=== PATIENT | male | born 1975 | race Caucasian/White ===

== ENCOUNTER 2022-08-26 09:00 | Outpatient (CLI) | payer OTHER, SELFPAY ==
--- OUTSIDE RECORDS SUMMARY | 2022-08-26 18:27 | XMS_ITS | Continuity of Care Document ---
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 Please contact the source practice for further details. Medications Medication Instructions Dosage Effective Dates (start - stop) Status Comments Cimzia 400 mg/2 mL (200 mg/mL x 2) subcutaneous syringe kit inject 1 pen (200mg/mL) by Subcutaneous route every 2 weeks - Active 1 kit = 2 pens K50.80 atorvastatin 20 mg tablet take 1 tablet by oral route every day 20 MG - Active methotrexate sodium 2.5 mg tablet take 8 Tablet by ORAL route every week 20 MG - Active Needs labs and office visit for further refills folic acid 1 mg tablet take 1 tablet by ORAL route every day 1 MG - Active Ozempic 0.25 mg or 0.5 mg (2 mg/1.5 mL) subcutaneous pen injector inject (0.5MG) by subcutaneous route every week - Active metformin 500 mg tablet take 4 tablet by oral route every day 2000 MG - Active lisinopril 5 mg tablet take 1 tablet by oral route every day 5 MG - Active metoprolol tartrate 50 mg tablet take 1 by Oral route 2 times every day 1 - Active Tylenol 325 mg tablet take 2 tablets (650MG) by ORAL route every as needed 650 MG - Active Keflex 750 mg capsule take 1 capsule by oral route 4 times every day 750 MG - Active Cimzia 400 mg/2 mL (200 mg/mL x 2) subcutaneous syringe kit inject 1 pen (200mg/mL) by Subcutaneous route every 2 weeks - No Longer Active 1 kit = 2 pens K50.80 Procedures Procedure Date Routine Serum Collection Routine Serum Collection Routine Serum Collection Routine Serum Collection Routine Serum Collection Colonoscopy Flex; W/bx 1/mx Level Iv-surg Path Gross/micro 22 Established Level 3 Routine Serum Collection Routine Serum Collection Routine Serum Collection Routine Serum Collection Colonoscopy Flex; Dx (sep Pro) Routine Serum Collection Urea Nitro; Phill Creatinine; Bld Hepatic Function Panel Bld Ct; Hg/pltlt Ct Auto/compl 21 Established Level 3 Routine Serum Collection Bld Ct; Hg/pltlt Ct Auto/compl Urea Nitro; Phill Creatinine; Bld Hepatic Function Panel Routine Serum Collection Urea Nitro; Phill Creatinine; Bld Hepatic Function Panel Bld Ct; Hg/pltlt Ct Auto/compl Routine Serum Collection Bld Ct; Hg/pltlt Ct Auto/compl 20 Urea Nitro; Phill Creatinine; Bld Hepatic Function Panel Routine Serum Collection Bld Ct; Hg/pltlt Ct Auto/compl 20 Urea Nitro; Phill Creatinine; Bld Hepatic Function Panel Virtual Visit E&m Estab Low-mod Mi n cancelled appt Virtual Visit E&m Estab Low-mod Mi n Dilat Esoph-sound/bougie-1/mx 0 Ugi Endo; W/bx 1/mx Level Iv-surg Path Gross/micro 20 Offic/outpt E&m Estab Mod-hi 2 20 Routine Serum Collection Urea Nitro; Phill Creatinine; Bld Hepatic Function Panel Bld Ct; Hg/pltlt Ct Auto/compl 20 Routine Serum Collection Urea Nitro; Phill Creatinine; Bld Hepatic Function Panel Bld Ct; Hg/pltlt Ct Auto/compl 19 Routine Serum Collection Urea Nitro; Phill Creatinine; Bld Hepatic Function Panel Bld Ct; Hg/pltlt Ct Auto/compl 19 Offic/outpt E&m Estab Low-mod 9 Routine Serum Collection Urea Nitro; Phill Creatinine; Bld Hepatic Function Panel Bld Ct; Hg & Platelet Ct Autom Routine Serum Collection Bld Ct; Hg/pltlt Ct Auto/compl Urea Nitro; Phill Creatinine; Bld Hepatic Function Panel Routine Serum Collection Urea Nitro; Phill Creatinine; Bld Hepatic Function Panel Bld Ct; Hg/pltlt Ct Auto/compl 19 Routine Serum Collection Urea Nitro; Phill Creatinine; Bld Hepatic Function Panel Bld Ct; Hg/pltlt Ct Auto/compl 18 Offic/outpt E&m Estab Low-mod 8 Routine Serum Collection Cyanocobalamin Hepatic Function Panel Bld Ct; Hg/pltlt Ct Auto/compl 18 Colonoscopy Flex; Dx (sep Pro) 17 Offic/outpt E&m Estab Low-mod 7 Routine Serum Collection Cyanocobalamin Hepatic Function Panel Bld Ct; Hg/pltlt Ct Auto/compl 17 Routine Serum Collection Urea Nitro; Phill Creatinine; Bld Hepatic Function Panel Bld Ct; Hg/pltlt Ct Auto/compl 17 Routine Serum Collection Urea Nitro; Phill Creatinine; Bld Hepatic Function Panel Bld Ct; Hg/pltlt Ct Auto/compl 17 Routine Serum Collection Urea Nitro; Phill Creatinine; Bld Hepatic Function Panel Bld Ct; Hg/pltlt Ct Auto/compl 17 Routine Serum Collection Urea Nitro; Phill Creatinine; Bld Hepatic Function Panel Bld Ct; Hg/pltlt Ct Auto/compl 16 Routine Serum Collection Urea Nitro; Phill Creatinine; Bld Hepatic Function Panel Bld Ct; Hg/pltlt Ct Auto/compl 16 Routine Serum Collection Offic/outpt E&m Estab Low-mod [address] Hg/pltlt Ct Auto/compl 16 Hepatic Function Panel Routine Serum Collection Bld Ct; Hg/pltlt Ct Auto/compl 16 Hepatic Function Panel Creatinine; Bld Urea Nitro; Phill Routine Serum Collection Bld Ct; Hg/pltlt Ct Auto/compl 16 Hepatic Function Panel Creatinine; Bld Urea Nitro; Phill Routine Serum Collection Bld Ct; Hg/pltlt Ct Auto/compl 16 Hepatic Function Panel Creatinine; Bld Urea Nitro; Phill Routine Serum Collection Bld Ct; Hg/pltlt Ct Auto/compl 15 Hepatic Function Panel Creatinine; Bld Urea Nitro; Phill Offic/outpt E&m Estab Low-mod Routine Serum Collection Bld Ct; Hg/pltlt Ct Auto/compl 15 Hepatic Function Panel Creatinine; Bld Urea Nitro; Phill Routine Serum Collection Bld Ct; Hg/pltlt Ct Auto/compl 15 Hepatic Function Panel Creatinine; Bld Urea Nitro; Phill Routine Serum Collection Bld Ct; Hg/pltlt Ct Auto/compl 15 Hepatic Function Panel Creatinine; Bld Urea Nitro; Phill Offic/outpt E&m Estab Mod-hi 2 15 Routine Serum Collection Bld Ct; Hg/pltlt Ct Auto/compl 15 Hepatic Function Panel Creatinine; Bld Urea Nitro; Phill Routine Serum Collection Bld Ct; Hg/pltlt Ct Auto/compl 14 Hepatic Function Panel Creatinine; Bld Urea Nitro; Phill Routine Serum Collection Bld Ct; Hg/pltlt Ct Auto/compl 14 Hepatic Function Panel Creatinine; Bld Urea Nitro; Phill Routine Serum Collection Bld Ct; Hg/pltlt Ct Auto/compl 14 Hepatic Function Panel Creatinine; Bld Urea Nitro; Phill Offic/outpt E&m Estab Mod-hi 2 14 Routine Serum Collection Bld Ct; Hg/pltlt Ct Auto/compl 14 Hepatic Function Panel Creatinine; Bld Urea Nitro; Phill Routine Serum Collection Bld Ct; Hg/pltlt Ct Auto/compl 14 Hepatic Function Panel Creatinine; Bld Urea Nitro; Phill Colonoscopy Flex; Dx (sep Pro) 13 Routine Serum Collection Bld Ct; Hg/pltlt Ct Auto/compl 13 Hepatic Function Panel Creatinine; Bld Urea Nitro; Phill Routine Serum Collection Bld Ct; Hg/pltlt Ct Auto/compl 13 Hepatic Function Panel Creatinine; Bld Urea Nitro; Phill Offic/outpt E&m Estab Mod-hi 2 13 Routine Serum Collection Bld Ct; Hg/pltlt Ct Auto/compl 13 Hepatic Function Panel Creatinine; Bld Urea Nitro; Phill Routine Serum Collection Bld Ct; Hg/pltlt Ct Auto/compl 13 Hepatic Function Panel Creatinine; Bld Urea Nitro; Phill Offic/outpt E&m Estab Low-mod 3 Routine Serum Collection Bld Ct; Hg/pltlt Ct Auto/compl 13 Hepatic Function Panel Creatinine; Bld Urea Nitro; Phill Bld Ct; Hg/pltlt Ct Auto/compl 13 Hepatic Function Panel Creatinine; Bld Urea Nitro; Phill Routine Serum Collection Routine Serum Collection Bld Ct; Hg/pltlt Ct Auto/compl 13 Offic/outpt E&m Estab Low-mod 3 Routine Serum Collection Bld Ct; Hg/pltlt Ct Auto/compl 13 Routine Serum Collection Bld Ct; Hg & Platelet Ct Autom 13 Hepatic Function Panel Offic/outpt E&m Estab Mod-hi 4 13 Colonoscopy Flex; Dx (sep Pro) 13 Routine Serum Collection Bld Ct; Hg/pltlt Ct Auto/compl 13 Hepatic Function Panel Hep A-hep B Vaccine Adult Dose 13 Immuniz Admin; 1/combo Vacc/to 13 Offic/outpt E&m Estab Mod-hi 4 12 Routine Serum Collection G8447 Hep A-hep B Vaccine Adult Dose 12 Immuniz Admin; 1/combo Vacc/to 12 Iron Iron Binding Capacity Ferritin Offic/outpt E&m Estab Mod-hi 2 12 Routine Serum Collection G8447 Immuniz Admin; 1/combo Vacc/to 12 Pneumococcal Polysacch Vac-liat 12 Hepatitis C Antibody; Hepatitis A Antibody; Igg & Ig 12 Ag-immunoassay; Hep B Surface 2 Hepatitis B Surface Antibody C-reactive Prot Transferase; Alanine Amino Bld Ct; Hg/pltlt Ct Auto/compl 12 Hepatic Function Panel Routine Serum Collection Bld Ct; Hg/pltlt Ct Auto/compl 12 Sed Rate, Erythrocyte; Auto Cyanocobalamin Hepatic Function Panel Creatinine; Bld Ferritin Offic/outpt E&m New Mod-hi Routine Serum Collection G8447 Advance Directives Directive Yes / No Effective Date File Name No Information Encounters Encounter Description Practice Location Reason(s) For Visit Diagnoses Date Provider Providers Copied on Encounter [facility], [address] [address], [place], [address], [place] tel:[phone] [facility] No Information 3 Marine Harley. [address] [facility], [address], [id number], [place]. tel:[phone] [facility], [address] [address], [place], [address], [place] tel:[phone] [facility] Crohn's disease of large intestine without complications 3 Damion Montano. [address] [facility], [address], [id number], [place]. tel:[phone] Referring Provider: Referral Self. [facility], [address] [address], [place], [address], [place] tel:[phone] [facility] Crohn's disease of large intestine without complications 3 Damion Montano. [address] [facility], [facility] [address], [place], [address], [place]. tel:[phone] Referring Provider: Referral Self. [facility], [address] [address], [place], [address], [place] tel:[phone] [facility] Crohn's disease of small intestine without complications 2 Damion Montano. [address] [facility], [address], [id number], [place]. tel:[phone] Referring Provider: Referral Self. [facility], [address] [address], [place], [address], [place] tel:[phone] [facility] Crohn's disease of large intestine without complications 2 Damion SUERO Michael. [address] [facility], [facility] [address], [place], [place], [address], [place]. tel:[phone] Referring Provider: Referral Self. [facility], [address] [address], [place], [address], [place] tel:[phone] [facility] Crohn's disease of large intestine without complication 2 Damion SUERO Michael. [address] [facility], [facility] [address], [place], [address], [place]. tel:[phone] [facility], [address] [address], [place], [address], [place] tel:[phone] [facility] Crohn's disease of large intestine without complication 2 Damion SUERO Michael. [address] [facility], [facility] [address], [place], [address], [place]. tel:[phone] Referring Provider: Referral Self. [facility], [address] [address], [place], [address], [place] tel:[phone] [facility] GI Symptoms or Concerns (chief complaint) Crohn's disease of both small and large intestine without complicationC rohn's disease of both small and lg int w/o complications Crohn's disease of both small and lg int w/o complications 2 Shane Espino. [address] [facility], [facility] [address], [place], [address], [place]. tel:[phone] Referring Provider: Referral Self. [facility], [address] [address], [place], [place], [address], [place] tel:[phone] [facility] No Information 2 Marine Harley. [address] [facility], [facility] [address], [place], [address], [place]. [phone] Established Level 3 [facility], [address] [address], [place], [address], [place] tel:[phone] [facility] GI Symptoms or Concerns (chief complaint) Crohn's disease of both small and lg int w/o complications 2 Marine Harley. [address] [facility], [address], [id number], [place]. tel:[phone] Referring Provider: Referral Self. [facility], [address] [address], [place], [address], [place] tel:[phone] [facility] No Information 2 Rich Jenkins. [address] [facility], [address], [id number], [place]. tel:[phone] [facility], [address] [address], [place], [address], [place] tel:[phone] [facility] Crohn's disease of small intestine without complications 2 Lela Bansal. [address] [facility], [address], [id number], [place]. tel:[phone] Referring Provider: Moni Noland MD, [address], [place], [address]. tel:[phone] [facility], [address] [address], [place], [place], [address], [place] tel:[phone] [facility] No Information 2 Lela Bansal. [address] [facility], [facility] [address], [place], [address], [place]. tel:[phone] [facility], [address] [address], [place], [address], [place] tel:[phone] [facility] No Information 2 Lela Bansal. [address] [facility], [address], [id number], [place]. tel:[phone] [facility], [address] [address], [place], [place], [address], [place] tel:[phone] [facility] Crohn's disease of small intestine without complications 2 Damion Whitek. [address] [facility], [facility] [address], [place], [address], [place]. tel:[phone] Referring Provider: Referral Self. [facility], [address] [address], [place], [address], [place] tel:[phone] [facility] Crohn's disease of both small and lg int w/o complications 2 Damion SUERO Michael. [address] [facility], [facility] [address], [place], [address], [place]. tel:[phone] Referring Provider: Referral Self. [facility], [address] [address], [place], [address], [place] tel:[phone] [facility] No Information 2 Karla Nelson. [address] [facility], [facility] [address], [place], [address], [place]. tel:[phone] [facility], [address] [address], [place], [address], [place] tel:[phone] [facility] Crohn's disease of both small and lg int w/o complications 1 Damion Montano. [address] [facility], [facility] [address], [place], [address], [place]. tel:[phone] Referring Provider: Referral Self. [facility], [address] [address], [place], [address], [place] tel:[phone] [facility] No Information 1 Karla Nelson. [address] [facility], [facility] [address], [place], [address], [place]. tel:[phone] [facility], [address] [address], [place], [address], [place] tel:[phone] [facility] Crohn's disease of both small and lg int w/o complications Crohn's disease of both small and lg int w/o complications 1 Deirdre Ibanez. [address] [facility], [facility] [address], [place], [address], [place]. [phone] Referring Provider: Referral Self. [facility], [address] [address], [place], [address], [place] tel:[phone] [facility] Crohn's disease of both small and lg int w/o complications 1 Deirdre Ibanez. [address] [facility], [facility] [address], [place], [address], [place]. tel:[phone] Referring Provider: Referral Self. Established Level 3 [facility], [address] [address], [place], [address], [place] tel:[phone] [facility] GI Symptoms or Concerns (chief complaint) Crohn's disease of both small and large intestine without complication 1 Lela Bansal. [address] [facility], [facility] [address], [place], [address], [place]. tel:[phone] Referring Provider: Referral Self. [facility], [address] [address], [place], [address], [place] tel:[phone] [facility] No Information 1 Damion Montano. [address] [facility], [facility] [address], [place], [address], [place]. tel:[phone] [facility], [address] [address], [place], [address], [place] tel:[phone] [facility] Crohn's disease of large intestine without complication 1 Damion Montano. [address] [facility], [facility] [address], [place], [address], [place]. tel:[phone] Referring Provider: Referral Self. [facility], [address] [address], [place], [address], [place] tel:[phone] [facility] No Information 1 Karla Nelson. [address] [facility], [facility] [address], [place], [address], [place]. tel:[phone] [facility], [address] [address], [place], [place], [address], [place] tel:[phone] [facility] Crohn's disease of large intestine without complication 1 Damion Montano. [address], [id number], [place]. [phone] Referring Provider: Referral Self. [facility] Zenaida ABDALLA, [address] [address], [facility], [address], [place] tel:[phone] [facility] Crohn's disease of both small and large intestine without complication 0 Damion Villfaana [address], [id number], [place]. tel:[phone] Referring Provider: Michael [place] DO, [address] [facility] [address], [facility] [place], [address] . tel:[phone] [facility] Zenaida ABDALLA, [address] [address], [facility] [place], [address], [place] tel:[phone] [facility] Crohn's disease of both small and large intestine without complication 0 Damion Villafana [address], [address], [place]. tel:[phone] Referring Provider: Referral Self. Virtual Visit E&m Estab Low-mod 15-24 Min [facility], [address] [address], [place], [place], [address], [place] tel:[phone] [facility] Additional Narrative (chief complaint)C omment (chief complaint) Crohn's disease of both small and large intestine without complication 0 Damion Villafana [address], [id number], [place]. tel:[phone] Referring Provider: Referral Self. [facility] Dig[facility]ive [facility], [address] [address], [place], [address], [place] tel:[phone] [facility] GI Symptoms or Concerns (chief complaint) No Information Aug-3 0 Damion Montano. [address] [facility], [facility] [address], [place], [place], [address], [place]. tel:[phone] Referring Provider: Referral Self. Virtual Visit E&m Estab Low-mod 15-25 Min [facility], [address] [address], [place], [address], [place] tel:[phone] [facility] GI Symptoms or Concerns (chief complaint) Gastro-esopha geal reflux disease with esophagitisAb normal findings on dx imaging of oth body structures 0 Rylan Arias. [address] [facility], [address], [id number], [place]. tel:[phone] Referring Provider: Referral Self. [facility], [address] [address], [place], [address], [place] tel:[phone] [facility] Lower esophageal ring (Schatzki)HH (hiatus hernia)Gastro esophageal reflux disease with esophagitisCr ohn's disease of large intestine without complicationA bnormal CT of the chestAbnormal findings on dx imaging of ot body structuresDuo denitis without bleedingAbnor mal findings on dx imaging of ot body structuresGas tro-esophagea l reflux disease with esophagitisEs ophageal obstruction Jul-2 0 Rylan Arias. [address] [facility], [facility] [address], [place], [address], [place]. tel:[phone] Referring Provider: Referral Self. Offic/outpt E&m Estab Mod-hi 2 [facility], [address] [address], [place], [address], [place] tel:[phone] [facility] GI Symptoms or Concerns (chief complaint) Gastroesophag eal reflux disease, esophagitis presence not specifiedEsop hageal dysphagiaAbno rmal CT of the chest 0 Rylan Arias. [address] [facility], [facility] [address], [place], [place], [address], [place]. tel:[phone] Referring Provider: Referral Self. [facility], [address] [address], [place], [address], [place] tel:[phone] [facility] Crohn's disease of large intestine without complication 0 Damion Michael. [address] [facility], [facility] [address], [place], [address], [place]. tel:[phone] Referring Provider: Referral Self. CAR[facility] ABDALLA, [address] [address], [place], [address], [place] tel:[phone] [facility] No Information 9 Damion SUERO Michael. [address] [facility], [facility] [address], [place], [address], [place]. tel:[phone] [facility] A[facility]ALLA, [address] [address], [place], [address], [place] tel:[phone] [facility] Crohn's disease of both small and large intestine without complication 9 Damion SUERO Michael. [address] [facility], [facility] [address], [place], [address], [place]. tel:[phone] Referring Provider: Referral Self. CAR[facility] ABDALLA, [address] [address], [place], [place], [address], [place] tel:[phone] [facility] Crohn's disease of large intestine without complication 9 Damion DO Michael. [address] [facility], [facility] [address], [place], [address], [place]. tel:[phone] Referring Provider: Referral Self. CAREN ABDALLA, [address] [address], [place], [place], [address], [place] tel:[phone] [facility] Crohn's disease of both small and large intestine without complication 9 Damion SUERO Michael. [address] [facility], [facility] [address], [place], [address], [place]. tel:[phone] Offic/outpt E&m Estab Low-mod [facility], [address] [address], [place], [address], [place] tel:[phone] [facility] GI Symptoms or Concerns (chief complaint) Crohn's disease of large intestine without complicationD ietary counseling and surveillanceE levated blood-pressur e reading, w/o diagnosis of htn 9 Damion Montano. [address] [facility], [address], [id number], [place]. tel:[phone] Referring Provider: Referral Self. [facility], [address] [address], [place], [address], [place] tel:[phone] [facility] Elevated LFTs 9 Damion Montano. [address] [facility], [address], [address], [place]. tel:[phone] [facility] ABDALLA, [address] [address], [place], [address], [place] tel:[phone] [id number] [facility] Crohn's disease of large intestine without complication 9 Damion Montano. 3001 [facility], [address], [id number], [place]. tel:[phone] Referring Provider: Referral Self. CAREN ABDALLA, [address] [address], [place], [id number], [place] tel:[phone] [facility] Crohn's disease of large intestine without complication 9 Damion Montano. 3001 [facility], [facility] [address], [place], [address], [place]. tel:[phone] Referring Provider: Referral Self. CAREN ABDALLA, [address] [address], [place], [address], [place] tel:[phone] [facility] Crohn's disease of large intestine without complication 8 Damion SUERO Michael. 3001 [facility], [address], [id number], [place]. tel:[phone] Referring Provider: Referral Self. Offic/outpt E&m Estab Low-mod [facility], [address] [address], [place], [place], [address], [place] tel:[phone] [facility] GI Symptoms or Concerns (chief complaint)A dditional Narrative (chief complaint) Crohn's disease of large intestine without complicationD ietary counseling and surveillance 8 Damion Michael. 3001 [facility], [facility] [address], [place], [address], [place]. tel:[phone] Referring Provider: Referral Self. [facility], [address] [address], [place], [address], [place] tel:[phone] [facility] Crohn's disease of both small and lg int w/o complications 8 Damion Montano. [address] [place] [address], [address], [id number], [place]. tel:[phone] [facility], [address] [address], [place], [address], [place] tel:[phone] [facility] Crohn's disease of both small and lg int w/o complications Crohn's disease of both small and lg int w/o complications 0 7 Damion Montano. [address]001 [facility], [address], [id number], [place]. tel:[phone] Referring Provider: Referral Self. Offic/outpt E&m Estab Low-mod [facility], [address] [address], [place], [address], [place] tel:[phone] [facility] GI Symptoms or Concerns (chief complaint)A dditional Narrative (chief complaint) Crohn's disease of both small and large intestine without complication Jan- 7 Damion SUERO Michael. [address]001 [facility], [facility] [address], [place], [id number], [place]. tel:[phone] Referring Provider: Referral Self. [facility], [address] [address], [place], [address], [place] tel:[phone] [facility] Crohn's disease of large intestine without complications 3 7 Damion DO Michael. [address]001 [facility], [address], [id number], [place]. tel:[phone] Referring Provider: Referral Self. CAREN ABDALLA, [address] [address], [place], [address], [place] tel:[phone] [facility] Crohn's disease of large intestine without complication 7 Damion DO Michael. [address]001 [facility], [facility] [address], [place], [address], [place]. tel:[phone] CAREN ABDALLA, [address] [address], [place], [address], [place] tel:[phone] [facility] Crohn's disease of both small and lg int w/o complications 7 Damion SUERO Michael. [address] [facility], [facility] [address], [place], [address], [place]. tel:[phone] Referring Provider: Referral Self. CAREN ABDALLA, [address] [address], [place], [address], [place] tel:[phone] [facility] Crohn's disease of both small and lg int w/o complications 7 Damion SUERO Michael. [address]001 [facility], [address], [id number], [place]. tel:[phone] Referring Provider: Referral Self. CAREN ABDALLA, [address] [address], [place], [address], [place] tel:[phone] [facility] Crohn's disease of both small and large intestine without complication 0 6 Damion DO Michael. [address]001 [facility], [facility] [address], [place], [address], [place]. tel:[phone] CAREN ABDALLA, [address] [address], [place], [address], [place] tel:[phone] [facility] Crohn's disease of both small and large intestine without complication 6 Damion Montano. [address] [facility], [facility] [address], [place], [address], [place]. tel:[phone] Referring Provider: Referral Self. CAREN ABDALLA, [address] [address], [place], [id number], [place] tel:[phone] [facility] Crohn's disease of both small and large intestine without complication 6 Damion Montano. [address] [facility], [facility] [address], [place], [address], [place]. tel:[phone] Referring Provider: Referral Self. Offic/outpt E&m Estab Low-mod CAREN ABDALLA, [address] [address], [place], [address], [place] tel:[phone] [facility] GI Symptoms or Concerns (chief complaint)A dditional Narrative (chief complaint) Crohn's disease of both small and large intestine without complication 6 Damion Montano. 3001 [facility], [address], [id number], [place]. tel:[phone] Referring Provider: Referral Self. CAREN ABDALLA, [address] [address], [place], [address], [place] tel:[phone] [facility] Crohn's disease of both small and lg int w/o complications 6 Damion Montano. [address] [facility], [facility] [address], [place], [address], [place]. tel:[phone] Referring Provider: Referral Self. CAREN ABDALLA, [address] [address], [place], [address], [place] tel:[phone] [facility] Crohn's disease of both small and lg int w/o complications 6 Damion Montano. [address] [facility], [facility] [address], [place], [address], [place]. tel:[phone] CAREN ABDALLA, [address] [address], [place], [address], [place] tel:[phone] [facility] Crohn's disease of both small and lg int w/o complications 6 Damion Montano. 3001 [facility], [address], [id number], [place]. tel:[phone] Referring Provider: Referral Self. [facility], [address] [address], [place], [address], [place] tel:[phone] [facility] Crohn's disease of both small and large intestine without complications 6 Damion Montano. [address]001 [facility], [address], [id number], [place]. tel:[phone] [facility], [address] [address], [place], [address], [place] tel:[phone] [facility] Crohn's disease of both small and large intestine without complications 6 Damion Montano. [address]001 [facility], [address], [id number], [place]. tel:[phone] Referring Provider: Referral Self. [facility] [employer] [facility], [address] [address], [place], [place], [address], [place] tel:[phone] [facility] Crohn's disease of both small and large intestine without complications 5 Damion Montano. [address] [place] [address], [address], [id number], [place]. tel:[phone] Referring Provider: Referral Self. Offic/outpt E&m Estab Low-mod [facility], [address] [address], [place], [place], [address], [place] tel:[phone] [facility] GI Symptoms or Concerns (chief complaint)A dditional Narrative (chief complaint) Crohn's Small/large IntestineDiet clara Surveil/couns elHypertensio n, UnspecifiedCr ohn's disease of both small and large intestine without complications Dietary counseling and surveillanceE ssential (primary) hypertension 5 Damion Montano. [address] [place] [address], [id number], [place]. tel:[phone] Referring Provider: Referral Self. [facility], [address] [address], [place], [id number], [place] tel:[phone] [facility] Crohn's Ileitis 5 Damion Montano. [address], [id number], [place]. tel:[phone] Referring Provider: Anne Marie Barry, [address] [place] [address], [address]. tel:[phone] [facility], [address] [address], [place], [id number], [place] tel:[phone] [facility] No Information 5 Damion Montano. [address] [place] [address], [id number], [place]. tel:[phone] Referring Provider: Referral Self. [facility], [address] [address], [place], [id number], [place] tel:[phone] [facility] Crohn's Small/large Intestine 5 Valeriano Baxter. [address] [place] [address], [id number], [place]. tel:[phone] Offic/outpt E&m Estab Mod-hi 2 [facility], [address] [address], [place], [id number], [place] tel:[phone] [facility] GI Symptoms or Concerns (chief complaint)A dditional Narrative (chief complaint) Crohn's IleitisArthro pathyCrohn's disease of small intestine without complications 5 Damion Montano. [address] [place] [address], [id number], [place]. tel:[phone] Referring Provider: Referral Self. [facility], [address] [address], [place], [address], [place] tel:[phone] [facility] Crohn's Small/large Intestine Oct-0 7 4 Damion Whitek. 3001 [facility], [address], [address], [place]. tel:[phone] Referring Provider: Referral Self. [facility] Zenaida ABDALLA, [address] [address], [place], [id number], [place] tel:[phone] [facility] Crohn's Small/large Intestine Dec-0 4 Damion Montano. [address] [place] [address], [id number], [place]. tel:[phone] Referring Provider: Referral Self. [facility] Zenaida ABDALLA, [address] [address], [place], [id number], [place] tel:[phone] [facility] Crohn's Small/large Intestine Oct-0 4 Damion Montano. [address] [place] [address], [id number], [place]. tel:[phone] Referring Provider: Referral Self. Offic/outpt E&m Estab Mod-hi 2 [facility] Zenaida ABDALLA, [address] [address], [place], [address], [place] tel:[phone] [facility] GI Symptoms or Concerns (chief complaint)A dditional Narrative (chief complaint) Dietary Surveil/couns elHypertensio n, UnspecifiedCr ohn's Ileitis Oct-0 2-201 4 Damion DO Rodriguez. [address] [place] [address], [id number], [place]. tel:[phone] Referring Provider: Referral Self. [facility] Zenaida ABDALLA, [address] [address], [place], [id number], [place] tel:[phone] [facility] Crohn's Small/large Intestine Aug- 4 Damion Whitek. [address] [place] [address], [id number], [place]. tel:[phone] Referring Provider: Referral Self. [facility] Zenaida ABDALLA, [address] [address], [place], [id number], [place] tel:[phone] [facility] Crohn's Small/large Intestine Jun-0 4 Damion Michael. 3001 [facility], [facility] [address], [address], [place]. tel:[phone] Referring Provider: Referral Self. [facility] Zenaida ABDALLA, [address] [address], [place], [id number], [place] tel:[phone] [facility] Regional Enteritis NosRegional Enteritis Nos Apr- 0 3 Damion SUERO Michael. 3001 [facility], [facility] [address], [place], [address], [place]. tel:[phone] Referring Provider: Referral Self. [facility] Zenaida ABDALLA, [address] [address], [place], [id number], [place] tel:[phone] [facility] Crohn's Small/large Intestine Apr- 0 3 Damion SUERO Michael. [address] [place] [address], [id number], [place]. tel:[phone] Referring Provider: Referral Self. [facility], [address] [address], [place], [id number], [place] tel:[phone] [facility] Crohn's Small/large Intestine Feb-3 3 Damion Whitek. 3001 [facility], [address], [id number], [place]. tel:[phone] Referring Provider: Referral Self. Offic/outpt E&m Estab Mod-hi 2 [facility], [address] [address], [place], [id number], [place] tel:[phone] [facility] Crohns (chief complaint) Crohn's Small/large IntestineCroh n's Small/large Intestine Feb-2 3 3 Damion Michael. 3001 [facility] [address], [place], [id number], [place]. tel:[phone] Referring Provider: Referral Self. [facility], [address] [address], [place], [id number], [place] tel:[phone] [facility] Crohn's Small/large Intestine 3 Damion SUERO Michael. 3001 [facility], [facility] [address], [place], [address], [place]. tel:[phone] Referring Provider: Referral Self. [facility], [address] [address], [place], [id number], [place] tel:[phone] [facility] Crohn's Small/large Intestine 3 Damion SUERO Michael. 3001 [facility], [facility] [address], [place], [address], [place]. tel:[phone] Referring Provider: Referral Self. Offic/outpt E&m Estab Low-mod [facility], [address] [address], [place], [id number], [place] tel:[phone] [facility] Crohns (chief complaint) Crohn's Small/large Intestine 3 Damion SUERO Michael. 3001 [facility], [address], [id number], [place]. tel:[phone] Referring Provider: Referral Self. [facility], [address] [address], [place], [id number], [place] tel:[phone] [facility] Crohn's Small/large Intestine 3 Damion SUERO Michael. 3001 [facility], [facility] [address], [place], [address], [place]. tel:[phone] Referring Provider: Referral Self. [facility], [address] [address], [place], [id number], [place] tel:[phone] [facility] Crohn's Small/large Intestine 3 Damion SUERO Michael. 3001 [facility], [facility] [address], [place], [address], [place]. tel:[phone] Referring Provider: Referral Self. Offic/outpt E&m Estab Low-mod [facility], [address] [address], [place], [id number], [place] tel:[phone] [facility] Cimzia injection teaching (chief complaint) Crohn's Small/large Intestine 3 No Information Referring Provider: Referral Self. [facility]ive [facility] RM, [address] [address], [place], [id number], [place] tel:[phone] [facility] Crohn's Small/large Intestine 3 No Information Referring Provider: Michael Bruno DO, [address] [facility] [address], [place], [address] . tel:[phone] Offic/outpt E&m Estab Mod-hi 4 [facility], [address] [address], [place], [id number], [place] tel:[phone] [facility] Crohns (chief complaint) Crohn's Small/large IntestineCroh n's Small/large Intestine 3 Damion Montano. 3001 [facility], [facility] [address], [place], [place], [address], [place]. tel:[phone] Referring Provider: Referral Self. [facility] RM, [address] [address], [place], [id number], [place] tel:[phone] [facility] Crohns (chief complaint) Crohn's Small/large IntestineCroh n's Small/large Intestine 3 Damion Montano. 3001 [facility], [facility] [address], [place], [place], [address], [place]. tel:[phone] Referring Provider: Referral Self. [facility] RM, [address] [address], [place], [id number], [place] tel:[phone] [facility] Crohn's Small/large Intestine 3 Damion Montano. [address] [facility], [address], [place], [place], [address], [place]. tel:[phone] Referring Provider: Referral Self. [facility] RM, [address] [address], [place], [id number], [place] tel:[phone] [facility] Crohn's Small/large Intestine 3 Damion Montano. [address] [place] [address], [place], [place], [id number], [place]. tel:[phone] Referring Provider: Last Novak, [address] [facility], [place], [address]. tel:[phone] Offic/outpt E&m [facility] Mod-hi 4 [facility], [address] [address], [facility] [facility], [id number], [place] tel:[phone] [facility] Crohns (chief complaint) Crohn's Small/large IntestineCroh n's Small/large IntestineAbn Blood Chemistry NecVacc For Viral Hepatitis 2 [facility]. [address] [place] [address], [id number], [place]. tel:[phone] Referring Provider: Last Novak, [address] [facility], [place], [address]. tel:[phone] Offic/outpt E&m [facility] Mod-hi 2 [facility], [address] [address], [facility] [place], [address], [place] tel:[phone] [facility] Crohn's f/u (chief complaint) Crohn's IleitisCrohn' s Small/large IntestineVacc in Strep Pneumoniae 2 [facility]. [address] [place] [address], [place], [place], [address], [place]. tel:[phone] Referring Provider: Last Novak, [address] [facility], [place], [address]. tel:[phone] [facility], [address] [address], [facility] [facility], [id number], [place] tel:[phone] [facility] Crohn's Ileitis Feb-0 2 No Information Referring Provider: Referral Self. [facility], [address] [address], [place], [place], [address], [place] tel:[phone] [facility] Crohn's Ileitis Jan- 2 No Information Referring Provider: Referral Self. Offic/outpt E&m [facility], [address] [address], [place], [place], [address], tel:[phone] [facility] Crohns (chief complaint) Crohn's Ileitis No Information Referring Provider: Last Novak, [address], [place], [address]. tel:[phone] Family History Family Member Type Diagnosis Age At Onset Mother Problem (finding) Alive and well Son Problem (finding) Alive and well First degree family history Problem (finding) malignant neoplasm of uterus First degree family history Problem (finding) Colon Polyps Brother Problem (finding) Alive and well Mother Problem (finding) Cancer, ovarian Mother Problem (finding) Colon polyps Father Problem (finding) diverticulitis of colon Father Problem (finding) Colon polyps Sister Problem (finding) Alive and well First degree family history Problem (finding) diverticulitis of colon Son Problem (finding) Colon polyps Daughter Problem (finding) Alive and well Immunizations Vaccine Date Status Comments tetanus toxoid, reduced diphtheria toxoid, and acellular pertussis vaccine, adsorbed administered Note: [facility] b i-directional interface ; Source: Other Registry SARS-COV-2 (COVID-19) vaccin e, mRNA, spike protein, LNP, preservative free, 100 mcg/0.5mL dose or 50 mcg/0.25mL dose administered Note: [facility] bi -directional interface ; Source: Other Registry SARS-COV-2 (COVID-19) vaccin e, mRNA, spike protein, LNP, preservative free, 100 mcg or 50 mcg dose administered Note: [facility] bi-direct ional interface ; Source: Other Registry SARS-COV-2 (COVID-19) vaccin e, mRNA, spike protein, LNP, preservative free, 100 mcg/0.5mL dose or 50 mcg/0.25mL dose administered Note: [facility] bi -directional interface ; Source: Other Registry SARS-COV-2 (COVID-19) vaccin e, mRNA, spike protein, LNP, preservative free, 100 mcg or 50 mcg dose administered Note: [facility] bi-direct ional interface ; Source: Other Registry SARS-COV-2 (COVID-19) vaccin e, mRNA, spike protein, LNP, preservative free, 100 mcg/0.5mL dose administered Note: [facility] bi-direct ional interface ; Source: Other Registry SARS-COV-2 (COVID-19) vaccin e, mRNA, spike protein, LNP, preservative free, 100 mcg/0.5mL dose or 50 mcg/0.25mL dose administered Note: [facility] bi -directional interface ; Source: Other Registry SARS-COV-2 (COVID-19) vaccin e, mRNA, spike protein, LNP, preservative free, 100 mcg or 50 mcg dose administered Note: [facility] bi-direct ional interface ; Source: Other Registry SARS-COV-2 (COVID-19) vaccin e, mRNA, spike protein, LNP, preservative free, 100 mcg/0.5mL dose administered Note: [facility] bi-direct ional interface ; Source: Other Registry tetanus toxoid, reduced diphtheria toxoid, and acellular pertussis vaccine, adsorbed administered Note: [employer] b i-directional interface ; Source: Other Registry tetanus toxoid, reduced diphtheria toxoid, and acellular pertussis vaccine, adsorbed administered Note: [employer] b i-directional interface ; Source: Other Registry tetanus and diphtheria toxoi ds, adsorbed, preservative free, for adult use (2 Lf of tetanus toxoid and 2 Lf of diphtheria toxoid) administered Note: [facility] bi-direct ional interface ; Source: Other Registry Payers Payer name Insurance type Covered constitution party ID Authoriza tion(s) [employer] CI [id number] Social History Type Description Quantity Date Captured Comments Alcohol Use Details Unknown Caffeine Use Details Unknown Tobacco Use Status No Information Smoking Status No Information Sex Male Chief Complaint And Reason For Visit No Information Reason For Referral Reason For Referral No Information Plan Of Treatment Date Type Action Status Goal Lifestyle education regardin g diet completed Goal Lifestyle education regardin g diet completed Goal Lifestyle education regardin g diet completed Goal Lifestyle education regardin g diet completed Referral Ordered: follow-up visit with Michael Bruno DO 1 Year Appointment date/timeframe: 1 Year ordered Referral Ordered: EUS Appointment date/timeframe: -today ordered Referral Ordered: EGD Appointment date/timeframe: 08/22/2019 ordered Referral Ordered: referred to Dermatology skin ca screen Appointment date/timeframe: 02/06/2019 ordered Referral Ordered: Ultrasound Abdomen Appointment date/timeframe: -today ordered Referral Ordered: QuantiFERON TB Gold (In Tube) Appointment date/timeframe: -today ordered Referral Ordered: Colonoscopy Appointment date/timeframe: 03/18/2017 ordered Referral Ordered: follow-up visit with Michael Bruno DO 9-12 months ordered History Of Present Illness Encounter Date Complaint History Of Prese nt Illness GI Symptoms or Concerns GI Symptoms or Concerns This pat yamile is a pleasant 46-year-old male who is evaluated today via virtual visit for routine follow-up of Crohn's disease.Patient was diagnosed with ileal Crohn's disease in 2001. He is currently treated with Cimzia every 2 weeks and methotrexate 20 mg PO every 1 week. Crohn's symptoms remain well controlled and patient reports no recent flares. He is having 2-3 formed BMs daily. He denies fever, nausea, vomiting, abdominal pain, diarrhea, rectal bleeding, or urgency. He typically gets skin checks once per year. Recent labs reviewed - stable. Last colonoscopy 12/2020 was limited due to poor prep. Aphthous ulcers were seen in the terminal ileum. No biopsies obtained. It was recommended he repeat colonoscopy in 1 year with double prep.Prior GI surgery: NonePrior medical treatment/complications: - Steroids - Asacol - Pentasa - Remicade 3109-4624: secondarily lost response - MTX PO briefly in 1499-1681 (?duration) - Humira: 40 mg Q2 weeks started in 2006, changed to Q10 days in 2011, lost response 09/2012Current treatment: - AZA for 1 week 2011: resulted in severe arthragias, fevers and abd pain - Cimzia Q2 weeks: started 10/2012 - MTX: 15mg PO weekly started 10/2012, increased to 20 mg PO weekly for joint pain 05/2014Health maintenance: - Smoking: Previous smoker, quit 15+ yrs ago - NSAIDs: None - Derm: Referred in 2012 - TPMT: 29.03 January 2012 - Quantiferon: Negative 05/2015 - Influenza: Contraindicated, due to egg allergy. - Pneumovax: Given 03/14/12 - Hepatitis A/B: Non-immune, TwinRx started 04/26/12 - MMR: Up to date, per patient - Varicella/Zoster: Chicken pox as a child - Tdap: Up to date, per patient - DEXA: N/A - COVID: Received initial 2 doses + 1 booster GI Symptoms or Concerns The bronson ent is a 44-year-old gentleman with a history of Crohn's disease, who presents today for a yearly followup. Today's visit was completed via televisit, patient was in a private location with no other persons, consent was obtained. Patient has been doing very well since his last visit. He remains on Cimzia every 2 weeks and PO methotrexate 20mg per week. He states his Crohn's symptoms have been well controlled with little to no breakthrough symptoms or flares. He has been working hard on diet/exercise for weightloss and management of diabetes which also seems to be helping with his Crohn's symptoms. Most days he has 1-2 formed/soft BM's. No fecal urgency or diarrhea. He denies fevers, chills, nausea, vomiting, constipation, bloody stools or melena. No skin lesions or changes in vision. His last skin check was ~1 year ago and was reportedly normal. He typically gets skin checks once per year. Last colonoscopy was in 2017 with mild disease in the terminal ileum. He typically has colonoscopies every 2-3 years, he is due to have a colonoscopy this year. Disease distribution: Ileal Crohn's, dx [address] Cruz ([facility]). Phenotype: Mucosal diseaseEIM: Recurrent nephrolithiasis. Diagnostics:--Colonoscopy 02/2017 - Mild erythema and 2-3 diminutive aphthae in the TI, normal colon. --Colonoscopy 05/08/13 - mild aphthous ileitis in the distal 3cm, more proximal to this was normal. --Colonoscopy 10/13/2012 - distal 10 cm of ileum with diffuse aphthous ulcerations. No histopathology was obtained.--MRE 02/2012 failed to demonstrate any active inflammatory changes in the bowel. Changes consistent with fatty liver were described.--CT abd ([facility]) 02/23/12 - No abnormality to the small bowel. Hepatomegaly and splenomegaly were noted, the spleen measuring 18 cm in greatest dimension. Nonobstructing bilateral nephrolithiasis without hydronephrosis.--Colonoscopy with Dr. Cruz at [facility] 2008, 2010. Both of these were normal exams including TI eval. Histopath from normal appearing colon was unremarkable. Prior GI surgery: NonePrior medical treatment/complications: --Steroids--Asacol--Remicade 7337-3078, secondarily lost response. --MTX po briefly in 3824-0576 (?duration)--AZA for 1 week January 2012 - resulted in severe arthragias, fevers and abd pain--Humira 40 mg qow, started in 2006, changed to q 10 days in February 2012 - Lost response 09/2012.Current treatment:--Pentasa (for management of diarrhea symptoms only)--Cimzia twice a month (started 10/2012)--po MTX 15mg weekly (started 10/2012) - Increased to 20mg/wk for joint pain 06/18/14Health maintenance:Smoking - Previous smoker, quite 15 yrs agoNSAIDs - NoneDerm eval - Referred in 2012. Defer follow up recommendations to Derm.TPMT - 29.6 December 2011Quantiferon - Negative 05/2015 Influenza - Contraindicated, due to egg allergy.Pneumovax - Given 03/14/12Hepatits A/B - Non-immune, TwinRx started 04/26/12MMR - Up to date, per patientVaricella/Zoster - Chicken pox as a childTdap - Up to date, per patientDEXA - N/A Comment The patient is a 43-year-old gentleman with a history of Crohn's disease, who presents today for a televisit. Consent was obtained prior to proceeding with the documented conversation below.Hubert has recently been seeing Dr. Kwadwo Fagan for issues with heartburn. With the measures recommended, he has been feeling significantly better. Today's discussion was to reevaluate his Crohn's disease, which has been a little bit more symptomatic recently. He states that over the last several months, he is having more symptoms especially in the 3 to 4 days leading up to an injection. He is currently taking methotrexate, I believe, 15 mg per week, which has been through Rheumatology and also has been taking Cimzia, which we have been prescribing for his Crohn's disease, 200 mg every 2 weeks. He seems to do well for several days after his injection, but in the 3 to 4 days leading to an injection and then maybe a day or two afterward he has increasing symptoms of abdominal pain and diarrh September--2019 Additional Narrative Disease dis tribution: Ileal Crohn's, dx [address] Cruz ([facility]). Phenotype: Mucosal diseaseEIM: Recurrent nephrolithiasis. Diagnostics:--Colonoscopy 02/2017 - Mild erythema and 2-3 diminutive aphthae in the TI, normal colon. --Colonoscopy 05/08/13 - mild aphthous ileitis in the distal 3cm, more proximal to this was normal. --Colonoscopy 10/13/2012 - distal 10 cm of ileum with diffuse aphthous ulcerations. No histopathology was obtained.--MRE 02/2012 failed to demonstrate any active inflammatory changes in the bowel. Changes consistent with fatty liver were described.--CT abd ([facility]) 02/23/12 - No abnormality to the small bowel. Hepatomegaly and splenomegaly were noted, the spleen measuring 18 cm in greatest dimension. Nonobstructing bilateral nephrolithiasis without hydronephrosis.--Colonoscopy with Dr. Cruz at [facility] 2008, 2010. Both of these were normal exams including TI eval. Histopath from normal appearing colon was unremarkable. Prior GI surgery: NonePrior medical treatment/complications: --Steroids--Asacol--Remicade 4027-4099, secondarily lost response. --MTX po briefly in 6787-4511 (?duration)--AZA for 1 week January 2012 - resulted in severe arthragias, fevers and abd pain--Humira 40 mg qow, started in 2006, changed to q 10 days in February 2012 - Lost response 09/2012.Current treatment:--Pentasa (for management of diarrhea symptoms only)--Cimzia twice a month (started 10/2012)--po MTX 15mg weekly (started 10/2012) - Increased to 20mg/wk for joint pain 06/18/14Health maintenance:Smoking - Previous smoker, quite 15 yrs agoNSAIDs - NoneDerm eval - Referred in 2012. Defer follow up recommendations to Derm.TPMT - 29.6 December 2011Quantiferon - Negative 05/2015 Influenza - Contraindicated, due to egg allergy.Pneumovax - Given 03/14/12Hepatits A/B - Non-immune, TwinRx started 04/26/12MMR - Up to date, per patientVaricella/Zoster - Chicken pox as a childTdap - Up to date, per patientDEXA - N/A GI Symptoms or Concerns GI Symptoms or Concerns Hubert rubio called today for telemedicine visit. He was the only one on the phone. I did discuss with him limitations of the visit, he understood. Informed consent was obtained in followup to gastroesophageal reflux disease.This patient is a 43-year-old male with history of Crohn's disease, on Cimzia and followed by Dr. Bruno from our office. We had the opportunity to see him because of persistent reflux.Upper endoscopy performed 08/21 showed evidence of a hiatal hernia and erosive esophagitis. At that time, the patient was placed on 40 mg of omeprazole.When called today, he is actually doing well. He is not having further symptoms of heartburn. There is no dyspepsia, no regurgitation, no difficulty with swallowing.I discussed the endoscopic findings with him in detail. We discussed keeping him on omeprazole 40 mg per day on a regular basis.These findings, however, did not completely explain the finding of lymphadenopathy around the bottom of the esophagus. GI Symptoms or Concerns Hubert is seen today in followup.This patient is a 43-year-old male with history of Crohn's. He has been followed by Dr. Bruno from our office and has been maintained on Cimzia. With this, he states that in general he is doing well. He may have slight increase in symptoms before he is due for his injection, but otherwise feels that it is helping fairly well.He is seen today however because of abnormal CT and esophageal symptoms. He describes substernal burning and regurgitation, typically it occurs after eating and associated with this he can have discomfort in the right flank area, some burning sensation, sometimes associated with regurgitation especially at night. With these symptoms, he had been taking Zantac. He felt that this had helped him fairly well. When this was pulled from the market, he began taking Prilosec and he does not think that this is helping him. Associated with all of these symptoms, he does have dysphagia. Typically, this occurs with bread or so GI Symptoms or Concerns The bronson olivera is a delightful 43-year-old gentleman who presents for followup appointment for history of Crohn's disease. Please see the templated note below regarding his rather complex history. I last saw the patient in the summer of 2017, at that time, he was feeling fairly well. There were no changes to his medication regimen of Cimzia and methotrexate at that time, though he was having occasional issues with joint pain. This is no longer an issue at this point, however, he has been having more problems with heartburn and reflux. This is especially bad at night and sometimes wakes him up at night. He said that it is occasionally been bad enough that at night he will have an episode of vomiting. We discussed that there are several possible contributing factors including the fact that he takes a large amount of Imodium for his diarrhea related to his inflammatory bowel disease. In the past, we have discussed that potentially this is related more to patulous ileocecal valve pe GI Symptoms or Concerns The bronson olivera is a 41-year-old gentleman who presents for a followup appointment for history of Crohn's disease. I last saw the patient in February 2017, at which time a followup colonoscopy was performed to reassess the activity of his disease as he had had an increase in symptoms around that time. There have been no changes to his chronic medication regimen including Cimzia and methotrexate. The methotrexate has been given to him under the care of Rheumatology for complications of joint pains. This has been helpful for these symptoms. The colonoscopy last year was reassuring in that there was no significant change from prior exams demonstrating only some mild disease in the terminal ileum, extending less than a few cm involving only 2 to 3 diminutive aphthous ulcers as described below. We again reviewed these findings and he agrees that his symptoms at the current time are well controlled. He is not interested in any changes to his medical therapy at this time since he has bee Additional Narrative Disease dis tribution: Ileal Crohn's, dx [address] Cruz ([facility]). Phenotype: Mucosal diseaseEIM: Recurrent nephrolithiasis. Diagnostics:--Colonoscopy 02/2017 - Mild erythema and 2-3 diminutive aphthae in the TI, normal colon. --Colonoscopy 05/08/13 - mild aphthous ileitis in the distal 3cm, more proximal to this was normal. --Colonoscopy 10/13/2012 - distal 10 cm of ileum with diffuse aphthous ulcerations. No histopathology was obtained.--MRE 02/2012 failed to demonstrate any active inflammatory changes in the bowel. Changes consistent with fatty liver were described.--CT abd ([facility]) 02/23/12 - No abnormality to the small bowel. Hepatomegaly and splenomegaly were noted, the spleen measuring 18 cm in greatest dimension. Nonobstructing bilateral nephrolithiasis without hydronephrosis.--Colonoscopy with Dr. Cruz at [facility] 2008, 2010. Both of these were normal exams including TI eval. Histopath from normal appearing colon was unremarkable. Prior GI surgery: NonePrior medical treatment/complications: --Steroids--Asacol--Remicade 4184-2178, secondarily lost response. --MTX po briefly in 7369-3753 (?duration)--AZA for 1 week January 2012 - resulted in severe arthragias, fevers and abd pain--Humira 40 mg qow, started in 2006, changed to q 10 days in February 2012 - Lost response 09/2012.Current treatment:--Pentasa (for management of diarrhea symptoms only)--Cimzia twice a month (started 10/2012)--po MTX 15mg weekly (started 10/2012) - Increased to 20mg/wk for joint pain 06/18/14Health maintenance:Smoking - Previous smoker, quite 15 yrs agoNSAIDs - NoneDerm eval - Referred in 2012. Defer follow up recommendations to Derm.TPMT - 29.6 December 2011Quantiferon - Negative 05/2015 Influenza - Contraindicated, due to egg allergy.Pneumovax - Given 03/14/12Hepatits A/B - Non-immune, TwinRx started 04/26/12MMR - Up to date, per patientVaricella/Zoster - Chicken pox as a childTdap - Up to date, per patientDEXA - N/A GI Symptoms or Concerns The bronson ent is a 41-year-old gentleman who I have followed for a number of years with a history of Crohn's disease, please see the detailed history below.He is currently feeling well with regards to abdominal discomfort; however, he was having more diarrhea over the last few months. He states that up to about two months ago, he was having formed normal stools as previously discussed at his last appointment in October 2015; however, gradually over this last several months he has developed worsening diarrhea. He is up to about four to six bowel movements per day and relatively rarely does he have any stool at night. He denies significant bleeding or significant abdominal pain. He has continued to try to lose weight. Due to his previous issues with BMI being elevated and concern for fatty liver disease.He denies any other systemic symptoms such as fevers or chills. He has no intolerance to oral intake, oral ulcers, joint pains, or skin changes.We discussed that it has b Additional Narrative Disease dis tribution: Ileal Crohn's, dx [address] Cruz ([facility]). Phenotype: Mucosal diseaseEIM: Recurrent nephrolithiasis. Diagnostics:--Colonoscopy 05/08/13 - mild aphthous ileitis in the distal 3cm, more proximal to this was normal. --Colonoscopy 10/13/2012 - distal 10 cm of ileum with diffuse aphthous ulcerations. No histopathology was obtained.--MRE 02/2012 failed to demonstrate any active inflammatory changes in the bowel. Changes consistent with fatty liver were described.--CT abd ([facility]) 02/23/12 - No abnormality to the small bowel. Hepatomegaly and splenomegaly were noted, the spleen measuring 18 cm in greatest dimension. Nonobstructing bilateral nephrolithiasis without hydronephrosis.--Colonoscopy with Dr. Cruz at [facility] 2008, 2010. Both of these were normal exams including TI eval. Histopath from normal appearing colon was unremarkable. Prior GI surgery: NonePrior medical treatment/complications: --Steroids--Asacol--Remicade 1220-6636, secondarily lost response. --MTX po briefly in 8956-8417 (?duration)--AZA for 1 week January 2012 - resulted in severe arthragias, fevers and abd pain--Humira 40 mg qow, started in 2006, changed to q 10 days in February 2012 - Lost response 09/2012.Current treatment:--Pentasa (for management of diarrhea symptoms only)--Cimzia twice a month (started 10/2012)--po MTX 15mg weekly (started 10/2012) - Increased to 20mg/wk for joint pain 06/18/14Health maintenance:Smoking - Previous smoker, quite 15 yrs agoNSAIDs - NoneDerm eval - Referred in 2012. Defer follow up recommendations to Derm.TPMT - 29.6 December 2011Quantiferon - Negative 05/2015 Influenza - Contraindicated, due to egg allergy.Pneumovax - Given 03/14/12Hepatits A/B - Non-immune, TwinRx started 04/26/12MMR - Up to date, per patientVaricella/Zoster - Chicken pox as a childTdap - Up to date, per patientDEXA - N/A Additional Narrative Disease dis tribution: Ileal Crohn's, dx [address] Cruz ([facility]). Phenotype: Mucosal diseaseEIM: Recurrent nephrolithiasis. Diagnostics:--Colonoscopy 05/08/13 - mild aphthous ileitis in the distal 3cm, more proximal to this was normal. --Colonoscopy 10/13/2012 - distal 10 cm of ileum with diffuse aphthous ulcerations. No histopathology was obtained.--MRE 02/2012 failed to demonstrate any active inflammatory changes in the bowel. Changes consistent with fatty liver were described.--CT abd ([facility]) 02/23/12 - No abnormality to the small bowel. Hepatomegaly and splenomegaly were noted, the spleen measuring 18 cm in greatest dimension. Nonobstructing bilateral nephrolithiasis without hydronephrosis.--Colonoscopy with Dr. Cruz at [facility] 2008, 2010. Both of these were normal exams including TI eval. Histopath from normal appearing colon was unremarkable. Prior GI surgery: NonePrior medical treatment/complications: --Steroids--Asacol--Remicade 3999-0355, secondarily lost response. --MTX po briefly in 4624-5726 (?duration)--AZA for 1 week January 2012 - resulted in severe arthragias, fevers and abd pain--Humira 40 mg qow, started in 2006, changed to q 10 days in February 2012 - Lost response 09/2012.Current treatment:--Pentasa (for management of diarrhea symptoms only)--Cimzia twice a month (started 10/2012)--po MTX 15mg weekly (started 10/2012) - Increased to 20mg/wk for joint pain 06/18/14Health maintenance:Smoking - Previous smoker, quite 15 yrs agoNSAIDs - NoneDerm eval - Referred in 2012. Defer follow up recommendations to Derm.TPMT - 29.6 December 2011Quantiferon - Negative 05/2015 Influenza - Contraindicated, due to egg allergy.Pneumovax - Given 03/14/12Hepatits A/B - Non-immune, TwinRx started 04/26/12MMR - Up to date, per patientVaricella/Zoster - Chicken pox as a childTdap - Up to date, per patientDEXA - N/A GI Symptoms or Concerns The bronson olivera is a 39-year-old gentleman with a history of Crohn's disease who presents for a followup appointment today. Please see his detailed history below. He is up to date with all of his health maintenance and is currently feeling well without complaints of abdominal pain or diarrhea. He takes Cimzia and methotrexate and is without any complications from these medicines. He has had transient mild hepatitis over the last several years related to fatty liver disease. He has been making efforts to lose weight and he tends to decrease his overall weight in the summertime and tends to gain weight during the winter.He is currently in between jobs, but still has insurance and is able to cover his medical expenses without issue. We have in the past had a discussion about adherence to medical regimens and he understands that this is important to his long-term prognosis. GI Symptoms or Concerns Hubert is a delightful 39-year-old gentleman who returns for followup appointment today for Crohn's disease. His disease is discussed below in detail. Over the last year or so, he has doing quite well, but has had elevated liver function tests likely reflective of fatty liver disease. Since I last saw him in May of 2014, he has lost about 22 pounds and over this time period, his liver chemistries have normalized. Additionally, his joint symptoms both in his lumbar spine and his hips have improved with his weight loss. Regarding his Crohn's symptoms, he continues to have gradual improvement in his symptoms with Cimzia and methotrexate. He has in the past been tolerant to thiopurines. We did increase his methotrexate back in May and I have recommended that we can decrease this dose today to avoid further complications such as worsening hepatitis; however, he was adamant to continue as he feels it has been helpful. He states that he is having about three to four bowel mov Additional Narrative Disease dis tribution: Ileal Crohn's, dx [address] Cruz ([facility]). Phenotype: Mucosal diseaseEIM: Recurrent nephrolithiasis. Diagnostics:--Colonoscopy 05/08/13 - mild aphthous ileitis in the distal 3cm, more proximal to this was normal. --Colonoscopy 10/13/2012 - distal 10 cm of ileum with diffuse aphthous ulcerations. No histopathology was obtained.--MRE 02/2012 failed to demonstrate any active inflammatory changes in the bowel. Changes consistent with fatty liver were described.--CT abd ([facility]) 02/23/12 - No abnormality to the small bowel. Hepatomegaly and splenomegaly were noted, the spleen measuring 18 cm in greatest dimension. Nonobstructing bilateral nephrolithiasis without hydronephrosis.--Colonoscopy with Dr. Cruz at [facility] 2008, 2010. Both of these were normal exams including TI eval. Histopath from normal appearing colon was unremarkable. Prior GI surgery: NonePrior medical treatment/complications: --Steroids--Asacol--Remicade 3055-0087, secondarily lost response. --MTX po briefly in 6508-8083 (?duration)--AZA for 1 week January 2012 - resulted in severe arthragias, fevers and abd pain--Humira 40 mg qow, started in 2006, changed to q 10 days in February 2012 - Lost response 09/2012.Current treatment:--Pentasa (for management of diarrhea symptoms only)--Cimzia twice a month (started 10/2012)--po MTX 15mg weekly (started 10/2012) - Increased to 20mg/wk for joint pain 06/18/14Health maintenance:Smoking - Previous smoker, quite 15 yrs agoNSAIDs - NoneDerm eval - Referred in 2012. Defer follow up recommendations to Derm.TPMT - 29.6 December 2011PPD - Quantiferon ordered 10/24/12 Influenza - Contraindicated, due to egg allergy.Pneumovax - Given 03/14/12Hepatits A/B - Non-immune, TwinRx started 04/26/12MMR - Up to date, per patientVaricella/Zoster - Chicken pox as a childTdap - Up to date, per patientDEXA - N/AVit D - Low December 2011, s/p high dose [id number] - Normal December 2011LFTs - Normal 11/2014- Additional Narrative Disease dis tribution: Ileal Crohn's, dx [address] Cruz ([facility]). Phenotype: Mucosal diseaseEIM:Recurrent nephrolithiasis. Diagnostics:--Colonoscopy 05/08/13 - mild aphthous ileitis in the distal 3cm, more proximal to this was normal. --Colonoscopy 10/13/2012 - distal 10 cm of ileum with diffuse aphthous ulcerations. No histopathology was obtained.--MRE 02/2012 failed to demonstrate any active inflammatory changes in the bowel. Changes consistent with fatty liver were described.--CT abd ([facility]) 02/23/12 - No abnormality to the small bowel. Hepatomegaly and splenomegaly were noted, the spleen measuring 18 cm in greatest dimension. Nonobstructing bilateral nephrolithiasis without hydronephrosis.--Colonoscopy with Dr. Cruz at [facility] 2008, 2010. Both of these were normal exams including TI eval. Histopath from normal appearing colon was unremarkable. Prior GI surgery: NonePrior medical treatment/complications: --Steroids--Asacol--Remicade 6569-0819, secondarily lost response. --MTX po briefly in 4418-5047 (?duration)--AZA for 1 week January 2012 - resulted in severe arthragias, fevers and abd pain--Humira 40 mg qow, started in 2006, changed to q 10 days in February 2012 - Lost response 09/2012.Current treatment:--Cimzia twice a month (started 10/2012)--po MTX 15mg weekly (started 10/2012) - Increasing to 20mg/wk for joint pain 06/18/14Health maintenance:Smoking - Previous smoker, quite 15 yrs agoNSAIDs - NoneDerm eval - Referral 03/21/13, unremarkable examTPMT - 29.6 December 2011PPD - Quantiferon ordered 10/24/12 Influenza - Contraindicated, due to egg allergy.Pneumovax - Given 03/14/12Hepatits A/B - Non-immune, TwinRix started 04/26/12MMR - Up to date, per patientVaricella/Zoster - Chicken pox as a childTdap - Up to date, per patientDEXA - N/AVit D - Low December 2011, s/p high dose [id number] - Normal December 2011LFTs - Minimally elevated ALT 02/2013 - thought related to SOTO GI Symptoms or Concerns The bronson olivera is a delightful 38-year-old gentleman who I follow for Crohn's disease, described below.I last saw the patient in October of 2013. At that time, he was having an increase in bowel frequency and though Pentasa has not been shown to be effective for ileal Crohn's disease, it has been shown to decrease the frequency of bowel movements and abdominal discomfort in patients with ileal Crohn's disease. Therefore, we did discuss a trial of this and he has responded quite nicely with his diarrheal symptoms decreasing by more than half. Currently, he is having about three to four stools per day, which are soft, but mostly formed. There is no blood in the stool, or any significant abdominal discomfort. His energy level and appetite are good.Unfortunately, he has developed some new symptoms of joint pains. This has been mostly in his right hip, and lumbar spine. This tends to increase after rest, and after about 40 minutes of activity his symptoms improve. We discussed t GI Symptoms or Concerns The bronson olivera is a delightful 37-year-old gentleman with the below-mentioned history of Crohn's disease. He returns today for a followup appointment. His last objective evaluation was his colonoscopy in April, a six-month followup to assess his response to Cimzia and methotrexate. This demonstrated only mild mucosal disease, and no changes were recommended at that time to his regimen. He was having about three to four stools per day and was feeling quite well, but over the last several months, he has developed increased bowel frequency about six to eight bowel movements per day which are loose, occasionally soft and formed. There is no blood in the stool, there is no weight loss, abdominal pain, or any other systemic manifestations of his disease such as skin changes or joint pain. We discussed that increasing his immunosuppression at this time may be somewhat premature as we may be able to symptomatically control his rather short, mild segment of Crohn's. We could use Penta Additional Narrative Disease dis tribution: Ileal Crohn's, dx [address] Cruz ([facility]). Phenotype: Mucosal diseaseEIM:Recurrent nephrolithiasis. Diagnostics:--Colonoscopy 05/08/13 - mild aphthous ileitis in the distal 3cm, more proximal to this was normal. --Colonoscopy 10/13/2012 - distal 10 cm of ileum with diffuse aphthous ulcerations. No histopathology was obtained.--MRE 02/2012 failed to demonstrate any active inflammatory changes in the bowel. Changes consistent with fatty liver were described.--CT abd ([facility]) 02/23/12 - No abnormality to the small bowel. Hepatomegaly and splenomegaly were noted, the spleen measuring 18 cm in greatest dimension. Nonobstructing bilateral nephrolithiasis without hydronephrosis.--Colonoscopy with Dr. Cruz at [facility] 2008, 2010. Both of these were normal exams including TI eval. Histopath from normal appearing colon was unremarkable. Prior GI surgery: NonePrior medical treatment/complications: --Steroids--Asacol--Remicade [id number], secondarily lost response. --MTX po briefly in [id number] (?duration)--AZA for 1 week January 2012 - resulted in severe arthragias, fevers and abd pain--Humira 40 mg qow, started in 2006, changed to q 10 days in February 2012 - Lost response 09/2012.Current treatment:--Cimzia twice a month (started 10/2012)--po MTX 15mg weekly (started 10/2012)Health maintenance:Smoking - Previous smoker, quite 15 yrs agoNSAIDs - NoneDerm eval - Referral 03/21/13, unremarkable examTPMT - 29.6 December 2011PPD - Quantiferon ordered 10/24/12 Influenza - Contraindicated, due to egg allergy.Pneumovax - Given 03/14/12Hepatits A/B - Non-immune, TwinRix started 04/26/12MMR - Up to date, per patientVaricella/Zoster - Chicken pox as a childTdap - Up to date, per patientDEXA - N/AVit D - Low December 2011, s/p high dose [id number] - Normal December 2011LFTs - Minimally elevated ALT 02/2013 - thought related to SOTO Functional Status Date Functional Assessmen t No Information Instructions Date Instruction Additional Infor shayla Colon Cancer Prevention Related to Crohn's disease of both small and lg int w/o complications 1. Cimzia trough lev el prior to his next injection.2. Therapeutic manipulation of dosing as appropriate.3. Follow up with Rheumatology to review methotrexate dosing as this may perhaps be appropriate to decrease.4. Follow up with Dermatology on an annual basis. Related to Crohn's disease of both small and large intestine without complication Gastroesophageal Reflux Disease Related to Gastroesophageal reflux disease with esophagitis Hiatal Hernia Related to Gastr oesophageal reflux disease with esophagitis Lifestyle education regarding di et Related to Dietary counseling and surveillance Lifestyle education regarding di et Related to Dietary counseling and surveillance As above. Related to Crohn 's disease of both small and large intestine without complication As described above. Related to Helen farah's Small/large Intestine Lifestyle education regarding di et Related to Dietary surveillance and counseling As described above. Related to Helen farah's Ileitis As described above, we will try to add in aminosalicylate with a knowledge that this will not likely induce mucosal healing, but may actually help his symptoms given the rather short, mild segmental inflammation in the distal TI. I look forward to hearing back from him within the next three to six weeks, and would be happy to send in a prescription as samples were given today. If his symptoms worsen or he fails to respond over the next three to six weeks, I would allow him to call to start budesonide or increase his Cimzia to 400 mg every two weeks. 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
== END 2022-08-26 09:01 | disposition home or self-care (01) ==
PROVIDERS: Visit Provider Emergency Medicine
DX: E11.9 Type 2 diabetes mellitus without complications (principal); I10 Essential (primary) hypertension; E78.5 Hyperlipidemia, unspecified; R74.8 Abnormal levels of other serum enzymes
CPT/HCPCS: 80053; 80061; 82043; 82570

== ENCOUNTER 2022-08-31 10:22 | Outpatient (CLI) | payer OTHER, SELFPAY ==
--- OUTSIDE RECORDS SUMMARY | 2022-09-01 01:07 | XMS_ITS | Continuity of Care Document ---
Author Name Unknown Organization [facility] Address [address] [address] [place] [address] Phone Care Team Providers Care Clinical Trial Assistant Name Role Phone Cherri Galvin Unavailable Unavailable Allergies, Adverse Reactions, Alerts [...] Diagnoses Date Provider Providers Copied on Encounter [facility], [address] [address], [place], [address], [place] tel:[phone] [facility] No Information 3 Marine Harley. [address] [facility], [address], [id number], [place]. tel:[phone] [facility], [address] [address], [place], [address], [place] tel:[phone] [facility] Crohn's disease of large intestine without complications 3 Damion Montano. [address] [facility], [address], [id number], [place]. tel:[phone] Referring Provider: Referral Self. [facility] RM, [address] [address], [place], [address], [place] tel:[phone] [facility] Crohn's disease of large intestine without complications 3 Damion Montano. [address] [facility], [facility] [address], [place], [address], [place]. tel:[phone] Referring Provider: Referral Self. [facility], [address] [address], [place], [place], [address], [place] tel:[phone] [facility] Crohn's disease of small intestine without complications 2 Damion Montano. [address] [facility], [address], [id number], [place]. tel:[phone] Referring Provider: Referral Self. [facility], [address] [address], [place], [address], [place] tel:[phone] [facility] Crohn's disease of large intestine without complications 2 Damion SUERO Michael. [address] [facility], [facility] [address], [place], [place], [address], [place]. tel:[phone] Referring Provider: Referral Self. [facility], [address] [address], [place], [address], [place] tel:[phone] [facility] Crohn's disease of large intestine without complication 2 Damion SUERO Michael. [address] [facility], [facility] [address], [place], [address], [place]. tel:[phone] [facility], [address] [address], [place], [address], [place] tel:[phone] [facility] Crohn's disease of large intestine without complication 2 Damion SUERO Michael. [address] [facility], [facility] [address], [place], [address], [place]. tel:[phone] Referring Provider: Referral Self. [facility], [address] [address], [place], [address], [place] tel:[phone] [facility] GI Symptoms or Concerns (chief complaint) Crohn's disease of both small and large intestine without complicationC rohn's disease of both small and lg int w/o complications Crohn's disease of both small and lg int w/o complications 2 Shane Espino. [address] [facility], [facility] [address], [place], [address], [place]. tel:[phone] Referring Provider: Referral Self. [facility], [address] [address], [place], [address], [place] tel:[phone] [facility] No Information 2 Marine Harley. [address] [facility], [facility] [address], [place], [address], [place]. [phone] Established Level 3 [facility], [address] [address], [place], [address], [place] tel:[phone] [facility] GI Symptoms or Concerns (chief complaint) Crohn's disease of both small and lg int w/o complications 2 Marine Harley. [address] [facility], [address], [id number], [place]. tel:[phone] Referring Provider: Referral Self. [facility], [address] [address], [place], [address], [place] tel:[phone] [facility] No Information 2 Rich Jenkins. [address] [facility], [address], [id number], [place]. tel:[phone] [facility], [address] [address], [place], [address], [place] tel:[phone] [facility] Crohn's disease of small intestine without complications 2 Lela Bansal. [address] [facility], [address], [id number], [place]. tel:[phone] Referring Provider: Moni Noland MD, [address], [place], [address]. tel:[phone] [facility], [address] [address], [place], [place], [address], [place] tel:[phone] [facility] No Information 2 Lela Bansal. [address] [facility], [facility] [address], [place], [address], [place]. tel:[phone] [facility], [address] [address], [place], [address], [place] tel:[phone] [facility] No Information 2 Lela Bansal. [address] [facility], [address], [id number], [place]. tel:[phone] [facility], [address] [address], [place], [address], [place] tel:[phone] [facility] Crohn's disease of small intestine without complications 2 Damion Whitek. [address] [facility], [facility] [address], [place], [address], [place]. tel:[phone] Referring Provider: Referral Self. [facility], [address] [address], [place], [address], [place] tel:[phone] [facility] Crohn's disease of both small and lg int w/o complications 2 Damion SUERO Michael. [address] [facility], [facility] [address], [place], [address], [place]. tel:[phone] Referring Provider: Referral Self. [facility], [address] [address], [place], [address], [place] tel:[phone] [facility] No Information 2 Karla Nelson. [address] [facility], [facility] [address], [place], [address], [place]. tel:[phone] [facility], [address] [address], [place], [address], [place] tel:[phone] [facility] Crohn's disease of both small and lg int w/o complications 1 Damion Montano. [address] [facility], [facility] [address], [place], [address], [place]. tel:[phone] Referring Provider: Referral Self. [facility], [address] [address], [place], [address], [place] tel:[phone] [facility] No Information 1 Karla Nelson. [address] [facility], [facility] [address], [place], [address], [place]. tel:[phone] [facility], [address] [address], [place], [address], [place] tel:[phone] [facility] Crohn's disease of both small and lg int w/o complications Crohn's disease of both small and lg int w/o complications 1 Deirdre Ibanez. [address] [facility], [facility] [address], [place], [address], [place]. [phone] Referring Provider: Referral Self. [facility], [address] [address], [place], [address], [place] tel:[phone] [facility] Crohn's disease of both small and lg int w/o complications 1 Deirdre Ibanez. [address] [facility], [facility] [address], [place], [address], [place]. tel:[phone] Referring Provider: Referral Self. Established Level 3 [facility], [address] [address], [place], [address], [place] tel:[phone] [facility] GI Symptoms or Concerns (chief complaint) Crohn's disease of both small and large intestine without complication 1 Lela Bansal. [address] [facility], [facility] [address], [place], [address], [place]. tel:[phone] Referring Provider: Referral Self. [facility], [address] [address], [place], [address], [place] tel:[phone] [facility] No Information 1 Damion Montano. [address] [facility], [facility] [address], [place], [address], [place]. tel:[phone] [facility], [address] [address], [place], [address], [place] tel:[phone] [facility] Crohn's disease of large intestine without complication 1 Damion Montano. [address] [facility], [facility] [address], [place], [address], [place]. tel:[phone] Referring Provider: Referral Self. [facility], [address] [address], [place], [address], [place] tel:[phone] [facility] No Information 1 Karla Nelson. [address] [facility], [facility] [address], [place], [address], [place]. tel:[phone] [facility], [address] [address], [place], [place], [address], [place] tel:[phone] [facility] Crohn's disease of large intestine without complication 1 Damion Montano. [address], [address], [place]. [phone] Referring Provider: Referral Self. [facility] Zenaida ABDALLA, [address] [address], [facility] [address], [place] tel:[phone] [facility] Crohn's disease of both small and large intestine without complication 0 Damion Villafana [address], [address], [place]. tel:[phone] Referring Provider: Michael [place] DO, [address] [facility] 500, [facility] [place], [address] . tel:[phone] [facility] Zenaida ABDALLA, [address] [address], [facility] [place], [address], [place] tel:[phone] [facility] Crohn's disease of both small and large intestine without complication 0 Damion Villafana [address], [address], [place]. tel:[phone] Referring Provider: Referral Self. Virtual Visit E&m Estab Low-mod 15-24 Min [facility], [address] [address], [place], [address], [place] tel:[phone] [facility] Additional Narrative (chief complaint)C omment (chief complaint) Crohn's disease of both small and large intestine without complication 0 Damion Villafana [address], [address], [place]. tel:[phone] Referring Provider: Referral Self. [facility], [address] [address], [place], [address], [place] tel:[phone] [facility] GI Symptoms or Concerns (chief complaint) No Information Aug-3 0 Damion Montano. [address] [facility], [facility] 500, [place], [place], [address], [place]. tel:[phone] Referring Provider: Referral Self. Virtual Visit E&m Estab Low-mod 15-25 Min [facility], [address] [address], [place], [address], [place] tel:[phone] [facility] GI Symptoms or Concerns (chief complaint) Gastro-esopha geal reflux disease with esophagitisAb normal findings on dx imaging of oth body structures 0 Rylan Arias. [address] [facility], [address], [id number], [place]. tel:[phone] Referring Provider: Referral Self. [facility], [address] [address], [place], [address], [place] tel:[phone] [facility] Lower esophageal ring (Schatzki)HH (hiatus hernia)Gastro esophageal reflux disease with esophagitisCr ohn's disease of large intestine without complicationA bnormal CT of the chestAbnormal findings on dx imaging of ot body structuresDuo denitis without bleedingAbnor mal findings on dx imaging of ot body structuresGas tro-esophagea l reflux disease with esophagitisEs ophageal obstruction Jul-2 0 Rylan Arias. [address] [facility], [facility] [address], [place], [address], [place]. tel:[phone] Referring Provider: Referral Self. Offic/outpt E&m Estab Mod-hi 2 [facility], [address] [address], [place], [address], [place] tel:[phone] [facility] GI Symptoms or Concerns (chief complaint) Gastroesophag eal reflux disease, esophagitis presence not specifiedEsop hageal dysphagiaAbno rmal CT of the chest 0 Rylan Arias. [address] [facility], [facility] [address], [place], [place], [address], [place]. tel:[phone] Referring Provider: Referral Self. [facility], [address] [address], [place], [address], [place] tel:[phone] [facility] Crohn's disease of large intestine without complication 0 Damion Michael. [address] [facility], [facility] [address], [place], [address], [place]. tel:[phone] Referring Provider: Referral Self. CAREN ABDALLA, [address] [address], [place], [address], [place] tel:[phone] [facility] No Information 9 Damion SUERO Michael. [address] [facility], [facility] [address], [place], [address], [place]. tel:[phone] CAR[facility] ABDALLA, [address] [address], [place], [address], [place] tel:[phone] [facility] Crohn's disease of both small and large intestine without complication 9 Damion SUERO Michael. [address] [facility], [facility] [address], [place], [address], [place]. tel:[phone] Referring Provider: Referral Self. CAR[facility] ABDALLA, [address] [address], [place], [address], [place] tel:[phone] [facility] Crohn's disease of large intestine without complication 9 Damion DO Michael. [address] [facility], [facility] [address], [place], [address], [place]. tel:[phone] Referring Provider: Referral Self. CAREN ABDALLA, [address] [address], [place], [address], [place] tel:[phone] [facility] Crohn's disease of both small and large intestine without complication 9 Damion SUERO Michael. [address] [facility], [facility] [address], [place], [address], [place]. tel:[phone] Offic/outpt E&m Estab Low-mod [facility], [address] [address], [place], [address], [place] tel:[phone] [facility] GI Symptoms or Concerns (chief complaint) Crohn's disease of large intestine without complicationD ietary counseling and surveillanceE levated blood-pressur e reading, w/o diagnosis of htn 9 Damion Montano. [address] [facility], [address], [address], [place]. tel:[phone] Referring Provider: Referral Self. [facility], [address] [address], [place], [address], [place] tel:[phone] [facility] Elevated LFTs 9 Damion Montano. [address] [facility], [address], [address], [place]. tel:[phone] CAR[facility] ABDALLA, [address] [address], [place], [address], [place] tel:[phone] [facility] Crohn's disease of large intestine without complication 9 Damion Montano. [address] [facility], [address], [id number], [place]. tel:[phone] Referring Provider: Referral Self. CAREN ABDALLA, [address] [address], [place], [address], [place] tel:[phone] [facility] Crohn's disease of large intestine without complication 9 Damion Montano. [address] [facility], [facility] [address], [place], [address], [place]. tel:[phone] Referring Provider: Referral Self. CAREN ABDALLA, [address] [address], [place], [address], [place] tel:[phone] [facility] Crohn's disease of large intestine without complication 8 Damion SUERO Michael. [address] [facility], [address], [address], [place]. tel:[phone] Referring Provider: Referral Self. Offic/outpt E&m Estab Low-mod [facility], [address] [address], [place], [address], [place] tel:[phone] [facility] GI Symptoms or Concerns (chief complaint)A dditional Narrative (chief complaint) Crohn's disease of large intestine without complicationD ietary counseling and surveillance 8 Damion Michael. [address] [facility], [facility] [address], [place], [address], [place]. tel:[phone] Referring Provider: Referral Self. [facility], [address] [address], [place], [address], [place] tel:[phone] [facility] Crohn's disease of both small and lg int w/o complications 8 Damion Montano. [address] [place] [address], [address], [id number], [place]. tel:[phone] [facility], [address] [address], [place], [address], [place] tel:[phone] [facility] Crohn's disease of both small and lg int w/o complications Crohn's disease of both small and lg int w/o complications 0 7 Damion Montano. [address] [facility], [address], [address], [place]. tel:[phone] Referring Provider: Referral Self. Offic/outpt E&m Estab Low-mod [facility], [address] [address], [place], [address], [place] tel:[phone] [facility] GI Symptoms or Concerns (chief complaint)A dditional Narrative (chief complaint) Crohn's disease of both small and large intestine without complication Jan- 7 Damion SUERO Michael. [address] [facility], [facility] [address], [place], [address], [place]. tel:[phone] Referring Provider: Referral Self. [facility], [address] [address], [place], [place], [address], [place] tel:[phone] [facility] Crohn's disease of large intestine without complications 3 7 Damion DO Michael. [address] [facility], [address], [address], [place]. tel:[phone] Referring Provider: Referral Self. CAREN ABDALLA, [address] [address], [place], [address], [place] tel:[phone] [facility] Crohn's disease of large intestine without complication 7 Damion DO Michael. [address] [facility], [facility] [address], [place], [address], [place]. tel:[phone] CAREN ABDALLA, [address] [address], [place], [address], [place] tel:[phone] [facility] Crohn's disease of both small and lg int w/o complications 7 Damion SUERO Michael. [address] [facility], [facility] [address], [place], [address], [place]. tel:[phone] Referring Provider: Referral Self. CAREN ABDALLA, [address] [address], [place], [address], [place] tel:[phone] [facility] Crohn's disease of both small and lg int w/o complications 7 Damion SUERO Michael. [address] [facility], [address], [address], [place]. tel:[phone] Referring Provider: Referral Self. CAREN ABDALLA, [address] [address], [place], [address], [place] tel:[phone] [facility] Crohn's disease of both small and large intestine without complication 0 6 Damion DO Michael. [address] [facility], [facility] [address], [place], [address], [place]. tel:[phone] CAREN ABDALLA, [address] [address], [place], [address], [place] tel:[phone] [facility] Crohn's disease of both small and large intestine without complication 6 Damion Montano. [address] [facility], [facility] [address], [place], [address], [place]. tel:[phone] Referring Provider: Referral Self. CAREN ABDALLA, [address] [address], [place], [address], [place] tel:[phone] [facility] Crohn's disease of both small and large intestine without complication 6 Damion Montano. [address] [facility], [facility] [address], [place], [address], [place]. tel:[phone] Referring Provider: Referral Self. Offic/outpt E&m Estab Low-mod CAREN ABDALLA, [address] [address], [place], [address], [place] tel:[phone] [facility] GI Symptoms or Concerns (chief complaint)A dditional Narrative (chief complaint) Crohn's disease of both small and large intestine without complication 6 Damion Montano. [address] [facility], [address], [address], [place]. tel:[phone] Referring Provider: Referral Self. CAREN ABDALLA, [address] [address], [place], [address], [place] tel:[phone] [facility] Crohn's disease of both small and lg int w/o complications 6 Damion Montano. [address] [facility], [facility] [address], [place], [address], [place]. tel:[phone] Referring Provider: Referral Self. CAREN ABDALLA, [address] [address], [place], [address], [place] tel:[phone] [facility] Crohn's disease of both small and lg int w/o complications 6 Damion Montano. [address] [facility], [facility] [address], [place], [address], [place]. tel:[phone] CAREN ABDALLA, [address] [address], [place], [address], [place] tel:[phone] [facility] Crohn's disease of both small and lg int w/o complications 6 Damion Montano. [address] [facility], [address], [address], [place]. tel:[phone] Referring Provider: Referral Self. [facility], [address] [address], [place], [address], [place] tel:[phone] [facility] Crohn's disease of both small and large intestine without complications 6 Damion Montano. [address] [facility], [address], [address], [place]. tel:[phone] [facility], [address] [address], [place], [address], [place] tel:[phone] [facility] Crohn's disease of both small and large intestine without complications 6 Damion Montano. [address] [facility], [address], [address], [place]. tel:[phone] Referring Provider: Referral Self. [facility], [address] [address], [place], [address], [place] tel:[phone] [facility] Crohn's disease of both small and large intestine without complications 5 Damion Montano. [address] [place] [address], [address], [address], [place]. tel:[phone] Referring Provider: Referral Self. Offic/outpt E&m Estab Low-mod [facility], [address] [address], [place], [address], [place] tel:[phone] [facility] GI Symptoms or Concerns (chief complaint)A dditional Narrative (chief complaint) Crohn's Small/large IntestineDiet clara Surveil/couns elHypertensio n, UnspecifiedCr ohn's disease of both small and large intestine without complications Dietary counseling and surveillanceE ssential (primary) hypertension 5 Damion Montano. [address] [place] [address], [id number], [place]. tel:[phone] Referring Provider: Referral Self. [facility], [address] [address], [place], [address], [place] tel:[phone] [facility] Crohn's Ileitis 5 Damion Montano. [address], [address], [place]. tel:[phone] Referring Provider: Anne Marie Barry, [address] [place] [address], [address]. tel:[phone] [facility], [address] [address], [place], [address], [place] tel:[phone] [facility] No Information 5 Damion Montano. [address] [place] [address], [id number], [place]. tel:[phone] Referring Provider: Referral Self. [facility], [address] [address], [place], [address], [place] tel:[phone] [facility] [facility] Crohn's Small/large Intestine 5 Valeriano Baxter. [address] [place] [address], [id number], [place]. tel:[phone] Offic/outpt E&m Estab Mod-hi 2 [facility], [address] [address], [place], [id number], [place] tel:[phone] [facility] GI Symptoms or Concerns (chief complaint)A dditional Narrative (chief complaint) Crohn's IleitisArthro pathyCrohn's disease of small intestine without complications 5 Damion Montano. [address] [place] [address], [id number], [place]. tel:[phone] Referring Provider: Referral Self. [facility], [address] [address], [place], [id number], [place] tel:[phone] [facility] Crohn's Small/large Intestine Oct-0 7 4 Damion Whitek. [address] [facility], [address], [id number], [place]. tel:[phone] Referring Provider: Referral Self. [facility], [address] [address], [place], [id number], [place] tel:[phone] [facility] Crohn's Small/large Intestine Dec-0 4 Damion Montano. [address] [place] [address], [id number], [place]. tel:[phone] Referring Provider: Referral Self. [facility], [address] [address], [place], [id number], [place] tel:[phone] [facility] Crohn's Small/large Intestine Oct-0 4 Damion Montano. [address] [place] [address], [id number], [place]. tel:[phone] Referring Provider: Referral Self. Offic/outpt E&m Estab Mod-hi 2 [facility], [address] [address], [place], [id number], [place] tel:[phone] [facility] GI Symptoms or Concerns (chief complaint)A dditional Narrative (chief complaint) Dietary Surveil/couns elHypertensio n, UnspecifiedCr ohn's Ileitis Oct-0 2-201 4 Damion DO Rodriguez. [address] [place] [address], [id number], [place]. tel:[phone] Referring Provider: Referral Self. [facility], [address] [address], [place], [id number], [place] tel:[phone] [facility] Crohn's Small/large Intestine Aug- 4 Damion Whitek. [address] [place] [address], [id number], [place]. tel:[phone] Referring Provider: Referral Self. [facility], [address] [address], [place], [id number], [place] tel:[phone] [facility] Crohn's Small/large Intestine Jun-0 4 Damion Michael. [address] [facility], [facility] [address], [place], [id number], [place]. tel:[phone] Referring Provider: Referral Self. [facility], [address] [address], [place], [id number], [place] tel:[phone] [facility] Regional Enteritis NosRegional Enteritis Nos Apr- 0 3 Damion SUERO Michael. [address] [facility], [facility] [address], [place], [id number], [place]. tel:[phone] Referring Provider: Referral Self. [facility], [address] [address], [place], [id number], [place] tel:[phone] [facility] Crohn's Small/large Intestine Apr- 0 3 Damion SUERO Michael. [address] [place] [address], [id number], [place]. tel:[phone] Referring Provider: Referral Self. [facility], [address] [address], [place], [id number], [place] tel:[phone] [facility] Crohn's Small/large Intestine Feb-3 3 Damion Whitek. [address] [facility], [address], [id number], [place]. tel:[phone] Referring Provider: Referral Self. Offic/outpt E&m Estab Mod-hi 2 [facility], [address] [address], [place], [id number], [place] tel:[phone] [facility] Crohns (chief complaint) Crohn's Small/large IntestineCroh n's Small/large Intestine Feb-2 3 3 Damion Michael. [address] [facility] [address], [place], [id number], [place]. tel:[phone] Referring Provider: Referral Self. [facility], [address] [address], [place], [id number], [place] tel:[phone] [facility] Crohn's Small/large Intestine 3 Damion SUERO Michael. [address] [facility], [facility] [address], [place], [id number], [place]. tel:[phone] Referring Provider: Referral Self. [facility], [address] [address], [place], [id number], [place] tel:[phone] [facility] Crohn's Small/large Intestine 3 Damion SUERO Michael. [address] [facility], [facility] [address], [place], [id number], [place]. tel:[phone] Referring Provider: Referral Self. Offic/outpt E&m Estab Low-mod [facility], [address] [address], [place], [id number], [place] tel:[phone] [facility] Crohns (chief complaint) Crohn's Small/large Intestine 3 Damion SUERO Michael. [address] [facility], [address], [id number], [place]. tel:[phone] Referring Provider: Referral Self. [facility], [address] [address], [place], [id number], [place] tel:[phone] [facility] Crohn's Small/large Intestine 3 Damion SUERO Michael. [address] [facility], [facility] [address], [place], [id number], [place]. tel:[phone] Referring Provider: Referral Self. [facility], [address] [address], [place], [id number], [place] tel:[phone] [facility] Crohn's Small/large Intestine 3 Damion SUERO Michael. [address] [facility], [facility] [address], [place], [id number], [place]. tel:[phone] Referring Provider: Referral Self. Offic/outpt E&m Estab Low-mod [facility], [address] [address], [place], [id number], [place] tel:[phone] [facility] Cimzia injection teaching (chief complaint) Crohn's Small/large Intestine 3 No Information Referring Provider: Referral Self. [facility], [address] [address], [place], [id number], [place] tel:[phone] [facility] Crohn's Small/large Intestine 3 No Information Referring Provider: Michael Bruno DO, [address] [facility] [address], [place], [id number] . tel:[phone] Offic/outpt E&m Estab Mod-hi 4 [facility], [address] [address], [place], [id number], [place] tel:[phone] [facility] Crohns (chief complaint) Crohn's Small/large IntestineCroh n's Small/large Intestine 3 Damion Montano. [address] [facility], [facility] [address], [place], [place], [id number], [place]. tel:[phone] Referring Provider: Referral Self. [facility], [address] [address], [place], [id number], [place] tel:[phone] [facility] Crohns (chief complaint) Crohn's Small/large IntestineCroh n's Small/large Intestine 3 Damion Montano. [address] [facility], [facility] [address], [place], [place], [id number], [place]. tel:[phone] Referring Provider: Referral Self. [facility], [address] [address], [place], [id number], [place] tel:[phone] [facility] Crohn's Small/large Intestine 3 Damion Montano. [address] [facility], [address], [place], [place], [id number], [place]. tel:[phone] Referring Provider: Referral Self. [facility], [address] [address], [place], [id number], [place] tel:[phone] [facility] Crohn's Small/large Intestine 3 Damion Montano. [address] [place] [address], [place], [place], [id number], [place]. tel:[phone] Referring Provider: Last Novak, [address] [facility], [place], [address]. tel:[phone] Offic/outpt E&m [facility] Mod-hi 4 [facility], [address] [address], [place], [id number], [place] tel:[phone] [facility] Crohns (chief complaint) Crohn's Small/large IntestineCroh n's Small/large IntestineAbn Blood Chemistry NecVacc For Viral Hepatitis 2 [facility]. [address] [place] [address], [id number], [place]. tel:[phone] Referring Provider: Last Novak, [address] [facility], [place], [address]. tel:[phone] Offic/outpt E&m [facility] Mod-hi 2 [facility], [address] [address], [facility] [place], [id number], [place] tel:[phone] [facility] Crohn's f/u (chief complaint) Crohn's IleitisCrohn' s Small/large IntestineVacc in Strep Pneumoniae 2 [facility]. [address] [place] [address], [place], [place], [id number], [place]. tel:[phone] Referring Provider: Last Novak, [address] [facility], [place], [address]. tel:[phone] [facility], [address] [address], [place] [facility] [facility], [id number], [place] tel:[phone] [facility] Crohn's Ileitis Feb-0 2 No Information Referring Provider: Referral Self. [facility], [address] [address], [place], [id number], [place] tel:[phone] [facility] Crohn's Ileitis Jan- 2 No Information Referring Provider: Referral Self. Offic/outpt E&m [facility], [address] [address], [place], [place], [id number], tel:[phone] [facility] Crohns (chief complaint) Crohn's Ileitis No Information Referring Provider: Last Novak, [address], [place], [address]. tel:[phone] Family History Family Member Type Diagnosis Age [...] and acellular pertussis vaccine, adsorbed administered Note: [facility] b i-directional interface ; Source: Other Registry tetanus toxoid, reduced diphtheria toxoid, and acellular pertussis vaccine, adsorbed administered Note: [facility] b i-directional interface ; Source: Other Registry tetanus and diphtheria toxoi ds, adsorbed, preservative free, for adult use (2 Lf of tetanus toxoid and 2 Lf of diphtheria toxoid) administered Note: [facility] bi-direct ional interface ; Source: Other Registry Payers Payer name Insurance type Covered democrat ID Authoriza tion(s) [employer] CI [id number] Social History Type Description Quantity Date Captured [...] Steroids - Asacol - Pentasa - Remicade 6536-5297: secondarily lost response - MTX PO briefly in 4743-6232 (?duration) - Humira: 40 mg Q2 weeks [...] Ileal Crohn's, dx [address] Cruz ([facility]). Phenotype: Mucosal diseaseEIM: Recurrent nephrolithiasis. Diagnostics:--Colonoscopy 02/2017 [...] consistent with fatty liver were described.--CT abd ([facility]) 02/23/12 - No abnormality to the small bowel. Hepatomegaly and splenomegaly were noted, the spleen measuring 18 cm in greatest dimension. Nonobstructing bilateral nephrolithiasis without hydronephrosis.--Colonoscopy with Dr. Cruz at [facility] 2008, 2010. Both of these were normal exams including TI eval. Histopath from normal appearing colon was unremarkable. Prior GI surgery: NonePrior medical treatment/complications: --Steroids--Asacol--Remicade 5898-4448, secondarily lost response. --MTX po briefly in 5671-1736 (?duration)--AZA for 1 week January 2012 - [...] Ileal Crohn's, dx [address] Cruz ([facility]). Phenotype: Mucosal diseaseEIM: Recurrent nephrolithiasis. Diagnostics:--Colonoscopy 02/2017 [...] consistent with fatty liver were described.--CT abd ([facility]) 02/23/12 - No abnormality to the small bowel. Hepatomegaly and splenomegaly were noted, the spleen measuring 18 cm in greatest dimension. Nonobstructing bilateral nephrolithiasis without hydronephrosis.--Colonoscopy with Dr. Cruz at [facility] 2008, 2010. Both of these were normal exams including TI eval. Histopath from normal appearing colon was unremarkable. Prior GI surgery: NonePrior medical treatment/complications: --Steroids--Asacol--Remicade 4260-9162, secondarily lost response. --MTX po briefly in 3023-8536 (?duration)--AZA for 1 week January 2012 - [...] Ileal Crohn's, dx [address] Cruz ([facility]). Phenotype: Mucosal diseaseEIM: Recurrent nephrolithiasis. Diagnostics:--Colonoscopy 02/2017 [...] consistent with fatty liver were described.--CT abd ([facility]) 02/23/12 - No abnormality to the small bowel. Hepatomegaly and splenomegaly were noted, the spleen measuring 18 cm in greatest dimension. Nonobstructing bilateral nephrolithiasis without hydronephrosis.--Colonoscopy with Dr. Cruz at [facility] 2008, 2010. Both of these were normal exams including TI eval. Histopath from normal appearing colon was unremarkable. Prior GI surgery: NonePrior medical treatment/complications: --Steroids--Asacol--Remicade 3306-5530, secondarily lost response. --MTX po briefly in 8183-0263 (?duration)--AZA for 1 week January 2012 - [...] Ileal Crohn's, dx [address] Cruz ([facility]). Phenotype: Mucosal diseaseEIM: Recurrent nephrolithiasis. Diagnostics:--Colonoscopy 05/08/13 - mild aphthous ileitis in the distal 3cm, more proximal to this was normal. --Colonoscopy 10/13/2012 - distal 10 cm of ileum with diffuse aphthous ulcerations. No histopathology was obtained.--MRE 02/2012 failed to demonstrate any active inflammatory changes in the bowel. Changes consistent with fatty liver were described.--CT abd ([facility]) 02/23/12 - No abnormality to the small bowel. Hepatomegaly and splenomegaly were noted, the spleen measuring 18 cm in greatest dimension. Nonobstructing bilateral nephrolithiasis without hydronephrosis.--Colonoscopy with Dr. Cruz at [facility] 2008, 2010. Both of these were normal exams including TI eval. Histopath from normal appearing colon was unremarkable. Prior GI surgery: NonePrior medical treatment/complications: --Steroids--Asacol--Remicade 9561-5068, secondarily lost response. --MTX po briefly in 8533-6917 (?duration)--AZA for 1 week January 2012 - [...] Ileal Crohn's, dx [address] Cruz ([facility]). Phenotype: Mucosal diseaseEIM: Recurrent nephrolithiasis. Diagnostics:--Colonoscopy 05/08/13 - mild aphthous ileitis in the distal 3cm, more proximal to this was normal. --Colonoscopy 10/13/2012 - distal 10 cm of ileum with diffuse aphthous ulcerations. No histopathology was obtained.--MRE 02/2012 failed to demonstrate any active inflammatory changes in the bowel. Changes consistent with fatty liver were described.--CT abd ([facility]) 02/23/12 - No abnormality to the small bowel. Hepatomegaly and splenomegaly were noted, the spleen measuring 18 cm in greatest dimension. Nonobstructing bilateral nephrolithiasis without hydronephrosis.--Colonoscopy with Dr. Cruz at [facility] 2008, 2010. Both of these were normal exams including TI eval. Histopath from normal appearing colon was unremarkable. Prior GI surgery: NonePrior medical treatment/complications: --Steroids--Asacol--Remicade 1592-8695, secondarily lost response. --MTX po briefly in 9840-9343 (?duration)--AZA for 1 week January 2012 - [...] Ileal Crohn's, dx [address] Cruz ([facility]). Phenotype: Mucosal diseaseEIM: Recurrent nephrolithiasis. Diagnostics:--Colonoscopy 05/08/13 - mild aphthous ileitis in the distal 3cm, more proximal to this was normal. --Colonoscopy 10/13/2012 - distal 10 cm of ileum with diffuse aphthous ulcerations. No histopathology was obtained.--MRE 02/2012 failed to demonstrate any active inflammatory changes in the bowel. Changes consistent with fatty liver were described.--CT abd ([facility]) 02/23/12 - No abnormality to the small bowel. Hepatomegaly and splenomegaly were noted, the spleen measuring 18 cm in greatest dimension. Nonobstructing bilateral nephrolithiasis without hydronephrosis.--Colonoscopy with Dr. Cruz at [facility] 2008, 2010. Both of these were normal exams including TI eval. Histopath from normal appearing colon was unremarkable. Prior GI surgery: NonePrior medical treatment/complications: --Steroids--Asacol--Remicade 4541-7346, secondarily lost response. --MTX po briefly in 8633-2609 (?duration)--AZA for 1 week January 2012 - [...] - Low December 2011, s/p high dose [id number] - Normal December 2011LFTs - Normal 11/2014- Additional Narrative Disease dis tribution: Ileal Crohn's, dx [address] Cruz ([facility]). Phenotype: Mucosal diseaseEIM:Recurrent nephrolithiasis. Diagnostics:--Colonoscopy 05/08/13 - mild aphthous ileitis in the distal 3cm, more proximal to this was normal. --Colonoscopy 10/13/2012 - distal 10 cm of ileum with diffuse aphthous ulcerations. No histopathology was obtained.--MRE 02/2012 failed to demonstrate any active inflammatory changes in the bowel. Changes consistent with fatty liver were described.--CT abd ([facility]) 02/23/12 - No abnormality to the small bowel. Hepatomegaly and splenomegaly were noted, the spleen measuring 18 cm in greatest dimension. Nonobstructing bilateral nephrolithiasis without hydronephrosis.--Colonoscopy with Dr. Curz at [facility] 2008, 2010. Both of these were normal exams including TI eval. Histopath from normal appearing colon was unremarkable. Prior GI surgery: NonePrior medical treatment/complications: --Steroids--Asacol--Remicade 1448-9654, secondarily lost response. --MTX po briefly in 1526-7359 (?duration)--AZA for 1 week January 2012 - [...] - Low December 2011, s/p high dose [id number] - Normal December 2011LFTs - Minimally elevated [...] Ileal Crohn's, dx [address] Cruz ([facility]). Phenotype: Mucosal diseaseEIM:Recurrent nephrolithiasis. Diagnostics:--Colonoscopy 05/08/13 - mild aphthous ileitis in the distal 3cm, more proximal to this was normal. --Colonoscopy 10/13/2012 - distal 10 cm of ileum with diffuse aphthous ulcerations. No histopathology was obtained.--MRE 02/2012 failed to demonstrate any active inflammatory changes in the bowel. Changes consistent with fatty liver were described.--CT abd ([facility]) 02/23/12 - No abnormality to the small bowel. Hepatomegaly and splenomegaly were noted, the spleen measuring 18 cm in greatest dimension. Nonobstructing bilateral nephrolithiasis without hydronephrosis.--Colonoscopy with Dr. Cruz at [facility] 2008, 2010. Both of these were normal exams including TI eval. Histopath from normal appearing colon was unremarkable. Prior GI surgery: NonePrior medical treatment/complications: --Steroids--Asacol--Remicade 3027-9954, secondarily lost response. --MTX po briefly in 3769-2814 (?duration)--AZA for 1 week January 2012 - [...] - Low December 2011, s/p high dose [id number] - Normal December 2011LFTs - Minimally elevated [...] mg every two weeks. Related to Dietary Surveil/awake overnight counselor Lifestyle education regarding di et Related to Dietary surveillance and counseling Assessments Type Assessment Date No Information Patient Care Teams Name Effective Dates (start - stop) Status Members No Information
== END 2022-08-31 10:23 | disposition home or self-care (01) ==
LOC: NFLDREF 09-01 01:04
PROVIDERS: Visit Provider Emergency Medicine
DX: E87.5 Hyperkalemia (principal)
CPT/HCPCS: 84132

== ENCOUNTER 2023-01-19 08:55 | Outpatient (CLI) | payer OTHER, SELFPAY | END 2023-01-19 08:56 | disposition home or self-care (01) | LOC: NFLDREF 01-22 09:40 | PROVIDERS: Visit Provider Emergency Medicine | DX: E78.5 Hyperlipidemia, unspecified (principal) | CPT/HCPCS: 80061 ==

== ENCOUNTER 2023-05-27 10:43 | Outpatient (CLI) | payer OTHER, SELFPAY | END 2023-05-27 10:44 | disposition home or self-care (01) | LOC: NFLDREF 06-01 11:34 | DX: E78.5 Hyperlipidemia, unspecified (principal) | CPT/HCPCS: 80061 ==

== ENCOUNTER 2023-07-29 04:25 | Emergency (ER) | payer OTHER, SELFPAY ==
[2023-07-29] VITALS (8 sets, daily range): BP systolic 116–151; BP diastolic 73–88; PULSE 75–89; RESP 20; TEMP 36.7; O2SAT 91–99; BMI 34.2
--- NOTE | 2023-07-29 04:46 | CT_ITS ---
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 Site :?[id number] Study:?CT-Abdomen/Pelvis with 120cc isovue 370 contrast-07/29/2023 5:45:57 AM Ordering Physician:Mayra Final Report: Indication: Crohn`s disease, right-sided abdominal pain Technique: CT abdomen pelvis with IV contrast. Multiplanar reformats are included. Contrast: 120 mL Isovue [address] scans at this facility use dose modulation, iterative reconstruction, and/or weight-based dosing when appropriate to reduce radiation dose to as low as reasonably achievable. Comparison: 05/23/2019, 02/23/2012 Findings: Mildly distended gastric cardia with ingested material. Relatively collapsed gastric body without definite wall thickening or inflammation. There is fluid throughout the nondilated small bowel with scattered air-fluid levels. No small bowel wall hyperenhancement or wall thickening. Small amount of liquid stool with a few air-fluid levels. No colonic wall thickening or colonic wall hyperenhancement. The appendix is normal. No perforation or abscess. No findings of penetrating disease. The perianal soft tissues are normal. Lung bases are clear. Mild diffuse hepatic steatosis. Patent vasculature. No liver mass. The gallbladder and bile ducts are normal. The pancreas is normal. The spleen is normal. The adrenal glands are normal. There are several small renal cysts bilaterally. No urinary tract dilatation or urinary tract calculi. The urinary bladder is only barely filled at the time of this exam but appears normal. No pelvic cyst or mass. Normal caliber of the abdominal aorta and its major branches. Circumaortic left renal vein with otherwise normal IVC and tributaries. No adenopathy. No ascites. No abdominal wall hernia. No acute or healing fracture. No worrisome focal bone lesions. Impression: 1. Mild appearing diffuse colitis and enteritis without any findings specific to inflammatory bowel disease. No penetrating disease. 2. Presumed underdistention of the gastric body. No gastric inflammation seen. 3. Diffuse hepatic steatosis. Please note that all CT scans at this facility use dose modulation, iterative reconstruction, and/or weight-based dosing when appropriate to reduce radiation dose to as low as reasonably achievable. Dictated by Qian Alatorre MD @ 07/29/2023 5:54:59 AM Signed by:?Qian Alatorre MD @07/29/2023 5:54:59 AM (Electronic Signature)
[2023-07-29] MEDS: ONDANSETRON 2 MG/ML inj 4 MG IVP (04:50)
[2023-07-29] MEDS: 0.9 % SODIUM CHLORIDE 1000 ml 1,000 ML IV (04:50)
--- NOTE | 2023-07-29 04:53 | ED.GENADULT ---
HPI - General Adult General Chief complaint: Abdominal Pain Stated complaint: Abdominal Pain Time Seen by Provider: 07/29/23 04:31 Source: patient Mode of arrival: ambulatory Limitations: no limitations History of Present Illness HPI narrative: Patient presents to the ED with a 6 hour history of abdominal pain, right-sided. Originally started in the right mid/upper abdomen. Initially achy, gradual onset. Does not seem affected by movement, deep breath. Is accompanied by nausea. No vomiting. Patient has a history of Crohn's disease. His stools have been looser than usual for the past 4 days, and have been a little bloody which is not terribly atypical for him. has a history of kidney stones, does not feel similar to this. His pain has been radiating to his mid right back tonight, but has had some ongoing back pain for about 3 months which feels similar. He has had chills tonight but has not measured a fever. No dysuria. No trauma. His only prior abdominal surgery is an umbilical hernia repair 18 years ago, no other abdominal surgeries. Pain is more constant, not in crampy waves. Did not try taking any medication for this prior to coming to the ED. Past medical history most notable for the kidney stones, Crohn's disease. Also has [id number] type 2 diabetes, hypertension and hyperlipidemia. He is on immunosuppressants. Multiple allergies reviewed, does not drink alcohol. Nonsmoker. No pertinent travel. ROS notable for the abdominal symptoms and back pain as described above, otherwise denies times 12 systems. Related Data Home Medications Medication Instructions Recorded Confirmed semaglutide 1 mg/dose (4 mg/3 mL) 1 mg subcut QWEEK 08/07/22 07/29/23 subcutaneous pen injector (Ozempic) certolizumab pegol 400 mg/2 mL 41 mg subcut DIRECTED 09/08/22 07/29/23 (200 mg/mL x2) subcutaneous syringe kit methotrexate sodium 2.5 mg tablet 20 mg PO QWEEK 09/08/22 07/29/23 Previous Rx's Medication Instructions Recorded blood sugar diagnostic (Accu-Chek #100 ea 03/05/22 Guide test strips) lancets (Accu-Chek Fastclix Lancet #200 ea 03/05/22 Drum) epinephrine 0.3 mg/0.3 mL 0.3 mg (0.3 mL) IM ONCE #2 ea 09/08/22 injection, auto-injector (EpiPen) lisinopril 5 mg tablet 5 mg PO QDAY #90 tabs 09/08/22 metoprolol tartrate 50 mg tablet 50 mg PO BID #180 ea 03/25/23 rosuvastatin 40 mg tablet 40 mg PO QDAY #90 tabs 05/26/23 Allergies Allergy/AdvReac Type Severity Reaction Status Date / Time bee venom protein (honey bee) Allergy Severe Anaphylaxis Verified 07/29/23 04:38 Cephalosporins Allergy Severe Verified 07/29/23 04:38 cyclosporine Allergy Severe Anaphylaxis Verified 07/29/23 04:38 Egg Derived Allergy Severe Verified 07/29/23 04:38 shellfish derived Allergy Mild Anaphylaxis Verified 07/29/23 04:38 chicken derived Allergy Unknown Verified 07/29/23 04:38 iodine Allergy Unknown Anaphylaxis Verified 07/29/23 04:38 pear Allergy Unknown Verified 07/29/23 04:38 pineapple Allergy Unknown Verified 07/29/23 04:38 turkey Allergy Unknown Verified 07/29/23 04:38 Nut tree Allergy Severe Anaphylaxis Uncoded 09/08/22 15:46 Mushroom Extract Complex Allergy Unknown Uncoded 09/08/22 15:46 Ralls Flavor Allergy Unknown Uncoded 09/08/22 15:46 PFSH PFSH Medical History Hypertension ?I10 - Essential (primary) hypertension (ICD-10) Type 2 diabetes mellitus ?E11.9 - Type 2 diabetes mellitus without complications (ICD-10) History of cellulitis ?Z87.2 - Personal history of diseases of the skin and subcutaneous tissue (ICD-10) Cervical myofascial strain ?S16.1XXA - Strain of muscle, fascia and tendon at neck level, initial encounter (ICD-10) Elevated LFTs ?R79.89 - Other specified abnormal findings of blood chemistry (ICD-10) Fracture of multiple ribs ?S22.49XA - Multiple fractures of ribs, unspecified side, initial encounter for closed fracture (ICD-10) Hyperlipidemia ?E78.5 - Hyperlipidemia, unspecified (ICD-10) 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 - Immunodeficiency due to drugs (ICD-10) ?Z79.899 - Other jail (current) drug therapy (ICD-10) Lung nodule ?R91.1 - Solitary pulmonary nodule (ICD-10) Peripheral vertigo ?H81.399 - Other peripheral vertigo, unspecified ear (ICD-10) Tinnitus, unspecified ear ?H93.19 - Tinnitus, unspecified ear (ICD-10) History of colonic polyps ?Z86.010 - Personal history of colonic polyps (ICD-10) Sinusitis ?J32.9 - Chronic sinusitis, unspecified (ICD-10) Food allergy ?Z91.018 - Allergy to other foods (ICD-10) Bee sting allergy ?Z91.030 - Bee allergy status (ICD-10) MRSA (methicillin resistant staph aureus) culture positive ?Z22.322 - Carrier or suspected carrier of Methicillin resistant Staphylococcus aureus (ICD-10) Crohn's disease ?K50.90 - Crohn's disease, unspecified, without complications (ICD-10) Calcium oxalate stones ?N20.0 - Calculus of kidney (ICD-10) Surgical History History of tonsillectomy (08/27/08) ?Z90.89 - Acquired absence of other organs (ICD-10) Family History Mother Diabetes Father High blood pressure Hyperlipidemia Myocardial infarction Paternal Grandfather Myocardial infarction Social History Smoking Status: Never smoker Do you use any of these nicotine containing products: None How often do you have a drink containing alcohol: never AUDIT-C Alcohol total score: 0 Non-prescribed substance use: denies use Exam Const: Vital Signs, click to edit/add: Vital Signs - 24 hr 07/29/23 04:31 07/29/23 04:50 07/29/23 05:42 Temperature 98.0 F Pulse Rate 84 Pulse Rate [Right Pulse Oximeter] 78 Respiratory Rate 20 20 Blood Pressure 129/77 Blood Pressure [Ri ght Upper Arm] 151/88 H Pulse Oximetry 99 99 94 Oxygen Delivery Me thod Room Air Documenting provider has reviewed patient's vital signs: yes Common normals: no apparent distress Other: Friendly and cooperative, nontoxic appearing. Good historian. HENMT: Common normals: normocephalic Head and scalp: normocephalic Face and sinus: normal facial exam Mouth: oral and palatal mucosa normal Throat: posterior oropharynx normal Eye: Common normals: EOMs intact bilaterally and conjunctivae normal General eye: normal appearance of both eyes Conjunctiva: conjunctiva(e) normal Neck & C-Spine: Common normals: no lymphadenopathy General: normal visual inspection Resp: Common normals: normal respiratory effort, no use of accessory muscles and clear to auscultation bilaterally Effort & inspection: able to speak in complete sentences Auscultation: clear to auscultation bilaterally Cardio: Common normals: regular rate, regular rhythm, S1 normal heart sound, S2 normal heart sound and no murmurs Rate: regular rate Rhythm: regular rhythm Heart sounds: S1 normal and S2 normal GI: Common normals: Normal to inspection, nondistended, normoactive bowel sounds present Other: Obese but soft. Tender to palpation of the right mid and right upper quadrant. No rebound tenderness or guarding. No mass. Liver and spleen do not seem enlarged but difficult to palpate edges due to obesity. : Common normals: no CVA tenderness Bladder/kidney exam: no CVA tenderness Back & Pelvis: Common normals: no CVA tenderness Extremity: Common normals: normal to inspection and normal capillary refill Neuro: Speech: speech normal Motor exam: no tremor noted and no movement abnormalities noted Psych: Common normals: speech normal Attitude: engaged Activity/motor behavior: appropriate eye contact Speech: normal speech Mood and affect: euthymic mood Insight: insight good Judgement: judgment good Skin: Common normals: no rashes or lesions noted General skin exam: no rashes or lesions noted Course Course ED Course: Right-sided abdominal pain. Differential diagnosis including gallbladder disease, kidney stone, colitis, Crohn's flare, atypical presentation of pancreatitis, bowel obstruction, among others. Exam was most suspicious for gallbladder disease but with his history of 4 days of worsening bloody diarrhea, radiating to the back, I have concerns for complications from his Crohn's disease or colitis. I do think that he needs a CT scan. This may not be the best way to diagnose gallbladder disease but will help investigate potentially more urgent findings. Basic labs, CT. Pain control with Dilaudid and nausea control with Zofran. 1 L of normal saline while we await findings. As an aside, we did discuss the reported iodine allergy in his chart. Patient states that he has received IV contrast multiple times without difficulty at numerous different hospitals. It is not unusual for our computer system to overlap shellfish and iodine allergies. They are certainly not mutually exclusive. He does seem extremely reliable that he has had IV contrast by his description several times in the past with no difficulty. I do not recommend premedication with steroids because of this. The steroids are going to increase his blood sugar and may have potential complications with underlying acute pathology today. Reevaluation(s) Time of Reevaluation #1: 06:07 Reevaluation #1: Update: Reviewed CT findings and labs with patient and spouse. Thankfully, these are pretty reassuring. Enteritis noted on CT, otherwise fairly benign. This certainly could explain his symptoms. But is tenderness did look L lies in the right upper quadrant more them I am comfortable with. There were no obvious signs of cholecystitis on CT or labs but unfortunately, this would not be a very sensitive way to look at this area. I have recommended ultrasound. I let him know there would be a little bit of weight for the study as the tech is not yet in for the morning but will be soon. They were agreeable to waiting and understood my rationale. Pain is down to about a 6/10 he reports. Nausea is improving, no vomiting has been noted. He has not passed any stools here. Tolerated the fluids well. Will remain NPO for study. Time of Reevaluation #2: 07:12 Reevaluation #2: Inform patient of normal ultrasound results. Feeling better after Toradol. Suspect to viral gastroenteritis, no signs of elevated inflammatory markers, leukocytosis, biliary obstruction, pancreatitis or other abnormality. Recommended symptomatic control with Tylenol, ibuprofen and Zofran. [place] dosing in the setting of his methotrexate use reviewed. Alarm symptoms reviewed as well. Patient will be discharged home with prescription for Zofran. Vital Signs Vital signs: Initial Vital Signs Temperature 98.0 F 07/29/23 04:31 Temperature Source Temporal Artery Scan 07/29/23 04:31 Pulse Rate 78 07/29/23 04:31 Respiratory Rate 20 07/29/23 04:31 Blood Pressure 151/88 H 07/29/23 04:31 Blood Pressure Mean 109 H 07/29/23 04:31 Blood Pressure Position Sitting 07/29/23 04:31 Pulse Oximetry 99 03/01/24 04:31 Oxygen Delivery Method Room Air 07/29/23 04:31 Vital Signs Temperature 98.0 F 07/29/23 04:31 Pulse Rate 78 07/29/23 04:31 Respiratory Rate 20 07/29/23 04:31 Blood Pressure 151/88 H 07/29/23 04:31 Pulse Oximetry 99 07/29/23 04:31 Oxygen Delivery Method Room Air 07/29/23 04:31 Temperature 98.0 F 07/29/23 04:31 Pulse Rate 84 07/29/23 05:42 Respiratory Rate 20 07/29/23 05:42 Blood Pressure 129/77 07/29/23 05:42 Pulse Oximetry 94 07/29/23 05:42 Oxygen Delivery Method Room Air 07/29/23 04:31 Medications Administered Medications: Discontinued Medications Generic Name Dose Route Start Last Admin Trade Name Freq PRN Reason Stop Dose Admin Hydromorphone HCl 0.5 mg 07/29/23 04:46 07/29/23 04:54 Hydromorphone 0.5 Mg/0.5 Ml Inj IVP 07/29/23 04:47 0.5 mg ONCE ONE Administration Sodium Chloride 1,000 mls @ 1,000 mls/hr 07/29/23 04:47 07/29/23 05:46 0.9 % Sodium Chloride 1000 Ml IV 07/29/23 05:46 Infused .Q1H CHAI Infusion Ketorolac Tromethamine 15 mg 07/29/23 06:43 07/29/23 06:46 Ketorolac 15 Mg/Ml Inj IVP 07/29/23 06:44 15 mg ONCE ONE Administration Ondansetron HCl 4 mg 07/29/23 04:46 07/29/23 04:50 Ondansetron 2 Mg/Ml Inj IVP 07/29/23 04:47 4 mg ONCE ONE Administration Medical Decision Making Lab Data Lab results reviewed: Yes I reviewed the patient's lab results Lab results narrative: Very reassuring. Labs: Lab Results 07/29/23 Range/Units 04:46 WBC 10.01 (4.50-11.00) K/uL RBC 5.23 (4.30-5.90) m/uL Hgb 16.5 (13.5-17.5) gm/dL Hct 48.6 (37.0-53.0) % MCV 93 (80-100) fL MCH 32 (26-34) pg MCHC 34 (32-36) gm/dL RDW Coeff of Timothy 12.4 (11.5-15.5) % Plt Count 127 L (140-440) K/uL Neut % (Auto) 78.8 H (42.0-72.0) % Lymph % (Auto) 7.2 L (20-44) % Dickenson % (Auto) 9.0 (0.0-11.0) % Eos % (Auto) 4.7 (0.0-7.0) % Baso % (Auto) 0.1 (0.0-3.0) % Neut # (Auto) 7.90 H (1.7-7.0) K/uL Lymph # (Auto) 0.70 L (0.90-2.90) K/uL Dickenson # (Auto) 0.90 (0.00-0.90) K/UL Eos # (Auto) 0.47 (0.00-0.50) K/uL Baso # (Auto) 0.01 (0.00-0.30) K/uL Abs Immat Gran (auto) 0.02 (0.00-0.30) K/uL Imm/Tot Granulo (auto) 0.2 % Sodium 138 (135-149) mmol/L Potassium 4.3 (3.6-5.1) mmol/L Chloride 104 (96-114) mmol/L Carbon Dioxide 20 (20-32) mmol/L Anion Gap 14 (7-15) mEq/L BUN 23 (5-24) mg/dL Creatinine 0.9 (0.5-1.5) mg/dL Estimated Creat Clear 109.23 Estimated GFR 107 ml/min Glucose 158 H (60-115) mg/dL Lactate 2.0 H (0.5-1.9) mmol/L Calcium 9.4 (8.4-10.6) mg/dL Total Bilirubin 1.2 (0.1-1.5) mg/dL AST 83 H (12-35) U/L ALT 104 H (4-50) U/L Alkaline Phosphatase 68 (40-150) U/L C-Reactive Protein < 0.5 L (0.5-1.0) mg/dL Total Protein 8.5 H (6.0-8.3) g/dL Albumin 4.9 (3.3-5.0) g/dL Lipase 143 (23-300) U/L Urine Color Yellow (Yellow) Urine Appearance Clear (Clear) Urine pH 5.5 (5.0-8.5) Ur Specific [place] >= 1.030 (1.000-1.030) Urine Protein Negative (Negative) Urine Glucose (UA) Negative (Negative) Urine Ketones Negative (Negative) Urine Blood Negative (Negative) Urine Nitrite Negative (Negative) Urine Bilirubin Negative (Negative) Urine Urobilinogen 0.2 (0.2-1.0) Ur Leukocyte Esterase Negative (Negative) Imaging Data CT scan - abdomen: Attestation: I have reviewed the pertinent imaging results. My impression: Fatty liver and nonspecific enteritis appearance. No obstruction, no free air, no significant gallbladder wall thickening on CT, may not be sufficient for evaluation. US - abdomen: Attestation: I have reviewed the pertinent imaging results. My impression: Normal gallbladder ultrasound Radiologist's impression: Impression: Unremarkable right upper quadrant ultrasound. Discharge Plan Discharge Clinical Impression: Enteritis Patient Disposition: Home, Self-Care Condition: Improved Instructions: Enteritis (ED) Additional Instructions: Your pain is most likely caused from a viral enteritis, also known as the stomach flu. This tends to last 3-5 days with the current circulating strains. I recommend [id number] Tylenol 1000 mg a max of twice daily because of her methotrexate use. You may also use ibuprofen 600 mg every 6 hours, your next dose of this is eligible at 1:00 p.m.. I have given you Zofran, and anti nausea medicine that should help as well. You may use this up to 4 times daily. Your next eligible dose would be 10:00 a.m.. High fevers and debilitating pain would not be expected. If these evolve, please return to the emergency department. You may continue the remainder of your medications as prescribed. Activity Level: Activity as Tolerated Discharge Diet: Diabetic Prescriptions: No Action methotrexate sodium 2.5 mg tablet 20 mg PO QWEEK certolizumab pegol 400 mg/2 mL (200 mg/mL x 2) syringe kit 41 mg subcut DIRECTED Rx Instructions: every 2 weeks epinephrine [EpiPen] 0.3 mg/0.3 mL auto-injector 0.3 mg IM ONCE Qty: 2 0RF Rx Instructions: as a single dose; may repeat once lisinopril 5 mg tablet 5 mg PO QDAY Qty: 90 3RF Ozempic 1 mg/dose (4 mg/3 mL) pen injector 1 mg subcut QWEEK (DME) lancets [Accu-Chek Fastclix Lancet Drum] Misc See Rx Instructions .ROUTE .COMPLEX Qty: 200 0RF Dose Instruction: USE TO TEST BLOOD SUGARS 4 TIMES DAILY Rx Instructions: USE TO TEST BLOOD SUGARS 4 TIMES DAILY (DME) Accu-Chek Guide test strips Strip See Rx Instructions .ROUTE .COMPLEX Qty: 100 1RF Dose Instruction: USE TO TEST BLOOD SUGARS 4 TIMES DAILY Rx Instructions: USE TO TEST BLOOD SUGARS 4 TIMES DAILY metoprolol tartrate 50 mg tablet 50 mg PO BID Qty: 180 1RF rosuvastatin 40 mg tablet 40 mg PO QDAY Qty: 90 2RF Follow Up/Referrals: Provider,Not a Local [Referring] - Stand Alone Forms: [employer]th Info Instructions
[2023-07-29] MEDS: HYDROmorphone 0.5 mg/0.5 ml inj IVP (04:54)
[2023-07-29 04:57] LABS: Basophils Absolute Auto 0.01 K/uL (0.00-0.30); Basophils Percent Auto 0.1 % (0.0-3.0); Eosinophils Absolute Auto 0.47 K/uL (0.00-0.50); Eosinophils Percent Auto 4.7 % (0.0-7.0); Hematocrit 48.6 % (37.0-53.0); Hemoglobin* 16.5 gm/dL (13.5-17.5); Immature Granulocytes Abs Auto 0.02 K/uL (0.00-0.30); Immature Granulocytes Pct Auto 0.2 %; Lymphocytes Percent Auto 7.2 % (20-44); Mean Corpuscular HGB Conc 34 gm/dL (32-36); Mean Corpuscular Hemoglobin 32 pg (26-34); Mean Corpuscular Volume 93 fL (80-100); Neutrophils Percent Auto 78.8 % (42.0-72.0); Platelet Count* 127 K/uL (140-440); RDW Coefficient of Variation % 12.4 % (11.5-15.5); Red Blood Count 5.23 m/uL (4.30-5.90); White Blood Count* 10.01 K/uL (4.50-11.00)
[2023-07-29 05:00] LABS: Slide Review Reflex No
[2023-07-29 05:12] LABS: Chloride* 104 mmol/L (96-114)
[2023-07-29 05:13] LABS: Albumin* 4.9 g/dL (3.3-5.0); Sodium* 138 mmol/L (135-149)
[2023-07-29 05:14] LABS: Potassium* 4.3 mmol/L (3.6-5.1)
[2023-07-29 05:15] LABS: Creatinine* 0.9 mg/dL (0.5-1.5); Est. Creatinine Clearance* 109.23; Estimated Glomerular Filt Rate 107 ml/min
[2023-07-29 05:16] LABS: Alanine Aminotransferase* 104 U/L (4-50); Alkaline Phosphatase* 68 U/L (40-150); Anion Gap 14 mEq/L (7-15); Aspartate Amino Transferase* 83 U/L (12-35); Bilirubin Total* 1.2 mg/dL (0.1-1.5); Blood Urea Nitrogen* 23 mg/dL (5-24); Carbon Dioxide* 20 mmol/L (20-32); Lipase* 143 U/L (23-300); Total Protein* 8.5 g/dL (6.0-8.3)
[2023-07-29 05:17] LABS: Calcium* 9.4 mg/dL (8.4-10.6); Glucose* 158 mg/dL (60-115)
[2023-07-29 05:21] LABS: C Reactive Protein* < 0.5 mg/dL (0.5-1.0)
[2023-07-29 05:47] LABS: Appearance Urine Clear (Clear); Bilirubin Urine Negative (Negative); Blood Urine Negative (Negative); Color Urine Yellow (Yellow); Glucose Urine Negative (Negative); Ketones Urine Negative (Negative); Leukocyte Esterase Urine Negative (Negative); Nitrite Urine Negative (Negative); Protein Urine Negative (Negative); Specific Gravity Urine >= 1.030 (1.000-1.030); Urobilinogen Urine 0.2 (0.2-1.0); pH Urine 5.5 (5.0-8.5)
--- NOTE | 2023-07-29 06:05 | US_ITS ---
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 Site :?[id number] Study:?US-Abdomen GB ONLY-07/29/2023 6:53:27 AM Ordering Physician:?LUCAS GODOY Final Report: Indication: Right upper quadrant abdomen pain TECHNIQUE: Ultrasound abdomen limited. Sonographic images of the right upper quadrant were obtained using kerr-scale and color Doppler images. Comparison: None FINDINGS: Gallbladder: No stones or sludge. Normal wall thickness. No pericholecystic fluid. Common bile duct: 4 mm. Impression: Unremarkable right upper quadrant ultrasound. Dictated by Nav Dutta MD @ 07/29/2023 6:59:57 AM Signed by:?Nav Dutta MD @07/29/2023 6:59:57 AM (Electronic Signature)
[2023-07-29] MEDS: KETOROLAC 15 MG/ML inj IVP (06:46)
== END 2023-07-29 07:30 | disposition home or self-care (01) ==
PROVIDERS: Emergency Provider Family Medicine; PCP Emergency Medicine
DX: K52.9 Noninfective gastroenteritis and colitis, unspecified (principal)
CPT/HCPCS: 36415; 74177; 76705; 80053; 81003; 83605; 83690; 85025; 86140; 94761; 96374; 96375; 99284; J1170; J1885; J2405; J7030; Q9967

== ENCOUNTER 2023-12-10 15:21 | Emergency (ER) | payer OTHER, SELFPAY ==
[2023-12-10] VITALS (20 sets, daily range): BP systolic 94–135; BP diastolic 61–87; PULSE 72–83; RESP 18–20; TEMP 36.4; O2SAT 91–97; BMI 35.0
--- NOTE | 2023-12-10 15:30 | ED_ITS ---
HPI - Allergic Reaction General Chief complaint: Allergic Reaction Stated complaint: stung on backside of right thigh Time Seen by Provider: 12/10/23 15:23 History of Present Illness HPI narrative: This 48-year-old male comes in because of a bee sting that occurred about 20 minutes prior to arrival. 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 He did feel some tightness in his breathing and felt a bit lightheaded so he administered his own epinephrine dose twice prior to arrival. He also took 2 tablets of Benadryl. He comes in here with normal vital signs and is feeling normal. He does not show any signs of angioedema. Related Data Home Medications ?Medication ?Instructions ?Recorded ?Confirmed semaglutide 1 mg/dose (4 mg/3 mL) 1 mg subcut QWEEK 08/07/22 07/29/23 subcutaneous pen injector (Ozempic) certolizumab pegol 400 mg/2 mL 41 mg subcut DIRECTED 09/08/22 07/29/23 (200 mg/mL x2) subcutaneous syringe kit methotrexate sodium 2.5 mg tablet 20 mg PO QWEEK 09/08/22 07/29/23 Previous Rx's ?Medication ?Instructions ?Recorded blood sugar diagnostic (Accu-Chek #100 ea 03/05/22 Guide test strips) lancets (Accu-Chek Fastclix Lancet #200 ea 03/05/22 Drum) epinephrine 0.3 mg/0.3 mL 0.3 mg (0.3 mL) IM ONCE #2 ea 09/08/22 injection, auto-injector (EpiPen) lisinopril 5 mg tablet 5 mg PO QDAY #90 tabs 09/08/22 metoprolol tartrate 50 mg tablet 50 mg PO BID #180 ea 03/25/23 rosuvastatin 40 mg tablet 40 mg PO QDAY #90 tabs 05/26/23 epinephrine 0.3 mg/0.3 mL 0.3 mg (0.3 mL) IM Q5-15M PRN #2 ea 12/10/23 injection, auto-injector (EpiPen 2-Jermaine) Allergies Allergy/AdvReac Type Severity Reaction Status Date / Time bee venom protein (honey bee) Allergy Severe Anaphylaxis Verified 07/29/23 04:38 Cephalosporins Allergy Severe Verified 07/29/23 04:38 cyclosporine Allergy Severe Anaphylaxis Verified 07/29/23 04:38 Egg Derived Allergy Severe Verified 07/29/23 04:38 shellfish derived Allergy Mild Anaphylaxis Verified 07/29/23 04:38 chicken derived Allergy Unknown Verified 07/29/23 04:38 iodine Allergy Unknown Anaphylaxis Verified 07/29/23 04:38 pear Allergy Unknown Verified 07/29/23 04:38 pineapple Allergy Unknown Verified 07/29/23 04:38 turkey Allergy Unknown Verified 07/29/23 04:38 Nut tree Allergy Severe Anaphylaxis Uncoded 09/08/22 15:46 Mushroom Extract Complex Allergy Unknown Uncoded 09/08/22 15:46 Erath Flavor Allergy Unknown Uncoded 09/08/22 15:46 Review of Systems Status of ROS Reports: 10 or more systems reviewed and unremarkable except as noted in History and below Narrative Constitutional: No fevers, no weight gain or loss. Eyes: No discharge. No vision changes. HENT: No congestion, no sore throat, no ear pain. Cardiovascular: No chest pain, no palpitations. Respiratory: No shortness of breath, no wheezes, no cough. Gastrointestinal: No abdominal pain, no vomiting, no diarrhea. Genitourinary: No dysuria, no hematuria. Musculoskeletal: Normal range of motion. Skin: No rashes, no pruritis. Neurological: No dizziness, weakness, sensory change, speech change. Endo/Heme/Allergies: No bruising or bleeding. No polydipsia. Pysch: no suicidality, no anxiety, no insomnia. All other systems reviewed and are negative. [facility] Medical History Hypertension ?I10 - Essential (primary) hypertension (ICD-10) Type 2 diabetes mellitus ?E11.9 - Type 2 diabetes mellitus without complications (ICD-10) History of cellulitis ?Z87.2 - Personal history of diseases of the skin and subcutaneous tissue (ICD-10) Cervical myofascial strain ?S16.1XXA - Strain of muscle, fascia and tendon at neck level, initial encounter (ICD-10) Elevated LFTs ?R79.89 - Other specified abnormal findings of blood chemistry (ICD-10) Fracture of multiple ribs ?S22.49XA - Multiple fractures of ribs, unspecified side, initial encounter for closed fracture (ICD-10) Hyperlipidemia ?E78.5 - Hyperlipidemia, unspecified (ICD-10) 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 - Immunodeficiency due to drugs (ICD-10) ?Z79.899 - Other halfway (current) drug therapy (ICD-10) Lung nodule ?R91.1 - Solitary pulmonary nodule (ICD-10) Peripheral vertigo ?H81.399 - Other peripheral vertigo, unspecified ear (ICD-10) Tinnitus, unspecified ear ?H93.19 - Tinnitus, unspecified ear (ICD-10) History of colonic polyps ?Z86.010 - Personal history of colonic polyps (ICD-10) Sinusitis ?J32.9 - Chronic sinusitis, unspecified (ICD-10) Food allergy ?Z91.018 - Allergy to other foods (ICD-10) Bee sting allergy ?Z91.030 - Bee allergy status (ICD-10) MRSA (methicillin resistant staph aureus) culture positive ?Z22.322 - Carrier or suspected carrier of Methicillin resistant Staphylococcus aureus (ICD-10) Crohn's disease ?K50.90 - Crohn's disease, unspecified, without complications (ICD-10) Calcium oxalate stones ?N20.0 - Calculus of kidney (ICD-10) Surgical History History of tonsillectomy (08/27/08) ?Z90.89 - Acquired absence of other organs (ICD-10) Family History Mother Diabetes Father High blood pressure Hyperlipidemia Myocardial infarction Paternal Grandfather Myocardial infarction Social History Smoking Status: Never smoker Do you use any of these nicotine containing products: None How often do you have a drink containing alcohol: never AUDIT-C Alcohol total score: 0 Non-prescribed substance use: denies use Exam Narrative: Exam Narrative: Constitutional: Well-developed, well-nourished, no acute distress. HEENT: Normocephalic, atraumatic. Neck: Normal range of motion. Nontender. Supple. Heart: Regular. No murmurs. Normal rate. Intact distal pulses. Lungs: Clear to auscultation. No chest discomfort. No wheezes, rhonchi, or rales. Abdomen: Normal bowel sounds. Nontender. No rebound tenderness. Genitalia: Deferred. Back: No midline tenderness. Normal range of motion. Extremities: Normal range of motion. No injury. Skin: Intact. No rash. Warm. No erythema or pallor. Neurologic: No altered sensation. No weakness. Alert and oriented. Psychiatric: No suicidality. No anxiety or depression. No insomnia. Nursing notes and vitals signs are reviewed. Const: Vital Signs, click to edit/add: Vital Signs - 24 hr 12/10/23 15:35 12/10/23 15:47 12/10/23 15:48 Temperature 97.6 F Pulse Rate 74 Pulse Rate [Pulse Oximeter] 81 Respiratory Rate 20 Blood Pressure 114/67 Blood Pressure [Ri ght Upper Arm] 135/87 Pulse Oximetry 95 93 [facility] 12/10/23 15:48 12/10/23 15:51 12/10/23 15:56 Temperature Pulse Rate 75 74 77 Pulse Rate [Pulse Oximeter] Respiratory Rate Blood Pressure 107/62 94/63 Blood Pressure [Ri ght Upper Arm] Pulse Oximetry 97 91 91 Oxygen Delivery Ar thod 12/10/23 16:00 12/10/23 16:02 12/10/23 16:06 Temperature Pulse Rate 73 72 76 Pulse Rate [Pulse Oximeter] Respiratory Rate Blood Pressure 116/66 108/63 Blood Pressure [Ri ght Upper Arm] Pulse Oximetry 96 93 92 Oxygen Delivery Ar thod 12/10/23 16:07 12/10/23 16:11 12/10/23 16:15 Temperature Pulse Rate 76 80 77 Pulse Rate [Pulse Oximeter] Respiratory Rate Blood Pressure 114/64 Blood Pressure [Ri ght Upper Arm] Pulse Oximetry 93 93 93 Oxygen Delivery Me thod 12/10/23 16:16 12/10/23 16:17 12/10/23 16:21 Temperature Pulse Rate 78 80 80 Pulse Rate [Pulse Oximeter] Respiratory Rate Blood Pressure 107/62 110/67 Blood Pressure [Ri ght Upper Arm] Pulse Oximetry 92 92 92 Oxygen Delivery Ar thod 12/10/23 16:30 12/10/23 16:31 12/10/23 16:41 Temperature Pulse Rate 83 82 Pulse Rate [Pulse Oximeter] Respiratory Rate 18 Blood Pressure 107/63 Blood Pressure [Ri ght Upper Arm] Pulse Oximetry 91 92 Oxygen Delivery Me thod Course Vital Signs Vital signs: Initial Vital Signs Temperature 97.6 F 12/10/23 15:35 Temperature Source Temporal Artery Scan 12/10/23 15:35 Pulse Rate 81 12/10/23 15:35 Pulse Rhythm Regular 12/10/23 15:35 Respiratory Rate 20 12/10/23 15:35 Blood Pressure 135/87 12/10/23 15:35 Blood Pressure Mean 103 12/10/23 15:35 Blood Pressure Position Sitting 12/10/23 15:35 Pulse Oximetry 95 12/10/23 15:35 Oxygen Delivery Method Room Air 12/10/23 15:35 Vital Signs Temperature 97.6 F 12/10/23 15:35 Pulse Rate 81 12/10/23 15:35 Respiratory Rate 20 12/10/23 15:35 Blood Pressure 135/87 12/10/23 15:35 Pulse Oximetry 95 12/10/23 15:35 Oxygen Delivery Method Room Air 12/10/23 15:35 Temperature 97.6 F 12/10/23 15:35 Pulse Rate 82 12/10/23 16:31 Respiratory Rate 18 12/10/23 16:41 Blood Pressure 107/63 12/10/23 16:31 Pulse Oximetry 92 12/10/23 16:31 Oxygen Delivery Method Room Air 12/10/23 15:35 Medications Administered Medications: Discontinued Medications Generic Name Dose Route Start Last Admin Trade Name Frantzq PRN Reason Stop Dose Admin Dexamethasone 10 mg 12/10/23 15:30 12/10/23 15:35 Dexamethasone 10 Mg/Ml Inj PO 12/10/23 15:31 10 mg ONCE ONE Administration MDM - Allergic Reaction MDM Narrative Medical decision making narrative: This patient arrives for observation after a bee sting that occurred about 20 minutes prior to arrival here. He did administer both epinephrine and Benadryl, 2 doses each, prior to arrival. He arrives here with normal vital signs and normal exam. He received an oral dose of dexamethasone 10 mg and was observed for recurring symptoms. After a couple hours he was having no further symptoms and maintains normal vital signs. He is okay to be discharged home and did receive a prescription for EpiPen. Discharge Plan Discharge Clinical Impression: Bee sting reaction Patient Disposition: Home, Self-Care Condition: Stable Additional Instructions: Continue current plans. Use EpiPen as needed and directed. Prescriptions: New epinephrine [EpiPen 2-Jermaine] 0.3 mg/0.3 mL auto-injector 0.3 mg IM Q5-15M PRNQty: 2 0RF Rx Instructions: do not exceed 3 doses per episode No Action methotrexate sodium 2.5 mg tablet 20 mg PO QWEEK certolizumab pegol 400 mg/2 mL (200 mg/mL x 2) syringe kit 41 mg subcut DIRECTED Rx Instructions: every 2 weeks epinephrine [EpiPen] 0.3 mg/0.3 mL auto-injector 0.3 mg IM ONCE Qty: 2 0RF Rx Instructions: as a single dose; may repeat once lisinopril 5 mg tablet 5 mg PO QDAY Qty: 90 3RF Ozempic 1 mg/dose (4 mg/3 mL) pen injector 1 mg subcut QWEEK (DME) lancets [Accu-Chek Fastclix Lancet Drum] Misc See Rx Instructions .ROUTE .COMPLEX Qty: 200 0RF Dose Instruction: USE TO TEST BLOOD SUGARS 4 TIMES DAILY Rx Instructions: USE TO TEST BLOOD SUGARS 4 TIMES DAILY (DME) Accu-Chek Guide test strips Strip See Rx Instructions .ROUTE .COMPLEX Qty: 100 1RF Dose Instruction: USE TO TEST BLOOD SUGARS 4 TIMES DAILY Rx Instructions: USE TO TEST BLOOD SUGARS 4 TIMES DAILY metoprolol tartrate 50 mg tablet 50 mg PO BID Qty: 180 1RF rosuvastatin 40 mg tablet 40 mg PO QDAY Qty: 90 2RF Follow Up/Referrals: Moni Noland MD [Primary Care Provider] - Stand Alone Forms: [employer] Info Instructions
[2023-12-10] MEDS: dexAMETHasone 10 MG/ML inj PO (15:35)
--- OUTSIDE RECORDS SUMMARY | 2023-12-10 15:45 | XMS_ITS | Clinical Summary ---
Author Organization [facility] Address [address] [place] [address]. [place] [address] Care Team Providers Care Drum Drier Name Role Phone Martina Oewn PA-C Primary Care Provider Queta Prater CNP Unavailable [phone] Song Leach MD Unavailable [phone] Allergies Active Allergy Reactions Criticality Noted Date Comments Chicken Allergy 04/10/2003 and turkey Cyclosporine 04/10/2003 anaphylactic Eggs 04/10/2003 anaphylactic Fish Allergy 04/10/2003 Nuts 04/10/2003 Linn 04/10/2003 Medications Medication Sig Dispensed Refills Start Date End Date Status CLARITIN-D 24 HOUR 10-240 MG OR TB24 1 tab po QD (Once per day) as needed for allergy symptoms 04/10/2003 Active MULTI-VITAMIN OR TABS 10/01/2003 Active certolizumab pegol (CIMZIA PREFILLED) 2 X 200 MG/ML KIT 2 syringes/kit Inject 400 mg Subcutaneous Active metoprolol tartrate (LOPRESSOR) 25 MG tablet Take 10 mg by mouth 2 times daily Active methotrexate 2.5 MG tablet Take 20 mg by mouth every 7 days Active cephALEXin (KEFLEX) 500 MG capsule Take 500 mg by mouth 2 times daily Active folic acid (FOLVITE) 1 MG tablet Take 1 mg by mouth daily Active cetirizine (ZYRTEC) 10 MG tablet Take 10 mg by mouth daily Active OZEMPIC, 0.25 OR 0.5 MG/DOSE, 2 MG/1.5ML SOPN pen INJECT 0.5MG INTO THE SKIN WEEKLY 01/28/2021 Active metFORMIN (GLUCOPHAGE-XR) 500 MG 24 hr tablet TAKE FOUR TABLETS BY MOUTH DAILY 12/30/2020 Active lisinopril (ZESTRIL) 5 MG tablet Take 5 mg by mouth Active acetaminophen (TYLENOL) 325 MG tablet Take 650 mg by mouth every 6 hours as needed for mild pain Active EPINEPHrine (ANY BX GENERIC EQUIV) 0.3 MG/0.3ML injection 2-pack Inject 0.3 mLs (0.3 mg) into the muscle once as needed for anaphylaxis May repeat one time in 5-15 minutes if response to initial dose is inadequate. 2 each 11/23/2022 Active dexamethasone (DECADRON) 2 MG tablet Take 5 tablets (10 mg) by mouth once for 1 dose 5 tablet 11/24/2022 Active Active Problems Problem Noted Date Diagnosed Date Calcium oxalate kidney stones 02/20/2021 Last Assessment & Plan: Patient has large volume lower pole right stone burden and two small left renal stones. Discussed options (ESWL, URS, PCNL and observation) and agreed on right PCNL and left URS. Risks discussed included bleeding, infection, injury to surrounding structures (liver, spleen, intestine, colon, lung), potential for residual fragments. Aware that he will need to spend one night in hospital and have 2 weeks of no heavy lifting. Plan: -preoperative urine culture -send litholink now -plan for 2.5 hr right PCNL and left URS (patient ok with [facility] or [facility]) Esophageal reflux 10/01/2003 Allergic rhinitis due to pollen 10/01/2003 Encounters Date Type Department Care Team Description 11/14/2023 2:00 PM CDT Virtual Visit [facility] [place] [address] [place] [address] [address] [place] [phone] Song Leach MD Right flank pain (Primary Dx); Nephrolithiasis 11/12/2023 11:20 AM CDT - 11/12/2023 11:59 PM CDT Hospital Encounter [facility] [address] [place] [address] [address] [place] [phone] Song Leach MD Right flank pain; Nephrolithiasis Discharge Disposition: Home or Self Care 11/12/2023 Travel 11/10/2023 Orders Only [facility] [place] [address] [facility] [address] [place] [address] Song Leach MD Right flank pain (Primary Dx); Nephrolithiasis from Last 3 Months Social History Tobacco Use Types Packs/Day Years Used Date Smoking Tobacco: Former Cigarettes Q uit: 04/13/1996 Smokeless Tobacco: Never Alcohol Use Standard Drinks/Week Comments Not Currently 0 (1 standard drink = 0.6 oz pur e alcohol) stopped 15yrs ago PHQ-2 Answer Date Recorded PHQ-2 Score 0 11/14/2023 Adolescent Education Answer Date Record ed Getting School Help Needed Not on file 03/13 Sex and Gender Information Value Date Recorded Sex Assigned at Male 12/01/2020 9:08 PM CDT Gender Identity Male 12/01/2020 9:08 PM CDT Sexual Orientation Straight 12/01/2020 9: 08 PM CDT Last Filed Vital Signs Vital Sign Reading Time Taken Comments Blood Pressure 138/88 11/23/2022 1:26 PM CDT Pulse 77 11/23/2022 1:26 PM CDT Temperature 36.7 ??C (98.1 ??F) 11/23/2022 12:16 PM C DT Respiratory Rate 16 11/23/2022 1:26 PM CDT Oxygen Saturation 95% 11/23/2022 1:26 PM CDT Inhaled Oxygen Concentration - - Weight 108.9 kg (240 lb) 11/23/2022 12:16 PM CDT Height 181 cm (5' 11.25) 04/09/2021 7:[address] LIGHT SERVICER SUPERVISOR Body Mass Index 33.24 04/09/2021 7:[address] LIGHT SERVICER SUPERVISOR Plan of Treatment Health Maintenance Due Date Last Done Comments ADVANCE CARE PLANNING 1975 ANNUAL REVIEW OF HM ORDERS [address] CT COLONOGRAPHY 1975 FIT 1975 FLEX SIG 1975 YEARLY PREVENTIVE VISIT 1975 sDNA (Cologuard) 1975 Pneumococcal Vaccine: Pediatrics (0 to 5 Years) and At-Risk Patients (6 to 64 Years) (1 of 2 - PCV) 1982 HIV SCREENING 12/09/1991 HEPATITIS C SCREENING 1994 HEPATITIS B IMMUNIZATION (1 of 3 - 19+ 3-dose series) 12/09/1995 LIPID 2016 COLONOSCOPY 02/23/2021 02/23/2011, 02/10/2009 COLORECTAL CANCER SCREENING 02/23/2021 COVID-19 Vaccine (4 - 2022- season) 2023 04/16/2021, 09/10/2020, 08/13/2020 INFLUENZA VACCINE (Season Ended) 2024 GLUCOSE 04/09/2024 04/09/2021, 03/01, 03/26/2021, Additional history exists DTAP/TDAP/TD IMMUNIZATION (4 - Td or Tdap) 05/28/2031 05/28/2021, 06/15/2014, 07/01/2010, Additional history exists PHQ-2 (once per calendar year) Completed 11/14/2023, 02/05/2021 HPV IMMUNIZATION Aged Out No longer e ligible based on patient's age to complete this topic IPV IMMUNIZATION Aged Out No longer e ligible based on patient's age to complete this topic MENINGITIS IMMUNIZATION Aged Out No l onger eligible based on patient's age to complete this topic RSV MONOCLONAL ANTIBODY Aged Out No l onger eligible based on patient's age to complete this topic Medical Devices Implanted Type Area Counseling Services Director Device Identifier Shelf Expiration Date Model / Serial / Lot Stent Ureteral Percuflex Plus [id number] - [id number] Implanted:Qty: 1 on 04/09/2021 by Song Leach MD at [facility] Stent Right: Ureter [employer] [id number] 09/02/2023 [id number] / [id number] Explanted Type Area Counseling Services Director Device Identifier Shelf Expiration Date Model / Serial / Lot Stent Ureteral Percuflex Plus [id number] - [id number] Implanted:Qty: 1 on 03/25/2021 by Song Leach MD at [facility] Explanted:Qty: 1 on 04/09/2021 by Song Leach MD at [facility] Stent Left: Ureter [employer] [id number] 12/19/2023 [id number] / / [id number] Stent Ureteral Percuflex Plus [id number] - [id number] Implanted:Qty: 1 on 03/25/2021 by Song Leach MD at [facility] Explanted:Qty: 1 on 04/09/2021 by Song Leach MD at [facility] Stent Right: Ureter [employer] [id number] 09/09/2023 [id number] 40 / / [id number] Procedures Procedure Name Priority Date/Time Associated Diagnosis Comments CT ABDOMEN PELVIS W/O CONTRAST STAT 11/12/2023 11:27 AM CDT Right flank pain Nephrolithiasis GLUCOSE BY METER Routine 04/09/2021 12:[address] LIGHT SERVICER SUPERVISOR COLONOSCOPY Routine 02/23/2011 9:54 AM CDT from Last 3 Months or Most Recently Relevant to Health Maintenance Results * CT Abdomen Pelvis w/o Contrast [[id number]] (11/12/2023 11:27 AM CDT) Anatomical Region Laterality Modality Abdomen/Pelvis, SUBRAD CT PATRICK DY, UMP CT ABDOMEN PELVIS, RAD CT Computed Tomography 11/12/2023 11:2 7 AM CDT Impressions 11/12/2023 11:57 AM CDT IMPRESSION: 1. ??Nonobstructing bilateral nephrolithiasis. Stone burden on the right is decreased from prior. 2. ??Hepatic steatosis. Narrative 11/12/2023 11:57 AM CDT EXAM: CT ABDOMEN PELVIS W/O CONTRAST LOCATION: [facility] DATE: 11/12/2023 INDICATION: ??Right flank pain, Nephrolithiasis COMPARISON: CT abdomen pelvis 03/29/2021. TECHNIQUE: CT scan of the abdomen and pelvis was performed without IV contrast. Multiplanar reformats were obtained. Dose reduction techniques were used. CONTRAST: None. FINDINGS: LOWER CHEST: Small hiatal hernia. HEPATOBILIARY: Hepatic steatosis. No radiopaque gallstones. No biliary ductal dilatation. PANCREAS: Normal. SPLEEN: Normal. ADRENAL GLANDS: Normal. KIDNEYS/BLADDER: No hydronephrosis. Nonobstructing 3 mm calculus of the right lower pole and 2 mm calculus of the left interpolar kidney. Stone burden on the right is decreased from prior. Fluid attenuating right renal cyst and additional too small to characterize hypoattenuating lesions bilaterally, not requiring specific follow- up. The urinary bladder is incompletely distended. BOWEL: No obstruction or inflammatory change. Normal caliber appendix. LYMPH NODES: Normal. VASCULATURE: No abdominal aortic aneurysm. PELVIC ORGANS: Normal. MUSCULOSKELETAL: Small fat-containing left inguinal hernia. Mild degenerative changes of the spine. Procedure Note Arsh Asher MD - 11/12/2023 EXAM: CT ABDOMEN PELVIS W/O CONTRAST LOCATION: [facility] DATE: 11/12/2023 INDICATION: Right flank pain, Nephrolithiasis COMPARISON: CT abdomen pelvis 03/29/2021. TECHNIQUE: CT scan of the abdomen and pelvis was performed without IVcontrast. Multiplanar reformats were obtained. Dose reduction techniqueswere used. CONTRAST: None. FINDINGS: LOWER CHEST: Small hiatal hernia. HEPATOBILIARY: Hepatic steatosis. No radiopaque gallstones. No biliaryductal dilatation. PANCREAS: Normal. SPLEEN: Normal. ADRENAL GLANDS: Normal. KIDNEYS/BLADDER: No hydronephrosis. Nonobstructing 3 mm calculus of theright lower pole and 2 mm calculus of the left interpolar kidney. Stoneburden on the right is decreased from prior. Fluid attenuating right renalcyst and additional too small to characterize hypoattenuating lesions bilaterally, not requiring specificfollow- up. The urinary bladder is incompletely distended. BOWEL: No obstruction or inflammatory change. Normal caliber appendix. LYMPH NODES: Normal. VASCULATURE: No abdominal aortic aneurysm. PELVIC ORGANS: Normal. MUSCULOSKELETAL: Small fat-containing left inguinal hernia. Milddegenerative changes of the spine. IMPRESSION: 1. Nonobstructing bilateral nephrolithiasis. Stone burden on the right isdecreased from prior. 2. Hepatic steatosis. Song Leach MD [facility] CT ORDERABLES * (ABNORMAL) Glucose by meter (04/09/2021 12:[address] LIGHT SERVICER SUPERVISOR) GLUCOSE BY METER POCT 130(H) 70 - 99 mg/dL 04/09/2021 1:[address] LIGHT SERVICER SUPERVISOR [facility] POC Blood BLOOD SPECIMEN / Unknown 04/09/2021 12:[address] LIGHT SERVICER SUPERVISOR 04/09/2021 1:[address] LIGHT SERVICER SUPERVISOR Song Leach MD LAB - AKER POCT [facility] POC [facility] - [address] [place] [address] * COLONOSCOPY (02/23/2011 9:54 AM CDT) [facility] COLONOSCOPY [facility] Patient Name: Hubert Odell ?Procedure Date: 02/23/2011 9:54:16 AM ? Date of : 1975 ?Admit Type: Outpatient ? Age: 35 ? Gender: Male ? Attending MD: Last Christina MD ? Procedure: ?Colonoscopy Indications: ?Established Crohn's disease of the small bowel and ?colon, Follow-up of Crohn's disease of the small ?bowel and colon Providers: ?Last Cruz MD Referring : ? Verena Reister Medicines: ?Fentanyl 100 micrograms IV, Midazolam 2 mg IV, ?Atropine 0.6 mg IV Complications: ?No immediate complications Procedure: ?Pre-Anesthesia Assessment: ?- Prior to the procedure, a History and Physical ?was performed, and patient medications and ?allergies were reviewed. The patient is competent. ?The risks and benefits of the procedure and the ?sedation options and risks were discussed with the ?patient. All questions were answered and informed ?consent was obtained. Patient identification and ?proposed procedure were verified by the physician ?in the procedure room. Mental Status Examination: ?alert and oriented. Airway Examination: normal ?oropharyngeal airway and neck mobility. Respiratory ?Examination: clear to auscultation. CV Examination: ?normal. ASA Grade Assessment: I - A normal, healthy ?patient. After reviewing the risks and benefits, ?the patient was deemed in satisfactory condition to ?undergo the procedure. The anesthesia plan was to ?use moderate sedation / analgesia (conscious ?sedation). Immediately prior to administration of ?medications, the patient was re-assessed for ?adequacy to receive sedatives. The heart rate, ?respiratory rate, oxygen saturations, blood ?pressure, adequacy of pulmonary ventilation, and ?response to care were monitored throughout the ?procedure. The physical status of the patient was ?re-assessed after the procedure. ?After obtaining informed consent, the colonoscope ?was passed under direct vision. Throughout the ?procedure, the patient's blood pressure, pulse, and ?oxygen saturations were monitored continuously. The ?Colonoscope was introduced through the anus and ?advanced to the terminal ileum. The colonoscopy was ?performed without difficulty. The patient tolerated ?the procedure well. The quality of the bowel ?preparation was excellent. ? Findings: ? The digital rectal exam was normal. The rectum, sigmoid colon, ? descending colon, splenic flexure, transverse colon, hepatic flexure, ? ascending colon, cecum, appendiceal orifice, ileocecal valve and ileum ? appeared normal. Biopsies were taken with a cold forceps for histology. ? The retroflexed view of the anal verge was normal and showed no anal or ? rectal abnormalities. The terminal ileum appeared normal. ? Impression: ? - The rectum, sigmoid colon, descending colon, ?splenic flexure, transverse colon, hepatic flexure, ?ascending colon, cecum, appendiceal orifice, ?ileocecal valve and terminal ileum are normal. This ?was biopsied. ?- The examined portion of the ileum was normal. Recommendation: ? - Discharge patient to home (ambulatory). ?- Continue present medications. ?- Telephone endoscopist for pathology results in 1 ?week. Assuming no dysplasia then recolonoscopy in 2 ?yrs. ?- Return to primary care physician PRN. ? Juanis Cruz M.D Last Cruz MD Signed Date: 02/23/2011 10:34:34 AM Number of Addenda: 0 I was physically present for the entire viewing portion of the exam. Note Initiated On: 02/23/2011 9:54:16 AM Scope Withdrawal Time: 0 hours 10 minutes 41 seconds Total Procedure Duration: 0 hours 14 minutes 48 seconds RADIOLOGY RESULTS 02/23/2011 9:54 AM CDT Verena Reister PROCEDURES RADIOLOGY RESULTS from Last 3 Months or Most Recently Relevant to Health Maintenance Additional Health Concerns Infection Onset Date Last Indicated MRSA Comment:Recurrent MRSA cellulitis per CareEverywhere 03/26/2021 1 Advance Directives For more information, please contact: [phone] * Full Code (Latest Code Status on File) Date Activated Date Inactivated Comments 03/25/2021 9:20 PM 03/26/2021 3:11 PM All basic and advanced life-sustaining interventions are performed as appropriate Question Answer Comments Code status determined by: Unable to dis cuss and no AD/POLST on file; continue PREVIOUSLY ORDERED code status Care Teams Drum Drier Relationship Specialty Start Date End Date Martina Owen PA-C PCP - General Physician [place] 02/11/19 Queta Prater CNP [address] [place] [address] Nurse Practitioner Urology 09/22/20 Song Leach MD [address] [place] [address] Assigned Surgical Provider 11/20/23
--- OUTSIDE RECORDS SUMMARY | 2023-12-10 15:45 | XMS_ITS | Clinical Summary ---
Author Organization [facility] Address [address] [place] [id number] Phone Care Team Providers Care Chin Strap Cutter Name Role Phone Unavailable Primary Care Provider Unavailabl e Medications Medication Sig Dispensed Refills Start Date End Date Status mesalamine (PENTASA) 500 MG CR capsule 4 tabs po twice daily 01/27/2015 Active certolizumab pegol (CIMZIA PREFILLED) 2 X 200 MG/ML kit inj 40mg twice monthly 01/27/2015 Active lisinopril (PRINIVIL,ZESTRIL) 10 MG tablet 1 po qday---dose unknown----- 01/27/2015 Active mupirocin (BACTROBAN) 2 % ointment APPLY TWO TIMES A DAY TO LESIONS 3 01/27/2015 Active folic acid (FOLVITE) 1 MG tablet 1 po qday 01/27/2015 Active loratadine-pseudoeph edrine (CLARITIN-D 12 HOUR) 5-120 MG per 12 hr tablet 1 tab twice monthly 01/27/2015 Active aspirin 81 MG tablet 1 tab qod 08/09/2013 Acti ve Multiple Vitamin (MULTIVITAMIN) capsule 1 tab po qd 08/09/2013 Active cephalexin (KEFLEX) 500 MG capsule TAKE 1 CAPSULE BY MOUTH TWICE DAILY 180 capsule 1 11/19/2021 Active Active Problems Problem Noted Date Diagnosed Date Crohn's disease without complication 08/09/2013 Other specified diseases of hair and hair follic les 08/09/2013 Overview (04/07/2019): Converted unresolved ICD9, potential mismatch. Social History Tobacco Use Types Packs/Day Years Used Date Smoking Tobacco: Never Assessed Sex and Gender Information Value Date Recorded Sex Assigned at Not on file Gender Identity Not on file Sexual Orientation Not on file Last Filed Vital Signs Vital Sign Reading Time Taken Comments Blood Pressure 154/106 01/27/2015 12:01 AM CDT Ri ght Pulse - - Temperature - - Respiratory Rate - - Oxygen Saturation - - Inhaled Oxygen Concentration - - Weight 112 kg (248 lb) 01/27/2015 12:01 AM CDT Height 182.9 cm (6') 01/27/2015 12:01 AM CDT Body Mass Index 33.63 01/27/2015 12:01 AM CDT Plan of Treatment Health Maintenance Due Date Last Done Comments Influenza Vaccine (#1) 2024 Insurance Payer Benefit Plan / Group Subscriber ID Effective Dates Phone Address Type PM INTERFACED INSURANCE PM INTERFACED INSURANCE - OPEN 2015-05/29 [address] [place] [address]
--- OUTSIDE RECORDS SUMMARY | 2023-12-10 15:45 | XMS_ITS | Clinical Summary ---
Author Organization [facility] Address [place], [place] [address] Care Team Providers Care Etl Developer Name Role Phone Trino Jimenez Of Primary Care Provider Un available Allergies Active Allergy Reactions Criticality Noted Date Comments Bee Venom Protein (Honey Bee) Anaphylaxis High 12/24/2019 Egg Derived Anaphylaxis 12/20/2011 Cyclosporine Anaphylaxis 09/27/2006 Cyclosporine Anaphylaxis High 12/24/2019 Egg Anaphylaxis 09/27/2006 Iodine Anaphylaxis High 12/24/2019 Mushroom *Unknown 12/24/2019 Tree Nut Anaphylaxis High 12/24/2019 [place] *Unknown 12/24/2019 Flavor Pear *Unknown 12/24/2019 flavor Shellfish Containing Products Anaphylaxis 09/27/2006 [place] *Unknown 12/24/2019 Unknown-Follow Up Needed (Include Details In Comments) 09/28/2006 martínez, cause respiratory distress ,,, peaches ,pears and pineapple cause itching in mouth, poultry causes anaphylaxis treenuts and peanuts cause anaphylaxis Medications Medication Sig Dispensed Refills Start Date End Date Status CEFADROXIL 500 MG CAP take 1 capsule by oral route once daily 0 Active FLONASE 50 MCG/ACTUATION NASAL SPRAY AEROSOL use twice daily 0 Active BENADRYL 25 MG CAP take 1 capsule (25mg) by oral route every 4 hours as needed 0 Active MULTIVITAMIN CAP take 1 tablet daily 0 Active EPINEPHrine (EPIPEN) 0.3 mg/0.3 mL injection Inject 0.3 mg intramuscular one time if needed for Allergic Reaction for 1 dose. 2 Each 0 12/20/2011 Active Certolizumab Pegol (CIMZIA) 400 mg/2 mL (200 mg/mL x 2) sykt injectionIndication s:Crohn's disease Inject 400 mg subcutaneous every 2 weeks. Indications: Crohn's disease Active omeprazole (PRILOSEC) 40 mg Delayed-Release capsule Take 40 mg by mouth once daily. Active metoprolol tartrate (LOPRESSOR) 50 mg tablet Take 50 mg by mouth 2 times daily. Active lisinopriL (PRINIVIL; ZESTRIL) 5 mg tablet Take 5 mg by mouth once daily. Active atorvastatin (LIPITOR) 20 mg tablet Take 20 mg by mouth once daily. Active ranitidine (ZANTAC) 150 mg capsule Take 150 mg by mouth 2 times daily. Active cetirizine HCl/pseudoephedrine (ZYRTEC-D ORAL) Take by mouth. Activ e METHOTREXATE SODIUM ORAL Take 2.5 mg by mouth once weekly. Take 8, 2.5mg tablets once a week Active folic acid 1 mg tablet Take 1 mg by mouth once daily. Active Active Problems No known active problems Family History Medical History Relation Name Comments Diabetes Father Hypertension Father Diabetes Mother Obesity Mother Congenital heart disease Paternal Grandfather Alzheimer's disease Paternal Grandmother Relation Name Status Comments Father Mother Paternal Grandfather Paternal Grandmother Social History Tobacco Use Types Packs/Day Years Used Date Smoking Tobacco: Never Smokeless Tobacco: Never Alcohol Use Standard Drinks/Week Comments Not Asked 0 (1 standard drink = 0.6 oz pur e alcohol) Sex and Gender Information Value Date Recorded Sex Assigned at Not on file Gender Identity Not on file Sexual Orientation Not on file Obstetrics History Last Filed Vital Signs Vital Sign Reading Time Taken Comments Blood Pressure 133/89 12/25/2019 9:30 AM CDT Pulse 64 12/25/2019 9:30 AM CDT Temperature 36.6 ??C (97.9 ??F) 12/25/2019 9:00 AM CD T Respiratory Rate 16 12/25/2019 9:30 AM CDT Oxygen Saturation 97% 12/25/2019 9:30 AM CDT Inhaled Oxygen Concentration - - Weight 117 kg (258 lb) 12/24/2019 2:08 PM CDT Height 182.9 cm (6') 12/24/2019 2:08 PM CDT Body Mass Index 34.99 12/24/2019 2:08 PM CDT Plan of Treatment Health Maintenance Due Date Last Done Comments Tdap 12/09/1987 Depression screening for age 12+ 1988 HIV for age 15-65 12/09/1991 Hepatitis C screening for ag e 18-79 1994 Tetanus booster 1996 BMI (ht and wt on same day) for age 18+ 07/18/2020 07/18/2019 Colonoscopy through age 75 2021 Lipids for age 45-75 2021 COVID-19 vaccine series (2022- season) 2023 Influenza for age 9-49 01/29/2024 Pneumococcal series for age 6-64 Aged Out No longer eligible based on patient's age to complete this topic Medical Devices Implanted Type Area Adjuster Electrical Contacts Device Identifier Shelf Expiration Date Model / Serial / Lot Plate Cerv Ant 25mm [employer] [id number] - [id number] Implanted:Qty: 1 on 09/28/2006 at [facility] Spine Implants Spine [employer] [id number]# / / Screw 4.0x14mm - [id number] Implanted:Qty: 4 on 09/28/2006 at [facility] Spine Implants Spine [employer] [id number]# / / [id number] [[id number]] Implanted:Qty: 1 on 09/28/2006 at [facility] Explanted:at [facility] (Quantity not on file) Spine [employer] 08/[id number] / [id number] / Advance Directives * Full Code (Latest Code Status on File) Date Activated Date Inactivated Comments 12/25/2019 7:10 AM 12/25/2019 11:45 AM * Full Code Date Activated Date Inactivated Comments 09/28/2006 2:42 PM 09/29/2006 9:12 PM * Full Code Date Activated Date Inactivated Comments 09/28/2006 8:05 AM 09/28/2006 2:42 PM Care Teams Etl Developer Relationship Specialty Start Date End Date Trino Jimenez Phys Of PCP - General 07/18/19
--- OUTSIDE RECORDS SUMMARY | 2023-12-10 15:46 | XMS_ITS | Encounter Summary ---
Author Organization [facility] Address [address] [place] [address]. [place] [address] Care Team Providers Care Afterschool Babysitter Name Role Phone Bryan Cardoza MD Primary Care Provider [phone] Martina Owen PA-C Primary Care Provider Queta Prater CNP Unavailable Yanelis Benavides Unavailable [phone] Song Leach MD Unavailable [phone] Song Leach MD Unavailable [phone] Encounter Details Date Type Department Care Team (Late st Contact Info) Description 10/16/[address] [address] Srinivas Salinas MD OPERATIVE REPORT (Primary Dx) Social History Tobacco Use Types Packs/Day Years Used Date Smoking Tobacco: Former Cigarettes Q uit: 04/13/1996 Smokeless Tobacco: Never Alcohol Use Standard Drinks/Week Comments Not Currently 0 (1 standard drink = 0.6 oz pur e alcohol) stopped 15yrs ago Sex and Gender Information Value Date Recorded Sex Assigned at Male 12/01/2020 9:08 PM CDT Gender Identity Male 12/01/2020 9:08 PM CDT Sexual Orientation Straight 12/01/2020 9: 08 PM CDT documented as of this encounter Progress Notes * 10/16/2003 11:59 PM [id number] 00:00 Operative Report-OMAR LÓPEZ) [Entered: 00:00 Tr anscription ([facility])] PREOPERATIVE DIAGNOSES: 1. Crohn disease. 2. Bilateral nephrolithiasis. POSTO PERATIVE DIAGNOSES: 1. Crohn disease. 2. Bilateral nephrolithiasis. NAME OF OPERATION: Cystoscopy , right ureteroscopy with stone basketing x 2, right ureteral stent placement, left ureteroscopy with holmium laser and stone extraction x 4, left ureteral stent placement. SURGEON: Sonal Perez MD RES IDENT SURGEON: Omar Ruiz MD ANESTHESIA: General endotracheal. ESTIMATED BLOOD LOSS: 10 c c. COMPLICATIONS: No complications. OPERATIVE INDICATIONS: Hubert Odell is a 27-year-old male with Crohn disease, who, approximately 2 weeks ago, underwent right distal ureteroscopy for an impacted UV J stone. At the end of the case, the stones were left in the kidney as the ureter itself appeared th in and quite shotty. We reviewed risks, benefits, and options with the patient. As he had had consi derable pain with this current stone, he wishes to be pain free and has chosen an endoscopic procedur e as his form of therapy. He understands the risks and benefits associated with this procedure and u nderstands there may be a need for further procedures in the future. OPERATIVE PROCEDURE: After obta ining informed consent, the patient was appropriately marked, identified, and brought to the operatin g room and placed in the supine position on the operating room table. After induction of IV antibiot ics and general endotracheal anesthesia, the patient's legs were adducted in the modified dorsal lith otomy position using stirrups. His penis, groin, and scrotum were then prepped and draped in the sta ndard surgical fashion. Using a 21- Egyptian rigid cystoscope with a 30-degree lens and bridge, the pe nile meatus was gently cannulated. The urethra was normal in caliber and appearance. The prostate w as 2 cm and benign and the bladder was superficially inspected and was free from stones. Extruding f rom the right ureteral orifice was a right ureteral stent. Using flexible rat tooth graspers, we gra sped the end of the stent and pulled it out with the cystoscope to the penile meatus. Through the st ent, we placed a [employer] guidewire with fluoroscopic guidance all the way up to the kidney. The sten t was then removed. Using the 7.5-Egyptian Ford semi-rigid ureteroscope, we performed rigid ureterosco py of the distal mid and proximal ureter. The distal ureter was quite well healed and there were no appreciable strictures or defects in this area and no further stones up the entire course of the uret er. At this point, through the rigid cystoscope, we placed a super stiff guidewire, removed the uret eroscope, and over the super stiff wire placed a Cook 12/14 ureteral access sheath. Once the sheath w as in a good position, under fluoro we removed both the wire and the working channel and then perform ed flexible ureteroscopy. We examined upper, middle, and lower pole calices of the kidney as well as the renal pelvis. There are 3 small stones in the calices, 2 in the lower pole and 1 in the mid elissa e. Each of these was grasped with a Nitinol NCircle tipless basket and extracted through the sheath. At the end of the case, the patient was stone free on the right side. We then withdrew the uretero scope and the sheath. At the end on the right side, we placed a right-sided double-J stent with a ni ce pigtail curl in the pelvis and in the bladder. This was verified fluoroscopically. At this point, we turned our attention to the left ureteral orifice. Using a 5-Egyptian open-ended catheter and a Be ntson guidewire, we guided the wire all the way up to the collecting system on the left side. We fir st attempted to pass a dual-lumen catheter; however, the left ureteral orifice was a little tight and we could not pass the dual-lumen, so we then passed the Cook 12/14 ureteral access sheath. This pas sed quite easily up into the proximal portion of the ureter. We then performed a flexible ureterosco py with the Olympus 7.5-Egyptian flexible ureteroscope. The ureteroscopy itself went fairly well; bazan nura, the ureteral orifice was fairly tight and on multiple occasions we had to use 2 hands to push th e ureteroscope into the collecting system as even with the access sheath in place his ureter was a li ttle narrow. There are 2 stones we could appreciate on ureteroscope; 1 in the lower pole, which we w ere able to basket with the 1.9-Egyptian tipless basket and pull out through the sheath. The other was approximately 6 mm located mid pole. This stone we initially basketed and pulled through the proxima l ureter, at which point the stone would not come any further without damage to the ureter. Then usin g the 200 micron holmium laser fiber at joules of 0.8 and 8, we performed holmium laser lithotripsy. The stone was fragmented into 4-5 smaller pieces. Two of these pieces were removed through the leos th. Three of these pieces were lost in the renal pelvis. We could see all 3 of these pieces surround ed by some small clots. As it was difficult maneuvering the ureteroscope here, as the pieces each lo oked 2 mm or less, we decided to leave these and leave a stent to allow their passage. We then remove d the ureteroscope and the sheath and over the existing guidewire we placed a 7-Egyptian, 28-cm double- J stent with a nice pigtail curl in the renal pelvis and in the bladder. On the right side, there wa s a 6-Egyptian, 28-cm double-J stent placed. At the end of the case, a Duncan catheter was placed to gr avity drainage. The patient was awakened from anesthesia, extubated, and transferred to the recovery room in stable condition. Dr. Sonal Perez was scrubbed and present throughout the entirety of the c ase with no appreciable complications. DISPOSITION: Successful clearing on the right side of all kid walter stones, a rather tight distal ureter on the left; however, we were able to basket and remove the majority of his stones. There were 2-3 small fragments that will probably be washed out with the cely nt in place. We plan to admit the patient overnight for pain control and have him return in 1-2 week s for stent removal. Due to the tightness of the left ureter, he should have an IVP study within 4-6 weeks after stent removal. SONAL PEREZ MD Dictated by: OMAR RUIZ MD 15 :14 MT: ge Document: [id number] CC: MD SONAL CARVALHO MD JEFFREY R MICHELL, MD LCN: [id number] DSC: 10/17/2003 Name: MR#: : Proce dure Date: HUBERT ODELL [id number] 1975 10/16/2003 OPERATIVE REPORT Page 3 of 3 Elect ronically filed by Bhavya Ruiz 10/24/2003 2:01 PM documented in this encounter Plan of Treatment Not on file documented as of this encounter Visit Diagnoses Diagnosis OPERATIVE REPORT- Primary documented in this encounter Additional Health Concerns Infection Onset Date Last Indicated Resolved Time MRSA-Contact Isolation 03/26 8:42 AM CDT MRSA Comment:Recurrent MRSA cellulitis per CareEverywhere 03/26/2021 03/26/2021 documented as of this encounter Care Teams Afterschool Babysitter Relationship Specialty [place] [address] [place] [address] PCP - General 04/10/03 02/10/19 Martina Owen PA-C [address] [place] [address] PCP - General Physician Web Administrator 02/11/19 Queta Prater CNP [address] [place] [address] [id number] Nurse Practitioner Urology 09/22/20 Yanelis Benavides PA [address] [place] [address] Urology [place], [place] 776[address] Assigned Surgical Provider 02/08/21 07/11/21 Song Leach MD [address] [place] [address] [id number] Assigned Surgical Provider 07/12/21 12/31/22 Song Leach MD [address] [place] [address] [id number] Assigned Surgical Provider 11/20/23 documented as of this encounter
--- OUTSIDE RECORDS SUMMARY | 2023-12-10 15:46 | XMS_ITS | Encounter Summary ---
Author Organization [facility] Address [address] [place] [address]. [place] [address] Care Team Providers Care Chute Loader Name Role Phone Martina Owen PA-C Primary Care Provider Queta Prater CNP Unavailable [phone] Yanelis Benavides Unavailable [phone] Song Leach MD Unavailable [phone] Song Leach MD Unavailable [phone] Encounter Details Date Type Department Care Team (Late st Contact Info) Description 02/26/2021 [facility] [address] [place] [address] Winnie Sánchez Social History Tobacco Use Types Packs/Day Years Used Date Smoking Tobacco: Former Cigarettes Q uit: 04/13/1996 Alcohol Use Standard Drinks/Week Comments Not Asked 0 (1 standard drink = 0.6 oz pur e alcohol) PHQ-2 Answer Date Recorded PHQ-2 Score 0 02/05/2021 Sex and Gender Information Value Date Recorded Sex Assigned at Male 12/01/2020 9:08 PM CDT Gender Identity Male 12/01/2020 9:08 PM CDT Sexual Orientation Straight 12/01/2020 9: 08 PM CDT COVID-19 Exposure Response Date Recorded In the last month, have you been in contact with someone who was confirmed or suspected to have Coronavirus / COVID-19? No / Unsure 02/12/2021 7:30 AM CDT documented as of this encounter Plan of Treatment Not on file documented as of this encounter Visit Diagnoses Not on filedocumented in this encounter Additional Health Concerns Infection Onset Date Last Indicated Resolved Time MRSA-Contact Isolation 03/26 8:42 AM CDT MRSA Comment:Recurrent MRSA cellulitis per CareEverywhere 03/26/2021 03/26/2021 documented as of this encounter Care Teams Chute Loader Relationship Specialty Start Date End Date Martina Owen PA-C PCP - General Physician Optimization Analyst 02/11/19 Queta Prater CNP [address] [place] [address] [id number] Nurse Practitioner Urology 09/22/20 Yanelis Benavides PA [address] [place] [address] Urology [place], [place] 478[address] Assigned Surgical Provider 02/08/21 07/11/21 Song Leach MD [address] [place] [address] [id number] Assigned Surgical Provider 07/12/21 12/31/22 Song Leach MD [address] [place] [address] [id number] Assigned Surgical Provider 11/20/23 documented as of this encounter
--- OUTSIDE RECORDS SUMMARY | 2023-12-10 15:46 | XMS_ITS | Referral Summary ---
Author Organization [facility] Address [address] [place] [address]. [place] [address] Care Team Providers Care Pluck Separator Name Role Phone Martina Owen PA-C Primary Care Provider Queta Prater CNP Unavailable [phone] Song Leach MD Unavailable [phone] Encounters Date Type Department Care Team Description 11/14/2023 2:00 PM CDT Virtual Visit [facility] [address] [place] [address] [address] [place] [phone] Song Leach MD Right flank pain (Primary Dx); Nephrolithiasis 11/12/2023 Travel 11/12/2023 11:20 AM CDT - 11/12/2023 11:59 PM CDT Hospital Encounter [facility] [address] [place] [address] [address] [place] [phone] Song Leach MD Right flank pain; Nephrolithiasis Discharge Disposition: Home or Self Care 11/10/[address] [facility] [address] [place] [address] [address] [place] [phone] Song Leach MD Right flank pain (Primary Dx); Nephrolithiasis from Last 3 Months Allergies Active Allergy Reactions Criticality Noted Date Comments Chicken Allergy 04/10/2003 and turkey Cyclosporine 04/10/2003 anaphylactic Eggs 04/10/2003 anaphylactic Fish Allergy 04/10/2003 Nuts 04/10/2003 [place] 04/10/2003 Medications Medication Sig Dispensed Refills Start [...] PCNL and left URS (patient ok with [facility]) Esophageal reflux 10/01/2003 Allergic rhinitis due to pollen 10/01/2003 Social History Tobacco Use Types Packs/Day Years [...] 181 cm (5' 11.25) 04/09/2021 7:43 AM DERMATOPATHOLOGIST Body Mass Index 33.24 04/09/2021 7:43 AM DERMATOPATHOLOGIST Plan of Treatment Not on file Medical Devices Implanted Type Area Dry Room Operator Device Identifier Shelf Expiration Date Model / Serial / Lot Stent Ureteral Percuflex Plus [id number] - [id number] Implanted:Qty: 1 on 04/09/2021 by Song Leach MD at [facility] Stent Right: Ureter [employer] [id number] 09/02/2023 [id number] Explanted Type Area Dry Room Operator Device Identifier Shelf Expiration Date Model / Serial / Lot Stent Ureteral Percuflex Plus [id number] - [id number] Implanted:Qty: 1 on 03/25/2021 by Song Leach MD at [facility] Explanted:Qty: 1 on 04/09/2021 by Song Leach MD at [facility] Stent Left: Ureter [employer] [id number] 12/19/2023 [id number] 30 / / [id number] Stent Ureteral Percuflex Plus [id number] - [id number] Implanted:Qty: 1 on 03/25/2021 by Song Leach MD at [facility] Explanted:Qty: 1 on 04/09/2021 by Song Leach MD at [facility] Stent Right: Ureter [employer] [id number] 09/09/2023 [id number] 40 / / [id number] Procedures Procedure Name Priority Date/Time Associated Diagnosis Comments CT ABDOMEN PELVIS W/O CONTRAST STAT 11/12/2023 11:27 AM CDT Right flank pain Nephrolithiasis GLUCOSE BY METER Routine 04/09/2021 12:5 7 PM DERMATOPATHOLOGIST COLONOSCOPY Routine 02/23/2011 9:54 AM CDT from Last 3 Months or Most Recently Relevant to Health Maintenance Results * CT Abdomen Pelvis w/o Contrast [[id number]] (11/12/2023 11:27 AM CDT) Anatomical Region Laterality Modality Abdomen/Pelvis, SUBRAD CT PATRICK DY, UMP CT ABDOMEN PELVIS, RAD CT Computed Tomography 11/12/2023 11:2 7 AM CDT Impressions 11/12/2023 11:57 AM CDT IMPRESSION: 1. ??Nonobstructing bilateral nephrolithiasis. Stone burden on the right is decreased from prior. 2. ??Hepatic steatosis. Narrative 11/12/2023 11:57 AM CDT EXAM: CT ABDOMEN PELVIS W/O CONTRAST LOCATION: [facility] DATE: 11/12/2023 INDICATION: ??Right flank pain, Nephrolithiasis [...] EXAM: CT ABDOMEN PELVIS W/O CONTRAST LOCATION: [facility] DATE: 11/12/2023 INDICATION: Right flank pain, Nephrolithiasis [...] prior. 2. Hepatic steatosis. Song Leach MD IMG CT ORDERABLES * (ABNORMAL) Glucose by meter (04/09/2021 12:57 PM DERMATOPATHOLOGIST) GLUCOSE BY METER POCT 130(H) 70 - 99 mg/dL 04/09/2021 1:06 PM DERMATOPATHOLOGIST [facility] Blood BLOOD SPECIMEN / Unknown 04/09/2021 12:57 PM DERMATOPATHOLOGIST 04/09/2021 1:06 PM DERMATOPATHOLOGIST Song Leach MD LAB - BEAKER POCT [facility] - [address] [place] [address] * COLONOSCOPY (02/23/2011 9:54 AM CDT) COLONOSCOPY [facility] Patient Name: Hubert Odell ?Procedure Date: 02/23/2011 9:54:16 AM ? Date of : 1975 ?Admit Type: Outpatient ? Age: 35 ? Gender: Male ? Attending MD: Last Christina MD ? Procedure: ?Colonoscopy Indications: ?Established Crohn's disease of the small bowel and ?colon, Follow-up of Crohn's disease of the small ?bowel and colon Providers: ?Last Cruz MD Referring MD: ? Verena Reister Medicines: ?Fentanyl 100 micrograms [...] Advance Directives For more information, please contact: [phone] * Full Code (Latest Code Status on File) Date Activated Date Inactivated Comments 03/25/2021 9:20 PM 03/26/2021 3:11 PM All basic and advanced life-sustaining interventions are performed as appropriate Question Answer Comments Code status determined by: Unable to dis cuss and no AD/POLST on file; continue PREVIOUSLY ORDERED code status Care Teams Pluck Separator Relationship Specialty Start Date End Date Martina Owen PA-C PCP - General Physician Watch Crystal Molder 02/11/19 Queta Prater CNP [address] [place] [address] Nurse Practitioner Urology 09/22/20 Song Leach MD [address] [place] [address] Assigned Surgical Provider 11/20/23
--- OUTSIDE RECORDS SUMMARY | 2023-12-10 15:46 | XMS_ITS | Encounter Summary ---
Author Organization [facility] Address [address] [place] [address]. [place] [address] Care Team Providers Care Petroleum Laboratory Technician Name Role Phone Martina Owen PA-C Primary Care Provider Queta Prater AT HOME INDEPENDENT CALL CENTER AGENT Unavailable [phone] Reason for Referral * Diagnostic Imaging CT Scan (Routine) - Closed Specialty Diagnoses / Procedures Referred By Lc vivas Referred To Contact Radiology. Diagnoses Right flank pain Nephrolithiasis Procedures CT Abdomen Pelvis w/o Contrast [[id number]] Song Leach MD [address] [place] [id number] Referral ID Status Reason Start Date Expiration Date Visits Re quested Visits Authorized [id number] Closed 11/10/2023 11/09/2024 1 1 Encounter Details Date Type Department Care Team (Late st Contact Info) Description 11/10/2023 Orders Only [facility] [address] [facility] [address] [place] [address] Song Leach MD [address] [place] [address] Right flank pain (Primary Dx); Nephrolithiasis Social History Tobacco Use Types Packs/Day Years Used Date Smoking Tobacco: Former Cigarettes Q uit: 04/13/1996 Smokeless Tobacco: Never Alcohol Use Standard Drinks/Week Comments Not Currently 0 (1 standard drink = 0.6 oz pur e alcohol) stopped 15yrs ago PHQ-2 Answer Date Recorded PHQ-2 Score 0 02/05/2021 Adolescent Education Answer Date Record ed Getting School Help Needed Not on file 03/13 Sex and Gender Information Value Date Recorded Sex Assigned at Male 12/01/2020 9:08 PM CDT Gender Identity Male 12/01/2020 9:08 PM CDT Sexual Orientation Straight 12/01/2020 9: 08 PM CDT documented as of this encounter Plan of Treatment Not on file documented as of this encounter Results * CT Abdomen Pelvis w/o Contrast [[id number]] (11/12/2023 11:27 AM CDT) Anatomical Region Laterality Modality Abdomen/Pelvis, SUBRAD CT PATRICK DY, UMP CT ABDOMEN PELVIS, RAD CT Computed Tomography 11/12/2023 11:2 7 AM CDT Impressions 11/12/2023 11:57 AM CDT IMPRESSION: 1. ??Nonobstructing bilateral nephrolithiasis. Stone burden on the right is decreased from prior. 2. ??Hepatic steatosis. Narrative 11/12/2023 11:57 AM CDT EXAM: CT ABDOMEN PELVIS W/O CONTRAST LOCATION: [facility] DATE: 11/12/2023 INDICATION: ??Right flank pain, Nephrolithiasis [...] EXAM: CT ABDOMEN PELVIS W/O CONTRAST LOCATION: [facility] DATE: 11/12/2023 INDICATION: Right flank pain, Nephrolithiasis [...] prior. 2. Hepatic steatosis. Song Leach MD [facility] CT ORDERABLES documented in this encounter Visit Diagnoses Diagnosis Right flank pain- Primary Abdominal pain, unspecified site Nephrolithiasis Calculus of kidney Right flank pain Abdominal pain, unspecified site Nephrolithiasis Calculus of kidney documented in this encounter Additional Health Concerns Infection Onset Date Last Indicated Resolved Time MRSA Comment:Recurrent MRSA cellulitis per CareEverywhere 03/26/2021 03/26/2021 documented as of this encounter Care Teams Petroleum Laboratory Technician Relationship Specialty Start Date End Date Martina Owen PA-C PCP - General Physician Rip Saw Operator 02/11/19 Queta Prater CNP [address] [place] [address] Nurse Practitioner Urology 09/22/20 documented as of this encounter
--- OUTSIDE RECORDS SUMMARY | 2023-12-10 15:46 | XMS_ITS | Encounter Summary ---
Author Organization [facility] Address [address] [place] [address]. [place] [address] Care Team Providers Care Butter Production Supervisor Name Role Phone Martina Owen PA-C Primary Care Provider Queta Prater CRUSHING MILL OPERATOR Unavailable [phone] Reason for Visit * Reason Comments RECHECK Encounter Details Date Type Department Care Team (Late st Contact Info) Description 11/14/2023 2:00 PM CDT Virtual Visit [facility] [address] [facility] [address] [place] [phone] Song Leach MD [address] [place] [id number] Right flank pain (Primary Dx); Nephrolithiasis Social [...] as of this encounter Progress Notes * Song Leach MD - 11/14/2023 2:00 PM CDT Virtual Visit Details Type of service: Video Visit Originating Location (pt. Location): Home Distant Location (provider location): On-site Platform used for Video Visit: Ryan Assessment & Plan ASSESSMENT and PLAN 47 year old male here for reevaluation of right flank pain in setting of non obstructing renal stone. 1. Severe right flank pain 2. Nonobstructing 3 mm lower pole renal stone 3. Nonobstructing 1 to 2 mm midpole left renal stone Discussed that with removal of the right stone there is a 50 to 70% chance of pain improvement in the current situation. He is familiar with ureteroscopy and what it entails. About a 50% chance of needing a ureteral stent placement after this. If proceed with the right side, could consider doing a left-sided ureteroscopy to remove the stone that is in the midpole. However, this would not be absolutely necessary given no pain on the side. Will have my nurse follow-up with patient in a month to see what he is thinking regarding continuedobservation for stone versus ureteroscopy. Time spent: 15 minutes spent on the date of the encounter doing chart review, history and exam, documentation and further activities as noted above. Song Leach MD Urology [facility] Physicians Subjective CHIEF COMPLAINT follow-up of flank pain. HPI Hubert Odell is a very pleasant 47 year old male who presents with a history of COM nephrolithiasis, most recently s/p right PCNL and left URS with bilateral secondary URS 03/25/2021 and 04/09/2021. Had medical risk factors of high urine sodium, hypercalciuria and hyperuricosuria. Last follow-up visit was 07/03/2021 and recommendations of MNT visit with follow-up 24 hr urine were recommended. Since last visit, things have been going overall ok. Over last 12 months has had right flank pain and has worsened over the last 6 months No hematuria, stone passage. Has been taking tylenol for the pain. Imaging: I personally reviewed CT abd/pel without contrast on 11/12/2023 which demonstrated very small left renal stone and 3 mm right renal stone. Objective PHYSICAL EXAM Patient is a 47 year old male Vitals: There were no vitals taken for this visit. There is no height or weight on file to calculate BMI. General: no acute distress documented in this encounter Nursing Notes * Zainab Young - 11/14/2023 2:00 PM CDT Is the patient currently in the state of [place]? YES Visit mode:VIDEO If the visit is dropped, the patient can be reconnected by: VIDEO VISIT: Text to cell phone: Telephone Information: Will anyone else be joining the visit? NO (If patient encounters technical issues they should call [phone] :[phone]) How would you like to obtain your AVS? MyChart Are changes needed to the allergy or medication list? No, Pt stated no changes to allergies, and Ptstated no med changes Are refills needed on medications prescribed by this physician? NO Reason for visit: RECHECK Zainab Patel VVF documented in this encounter Plan of Treatment Not on file documented as of this encounter Visit Diagnoses Diagnosis Right flank pain- Primary Abdominal pain, unspecified site Nephrolithiasis Calculus of kidney documented in this encounter Additional Health Concerns Infection Onset Date Last Indicated Resolved Time MRSA Comment:Recurrent MRSA cellulitis per CareEverywhere 03/26/2021 03/26/2021 documented as of this encounter Care Teams Butter Production Supervisor Relationship Specialty Start Date End Date Martina Owen PA-C PCP - General Physician Merchandise Collector 02/11/19 Queta Prater CNP [address] [place] [address] Nurse Practitioner Urology 09/22/20 documented as of this encounter
--- OUTSIDE RECORDS SUMMARY | 2023-12-10 15:46 | XMS_ITS | Encounter Summary ---
Author Organization [facility] Address [address] [place] [address]. [place] [address] Care Team Providers Care Business Analytics Specialist Name Role Phone Martina Owen PA-C Primary Care Provider Queta Prater CNP Unavailable [phone] Yanelis Benavides Unavailable [phone] Song Leach MD Unavailable [phone] Song Leach MD Unavailable [phone] Encounter Details Date Type Department Care Team (Late st Contact Info) Description 03/29/2021 Documentation Only INTERFACED REPORT Unknown, Provider Social History Tobacco Use Types Packs/Day Years [...] have Coronavirus / COVID-19? No / Unsure 03/29/2021 3:35 PM CDT documented as of this encounter Plan of Treatment Not on file documented as of this encounter Visit Diagnoses Not on filedocumented in this encounter Additional Health Concerns Infection Onset Date Last Indicated Resolved Time MRSA Comment:Recurrent MRSA cellulitis per CareEverywhere 03/26/2021 03/26/2021 documented as of this encounter Care Teams Business Analytics Specialist Relationship Specialty Start Date End Date Martina Owen PA-C PCP - General Physician Lay Out And Detail Drafter 02/11/19 Queta Prater CNP [address] [place] [address] Nurse Practitioner Urology 09/22/20 Yanelis Benavides PA [address] [place] [address] [place] [address] Assigned Surgical Provider 02/08/21 07/11/21 Song Leach MD [address] [place] [address] Assigned Surgical Provider 07/12/21 12/31/22 Song Leach MD [address] [place] [address] Assigned Surgical Provider 11/20/23 documented as of this encounter
--- OUTSIDE RECORDS SUMMARY | 2023-12-10 15:46 | XMS_ITS | Encounter Summary ---
Author Organization [facility] Address [address] [place] [address]. [place] [address] Care Team Providers Care Manager Implementation Name Role Phone Martina Owen PA-C Primary Care Provider Queta Prater CNP Unavailable [phone] Yanelis Benavides Unavailable [phone] Song Leach MD Unavailable [phone] Song Leach MD Unavailable [phone] Encounter Details Date Type Department Care Team (Late st Contact Info) Description 04/07/2021 MyC Medical Advice [address] [place] [address] Mabel Arthur, RN Social History Tobacco Use Types Packs/Day Years [...] or suspected to have Coronavirus / COVID-19? Unable to assess 04/10/2021 10:54 AM CS T documented as of this encounter Plan of Treatment Not on file documented as of this encounter Visit Diagnoses Not on filedocumented in this encounter Additional Health Concerns Infection Onset Date Last Indicated Resolved Time MRSA Comment:Recurrent MRSA cellulitis per CareEverywhere 03/26/2021 03/26/2021 documented as of this encounter Care Teams Manager Implementation Relationship Specialty Start Date End Date Martina Owen PA-C PCP - General Physician Product/Device Technologist 02/11/19 Queta Prater CNP [address] [place], [place] [id number] Nurse Practitioner Urology 09/22/20 Yanelis Benavides PA [address] [place] [address] Urology [place], [place] [id number] Assigned Surgical Provider 02/08/21 07/11/21 Song Leach MD [address] [place], [place] 844[address] Assigned Surgical Provider 07/12/21 12/31/22 Song Leach MD [address] [place], [place] 287875 Assigned Surgical Provider 11/20/23 documented as of this encounter
--- OUTSIDE RECORDS SUMMARY | 2023-12-10 15:46 | XMS_ITS | Encounter Summary ---
Author Organization [facility] Address [address] [place] [address]. [place] [address] Care Team Providers Care Lock And Dam Equipment Repairer Name Role Phone Martina Owen PA-C Primary Care Provider Queta Prater CNP Unavailable [phone] Yanelis Benavides Unavailable [phone] Song Leach MD Unavailable [phone] Song Leach MD Unavailable [phone] Reason for Visit * Reason Onset Date Comments Schedule Surgery 02/20/2021 surgery Schedule Surgery 02/20/2021 Kidney stone re moval Encounter Details Date Type Department Care Team (Late st Contact Info) Description 02/20/[address] [facility] [address] [address] Song Leach MD [address] [place] [address] Schedule Surgery (surgery ); Schedule Surgery (Kidney stone removal) Social History Tobacco Use Types Packs/Day Years [...] AM CDT documented as of this encounter Miscellaneous Notes * Telephone Encounter - Claudia Mansfield CNA - 02/24/2021 2:43 PM CDT [facility] Phone Message May a detailed message be left on voicemail: yes Reason for Call: Other: Hubert called in regards to his Kidney stone removal. He is having pain and still waiting to receive a date as to when the procedure will be. Please give him a call to discuss scheduling options. Thanks Action Taken: Message routed to: [facility] uro Travel Screening: Not Applicable * Telephone Encounter - Melissa Vargas - 02/20/2021 12:34 PM CDT [facility] Phone Message May a detailed message be left on voicemail: yes Reason for Call: Other: . please call tp to schedule his kidney stone removal surgery , thank you Action Taken: Message routed to: [facility]): uro Travel Screening: Not Applicable documented in this encounter Plan of Treatment Not on file documented as of this encounter Visit Diagnoses Not on filedocumented in this encounter Additional Health Concerns Infection Onset Date Last Indicated Resolved Time MRSA-Contact Isolation 03/26 8:42 AM CDT MRSA Comment:Recurrent MRSA cellulitis per CareEverywhere 03/26/2021 03/26/2021 documented as of this encounter Care Teams Lock And Dam Equipment Repairer Relationship Specialty Start Date End Date Martina Owen PA-C PCP - General Physician Hand Screen Printer 02/11/19 Queta Prater CNP [address] [place] [address] Nurse Practitioner Urology 09/22/20 Yanelis Benavides PA [address] [facility] Urology [place], [place] [id number] Assigned Surgical Provider 02/08/21 07/11/21 Song Leach MD [address] [place], [place] [address]115 Assigned Surgical Provider 07/12/21 12/31/22 Song Leach MD [address] [place], [place] [address] Assigned Surgical Provider 11/20/23 documented as of this encounter
--- OUTSIDE RECORDS SUMMARY | 2023-12-10 15:46 | XMS_ITS | Encounter Summary ---
Author Organization [facility] Address [address] [place] [address]. [place] [address] Care Team Providers Care Freelance Programmer/App Developer Name Role Phone Martina Owen PA-C Primary Care Provider Queta Prater CNP Unavailable [phone] Yanelis Benavides Unavailable [phone] Song Leach MD Unavailable [phone] Song Leach MD Unavailable [phone] Reason for Visit * Reason Onset Date Comments Patient Request 04/10/2021 Encounter Details Date Type Department Care Team (Late st Contact Info) Description 04/10/2021 Telephone [facility] [address] [address] Song Leach MD [address] [place] [address] Patient Request Social History Tobacco Use Types Packs/Day Years [...] CS T documented as of this encounter Miscellaneous Notes * Telephone Encounter - Deisi Alvarado - 04/10/2021 8:08 AM CST [facility] Call Center Phone Message May a detailed message be left on voicemail: yes Reason for Call: Patient had stent put in yesterday and was told he could remove the stent on Tuesday, 04/13 by grabbing the string. Patient states there is no string, how will he remove it? Please reach out to patient. Action Taken: Message routed to: [facility] ([facility] Urology Travel Screening: Not Applicable RVISOR BLAST FURNACE documented in this encounter Plan of Treatment Not on file documented as of this encounter Visit Diagnoses Not on filedocumented in this encounter Additional Health Concerns Infection Onset Date Last Indicated Resolved Time MRSA Comment:Recurrent MRSA cellulitis per CareEverywhere 03/26/2021 03/26/2021 documented as of this encounter Care Teams Freelance Programmer/App Developer Relationship Specialty Start Date End Date Martina Owen PA-C PCP - General Physician Etiquette Coach 02/11/19 Queta Prater CNP [address] [place] [address]70315 Nurse Practitioner Urology 09/22/20 Yanelis Benavides PA [address] [place] [address] Urology [place], [place] [id number] Assigned Surgical Provider 02/08/21 07/11/21 Song Leach MD [address] [place] [address] [id number] Assigned Surgical Provider 07/12/21 12/31/22 Song Leach MD [address] [place] [address] Assigned Surgical Provider 11/20/23 documented as of this encounter
--- OUTSIDE RECORDS SUMMARY | 2023-12-10 15:46 | XMS_ITS | Encounter Summary ---
Author Organization [facility] Address [address] [place] [address] Care Team Providers Care Systems Specialist Name Role Phone Martina Owen PA-C Primary Care Provider Queta Prater HISTORY TUTOR Unavailable [phone] Reason for Referral * Diagnostic Imaging CT Scan (Routine) - Closed Specialty Diagnoses / Procedures Referred By Lc vivas Referred To Contact Radiology. Diagnoses Right flank pain Nephrolithiasis Procedures CT Abdomen Pelvis w/o Contrast [[id number]] Song Leach MD [address] [place] [address] Referral ID Status Reason Start Date Expiration Date Visits Re quested Visits Authorized [id number] Closed 11/10/2023 11/09/2024 1 1 Reason for Visit * Diagnostic Imaging CT Scan (Routine) - Closed Specialty Diagnoses / Procedures Referred By Lc vivas Referred To Contact Radiology. Diagnoses Right flank pain Nephrolithiasis Procedures CT Abdomen Pelvis w/o Contrast [[id number]] Song Leach MD [address] [place] [address] Referral ID Status Reason Start Date Expiration Date Visits Re quested Visits Authorized [id number] Closed 11/10/2023 11/09/2024 1 1 Encounter Details Date Type Department Care Team (Latest Contact Info) Description 11/12/2023 11:20 AM CDT - 11/12/2023 11:59 PM CDT Hospital Encounter [facility] [address] [facility] [address] [place] [address] Song Leahc MD [address] [place] [address] Right flank pain; Nephrolithiasis Discharge Disposition: Home or Self Care Social History Tobacco Use Types Packs/Day Years [...] PM CDT documented as of this encounter Medications at Time of Discharge Medication Sig Dispensed Refills Start Date End Date acetaminophen (TYLENOL) 325 MG tablet Take 650 mg by mouth every 6 hours as needed for mild pain cephALEXin (KEFLEX) 500 MG capsule Take 500 mg by mouth 2 times daily certolizumab pegol (CIMZIA PREFILLED) 2 X 200 MG/ML KIT 2 syringes/kit Inject 400 mg Subcutaneous cetirizine (ZYRTEC) 10 MG tablet Take 10 mg by mouth daily CLARITIN-D 24 HOUR 10-240 MG OR TB24 1 tab po QD (Once per day) as needed for allergy symptoms 04/10/2003 EPINEPHrine (ANY BX GENERIC EQUIV) 0.3 MG/0.3ML injection 2-pack Inject 0.3 mLs (0.3 mg) into the muscle once as needed for anaphylaxis May repeat one time in 5-15 minutes if response to initial dose is inadequate. 2 each 11/23/2022 folic acid (FOLVITE) 1 MG tablet Take 1 mg by mouth daily lisinopril (ZESTRIL) 5 MG tablet Take 5 mg by mouth metFORMIN (GLUCOPHAGE-XR) 500 MG 24 hr tablet TAKE FOUR TABLETS BY MOUTH DAILY 12/30/2020 methotrexate 2.5 MG tablet Take 20 mg by mouth every 7 days metoprolol tartrate (LOPRESSOR) 25 MG tablet Take 10 mg by mouth 2 times daily MULTI-VITAMIN OR TABS 10/01/2003 OZEMPIC, 0.25 OR 0.5 MG/DOSE, 2 MG/1.5ML SOPN pen INJECT 0.5MG INTO THE SKIN WEEKLY 01/28/2021 documented as of this encounter Plan of Treatment Not on file documented as of this encounter Procedures Procedure Name Priority Date/Time Associated Diagnosis Comments CT ABDOMEN PELVIS W/O CONTRAST STAT 11/12/2023 11:27 AM CDT Right flank pain Nephrolithiasis documented in this encounter Results * CT Abdomen Pelvis w/o Contrast [[id number]] (11/12/2023 11:27 AM CDT) Anatomical Region Laterality Modality Abdomen/Pelvis, SUBRAD CT PATRICK DY, UMP CT ABDOMEN PELVIS, RAD CT Computed Tomography 11/12/2023 11:2 7 AM CDT Impressions 11/12/2023 11:57 AM CDT IMPRESSION: 1. ??Nonobstructing bilateral nephrolithiasis. Stone burden on the right is decreased from prior. 2. ??Hepatic steatosis. Narrative 11/12/2023 11:57 AM CDT EXAM: CT ABDOMEN PELVIS W/O CONTRAST LOCATION: [facility] DATE: 11/12/2023 INDICATION: ??Right flank pain, Nephrolithiasis [...] EXAM: CT ABDOMEN PELVIS W/O CONTRAST LOCATION: [facility] DATE: 11/12/2023 INDICATION: Right flank pain, Nephrolithiasis [...] steatosis. Song Leach MD IMG CT ORDERABLES documented in this encounter Visit Diagnoses Diagnosis Right flank pain Abdominal pain, unspecified site Nephrolithiasis Calculus of kidney documented in this encounter Additional Health Concerns Infection Onset Date Last Indicated Resolved Time MRSA Comment:Recurrent MRSA cellulitis per CareEverywhere 03/26/2021 03/26/2021 documented as of this encounter Care Teams Systems Specialist Relationship Specialty Start Date End Date Martina Owen PA-C PCP - General Physician Flask Carrier 02/11/19 Queta Prater CNP [address] [place] [address] Nurse Practitioner Urology 09/22/20 documented as of this encounter
--- OUTSIDE RECORDS SUMMARY | 2023-12-10 15:46 | XMS_ITS | Encounter Summary ---
Author Organization [place] Address [address] [place] [address]. [place] [address] Care Team Providers Care Apparel Designer Name Role Phone Bryan Cardoza MD Primary Care Provider [phone] Martina Owen PA-C Primary Care Provider Queta Prater CNP Unavailable [phone] Yanelis Benavides Unavailable [phone] Song Leach MD Unavailable [phone] Song Leach MD Unavailable [phone] Encounter Details Date Type Department Care Team (Late st Contact Info) Description 10/02/[address] [address] Srinivas Salinas MD OPERATIVE REPORT [...] as of this encounter Progress Notes * 10/02/2003 11:59 PM [id number] 00:00 Operative Report-OMAR LÓPEZ) [Entered: 00:00 Tr anscription ([facility])] PREOPERATIVE DIAGNOSIS: Bilateral nephrolithiasis. POSTOPERATIVE DIAGNOSIS: Bi lateral nephrolithiasis. NAME OF OPERATION: 1. Cystoscopy. 2. Right ureteroscopy with holmium laser fragmentation and stone basketing. 3. Right double-J stent placement. SURGEON: Sonal Perez MD RE SIDENT SURGEON: Omar Ruiz MD ANESTHESIA: General endotracheal anesthesia. ESTIMATED BLOOD LOSS: 3 mL. COMPLICATIONS: None. OPERATIVE INDICATIONS: Hubetr Odell is a 27-year-old male with a history of Crohn's disease who, approximately 7 weeks ago, began developing right-sided flank pain. On evaluation for this pain he was found to have bilateral nephrolithiasis and what appeared to be a 5- to 6- mm stone at the right UPJ. Over the last 7 weeks the stone has progressed and is now curre ntly lodged in the right distal ureter. As he is having significant pain associated with this stone, risks, benefits, and alternatives have been discussed with the patient and he has elected for ureter oscopy. We have discussed with the patient the possibility of also removing 2 stones in the lower po le of his right kidney at the same time that we are performing the distal UVJ stone removal, and he h as agreed to this. Also of note there is a 4- to 5-mm stone in the left lower pole. OPERATIVE PROCED URE: After obtaining informed consent, the patient was appropriately identified and brought to the o perating room, placed in supine position on the operating table. After induction of general endotrac heal anesthesia and IV antibiotics, the patient's legs were abducted in modified dorsal lithotomy pos ition using stirrups. His penis, groin, and scrotum were then prepped and draped in the standard lydia gical fashion. Using a 21-Maldivian cystoscope with 30 degree lens in bridge, the penile meatus was gen tly cannulated. The urethra was normal in caliber and appearance. The prostate was small and benign . The bladder was superficially inspected and was free of stones, foreign objects, or tumors. Attent ion was then turned to the right ureteral orifice. Using a 5-Maldivian open-ended catheter and a Bentso n guidewire, the right ureteral orifice was gently cannulated. It was quite easy to feel a stone at the distal UVJ. Using C-arm fluoroscopy the guidewire was taken all the way up to the right renal pel vis. At this point both the cystoscope and open-ended stent were removed, leaving the [employer] Holdings[employer] guidew shaw in place. Using the 7.5-Maldivian semi rigid ureteroscope, we then performed ureteroscopy. Approxim ately 1 cm into the right ureter, the stone was easily visible. The surrounding area of ureter was qu ite inflamed. At this point, using the 200 micron laser fiber at a rate of 0.8 and 8, we performed l aser fragmentation of the stone. The stone was fragmented into approximately 4 to 5 smaller pieces. These pieces were either washed out using irrigation or gently teased out using a 2.2 nitinol tiples s and douglas basket. Once all stone fragments were removed, we were able to transverse the ureter pr oximal to where the stone was. This looked nice and healthy with some hydronephrosis. Looking at th e area of the old stone bed, this area was quite ratty. There was a good deal of inflammatory change s. Due to the shyness of the distal ureter, at this point we decided to place a double-J stent. A 6 -Maldivian 28-cm contour stent was placed with a nice pigtail curl in the right renal pelvis as well as in the bladder under direct vision. The patient's bladder was them emptied. The scope was removed. Duncan catheter was placed to gravity. The patient was then awakened from anesthesia, extubated, anne sferred to the recovery room in stable condition without complications. Dr. Sonal Perez was present and scrubbed throughout the entire case. DISPOSITION: Successful right-sided ureteroscopy and remova l of a distal ureteral stone. Due to a shotty looking distal ureter, we did not perform ureteroscopy of the stones in the kidney. We will discuss with the patient whether he would like a repeat ureter oscopy with removal of stones in 2 weeks' time or just remove his stent. Depending on patient prefer ence will depend on his followup. SONAL PEREZ MD Dictated by: OMAR RUIZ MD D: 2003 12:53 [id number] MT: ge Document: [id number] CC: MD SONAL DORSEY MD JEFFREY R MICHELL, MD Document: [id number] CC: MD SONAL CARVALHO MD JEFFREY R MICHELL, MD MT: ?? LCN: [id number] DSC: 10/02/2003 Name: MR#: : Procedure Date: HUBERT ODELL -[id number] 10/02/2003 OPERATIVE REPORT Page 3 of 2 Electronically filed by Bhavya Ruiz 004 9:53 AM documented in this encounter Plan of Treatment Not on file documented as of this encounter Visit Diagnoses Diagnosis OPERATIVE REPORT- Primary documented in this encounter Additional Health Concerns Infection Onset Date Last Indicated Resolved Time MRSA-Contact Isolation 03/26 8:42 AM CDT MRSA Comment:Recurrent MRSA cellulitis per [facility]where 03/26/2021 03/26/2021 documented as of this encounter Care Teams Apparel Designer Relationship Specialty [place] [address] [place] [address] PCP - General 04/10/03 02/10/19 Martina Owen PA-C [address] [place] [address] PCP - General Physician Cash Applications Coordinator 02/11/19 Queta Prater CNP [address] [place] [address] [id number] Nurse Practitioner Urology 09/22/20 Yanelis Benavides PA [address] [place] [address] Urology [place], [place] [id number] Assigned Surgical Provider 02/08/21 07/11/21 Song Leach MD [address] [place] [address] [id number] Assigned Surgical Provider 07/12/21 12/31/22 Song Leach MD [address] [place] [address] Assigned Surgical Provider 11/20/23 documented as of this encounter
--- OUTSIDE RECORDS SUMMARY | 2023-12-10 15:46 | XMS_ITS | Encounter Summary ---
Author Organization [place] Address [address] [place] [address]. [place] [address] Care Team Providers Care Running Rigger Name Role Phone Martina Owen PA-C Primary Care Provider Queta Prater MIXING AND DISPENSING SUPERVISOR Unavailable [phone] Encounter Details Date Type Department Care Team (Latest Contact Info) Description 11/12/2023 Travel Social History Tobacco Use Types Packs/Day Years [...] documented as of this encounter Care Teams Running Rigger Relationship Specialty Start Date End Date Martina Owen PA-C PCP - General Physician Manager Workers Compensation 02/11/19 Queta Prater CNP [address] [place] [address] Nurse Practitioner Urology 09/22/20 documented as of this encounter
--- OUTSIDE RECORDS SUMMARY | 2023-12-10 15:46 | XMS_ITS | Encounter Summary ---
Author Organization [place] Address [address] [place] [address]. [place] [address] Care Team Providers Care Knife Changer Name Role Phone Martina Owen PA-C Primary Care Provider Queta Prater CNP Unavailable [phone] Yanelis Benavides Unavailable [phone] Song Leach MD Unavailable [phone] Song Leach MD Unavailable [phone] Encounter Details Date Type Department Care Team (Late st Contact Info) Description 04/03/2021 [facility] [address] [place] [address] Gerry [place] Social History Tobacco Use Types Packs/Day Years [...] documented as of this encounter Care Teams Knife Changer Relationship Specialty Start Date End Date Martina Owen PA-C PCP - General Physician Home Theater Installer 02/11/19 Queta Prater CNP [address] [place], [place] [address] Nurse Practitioner Urology 09/22/20 Yanelis Benavides PA [address] [place] [address] Urology [place], [place] [address] Assigned Surgical Provider 02/08/21 07/11/21 Song Leach MD [address] [place], [place] [address] Assigned Surgical Provider 07/12/21 12/31/22 Song Leach MD [address] [place] [address] Assigned Surgical Provider 11/20/23 documented as of this encounter
--- OUTSIDE RECORDS SUMMARY | 2023-12-10 15:46 | XMS_ITS | Encounter Summary ---
Author Organization [place] Address [address] [place] [address]. [place] [address] Care Team Providers Care Testing Tech Name Role Phone Martina Owen PA-C Primary Care Provider Queta Prater CNP Unavailable [phone] Yanelis Benavides Unavailable [phone] Song Leach MD Unavailable [phone] Song Leach MD Unavailable [phone] Reason for Visit * Reason Onset Date Comments Patient Request 03/30/2021 Call Back 03/31/2021 Schedule Surgery for more stones or stent removal Call Back 04/02/2021 Schedule surgery for more stones and stent removal Encounter Details Date Type Department Care Team ([facility] st Contact Info) Description 03/30/2021 Telephone [facility] [address] [address] Song Leach MD [address] [place] [address] Patient Request; Call Back (Schedule Surgery for more stones or stent removal); Call Back (Schedule surgery for more stones and stent removal) Social History Tobacco Use Types Packs/Day [...] PM CDT documented as of this encounter Miscellaneous Notes * Telephone Encounter - Chelsi Glass - 04/02/2021 10:12 AM CDT [facility] Phone Message May a detailed message be left on voicemail: yes Reason for Call: Other: Hubert would like a call back to know if this follow up procedure is going to be done anytime soon and if not if he should just stop his disability and go back to work as he said he has been waiting for some sort of call back. Please call Hubert to discuss. Action Taken: Message routed to: [facility] ([facility]): Uro Travel Screening: Not Applicable * Telephone Encounter - Deanne Odell - 03/31/2021 12:45 PM CDT [facility] Phone Message May a detailed message be left on voicemail: yes Reason for Call: Other: Hubert called in regarding an appointment or surgery scheduling. He stated he does have more kidney stones. He is questioning whether there will be more surgery or if/when the stents are to be removed. Please call him to discuss which he is supposed to be doing and schedulingfor that. Dr. Leach's senior portfolio analyst is out of the office, returning 04/02/21 (which the pt isaware of). Please call him to discuss which route he should be doing. Action Taken: Message routed to: [facility] ([facility]): uro Travel Screening: Not Applicable * Telephone Encounter - Deisi Alvarado - 03/30/2021 3:13 PM CDT [facility] Call Center Phone Message May a detailed message be left on voicemail: yes Reason for Call: patient had surgery on 03/25/21. Was told someone would call patient back to schedule a follow up surgery procedure as not all stones were taken out. Please reach out to patient. Action Taken: Message routed to: [facility] ([facility]): Urology Travel Screening: Not Applicable documented in this encounter Plan of Treatment Not on file documented as of this encounter Visit Diagnoses Not on filedocumented in this encounter Additional Health Concerns Infection Onset Date Last Indicated Resolved Time MRSA Comment:Recurrent MRSA cellulitis per [facility]where 03/26/2021 03/26/2021 documented as of this encounter Care Teams Testing Tech Relationship Specialty Start Date End Date Martina Owen PA-C PCP - General Physician Inspector General 02/11/19 Queta Prater CNP [address] [place] [address] Nurse Practitioner Urology 09/22/20 Yanelis Benavides PA [address] [place] [address] [place] [address] Assigned Surgical Provider 02/08/21 07/11/21 Song Leach MD [address] [place] [address] Assigned Surgical Provider 07/12/21 12/31/22 Song Leach MD [address] [place] [address] Assigned Surgical Provider 11/20/23 documented as of this encounter
--- OUTSIDE RECORDS SUMMARY | 2023-12-10 15:46 | XMS_ITS | Encounter Summary ---
Author Organization [place] Address [address] [place] [address]. [place] [address] Care Team Providers Care Landscape Architecture Teacher Name Role Phone Martina Owen PA-C Primary Care Provider Queta Prater CNP Unavailable [phone] Yanelis Benavides Unavailable [phone] Song Leach MD Unavailable [phone] Song Leach MD Unavailable [phone] Encounter Details Date Type Department Care Team (Late st Contact Info) Description 04/02/2021 [facility] [address] [address] Song Leach MD [address] [place] [address] Social History Tobacco Use Types Packs/Day Years [...] documented as of this encounter Care Teams Landscape Architecture Teacher Relationship Specialty Start Date End Date Martina Owen PA-C PCP - General Physician Linux Unix System Administrator 02/11/19 Queta Prater CNP [address] [place] [address] Nurse Practitioner Urology 09/22/20 Yanelis Benavides PA [address] [place] [address] [place], [place] [id number] Assigned Surgical Provider 02/08/21 07/11/21 Song Leach MD [address] [place] [address] Assigned Surgical Provider 07/12/21 12/31/22 Song Leach MD [address] [place] [address] Assigned Surgical Provider 11/20/23 documented as of this encounter
== END 2023-12-10 16:57 | disposition home or self-care (01) ==
PROVIDERS: Emergency Provider Emergency Medicine Emergency Medical Services; PCP Emergency Medicine
DX: T63.441A Toxic effect of venom of bees, accidental (unintentional), initial encounter (principal)
CPT/HCPCS: 94761; 99283; 99284; J1100

== ENCOUNTER 2024-03-19 16:28 | Emergency (ER) | payer OTHER, SELFPAY ==
[2024-03-19 16:35] VITALS: BP 125/82; PULSE 85; RESP 18; TEMP 36.6; O2SAT 94; BMI 35.1
--- NOTE | 2024-03-19 16:45 | ED_ITS ---
HPI - General Adult General Time Seen by Provider: 16:45 Date Seen: 03/19/24 Chief complaint: Lower Extremity Swelling Stated complaint: R leg pain, swelling Time Seen by Provider: 03/19/24 16:29 Source: patient and RN notes reviewed Mode of arrival: ambulatory Limitations: no limitations History of Present Illness HPI narrative: This 48 old male is ambulatory into the ED of his own accord had request of his urologic surgeon for concerns of right leg pain and swelling. Patient had surgery about 3 weeks ago to remove kidney stones. He stated the took a 3 mm out of his left kidney, did not remove any stones from his right kidney but reportedly had to do laser surgery as the drainage was completely swollen up, presuming they mean the ureter. He notes after the surgery the right-sided abdominal pain never went away. He has had no fevers or chills. He does have underlying Crohn's disease. About a week ago he started to notice calf pain, he notes it more along the front of the leg, does feel like it goes into the knee. It hurts to touch the front of the knee and along the outside right leg. He denies any shortness of breath, no chest pain. He has not felt lightheaded or dizzy. He tried some Tylenol this morning and did not help. He denies any history of blood clots before, is unaware of any family history of blood clots. Denies any trauma to this leg. He does not know if the swelling in his leg is better in the morning after it has been elevated at night, has not really paid attention to that. He does know that the knee itself does hurt when he fully extends or flexes completely in, things like doing stairs. Related Data Home Medications ?Medication ?Instructions ?Recorded ?Confirmed semaglutide 1 mg/dose (4 mg/3 mL) 1 mg subcut QWEEK 08/07/22 02/23/24 subcutaneous pen injector (Ozempic) certolizumab pegol 400 mg/2 mL 41 mg subcut DIRECTED 09/08/22 02/23/24 (200 mg/mL x2) subcutaneous syringe kit methotrexate sodium 2.5 mg tablet 20 mg PO QWEEK 09/08/22 02/23/24 Previous Rx's ?Medication ?Instructions ?Recorded blood sugar diagnostic (Accu-Chek #100 ea 03/05/22 Guide test strips) lancets (Accu-Chek Fastclix Lancet #200 ea 03/05/22 Drum) epinephrine 0.3 mg/0.3 mL 0.3 mg (0.3 mL) IM ONCE #2 ea 09/08/22 injection, auto-injector (EpiPen) metoprolol tartrate 50 mg tablet 50 mg PO BID #180 ea 03/25/23 epinephrine 0.3 mg/0.3 mL 0.3 mg (0.3 mL) IM Q5-15M PRN #2 ea 12/10/23 injection, auto-injector (EpiPen 2-Jermaine) lisinopril 5 mg tablet 5 mg PO QDAY #90 tabs 12/28/23 rosuvastatin 40 mg tablet 40 mg PO QDAY #90 tabs 03/13/24 Allergies Allergy/AdvReac Type Severity Reaction Status Date / Time bee venom protein (honey bee) Allergy Severe Anaphylaxis Verified 02/23/24 15:44 Cephalosporins Allergy Severe Verified 02/23/24 15:44 cyclosporine Allergy Severe Anaphylaxis Verified 02/23/24 15:44 Egg Derived Allergy Severe Verified 02/23/24 15:44 shellfish derived Allergy Mild Anaphylaxis Verified 02/23/24 15:44 chicken derived Allergy Unknown Verified 02/23/24 15:44 iodine Allergy Unknown Anaphylaxis Verified 02/23/24 15:44 pear Allergy Unknown Verified 02/23/24 15:44 pineapple Allergy Unknown Verified 02/23/24 15:44 turkey Allergy Unknown Verified 02/23/24 15:44 Nut tree Allergy Severe Anaphylaxis Uncoded 02/23/24 15:44 Mushroom Extract Complex Allergy Unknown Uncoded 02/23/24 15:44 Grimes Flavor Allergy Unknown Uncoded 02/23/24 15:44 Review of Systems Status of ROS: Reports: 6 or more systems reviewed and unremarkable except as noted in History and below [facility] Medical History Thrombocytopenia ?D69.6 - Thrombocytopenia, unspecified (ICD-10) MRSA (methicillin resistant Staphylococcus aureus) ?A49.02 - Methicillin resistant Staphylococcus aureus infection, unspecified site (ICD-10) Cervical vertebral fusion ?M43.22 - Fusion of spine, cervical region (ICD-10) Hypertension ?I10 - Essential (primary) hypertension (ICD-10) Type 2 diabetes mellitus ?E11.9 - Type 2 diabetes mellitus without complications (ICD-10) History of cellulitis ?Z87.2 - Personal history of diseases of the skin and subcutaneous tissue (ICD-10) Cervical myofascial strain ?S16.1XXA - Strain of muscle, fascia and tendon at neck level, initial encounter (ICD-10) Elevated LFTs ?R79.89 - Other specified abnormal findings of blood chemistry (ICD-10) Fracture of multiple ribs ?S22.49XA - Multiple fractures of ribs, unspecified side, initial encounter for closed fracture (ICD-10) Hyperlipidemia ?E78.5 - Hyperlipidemia, unspecified (ICD-10) 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 - Immunodeficiency due to drugs (ICD-10) ?Z79.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 (ICD-10) Lung nodule ?R91.1 - Solitary pulmonary nodule (ICD-10) Peripheral vertigo ?H81.399 - Other peripheral vertigo, unspecified ear (ICD-10) Tinnitus, unspecified ear ?H93.19 - Tinnitus, unspecified ear (ICD-10) History of colonic polyps ?Z86.010 - Personal history of colonic polyps (ICD-10) Sinusitis ?J32.9 - Chronic sinusitis, unspecified (ICD-10) Food allergy ?Z91.018 - Allergy to other foods (ICD-10) Bee sting allergy ?Z91.030 - Bee allergy status (ICD-10) MRSA (methicillin resistant staph aureus) culture positive ?Z22.322 - Carrier or suspected carrier of Methicillin resistant Staphylococcus aureus (ICD-10) Crohn's disease ?K50.90 - Crohn's disease, unspecified, without complications (ICD-10) Calcium oxalate stones ?N20.0 - Calculus of kidney (ICD-10) Surgical History H/O ureteroscopy ?Z98.890 - Other specified postprocedural states (ICD-10) History of removal of calculus of renal pelvis through percutaneous nephrostomy ?Z98.890 - Other specified postprocedural states (ICD-10) ?Z87.442 - Personal history of urinary calculi (ICD-10) H/O inguinal hernia repair ?Z98.890 - Other specified postprocedural states (ICD-10) ?Z87.19 - Personal history of other diseases of the digestive system (ICD-10) History of arthroscopic surgery of shoulder ?Z98.890 - Other specified postprocedural states (ICD-10) History of tonsillectomy (08/27/08) ?Z90.89 - Acquired absence of other organs (ICD-10) Family History Mother Diabetes Father High blood pressure Hyperlipidemia Myocardial infarction Paternal Grandfather Myocardial infarction Social History Narrative: no 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 Sclera clear, face atraumatic, able speak in complete sentences. Neck supple, no jugular venous distension. Lungs are clear, good air entry, no wheezing or crackles. CV regular rate and rhythm, no murmur, normal S1-S2, no S3-S4. He has definite noted swelling of his right lower extremity below the knee. There is no joint line effusion but he does complain of some medial joint line tenderness. He has about 2 to 3+ edema and a definite sock line on this right lower extremity. His left lower extremity has a sock line but he only has maybe about 1+ edema above the sock. He definitely has soft tissue swelling in this right lower extremity. He complains of some generalized pain when I palpate over the joint lines, no popliteal fossa masses or no popliteal fossa pain. His gastrocnemius really is not tender posteriorly but on the right anterolateral lower extremity, has tenderness in that generalized area. Do not appreciate any significant warmth, no visible erythema. Can fully flex and extend the knee. Documenting provider has reviewed patient's vital signs: yes Course Course ED Course: Will obtain baseline labs in this patient, given his recent surgery, asymmetric swelling, do feel that ruling out DVT of his right lower extremity is necessary. We did discuss other etiologies, it is possibly could have some arthritis and is getting some referred pain. At this time he is hemodynamically stable, afebrile, not hypoxic. We will look at his laboratory evaluation and obtain venous ultrasound. Reevaluation(s) Time of Reevaluation #1: 17:19 Reevaluation #1: Preliminary report from [employer] is that this leg is negative for DVT. Time of Reevaluation #2: 17:40 Reevaluation #2: Have reviewed with patient his ultrasound is negative for DVT based on [employer], still awaiting Radiology over-read but it is very unlikely that there is going to be any significant change. His labs are reassuring, white blood count normal, chemistries normal. Did review with patient that I do see swelling of both lower extremities but the right is certainly more prominent than the left, the right side is the side that is painful for him. Vital Signs Vital signs: Initial Vital Signs Temperature 97.9 F 03/19/24 16:35 Temperature Source Temporal Artery Scan 03/19/24 16:35 Pulse Rate 85 03/19/24 16:35 Respiratory Rate 18 03/19/24 16:35 Blood Pressure 125/82 03/19/24 16:35 Blood Pressure Mean 96 03/19/24 16:35 Blood Pressure Position Sitting 03/19/24 16:35 Pulse Oximetry 94 03/19/24 16:35 Oxygen Delivery Method Room Air 03/19/24 16:35 Vital Signs Temperature 97.9 F 03/19/24 16:35 Pulse Rate 85 03/19/24 16:35 Respiratory Rate 18 03/19/24 16:35 Blood Pressure 125/82 03/19/24 16:35 Pulse Oximetry 94 03/19/24 16:35 Oxygen Delivery Method Room Air 03/19/24 16:35 Temperature 97.9 F 03/19/24 16:35 Pulse Rate 85 03/19/24 16:35 Respiratory Rate 18 03/19/24 16:35 Blood Pressure 125/82 03/19/24 16:35 Pulse Oximetry 94 03/19/24 16:35 Oxygen Delivery Method Room Air 03/19/24 16:35 Medical Decision Making Lab Data Lab results reviewed: Yes I reviewed the patient's lab results Labs: Lab Results 03/19/24 Range/Units 17:04 WBC 8.04 (4.50-11.00) K/uL RBC 4.97 (4.30-5.90) m/uL Hgb 15.5 (13.5-17.5) gm/dL Hct 46.6 (37.0-53.0) % MCV 94 (80-100) fL MCH 31 (26-34) pg MCHC 33 (32-36) gm/dL RDW Coeff of Timothy 12.2 (11.5-15.5) % Plt Count 193 (140-440) K/uL Neut % (Auto) 37.2 L (42.0-72.0) % Lymph % (Auto) 42.9 (20-44) % [place] % (Auto) 15.2 H (0.0-11.0) % Eos % (Auto) 4.1 (0.0-7.0) % Baso % (Auto) 0.2 (0.0-3.0) % Neut # (Auto) 3.00 (1.7-7.0) K/uL Lymph # (Auto) 3.45 H (0.90-2.90) K/uL [place] # (Auto) 1.20 H (0.00-0.90) K/UL Eos # (Auto) 0.33 (0.00-0.50) K/uL Baso # (Auto) 0.02 (0.00-0.30) K/uL Abs Immat Gran (auto) 0.03 (0.00-0.30) K/uL Imm/Tot Granulo (auto) 0.4 % INR 0.92 (0.91-1.10) APTT 28 (23-33) Seconds D-Dimer Quant (PE/DVT) 0.51 H (0.00-0.50) ug/ml Sodium 139 (135-149) mmol/L Potassium 4.2 (3.6-5.1) mmol/L Chloride 101 (96-114) mmol/L Carbon Dioxide 26 (20-32) mmol/L Anion Gap 12 (7-15) mEq/L BUN 20 (5-24) mg/dL Creatinine 0.9 (0.5-1.5) mg/dL Estimated Creat Clear 108.07 Estimated GFR 106 ml/min Glucose 108 (60-115) mg/dL Calcium 9.9 (8.4-10.6) mg/dL Total Bilirubin 0.6 (0.1-1.5) mg/dL AST 25 (12-35) U/L ALT 37 (4-50) U/L Alkaline Phosphatase 63 (40-150) U/L C-Reactive Protein < 0.5 L (0.5-1.0) mg/dL Total Protein 8.5 H (6.0-8.3) g/dL Albumin 5.1 H (3.3-5.0) g/dL Imaging Data Venous US: Attestation: I have reviewed the pertinent imaging results. 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 Site :?[id number] Study:?US-Extremity Right LEV RT-03/19/2024 5:28:35 PM Ordering Physician:?Kartik Vigil Final Report: INDICATION: Right lower extremity swelling. TECHNIQUE: Right lower extremity Doppler venous ultrasound examination was performed. Grayscale and color Doppler images were obtained. COMPARISON: None. FINDINGS: RIGHT LOWER EXTREMITY: Common femoral vein: Fully compressible. No deep vein thrombus. Normal flow and response to augmentation on color Doppler imaging. Superficial femoral vein: Fully compressible. No deep vein thrombus. Normal flow on color Doppler imaging. Deep femoral vein: No deep vein thrombus Popliteal vein: Fully compressible. No deep vein thrombus. Normal flow on color Doppler imaging. Lower calf: The visualized posterior tibial and peroneal veins are fully compressible. No deep vein thrombus. Normal flow and response to augmentation on color Doppler imaging. Superficial veins: The superficial veins, including the greater saphenous vein, remain patent and are fully compressible. Soft tissues: No popliteal fossa fluid collection identified. LEFT LOWER EXTREMITY: Common femoral vein: Fully compressible. No deep vein thrombus. Normal flow and response to augmentation on color Doppler imaging. IMPRESSION: No deep vein thrombus within the right lower extremity. Dictated by Akhil Serrano MD @ 03/19/2024 6:13:47 PM (Electronic Signature) Discharge Plan Discharge Clinical Impression: Acute pain of right knee, Pain and swelling of right lower leg Patient Disposition: Home, Self-Care Condition: Stable Instructions: Knee Pain (ED) Additional Instructions: There is no evidence a blood clot in your leg at this time. Recommend follow up in clinic with your primary care provider within the next week. This certainly could be from the knee itself, such things as arthritis, underlying meniscal degenerative disease are possibilities. Follow up in clinic. Can try Tylenol 1000 mg scheduled 3 times a day for pain management. Try to elevate both lower extremities as much as you are able to when not active. You do have some swelling of both legs but the right certainly is more prominent than the left. Activity Level: Activity as Tolerated Prescriptions: No Action methotrexate sodium 2.5 mg tablet 20 mg PO QWEEK certolizumab pegol 400 mg/2 mL (200 mg/mL x 2) syringe kit 41 mg subcut DIRECTED Rx Instructions: every 2 weeks epinephrine [EpiPen] 0.3 mg/0.3 mL auto-injector 0.3 mg IM ONCE Qty: 2 0RF Rx Instructions: as a single dose; may repeat once Ozempic 1 mg/dose (4 mg/3 mL) pen injector 1 mg subcut QWEEK epinephrine [EpiPen 2-Jermaine] 0.3 mg/0.3 mL auto-injector 0.3 mg IM Q5-15M PRNQty: 2 0RF Rx Instructions: do not exceed 3 doses per episode (DME) lancets [Accu-Chek Fastclix Lancet Drum] Misc See Rx Instructions .ROUTE .COMPLEX Qty: 200 0RF Dose Instruction: USE TO TEST BLOOD SUGARS 4 TIMES DAILY Rx Instructions: USE TO TEST BLOOD SUGARS 4 TIMES DAILY (DME) Accu-Chek Guide test strips Strip See Rx Instructions .ROUTE .COMPLEX Qty: 100 1RF Dose Instruction: USE TO TEST BLOOD SUGARS 4 TIMES DAILY Rx Instructions: USE TO TEST BLOOD SUGARS 4 TIMES DAILY metoprolol tartrate 50 mg tablet 50 mg PO BID Qty: 180 1RF lisinopril 5 mg tablet 5 mg PO QDAY Qty: 90 0RF rosuvastatin 40 mg tablet 40 mg PO QDAY Qty: 90 0RF Follow Up/Referrals: Moni Noland MD [Primary Care Provider] - Stand Alone Forms: [employer] Info Instructions
--- NOTE | 2024-03-19 16:53 | CRLHL7_ITS ---
For Patients: As a result of the Century Cures Act, medical imaging exams and procedure reports are released immediately into your electronic medical record. You may view this report before your referring provider. If you have questions, please contact your health care provider. INDICATION: Right lower extremity swelling. TECHNIQUE: Right lower extremity Doppler venous ultrasound examination was performed. Grayscale and color Doppler images were obtained. COMPARISON: None. FINDINGS: RIGHT LOWER EXTREMITY: Common femoral vein: Fully compressible. No deep vein thrombus. Normal flow and response to augmentation on color Doppler imaging. Superficial femoral vein: Fully compressible. No deep vein thrombus. Normal flow on color Doppler imaging. Deep femoral vein: No deep vein thrombus Popliteal vein: Fully compressible. No deep vein thrombus. Normal flow on color Doppler imaging. Lower calf: The visualized posterior tibial and peroneal veins are fully compressible. No deep vein thrombus. Normal flow and response to augmentation on color Doppler imaging. Superficial veins: The superficial veins, including the greater saphenous vein, remain patent and are fully compressible. Soft tissues: No popliteal fossa fluid collection identified. LEFT LOWER EXTREMITY: Common femoral vein: Fully compressible. No deep vein thrombus. Normal flow and response to augmentation on color Doppler imaging. IMPRESSION: No deep vein thrombus within the right lower extremity. Dictated by Akhil Serrano MD @ 03/19/2024 6:13:47 PM (Electronically Signed)
--- OUTSIDE RECORDS SUMMARY | 2024-03-19 17:01 | XMS_ITS | Clinical Summary ---
Author Organization [facility] Address [address] [place] [id number] Phone Care Team Providers Care Supervisor Endless Track Vehicle Name Role Phone Unavailable Primary Care Provider [...] INTERFACED INSURANCE - OPEN 2015-05/29 [address] [place] [address]
--- OUTSIDE RECORDS SUMMARY | 2024-03-19 17:01 | XMS_ITS | Continuity of Care Document ---
Author Organization [facility] Address [address] [place] [address] Phone Care Team Providers Care Sign Installer Name Role Phone Eulalia Vang MD Unavailable Unavailable Medications Medication Instructions Dosage Effective Dates (start - stop) Status Comments Cimzia 400 mg/2 mL (200 mg/mL x 2) subcutaneous syringe kit inject 200 mg by Injection route every 2 weeks 200 mg - Active methotrexate sodium 2.5 mg tablet take 8 Tablet by Oral route every week 20 MG - Active folic acid 1 mg tablet take 1 tablet by oral route every day 1 MG - Active Pentasa 500 mg capsule,extended release take 4 capsule by oral route 2 times every day 2000 MG - Active Keflex 500 mg capsule take 2 capsule by oral route every day 1000 MG - Active Procedures Procedure Date Office/Outpatient Visit, New Routine Venipuncture Specimen Handling Rbc Sed Rate, Nonautomated CReactive Protein CCP Antibody Rheumatoid Factor, IGM Rheumatoid Factor, IGG, IGA Lyme Disease Antibody Advance Directives Directive Yes / No Effective Date File Name No Information Encounters Encounter Description Practice Location Reason(s) For Visit Diagnoses Date Provider Providers Copied on Encounter [facility], [address], [place], [address], [place] tel:[phone] [facility] , No Information Apr- 0-201 5 Taj Esteban. [facility] [address], [place], [address], [place]. tel:[phone] Office/Outpa tient Visit, New [facility], [address], [place], [address], [place] tel:[phone] [facility] , Joint Pain (chief complaint) Crohns diseasePain in joint involving multiple sitesLumbago 5 Taj Esteban. [facility] [address], [place], [address], [place]. tel:[phone] Consulting Provider: Michael Bruno, [facility] [address], [place], [place], [facility]. tel:[phone] ng Provider: Eulalia Hair, [facility] [address], [place], [place], [facility]. tel:[phone] [facility], [address], [place], [place], [facility], tel:[phone] [facility] , No Information Taj Esteban. [facility] [address], [place], [address], . tel:[phone] Family History Family Member Type Diagnosis Age At Onset Maternal aunt Problem (finding) Crohn's disease Father Problem (finding) neurological condition, unknown Payers Payer name Insurance type Covered libertarian ID Authoriza tion(s) [employer] [id number] Social History Type Description Quantity Date Captured Comments Alcohol Use Details Unknown Caffeine Use Details Unknown Tobacco Use Status No Information Smoking Status No Information Sex Male Chief Complaint And Reason For Visit No Information Reason For Referral Reason For Referral No Information History Of Present Illness Encounter Date Complaint History Of Prese nt Illness Joint Pain Functional Status Date Functional Assessmen t No Information Instructions Date Instruction Additional Infor mation No Information Assessments Type Assessment Date No Information Patient Care Teams Name Effective Dates (start - stop) Status Members No Information
--- OUTSIDE RECORDS SUMMARY | 2024-03-19 17:01 | XMS_ITS | Continuity of Care Document ---
Author Organization [facility] Address [address] [address] [place] [address] Phone Care Team Providers Care Siebel Developer Name Role Phone Michael Bruno DO Unavailable Unavailable Allergies, Adverse Reactions, Alerts Substance Reaction Status Criticality cyclosporine anaphylaxis Active No Information WARNIN allergy(ies) could not be collected because the type is not supported. Please contact the source practice for further details. Medications Medication Instructions Dosage Effective Dates (start - stop) Status Comments rosuvastatin 40 mg tablet take 1 tablet by oral route every day 40 MG - Active Cimzia 400 mg/2 mL (200 mg/mL x 2) subcutaneous syringe kit inject 1 pen (200mg/mL) by Subcutaneous route every 2 weeks - Active 1 kit = 2 pens K50.80. folic acid 1 mg tablet take 1 tablet by ORAL route every day 1 MG - Active methotrexate sodium 2.5 mg tablet take 8 Tablet by ORAL route every week 20 MG - Active Ozempic 0.25 mg or [...] every as needed 650 MG - Active Procedures Procedure Date Routine Serum Collection Colonoscopy Flex; W/bx 1/mx Level Iv-surg Path Gross/micro 24 Offic/outpt E&m Estab Mod-hi 2 24 Routine Serum Collection Routine Serum Collection Routine Serum Collection Offic/outpt E&m Estab Mod-hi 2 23 Routine Serum Collection Routine Serum Collection Routine [...] Function Panel Bld Ct; Hg/pltlt Ct Auto/compl Established Level 3 Routine Serum Collection Bld [...] Ct; Hg/pltlt Ct Auto/compl Routine Serum Collection Urea Nitro; Phill Creatinine; Bld Hepatic Function Panel Bld Ct; Hg/pltlt Ct Auto/compl 19 Routine Serum Collection Urea Nitro; Phill Creatinine; Bld Hepatic Function Panel Bld Ct; Hg/pltlt Ct Auto/compl 19 Offic/outpt E&m Estab Low-mod 9 Routine Serum Collection Urea Nitro; Phill Creatinine; Bld Hepatic Function Panel Bld Ct; Hg & Platelet Ct Autom 19 Routine Serum Collection Bld Ct; Hg/pltlt Ct [...] Diagnoses Date Provider Providers Copied on Encounter [facility], [address] [address], [place], [id number], [place] tel:[phone] [facility] No Information 4 Damion Montano. [address] [place] [address], [id number], [place]. tel:[phone] [facility], [address] [address], [facility] [facility] [place], [id number], [place] tel:[phone] [facility] Crohn's disease of large intestine without complications 4 Damion Montano. [address] [place] [address], [id number], [place]. tel:[phone] Referring Provider: Referral Self, USE FOR SELF REFERRALS. [facility] [address] [address], [place], [id number], [place] tel:[phone] [facility] GI Symptoms or Concerns (chief complaint) Crohn's disease of both small and lg int w/o complications Polyp of colonCrohn's disease of both small and lg int w/o complications 4 Rogelio Ramirez. [address] [place] [address], [id number], [place]. tel:[phone] Referring Provider: Referral Self, USE FOR SELF REFERRALS. Offic/outpt E&m Estab Mod-hi 2 [facility], [address] [address], [place], [id number], [place] tel:[phone] [facility] GI Symptoms or Concerns (chief complaint) Crohn's disease of both small and lg int w/o complications 4 Tamika Rodriguez. [address] [facility], [place], [place], [id number], [place]. tel:[phone] Referring Provider: Referral Self, USE FOR SELF REFERRALS. [facility], [address] [address], [place], [id number], [place] tel:[phone] [facility] No Information 4 Damion Montano. [address] [facility] [facility] [address], [place], [id number], [place]. tel:[phone] [facility], [address] [address], [place], [address], [place] tel:[phone] [facility] Crohn's disease of large intestine without complications 4 Damion Montano. [address] [facility], [place], [id number], [place]. tel:[phone] Referring Provider: Referral Self, USE FOR SELF REFERRALS. [facility], [address] [address], [place], [id number], [place] tel:[phone] [facility] Crohn's disease of large intestine without complication 4 Damion Montano. [address] [facility], [place], [address], [place]. tel:[phone] Referring Provider: Referral Self, USE FOR SELF REFERRALS. [facility], [address] [address], [place], [id number], [place] tel:[phone] [facility] No Information 4 Damion Montano. [address] [facility], [place], [id number], [place]. tel:[phone] [facility], [address] [address], [place], [id number], [place] tel:[phone] [facility] Crohn's disease of both small and lg int w/o complications 3 Damion DO Michael. [address], [id number], [place]. tel:[phone] Referring Provider: Referral Self, USE FOR SELF REFERRALS. [facility], [address] [address], [place], [id number], [place] tel:[phone] [facility] Crohn's disease of both small and lg int w/o complications 3 Damion DO Michael. [address], [id number], [place]. tel:[phone] [facility], [address] [address], [place], [id number], [place] tel:[phone] [facility] Crohn's disease of both small and lg int w/o complications 3 Damion Michael. [address], [id number], [place]. tel:[phone] Referring Provider: Referral Self, USE FOR SELF REFERRALS. [facility], [address] [address], [place], [id number], [place] tel:[phone] [facility] Crohn's disease of both small and lg int w/o complications 3 Marine Harley. [address], [id number], [place]. tel:[phone] [facility], [address] [address], [place], [id number], [place] tel:[phone] [facility] Thrombocytope kiara 3 Damion SUERO Michael. [address], [id number], [place]. tel:[phone] Offic/outpt E&m Estab Mod-hi 2 [facility], [address] [address], [place], [id number], [place] tel:[phone] [facility] GI Symptoms or Concerns (chief complaint) Crohn's disease of large intestine without complication 0 3 Damion Montano. [address] [facility], [facility] [address], [place], [place], [id number], [place]. tel:[phone] Referring Provider: Referral Self, USE FOR SELF REFERRALS. [facility], [address] [address], [place], [address], [place] tel:[phone] [facility] Crohn's disease of both small and lg int w/o complications 3 Damion Montano. [address] [facility], [facility] [address], [place], [place], [address], [place]. tel:[phone] Referring Provider: Michael Bruno DO, [address] [facility] [address], [place], [address] . tel:[phone] [facility], [address] [address], [place], [address], [place] tel:[phone] [facility] Crohn's disease of large intestine without complications 0 3 Damion Montano. [address] [facility], [facility] [address], [place], [place], [address], [place]. tel:[phone] Referring Provider: Referral Self, USE FOR SELF REFERRALS. [facility], [address] [address], [place], [address], [place] tel:[phone] [facility] Crohn's disease of large intestine without complications Fe0 - 3 Damion Montano. [address] [facility], [place], [place], [address], [place]. tel:[phone] Referring Provider: Referral Self, USE FOR SELF REFERRALS. [facility], [address] [address], [place], [id number], [place] tel:[phone] [facility] Crohn's disease of small intestine without complications 2 Damion Montano. [address] [facility], [facility] [address], [place], [place], [id number], [place]. tel:[phone] Referring Provider: Referral Self, USE FOR SELF REFERRALS. [facility], [address] [address], [place], [id number], [place] tel:[phone] [facility] Crohn's disease of large intestine without complications 2 Damion SUERO Michael. [address] [facility] [facility] [address], [place], [place], [id number], [place]. tel:[phone] Referring Provider: Referral Self, USE FOR SELF REFERRALS. [facility], [address] [address], [place], [id number], [place] tel:[phone] [facility] Crohn's disease of large intestine without complication 2 Damion SUERO Michael. [address] [facility] [facility] [address], [place], [id number], [place]. tel:[phone] [facility], [address] [address], [place], [id number], [place] tel:[phone] [facility] Crohn's disease of large intestine without complication 2 Damion SUERO Michael. [address] [facility] [facility] [address], [place], [address], [place]. tel:[phone] Referring Provider: Referral Self, USE FOR SELF REFERRALS. [facility], [address] [address], [place], [address], [place] tel:[phone] [facility] GI Symptoms or Concerns (chief complaint) Crohn's disease of both small and large intestine without complicationC rohn's disease of both small and lg int w/o complications Crohn's disease of both small and lg int w/o complications 2 Shane Espino. [address] [facility] [facility] [address], [place], [address], [place]. tel:[phone] Referring Provider: Referral Self, USE FOR SELF REFERRALS. Established Level 3 [facility], [address] [address], [place], [address], [place] tel:[phone] [facility] GI Symptoms or Concerns (chief complaint) Crohn's disease of both small and lg int w/o complications 2 Marine Harley. [address] [facility], [address], [id number], [place]. tel:[phone] Referring Provider: Referral Self, USE FOR SELF REFERRALS. [facility], [address] [address], [place], [address], [place] tel:[phone] [facility] No Information 2 Rich Jenkins. [address] [facility] [facility] [address], [place], [id number], [place]. tel:[phone] [facility], [address] [address], [place], [address], [place] tel:[phone] [facility] Crohn's disease of small intestine without complications 2 Lela Bansal. [address], [id number], [place]. tel:[phone] Referring Provider: Moni Noland MD, [address] [place] [address], [address]. tel:[phone] [facility], [address] [address], [place], [address], [place] tel:[phone] [facility] Crohn's disease of small intestine without complications 2 Damion Montano. [address], [id number], [place]. tel:[phone] Referring Provider: Referral Self, USE FOR SELF REFERRALS. [facility], [address] [address], [place], [address], [place] tel:[phone] [facility] Crohn's disease of both small and lg int w/o complications 2 Damion Montano. [address] [facility], [address], [id number], [place]. tel:[phone] Referring Provider: Referral Self, USE FOR SELF REFERRALS. [facility], [address] [address], [place], [address], [place] tel:[phone] [facility] No Information 2 Karla Nelson. [address] [facility] [facility] [address], [place], [address], [place]. tel:[phone] [facility], [address] [address], [place], [address], [place] tel:[phone] [facility] Crohn's disease of both small and lg int w/o complications 1 Damion Montano. [address] [facility] [facility] [address], [place], [address], [place]. [phone] Referring Provider: Referral Self, USE FOR SELF REFERRALS. [facility], [address] [address], [place], [address], [place] tel:[phone] [facility] No Information 1 Karla Nelson. [address] [facility] [facility] [address], [place], [id number], [place]. tel:[phone] [facility], [address] [address], [place], [address], [place] tel:[phone] [facility] Crohn's disease of both small and lg int w/o complications Crohn's disease of both small and lg int w/o complications 1 Deirdre Ibanez. [address], [id number], [place]. tel:[phone] Referring Provider: Referral Self, USE FOR SELF REFERRALS. [facility], [address] [address], [place], [address], [place] tel:[phone] [facility] Crohn's disease of both small and lg int w/o complications 1 Deirdre Ibanez. [address] [facility], [address], [id number], [place]. tel:[phone] Referring Provider: Referral Self, USE FOR SELF REFERRALS. Established Level 3 [facility], [address] [address], [place], [address], [place] tel:[phone] [facility] GI Symptoms or Concerns (chief complaint) Crohn's disease of both small and large intestine without complication 1 Vogel ASHLEY Ferrisew. [address] [facility], [facility] [address], [place], [place], [address], [place]. tel:[phone] Referring Provider: Referral Self, USE FOR SELF REFERRALS. [facility], [address] [address], [place], [place], [address], [place] tel:[phone] [facility] No Information 1 Damion oMntano. [address] [facility] [facility] [address], [place], [address], [place]. tel:[phone] [facility], [address] [address], [place], [address], [place] tel:[phone] [facility] Crohn's disease of large intestine without complication 1 Damion Montano. [address] [facility], [facility] [address], [place], [address], [place]. tel:[phone] Referring Provider: Referral Self, USE FOR SELF REFERRALS. [facility], [address] [address], [place], [address], [place] tel:[phone] [facility] No Information 1 Karla Nelson. [address] [facility] [facility] [address], [place], [address], [place]. tel:[phone] [facility], [address] [address], [place], [address], [place] tel:[phone] [facility] Crohn's disease of large intestine without complication 1 Damion Montano. [address] [facility] [facility] [address], [place], [address], [place]. tel:[phone] Referring Provider: Referral Self, USE FOR SELF REFERRALS. [facility], [address] [address], [place], [address], [place] tel:[phone] [facility] Crohn's disease of both small and large intestine without complication 0 Damion Montano. [address] [facility], [address], [id number], [place]. tel:[phone] Referring Provider: Michael [place] DO, [address] [facility] [address], [place], [address] . tel:[phone] [facility], [address] [address], [place], [address], [place] tel:[phone] [facility] Crohn's disease of both small and large intestine without complication 0 Damion Montano. [address] [facility], [address], [id number], [place]. tel:[phone] Referring Provider: Referral Self, USE FOR SELF REFERRALS. Virtual Visit E&m Estab Low-mod 15-24 Min [facility], [address] [address], [place], [id number], [place] tel:[phone] [facility] Additional Narrative (chief complaint)C omment (chief complaint) Crohn's disease of both small and large intestine without complication 0 Damion Montano. [address] [facility], [address], [id number], [place]. tel:[phone] Referring Provider: Referral Self, USE FOR SELF REFERRALS. [facility], [address] [address], [place], [id number], [place] tel:[phone] [facility] GI Symptoms or Concerns (chief complaint) No Information Aug-3 0- 0 Damion oMntano. [address] [facility], [address], [id number], [place]. tel:[phone] Referring Provider: Referral Self, USE FOR SELF REFERRALS. Virtual Visit E&m Estab Low-mod 15-25 Min [facility], [address] [address], [place], [address], [place] tel:[phone] [facility] GI Symptoms or Concerns (chief complaint) Gastro-esopha geal reflux disease with esophagitisAb normal findings on dx imaging of ot body structures Aug- 0-202 0 Rylan Arias. [address] [facility], [address], [id number], [place]. tel:[phone] Referring Provider: Referral Self, USE FOR SELF REFERRALS. [facility], [address] [address], [place], [address], [place] tel:[phone] [facility] Lower esophageal ring (Schatzki)HH (hiatus hernia)Gastro esophageal reflux disease with esophagitisCr ohn's disease of large intestine without complicationA bnormal CT of the chestAbnormal findings on dx imaging of ot body structuresDuo denitis without bleedingAbnor mal findings on dx imaging of ot body structuresGas tro-esophagea l reflux disease with esophagitisEs ophageal obstruction Jul- 0 Rylan Arias. [address] [facility], [address], [id number], [place]. tel:[phone] Referring Provider: Referral Self, USE FOR SELF REFERRALS. Offic/outpt E&m Estab Mod-hi 2 [facility], [address] [address], [place], [id number], [place] tel:[phone] [facility] GI Symptoms or Concerns (chief complaint) Gastroesophag eal reflux disease, esophagitis presence not specifiedEsop hageal dysphagiaAbno rmal CT of the chest Jul-0 0 Rylan Arias. [address] [facility], [address], [id number], [place]. tel:[phone] Referring Provider: Referral Self, USE FOR SELF REFERRALS. [facility] [address] [address], [place], [id number], [place] tel:[phone] [facility] Crohn's disease of large intestine without complication 0 Damion Montano. [address] [facility], [address], [id number], [place]. tel:[phone] Referring Provider: Referral Self, USE FOR SELF REFERRALS. [facility], [address] [address], [place], [id number], [place] tel:[phone] [facility] No Information 9 Damion Whitek. [address] [facility], [address], [id number], [place]. tel:[phone] [facility], [address] [address], [place], [address], [place] tel:[phone] [facility] Crohn's disease of both small and large intestine without complication 9 Damion Whitek. [address] [facility], [address], [id number], [place]. tel:[phone] Referring Provider: Referral Self, USE FOR SELF REFERRALS. [facility], [address] [address], [place], [id number], [place] tel:[phone] [facility] Crohn's disease of large intestine without complication 9 Damion Montano. [address] [facility], [address], [id number], [place]. tel:[phone] Referring Provider: Referral Self, USE FOR SELF REFERRALS. [facility], [address] [address], [place], [id number], [place] tel:[phone] [facility] Crohn's disease of both small and large intestine without complication 9 Damion Michael. [address] [facility], [address], [id number], [place]. tel:[phone] Offic/outpt E&m Estab Low-mod [facility], [address] [address], [place], [id number], [place] tel:[phone] [facility] GI Symptoms or Concerns (chief complaint) Crohn's disease of large intestine without complicationD ietary counseling and surveillanceE levated blood-pressur e reading, w/o diagnosis of htn 9 Damion Michael. [address] [place] [address], [address], [id number], [place]. tel:[phone] Referring Provider: Referral Self, USE FOR SELF REFERRALS. [facility], [address] [address], [place], [id number], [place] tel:[phone] [facility] Elevated LFTs 9 Damion SUERO Michael. [address] [facility], [address], [id number], [place]. tel:[phone] [facility], [address] [address], [place], [id number], [place] tel:[phone] [facility] Crohn's disease of large intestine without complication 9 Damion SUERO Michael. [address] [place] [address], [id number], [place]. tel:[phone] Referring Provider: Referral Self, USE FOR SELF REFERRALS. [facility], [address] [address], [place], [id number], [place] tel:[phone] [facility] Crohn's disease of large intestine without complication 9 Damion Whitek. [address], [id number], [place]. tel:[phone] Referring Provider: Referral Self, USE FOR SELF REFERRALS. [facility], [address] [address], [place], [id number], [place] tel:[phone] [facility] Crohn's disease of large intestine without complication 8 Damion Montano. [address] [facility], [address], [id number], [place]. tel:[phone] Referring Provider: Referral Self, USE FOR SELF REFERRALS. Offic/outpt E&m Estab Low-mod [facility], [address] [address], [place], [id number], [place] tel:[phone] [facility] GI Symptoms or Concerns (chief complaint)A dditional Narrative (chief complaint) Crohn's disease of large intestine without complicationD ietary counseling and surveillance 8 Damion Montano. [address] [facility] [address], [id number], [place]. tel:[phone] Referring Provider: Referral Self, USE FOR SELF REFERRALS. [facility], [address] [address], [place], [id number], [place] tel:[phone] [facility] Crohn's disease of both small and lg int w/o complications 2 8 Damion Montano. [address] [facility], [address], [id number], [place]. tel:[phone] [facility], [address] [address], [place], [id number], [place] tel:[phone] [facility] Crohn's disease of both small and lg int w/o complications Crohn's disease of both small and lg int w/o complications 0 7 Damion Montano. [address], [id number], [place]. tel:[phone] Referring Provider: Referral Self, USE FOR SELF REFERRALS. Offic/outpt E&m Estab Low-mod [facility], [address] [address], [place], [id number], [place] tel:[phone] [facility] GI Symptoms or Concerns (chief complaint)A dditional Narrative (chief complaint) Crohn's disease of both small and large intestine without complication 7 Damion Montano. [address], [id number], [place]. tel:[phone] Referring Provider: Referral Self, USE FOR SELF REFERRALS. [facility], [address] [address], [place], [id number], [place] tel:[phone] [facility] Crohn's disease of large intestine without complications 3 7 Damion Montano. [address] [facility], [address], [id number], [place]. tel:[phone] Referring Provider: Referral Self, USE FOR SELF REFERRALS. [facility], [address] [address], [place], [id number], [place] tel:[phone] [facility] Crohn's disease of large intestine without complication 0 7 Damion Whitek. [address] [facility], [facility] [address], [place], [id number], [place]. tel:[phone] [facility], [address] [address], [place], [id number], [place] tel:[phone] [facility] Crohn's disease of both small and lg int w/o complications 0 7 Damino SUERO Michael. [address] [facility], [address], [id number], [place]. tel:[phone] Referring Provider: Referral Self, USE FOR SELF REFERRALS. [facility], [address] [address], [place], [id number], [place] tel:[phone] [facility] Crohn's disease of both small and lg int w/o complications 7 Damion SUERO Michael. [address] [facility], [facility] [address], [place], [id number], [place]. tel:[phone] Referring Provider: Referral Self, USE FOR SELF REFERRALS. [facility], [address] [address], [place], [id number], [place] tel:[phone] [facility] Crohn's disease of both small and large intestine without complication 2 6 Damion Montano. [address] [facility], [address], [id number], [place]. tel:[phone] [facility], [address] [address], [place], [id number], [place] tel:[phone] [facility] Crohn's disease of both small and large intestine without complication 6 Damion SUERO Michael. [address] [facility], [address], [id number], [place]. tel:[phone] Referring Provider: Referral Self, USE FOR SELF REFERRALS. [facility], [address] [address], [place], [id number], [place] tel:[phone] [facility] Crohn's disease of both small and large intestine without complication 6 Damion Montano. [address], [id number], [place]. tel:[phone] Referring Provider: Referral Self, USE FOR SELF REFERRALS. Offic/outpt E&m Estab Low-mod [facility], [address] [address], [place], [id number], [place] tel:[phone] [facility] GI Symptoms or Concerns (chief complaint)A dditional Narrative (chief complaint) Crohn's disease of both small and large intestine without complication 6 Damion Montano. [address] [place] [address], [id number], [place]. tel:[phone] Referring Provider: Referral Self, USE FOR SELF REFERRALS. [facility], [address] [address], [place], [id number], [place] tel:[phone] [facility] Crohn's disease of both small and lg int w/o complications 6 Damion Montano. [address], [id number], [place]. tel:[phone] Referring Provider: Referral Self, USE FOR SELF REFERRALS. [facility], [address] [address], [place], [id number], [place] tel:[phone] [facility] Crohn's disease of both small and lg int w/o complications 6 Damion Montano. [address], [id number], [place]. tel:[phone] [facility], [address] [address], [place], [id number], [place] tel:[phone] [facility] Crohn's disease of both small and lg int w/o complications 6 Damion Montano. [address], [id number], [place]. tel:[phone] Referring Provider: Referral Self, USE FOR SELF REFERRALS. [facility], [address] [address], [place], [id number], [place] tel:[phone] [facility] Crohn's disease of both small and large intestine without complications 6 Damion Montano. [address] [facility], [address], [id number], [place]. tel:[phone] [facility], [address] [address], [place], [id number], [place] tel:[phone] [facility] Crohn's disease of both small and large intestine without complications 6 Damion Montano. [address] [place] [address], [id number], [place]. tel:[phone] Referring Provider: Referral Self, USE FOR SELF REFERRALS. [facility], [address] [address], [place], [id number], [place] tel:[phone] [facility] Crohn's disease of both small and large intestine without complications 5 Damion SUERO Michael. [address] [place] [address], [id number], [place]. [phone] Referring Provider: Referral Self, USE FOR SELF REFERRALS. Offic/outpt E&m Estab Low-mod [facility], [address] [address], [place], [id number], [place] tel:[phone] [facility] GI Symptoms or Concerns (chief complaint)A dditional Narrative (chief complaint) Crohn's Small/large IntestineDiet clara Surveil/couns elHypertensio n, UnspecifiedCr ohn's disease of both small and large intestine without complications Dietary counseling and surveillanceE ssential (primary) hypertension Jan-0 [address] [place] [address], [address], [id number], [place]. tel:[phone] Referring Provider: Referral Self, USE FOR SELF REFERRALS. [facility], [address] [address], [place], [id number], [place] tel:[phone] [facility] Crohn's Ileitis 0 5 Damion Michael. [address] [facility], [address], [id number], [place]. tel:[phone] Referring Provider: Anne Marie Barry, [address] [place], [address]. tel:[phone] [facility], [address] [address], [place], [id number], [place] tel:[phone] [facility] No Information 5 Damion Michael. [address] [place] [address], [id number], [place]. tel:[phone] Referring Provider: Referral Self, USE FOR SELF REFERRALS. [facility], [address] [address], [place], [id number], [place] tel:[phone] [facility] Crohn's Small/large Intestine 5 Valeriano Baxter. [address], [id number], [place]. tel:[phone] Offic/outpt E&m Estab Mod-hi 2 [facility], [address] [address], [place], [id number], [place] tel:[phone] [facility] GI Symptoms or Concerns (chief complaint)A dditional Narrative (chief complaint) Crohn's IleitisArthro pathyCrohn's disease of small intestine without complications 5 Damion Montano. [address], [id number], [place]. tel:[phone] Referring Provider: Referral Self, USE FOR SELF REFERRALS. [facility], [address] [address], [place], [id number], [place] tel:[phone] [facility] Crohn's Small/large Intestine Feb-0 4 Damion Montano. [address] [place] [address], [id number], [place]. tel:[phone] Referring Provider: Referral Self, USE FOR SELF REFERRALS. [facility], [address] [address], [place], [id number], [place] tel:[phone] [facility] Crohn's Small/large Intestine 0 4 [facility] Michael. [address] [place] [address], [id number], [place]. tel:[phone] Referring Provider: Referral Self, USE FOR SELF REFERRALS. [facility], [address] [address], [place], [id number], [place] tel:[phone] [facility] Crohn's Small/large Intestine 4 [place] DO Rodriguez. [address] [place] [address], [id number], [place]. tel:[phone] Referring Provider: Referral Self, USE FOR SELF REFERRALS. Offic/outpt E&m Estab Mod-hi 2 [facility], [address] [address], [place], [id number], [place] tel:[phone] [facility] GI Symptoms or Concerns (chief complaint)A dditional Narrative (chief complaint) Dietary Surveil/couns elHypertensio n, UnspecifiedCr ohn's Ileitis 4 [facility] Michael[address], [id number], [place]. tel:[phone] Referring Provider: Referral Self, USE FOR SELF REFERRALS. [facility], [address] [address], [place], [id number], [place] tel:[phone] [facility] Crohn's Small/large Intestine Aug- 4 [place] DO Rodriguez. [address] [place] [address], [id number], [place]. tel:[phone] Referring Provider: Referral Self, USE FOR SELF REFERRALS. [facility], [address] [address], [place], [id number], [place] tel:[phone] [facility] Crohn's Small/large Intestine Feb-0 4 Damion Whitek. [address] [facility], [facility], [place], [place], [id number], [place]. tel:[phone] Referring Provider: Referral Self, USE FOR SELF REFERRALS. [facility], [address] [address], [place], [id number], [place] tel:[phone] [facility] Regional Enteritis NosRegional Enteritis Nos Apr- 3 Damion SUERO Michael. [address] [facility], [facility] [address], [place], [id number], [place]. tel:[phone] Referring Provider: Referral Self, USE FOR SELF REFERRALS. [facility], [address] [address], [place], [id number], [place] tel:[phone] [facility] Crohn's Small/large Intestine Apr- 3 Damion Whitek. [address] [place] [address], [address], [id number], [place]. tel:[phone] Referring Provider: Referral Self, USE FOR SELF REFERRALS. [facility], [address] [address], [place], [id number], [place] tel:[phone] [facility] Crohn's Small/large Intestine Feb- 3 Damion Montano. [address] [facility], [facility] [address], [place], [id number], [place]. tel:[phone] Referring Provider: Referral Self, USE FOR SELF REFERRALS. Offic/outpt E&m Estab Mod-hi 2 [facility], [address] [address], [place], [id number], [place] tel:[phone] [facility] Crohns (chief complaint) Crohn's Small/large IntestineCroh n's Small/large Intestine Feb- 3 Damion SUERO Michael. [address] [facility], [facility] [address], [place], [id number], [place]. tel:[phone] Referring Provider: Referral Self, USE FOR SELF REFERRALS. [facility], [address] [address], [place], [id number], [place] tel:[phone] [facility] Crohn's Small/large Intestine 3 Damion SUERO Michael. [address] [facility], [address], [id number], [place]. tel:[phone] Referring Provider: Referral Self, USE FOR SELF REFERRALS. [facility], [address] [address], [place], [id number], [place] tel:[phone] [facility] Crohn's Small/large Intestine 3 Damion SUERO Michael. [address] [facility], [address], [id number], [place]. tel:[phone] Referring Provider: Referral Self, USE FOR SELF REFERRALS. Offic/outpt E&m Estab Low-mod [facility], [address] [address], [place], [id number], [place] tel:[phone] [facility] Crohns (chief complaint) Crohn's Small/large Intestine 3 Damion SUERO Michael. [address] [facility], [address], [id number], [place]. tel:[phone] Referring Provider: Referral Self, USE FOR SELF REFERRALS. [facility], [address] [address], [place], [id number], [place] tel:[phone] [facility] Crohn's Small/large Intestine 3 Damion SUERO Michael. [address] [facility], [address], [id number], [place]. tel:[phone] Referring Provider: Referral Self, USE FOR SELF REFERRALS. [facility], [address] [address], [place], [id number], [place] tel:[phone] [facility] Crohn's Small/large Intestine 3 Damion SUERO Michael. [address] [facility], [address], [id number], [place]. tel:[phone] Referring Provider: Referral Self, USE FOR SELF REFERRALS. Offic/outpt E&m Estab Low-mod [facility], [address] [address], [place], [id number], [place] tel:[phone] [facility] Cimzia injection teaching (chief complaint) Crohn's Small/large Intestine Oct- 3 No Information Referring Provider: Referral Self, USE FOR SELF REFERRALS. [facility], [address] [address], [place], [id number], [place] tel:[phone] [facility] Crohn's Small/large Intestine 3 No Information Referring Provider: Michael Bruno DO, [address] [facility] [address], [place], [address] . tel:[phone] Offic/outpt E&m Estab Mod-hi 4 [facility], [address] [address], [place], [id number], [place] tel:[phone] [facility] Crohns (chief complaint) Crohn's Small/large IntestineCroh n's Small/large Intestine 3 Damion Montano. [address] [facility], [place] [address], [place], [id number], [place]. tel:[phone] Referring Provider: Referral Self, USE FOR SELF REFERRALS. [facility], [address] [address], [place], [id number], [place] tel:[phone] [facility] Crohns (chief complaint) Crohn's Small/large IntestineCroh n's Small/large Intestine 3 Damion Montano. [address] [facility], [address], [place], [place], [id number], [place]. tel:[phone] Referring Provider: Referral Self, USE FOR SELF REFERRALS. [facility], [address] [address], [place], [id number], [place] tel:[phone] [facility] Crohn's Small/large Intestine 3 Damion Montano. [address] [facility], [address], [place], [place], [id number], [place]. tel:[phone] Referring Provider: Referral Self, USE FOR SELF REFERRALS. [facility], [address] [address], [place], [place], [id number], [place] tel:[phone] [facility] Crohn's Small/large Intestine 3 Damion Montano. [address] [facility], [facility], [place], [place], [id number], [place]. tel:[phone] Referring Provider: Last Novak, [address], [place], [address]. tel:[phone] Offic/outpt E&m Estab Mod-hi 4 [facility] RM, [address] [address], [place], [place], [id number], [place] tel:[phone] [facility] Crohns (chief complaint) Crohn's Small/large IntestineCroh n's Small/large IntestineAbn Blood Chemistry NecVacc For Viral Hepatitis 2 Damion Montano. [address] [facility], [facility] [address], [place], [place], [id number], [place]. tel:[phone] Referring Provider: Last Novak, [address], [place], [address]. tel:[phone] Offic/outpt E&m Estab Mod-hi 2 [facility] RM, [address] [address], [place], [place], [id number], [place] tel:[phone] [facility] Crohn's f/u (chief complaint) Crohn's IleitisCrohn' s Small/large IntestineVacc in Strep Pneumoniae 2 Damion Montano. [address] [facility], [facility] [address], [place], [place], [id number], [place]. tel:[phone] Referring Provider: Last Novak, [address], [place], [address]. tel:[phone] [facility] RM, [address] [address], [place], [place], [id number], [place] tel:[phone] [facility] Crohn's Ileitis 2 No Information Referring Provider: Referral Self, USE FOR SELF REFERRALS. [facility], [address] [address], [place], [id number], [place] tel:[phone] [facility] Crohn's Ileitis No Information Referring Provider: Referral Self, USE FOR SELF REFERRALS. Offic/outpt E&m New Mod-hi [facility], [address] [address], [place], [id number], [place] tel:[phone] [facility] Crohns (chief complaint) Crohn's Ileitis No Information Referring Provider: Last Novak, [place], [address]. tel:[phone] Family History Family Member Type Diagnosis Age At Onset Mother Problem (finding) Alive and well Son Problem (finding) Alive and well Son Problem (finding) Irritable bowel syndrom e First degree family history Problem (finding) malignant neoplasm of uterus First degree family history Problem (finding) Colon Polyps Brother Problem (finding) Alive and well Mother Problem (finding) Cancer, ovarian Mother Problem (finding) Colon polyps Father Problem (finding) diverticulitis of colon Father Problem (finding) GERD Father Problem (finding) Colon polyps Sister Problem (finding) Alive and well First degree family history Problem (finding) diverticulitis of colon Father Problem (finding) Irritable bowel syndrom e Son Problem (finding) Colon polyps Daughter Problem (finding) Alive and well Immunizations Vaccine Date Status Comments tetanus toxoid, reduced diphtheria toxoid, and acellular pertussis vaccine, adsorbed administered Note: [facility] bi-direct ional interface ; Source: Other Registry SARS-COV-2 (COVID-19) vaccin e, mRNA, spike protein, LNP, preservative free, 100 mcg/0.5mL dose or 50 mcg/0.25mL dose administered Note: [facility] bi-direct ional interface ; Source: Other Registry SARS-COV-2 (COVID-19) vaccin e, mRNA, spike protein, LNP, preservative free, 100 mcg or 50 mcg dose administered Note: [facility] bi-direct ional interface ; Source: Other Registry SARS-COV-2 (COVID-19) vaccin e, mRNA, spike protein, LNP, preservative free, 100 mcg/0.5mL dose or 50 mcg/0.25mL dose administered Note: [facility] bi-direct ional interface [...] or 50 mcg/0.25mL dose administered Note: [facility] bi-direct ional interface [...] acellular pertussis vaccine, adsorbed administered Note: [facility] bi-direct ional interface ; Source: Other Registry tetanus toxoid, reduced diphtheria toxoid, and acellular pertussis vaccine, adsorbed administered Note: [facility] bi-direct ional interface ; Source: Other Registry tetanus and diphtheria toxoids, adsorbed, preservative free, for adult use (2 Lf of tetanus toxoid and 2 Lf of diphtheria toxoid) administered Note: [facility] C bi- directional interface ; Source: Other Registry Hep A (adult) pending Source: New munization Record Hep B, recombinant, adjuvanted pending Source: New Immunization Record Pneumococcal conjugate PCV20 pending Source: New Immunization Record Payers Payer name Insurance type Covered libertarian ID Adalid mustafa(s) [facility] CI [id number] [facility] CI [id number] Social History Type Description Quantity Date Captured Comments Alcohol Use Details Unknown Caffeine Use Details Unknown Tobacco Use Status No Information Smoking Status No Information Sex Male Chief Complaint And Reason For Visit No Information Reason For Referral Reason For Referral No Information Plan Of Treatment Date Type Action Status Goal Vitamin D, 25-Hydroxy. Due o n due Goal Tdap. Due on due Goal Colonoscopy. Due on due Goal Dermatology - Skin Screening . Due on due Goal Smoking status. Due on due Goal DEXA Bone Density Study. Due on due Goal Smoking status. Due on due Goal Tdap. Due on due Goal Colonoscopy. Due on due Goal Dermatology - Skin Screening . Due on due Goal DEXA Bone Density Study. Due on due Goal Vitamin D, 25-Hydroxy. Due o n due Goal Smoking status. Due on due Goal Hep B Vaccine (2nd) due Goal Dermatology - Skin Screening . Due on due Goal DEXA Bone Density Study. Due on due Goal Vitamin D, 25-Hydroxy. Due o n due Goal Hep B Vaccine (1st) due Goal Tdap. Due on due Goal Lifestyle education regardin g diet completed Goal Lifestyle education regardin g diet completed Goal Lifestyle education regardin g diet completed Goal Lifestyle education regardin g diet completed Referral Ordered: MRI Enterography With Contrast Per Radiology Appointment date/timeframe: 01/06/2024 ordered Referral Ordered: referred to Hematology Appointment date/timeframe: 03/04/2023 ordered Referral Ordered: referred to Etienne Braxton MD Rheumatology ([facility]) Crohn's, hip pain vs bursitis ordered Referral Ordered: follow-up visit with Michael [...] with Michael Bruno DO 9-12 months ordered Unknown Immunization Hep A (adult) ordered Unknown Immunization Hep B, recombinant, adjuvant ed ordered Unknown Immunization Pneumococcal conjugate PCV20 ordered History Of Present Illness Encounter Date Complaint History Of Prese nt Illness GI Symptoms or Concerns GI Symptoms or Concerns Patient is a very pleasant 47-year-old gentleman who comes to [place] [facility] for a follow up visit for Crohn's disease Patient was diagnosed with Crohn's disease approximately 20 years ago and has been following up with Dr. Bruno for last 15 years or so. Patient was initially on infliximab then was switched to adalimumab however has been on certolizumab and methotrexate since 2012 and disease has been well controlled except for the last 2 months when he has started noticing that he would have 4-6 bowel movements per day and also has been having cramping with abdominal pain and diarrhea. Patient had his CBC and liver enzymes checked in September of 2023 which were unremarkable. There has been no change in his weight. He denies any NSAID use. He only uses acetaminophen. He denies any history of smoking. Health maintenance: Patient had an eye exam last week. He says it has been 2 years since his dermatology appointment. He does have ache GI Symptoms or Concerns Hubert is a delightful 47-year-old gentleman with a history of Crohn's disease who presents for a followup appointment. He was found to be in deep remission on his last colonoscopy performed in December 2021 with a normal colon and terminal ileum. This was on his current drug regimen of Cimzia and methotrexate started in 2012. Other pertinent objective data includes Cimzia trough level from 2019 at which time he was found to have minimally elevated anticertolizumab and Cimzia trough at 21 mcg/mL.We reviewed today that the patient is asymptomatic with regard to his bowel disease. He has normal formed stools, normal appetite and energy level. He has no urgency or diarrhea. There is no unintentional weight loss; however, he has had some significant improvement in his overall metabolic health since starting Ozempic. He has not noticed any nausea with this. He continues on folic acid along with his methotrexate.He has new symptoms of hip pain bilaterally. When he describes th GI Symptoms or Concerns GI Symptoms or Concerns This maggie ovalle is a pleasant 46-year-old male who is [...] Steroids - Asacol - Pentasa - Remicade [id number]: secondarily lost response - MTX PO briefly in 5584-5540 (?duration) - Humira: 40 mg Q2 weeks [...] Ileal Crohn's, dx [address] Cruz ([facility]). Phenotype: Mucosal diseaseEIM: Recurrent nephrolithiasis. Diagnostics:--Colonoscopy 02/2017 [...] consistent with fatty liver were described.--CT abd ([facility]) 02/23/12 - No abnormality to the small bowel. Hepatomegaly and splenomegaly were noted, the spleen measuring 18 cm in greatest dimension. Nonobstructing bilateral nephrolithiasis without hydronephrosis.--Colonoscopy with Dr. Cruz at [facility] 2008, 2010. Both of these were normal exams including TI eval. Histopath from normal appearing colon was unremarkable. Prior GI surgery: NonePrior medical treatment/complications: --Steroids--Asacol--Remicade [id number], secondarily lost response. --MTX po briefly in 2977-4914 (?duration)--AZA for 1 week January 2012 - [...] increasing symptoms of abdominal pain and diarrh Additional Narrative Disease dis tribution: Ileal Crohn's, dx [address] Cruz ([facility]). Phenotype: Mucosal diseaseEIM: Recurrent nephrolithiasis. Diagnostics:--Colonoscopy 02/2017 [...] consistent with fatty liver were described.--CT abd ([facility]) 02/23/12 - No abnormality to the small bowel. Hepatomegaly and splenomegaly were noted, the spleen measuring 18 cm in greatest dimension. Nonobstructing bilateral nephrolithiasis without hydronephrosis.--Colonoscopy with Dr. Cruz at [facility] 2008, 2010. Both of these were normal exams including TI eval. Histopath from normal appearing colon was unremarkable. Prior GI surgery: NonePrior medical treatment/complications: --Steroids--Asacol--Remicade 9190-6622, secondarily lost response. --MTX po briefly in 5830-7042 (?duration)--AZA for 1 week January 2012 - [...] Ileal Crohn's, dx [address] Cruz ([facility]). Phenotype: Mucosal diseaseEIM: Recurrent nephrolithiasis. Diagnostics:--Colonoscopy 02/2017 [...] consistent with fatty liver were described.--CT abd ([facility]) 02/23/12 - No abnormality to the small bowel. Hepatomegaly and splenomegaly were noted, the spleen measuring 18 cm in greatest dimension. Nonobstructing bilateral nephrolithiasis without hydronephrosis.--Colonoscopy with Dr. Cruz at [facility] 2008, 2010. Both of these were normal exams including TI eval. Histopath from normal appearing colon was unremarkable. Prior GI surgery: NonePrior medical treatment/complications: --Steroids--Asacol--Remicade 6618-1621, secondarily lost response. --MTX po briefly in 3765-2323 (?duration)--AZA for 1 week January 2012 - [...] Ileal Crohn's, dx [address] Cruz ([facility]). Phenotype: Mucosal diseaseEIM: Recurrent nephrolithiasis. Diagnostics:--Colonoscopy 05/08/13 - mild aphthous ileitis in the distal 3cm, more proximal to this was normal. --Colonoscopy 10/13/2012 - distal 10 cm of ileum with diffuse aphthous ulcerations. No histopathology was obtained.--MRE 02/2012 failed to demonstrate any active inflammatory changes in the bowel. Changes consistent with fatty liver were described.--CT abd ([facility]) 02/23/12 - No abnormality to the small bowel. Hepatomegaly and splenomegaly were noted, the spleen measuring 18 cm in greatest dimension. Nonobstructing bilateral nephrolithiasis without hydronephrosis.--Colonoscopy with Dr. Cruz at [facility] 20082010. Both of these were normal exams including TI eval. Histopath from normal appearing colon was unremarkable. Prior GI surgery: NonePrior medical treatment/complications: --Steroids--Asacol--Remicade 1954-5716, secondarily lost response. --MTX po briefly in 1494-9568 (?duration)--AZA for 1 week January 2012 - [...] Ileal Crohn's, dx [address] Cruz ([facility]). Phenotype: Mucosal diseaseEIM: Recurrent nephrolithiasis. Diagnostics:--Colonoscopy 05/08/13 - mild aphthous ileitis in the distal 3cm, more proximal to this was normal. --Colonoscopy 10/13/2012 - distal 10 cm of ileum with diffuse aphthous ulcerations. No histopathology was obtained.--MRE 02/2012 failed to demonstrate any active inflammatory changes in the bowel. Changes consistent with fatty liver were described.--CT abd ([facility]) 02/23/12 - No abnormality to the small bowel. Hepatomegaly and splenomegaly were noted, the spleen measuring 18 cm in greatest dimension. Nonobstructing bilateral nephrolithiasis without hydronephrosis.--Colonoscopy with Dr. Cruz at [facility] 2008, 2010. Both of these were normal exams including TI eval. Histopath from normal appearing colon was unremarkable. Prior GI surgery: NonePrior medical treatment/complications: --Steroids--Asacol--Remicade 4285-0060, secondarily lost response. --MTX po briefly in 0422-9595 (?duration)--AZA for 1 week January 2012 - [...] or Concerns The bronson ent is a 39-year-old gentleman with a history [...] Ileal Crohn's, dx [address] Cruz ([facility]). Phenotype: Mucosal diseaseEIM: Recurrent nephrolithiasis. Diagnostics:--Colonoscopy 05/08/13 - mild aphthous ileitis in the distal 3cm, more proximal to this was normal. --Colonoscopy 10/13/2012 - distal 10 cm of ileum with diffuse aphthous ulcerations. No histopathology was obtained.--MRE 02/2012 failed to demonstrate any active inflammatory changes in the bowel. Changes consistent with fatty liver were described.--CT abd ([facility]) 02/23/12 - No abnormality to the small bowel. Hepatomegaly and splenomegaly were noted, the spleen measuring 18 cm in greatest dimension. Nonobstructing bilateral nephrolithiasis without hydronephrosis.--Colonoscopy with Dr. Cruz at [facility] 2008, 2010. Both of these were normal exams including TI eval. Histopath from normal appearing colon was unremarkable. Prior GI surgery: NonePrior medical treatment/complications: --Steroids--Asacol--Remicade 8279-3844, secondarily lost response. --MTX po briefly in 6719-8144 (?duration)--AZA for 1 week January 2012 - [...] - Low December 2011, s/p high dose [id number] - Normal December 2011LFTs - Normal 11/2014- Additional Narrative Disease dis tribution: Ileal Crohn's, dx [address] Cruz ([facility]). Phenotype: Mucosal diseaseEIM:Recurrent nephrolithiasis. Diagnostics:--Colonoscopy 05/08/13 - mild aphthous ileitis in the distal 3cm, more proximal to this was normal. --Colonoscopy 10/13/2012 - distal 10 cm of ileum with diffuse aphthous ulcerations. No histopathology was obtained.--MRE 02/2012 failed to demonstrate any active inflammatory changes in the bowel. Changes consistent with fatty liver were described.--CT abd ([facility]) 02/23/12 - No abnormality to the small bowel. Hepatomegaly and splenomegaly were noted, the spleen measuring 18 cm in greatest dimension. Nonobstructing bilateral nephrolithiasis without hydronephrosis.--Colonoscopy with Dr. Cruz at [facility] 2008, 2010. Both of these were normal exams including TI eval. Histopath from normal appearing colon was unremarkable. Prior GI surgery: NonePrior medical treatment/complications: --Steroids--Asacol--Remicade 9095-9168, secondarily lost response. --MTX po briefly in 9258-1724 (?duration)--AZA for 1 week January 2012 - [...] - Low December 2011, s/p high dose [id number] - Normal December 2011LFTs - Minimally elevated [...] Ileal Crohn's, dx [address] Cruz ([facility]). Phenotype: Mucosal diseaseEIM:Recurrent nephrolithiasis. Diagnostics:--Colonoscopy 05/08/13 - mild aphthous ileitis in the distal 3cm, more proximal to this was normal. --Colonoscopy 10/13/2012 - distal 10 cm of ileum with diffuse aphthous ulcerations. No histopathology was obtained.--MRE 02/2012 failed to demonstrate any active inflammatory changes in the bowel. Changes consistent with fatty liver were described.--CT abd ([facility]) 02/23/12 - No abnormality to the small bowel. Hepatomegaly and splenomegaly were noted, the spleen measuring 18 cm in greatest dimension. Nonobstructing bilateral nephrolithiasis without hydronephrosis.--Colonoscopy with Dr. Cruz at [facility] 2008, 2010. Both of these were normal exams including TI eval. Histopath from normal appearing colon was unremarkable. Prior GI surgery: NonePrior medical treatment/complications: --Steroids--Asacol--Remicade 3715-3384, secondarily lost response. --MTX po briefly in 7199-4287 (?duration)--AZA for 1 week January 2012 - [...] - Low December 2011, s/p high dose [id number] - Normal December 2011LFTs - Minimally elevated ALT 02/2013 - thought related to SOTO Functional Status Date Functional Assessmen t No Information Instructions Date Instruction Additional Infor mation Colon Cancer Prevention Related to Crohn's disease of both small and lg int w/o complications Colon Polyps Related to Crohn 's disease of both small and lg int w/o complications 1. Crohn's disease i nvolving the small and large bowel with worsening diarrhea and abdominal cramping - I am going to order an MR enterography to assess for any intestinal inflammation. -I am going to order a colonoscopy for him to be done in 4 weeks. -avoid NSAIDs. Avoid smoking. - certolizumab pegol and methotrexate to continue. Recent lab work was unremarkable. - vaccines: We are going to vaccinate him against hepatitis a, hepatitis-B and pneumonia. -patient denies any anxiety or depression or PTSD associated with his Crohn's disease. 2. Hepatitis-C screening -hepatitis-C virus antibody was checked in the past and was found to be negative. Follow-up Patient will follow up with us in 6 months. Related to Crohn's disease of both small and lg int w/o complications Colon Cancer Prevention Related to Crohn's disease [...] mg every two weeks. Related to Dietary Surveil/counselor nurses' association Lifestyle education regarding di et Related to Dietary surveillance and counseling Assessments Type Assessment Date No Information Patient Care Teams Name Effective Dates (start - stop) Status Members No Information
--- OUTSIDE RECORDS SUMMARY | 2024-03-19 17:01 | XMS_ITS | Clinical Summary ---
Author Organization [facility] Address [place], [place] [address] Care Team Providers Care Mobile Web Application Developer Name Role Phone Trino Jimenez Of Primary Care Provider Un available Allergies Active Allergy Reactions Criticality Noted Date Comments Bee Venom Protein (Honey Bee) Anaphylaxis High 12/24/2019 Egg Derived Anaphylaxis 12/20/2011 Cyclosporine Anaphylaxis 09/27/2006 Cyclosporine Anaphylaxis High 12/24/2019 Egg Anaphylaxis 09/27/2006 Iodine Anaphylaxis High 12/24/2019 Mushroom *Unknown 12/24/2019 Tree Nut Anaphylaxis High 12/24/2019 [place] *Unknown 12/24/2019 Flavor Pear *Unknown 12/24/2019 flavor Shellfish Containing Products Anaphylaxis 09/27/2006 [place] *Unknown 12/24/2019 Unknown-Follow Up Needed (Include Details [...] for age 45-75 2021 COVID-19 vaccine series (2023- season) 2024 Influenza for age 9-49 01/29/2024 Pneumococcal series for age 6-64 Aged Out No longer eligible based on patient's age to complete this topic Medical Devices Implanted Type Area Waiter/Waitress Cabin Class Device Identifier Shelf Expiration Date Model / Serial / Lot Plate Cerv Ant 25mm [place] Vision 976-125 - [id number] Implanted:Qty: 1 on 09/28/2006 at [facility] Spine Implants Spine SOF[employer]OR DANEK 976-125# / / Screw 4.0x14mm - [id number] Implanted:Qty: 4 on 09/28/2006 at [facility] [employer] Implants Spine SOF[employer]OR [employer]ANEK 876-614# / / [id number] José Miguel [id number] [[id number]] Implanted:Qty: 1 on 09/28/2006 at [facility] Explanted:at [facility] (Quantity not on file) Spine [employer] 08/[id number]/[id number] / [id number] / Advance Directives * Full Code (Latest Code Status on File) Date Activated Date Inactivated Comments 12/25/2019 7:10 AM 12/25/2019 11:45 AM * Full Code Date Activated Date Inactivated Comments 09/28/2006 2:42 PM 09/29/2006 9:12 PM * Full Code Date Activated Date Inactivated Comments 09/28/2006 8:05 AM 09/28/2006 2:42 PM Care Teams Mobile Web Application Developer Relationship Specialty Start Date End Date Trino Jimenez Phys Of PCP - General 07/18/19
--- OUTSIDE RECORDS SUMMARY | 2024-03-19 17:02 | XMS_ITS | Encounter Summary ---
Author Organization [facility] Address [address] [place] [address]. [place] [address] Care Team Providers Care Power Technician Name Role Phone Martina Owen PA-C Primary Care Provider Queta Prater CNP Unavailable [phone] Song Leach MD Unavailable [phone] Encounter Details Date Type Department Care Team (Late st Contact Info) Description 03/18/2024 [facility] Medical Advice [facility] [place] [address] [place] [phone] Song Leach MD [address] [place], [place] [phone] Social History Tobacco Use Types Packs/Day Years Used Date Smoking Tobacco: Former Cigarettes Q uit: 04/13/1996 Smokeless Tobacco: Never Alcohol Use Standard Drinks/Week Comments Not Currently 0 (1 standard drink = 0.6 oz pur e alcohol) stopped 15yrs ago PHQ-2 Answer Date Recorded PHQ-2 Score 0 11/14/2023 Adolescent Education Answer Date Record ed Getting School Help Needed Not on file 03/13 Interpersonal Safety Answer Date Record ed Do you feel physically and e motionally safe where you currently live? Yes 02/23/2024 Within the past 12 months, h ave you been hit, slapped, kicked or otherwise physically hurt by someone? Not on file 2023 Within the past 12 months, h ave you been humiliated or emotionally abused in other ways by your partner or ex-partner? Not on file 02/23/2024 Sex and Gender Information Value Date Recorded Sex Assigned at Male 12/01/2020 9:08 PM CDT Gender Identity Male 12/01/2020 9:08 PM CDT Sexual Orientation Straight 12/01/2020 9: 08 PM CDT documented as of this encounter Plan of Treatment Upcoming Encounters Date Type Department Care Team (Late st Contact Info) Description 04/30/2024 4:20 PM PULP PILER Ancillary Procedure [address] [phone] Song Leach MD [address] [place], [place] [address] documented as of this encounter Visit Diagnoses Not on filedocumented in this encounter Additional Health Concerns Infection Onset Date Last Indicated Resolved Time MRSA Comment:Recurrent MRSA cellulitis per CareEverywhere 03/26/2021 03/26/2021 documented as of this encounter Care Teams Power Technician Relationship Specialty Start Date End Date Martina Owen PA-C PCP - General Physician Rivet Catcher 02/11/19 Queta Prater CNP [address] [place] [id number] Nurse Practitioner Urology 09/22/20 Song Leach MD [address] [place], [place] [address] Assigned Surgical Provider 11/20/23 documented as of this encounter
--- OUTSIDE RECORDS SUMMARY | 2024-03-19 17:02 | XMS_ITS | Encounter Summary ---
Author Organization [facility] Address [address] [place] [address]. [place] [address] Care Team Providers Care Auto Damage Insurance Appraiser Name Role Phone Martina Owen PA-C Primary Care Provider Queta Prater CNP Unavailable [phone] Song Leach MD Unavailable [phone] Reason for Visit * Reason Onset Date Comments Follow Up 02/13/2024 Urine culture Encounter Details Date Type Department Care Team (Late st Contact Info) Description 02/13/2024 Telephone [facility] [place] [address] [facility] [address] [place] [address] Dai Nichole, RN Follow Up (Urine culture) Social History Tobacco Use Types Packs/Day Years [...] encounter Miscellaneous Notes * Telephone Encounter - Dai Nichole RN - 02/13/2024 8:15 AM CDT Order for urine culture faxed to [facility] in [place] at [phone]. Patient to schedule preop today and will do culture. Dai Nichole RN documented in this encounter Plan of Treatment Upcoming Encounters Date Type Department Care Team (Late st Contact Info) Description 04/30/2024 4:20 PM PERSONALIZATION SPECIALIST Ancillary Procedure [address] [phone] Song Leach MD [address] [place] [phone] documented as of this encounter Visit Diagnoses Not on filedocumented in this encounter Additional Health Concerns Infection Onset Date Last Indicated Resolved Time MRSA Comment:Recurrent MRSA cellulitis per CareEverywhere 03/26/2021 03/26/2021 documented as of this encounter Care Teams Auto Damage Insurance Appraiser Relationship Specialty Start Date End Date Martina Owen PA-C PCP - General Physician Education Counselor 02/11/19 Queta Prater CNP [address] [place], [place] [address] Nurse Practitioner Urology 09/22/20 Song Leach MD [address] [place], [place] [address] Assigned Surgical Provider 11/20/23 documented as of this encounter
--- OUTSIDE RECORDS SUMMARY | 2024-03-19 17:02 | XMS_ITS | Encounter Summary ---
Author Organization [facility] Address [address] [place] [address]. [place] [address] Care Team Providers Care Repair Order Clerk Name Role Phone Martina Owen PA-C Primary Care Provider Queta Prater SENIOR MAINTENANCE MECHANIC Unavailable [phone] Song Leach MD Unavailable [phone] Encounter Details Date Type Department Care Team (Late st Contact Info) Description 02/28/2024 Orders Only [facility] [place] [address] [facility] [address] [place] [phone] Song Leach MD [address] [place], [place] [phone] Social History Tobacco Use Types Packs/Day Years [...] st Contact Info) Description 04/30/2024 4:20 PM FOREIGN AGENT Ancillary Procedure [address] [phone] Song Leach MD [address] [place], [place] [address] documented as of this encounter Visit Diagnoses Not on filedocumented in this encounter Additional Health Concerns Infection Onset Date Last Indicated Resolved Time MRSA Comment:Recurrent MRSA cellulitis per CareEverywhere 03/26/2021 03/26/2021 documented as of this encounter Care Teams Repair Order Clerk Relationship Specialty Start Date End Date Martina Owen PA-C PCP - General Physician Control Manager 02/11/19 Queta Prater CNP [address] [place], [place] [address] Nurse Practitioner Urology 09/22/20 Song Leach MD [address] [place], [place] [phone] Assigned Surgical Provider 11/20/23 documented as of this encounter
--- OUTSIDE RECORDS SUMMARY | 2024-03-19 17:02 | XMS_ITS | Encounter Summary ---
Author Organization [facility] Address [address] [place] [address]. [place] [address] Care Team Providers Care Community Service Manager Name Role Phone Martina Owen PA-C Primary Care Provider Queta Prater CNP Unavailable [phone] Song Leach MD Unavailable [phone] Encounter Details Date Type Department Care Team (Late st Contact Info) Description 02/10/2024 MyC Medical Advice [facility] [place] [address] [facility] [address] [place] [phone] Dai Nichole RN Social History Tobacco Use Types Packs/Day [...] st Contact Info) Description 04/30/2024 4:20 PM SPLITTER OPERATOR Ancillary Procedure [facility] [address] [place] [phone] Song Leach MD [address] [place] [id number] documented as of this encounter Visit Diagnoses Not on filedocumented in this encounter Additional Health Concerns Infection Onset Date Last Indicated Resolved Time MRSA Comment:Recurrent MRSA cellulitis per CareEverywhere 03/26/2021 03/26/2021 documented as of this encounter Care Teams Community Service Manager Relationship Specialty Start Date End Date Martina Owen PA-C PCP - General Physician Foreign Law Consultant 02/11/19 Queta Prater CNP [address] [place] [phone] Nurse Practitioner Urology 09/22/20 Song Leach MD [address] [place] [phone] Assigned Surgical Provider 11/20/23 documented as of this encounter
--- OUTSIDE RECORDS SUMMARY | 2024-03-19 17:02 | XMS_ITS | Encounter Summary ---
Author Organization [facility] Address [address] [place] [address]. [place] [address] Care Team Providers Care Physical Therapy Professor Name Role Phone Martina Owen PA-C Primary Care Provider Queta Prater CNP Unavailable [phone] Song Leach MD Unavailable [phone] Reason for Visit * Auth/Cert (Routine) Specialty Diagnoses / Procedures Referred By Lc vivas Referred To Contact Surgery Diagnoses Nephrolithiasis Nephrolithiasis [N20.0] Procedures WY CYSTO/URETERO W/LITHOTRIPSY &INDWELL STENT INSRT W[place] UROGRAPHY, RETROGRADE W/WO KUB Cystoscopy, Bilateral Ureteroscopy, Bilateral Retrograde Pyelogram, Bilateral Laser Lithotripsy, Right Possible Stent Placement Left Possible Stent Placement [facility] [address] [place] [phone] Referral ID Status Reason Start Date Expiration Date Visits Re quested Visits Authorized [id number] 1 1 Encounter Details Date Type Department Care Team (Late st Contact Info) Description 02/27/2024 7:45 AM CDT - 02/27/2024 9:00 AM CDT Surgery [facility] Surgery [address] [place] [phone] Song Leach MD [address] [place] [id number] Cystoscopy, Left Ureteroscopy with Stone Basket Extraction, Right Ureteroscopy with Laser Incision of Infundibulum, Bilateral Ureteral Stent PLacement Surgery Details Date/Time Status Location OR Service Patient Class Case Cl ass Case Type Trauma Case? 02/27/24 7:45 AM Posted [facility] OR [facility] Urology Outpatient Elective Panel 1 Procedure [facility] Anes Op Region Wound Class Comments Cystoscopy, Left Ureteroscopy with Stone Basket Extraction, Right Ureteroscopy with Laser Incision of Infundibulum, Bilateral Ureteral Stent PLacement Bilateral General Urethra II-Clean Contaminated Surgeon Surgeon Role Service Panel Song Leach MD Primary Urology 1 documented in this encounter Social History Tobacco Use Types Packs/Day Years Used Date Smoking Tobacco: Former Cigarettes Q uit: 04/13/1996 Smokeless Tobacco: Never Tobacco Cessation:Counseling Given: Not Answered Alcohol Use Standard Drinks/Week Comments Not Currently [...] PM CDT documented as of this encounter Last Filed Vital Signs Vital Sign Reading Time Taken Comments Blood Pressure 121/73 02/27/2024 6:59 AM CDT Pulse - - Temperature 36.1 ??C (96.9 ??F) 02/27/2024 6:59 AM CD T Respiratory Rate 16 02/27/2024 6:59 AM CDT Oxygen Saturation 94% 02/27/2024 6:59 AM CDT Inhaled Oxygen Concentration - - Weight 113.4 kg (250 lb) 02/23/2024 2:07 PM CDT Height 180.3 cm (5' 11) 02/23/2024 2:07 PM CDT Body Mass Index 34.87 02/23/2024 2:07 PM CDT documented in this encounter Discharge Instructions * Discharge Instructions* Song Leach MD - 02/27/2024 9:03 AM CDT If you have any questions or concerns regarding your procedure, please contact Dr. Leach, his office number is [phone]. You have received 975 mg of Acetaminophen (Tylenol) at 0700. Please do not take an additional dose of Tylenol until after 1pm. Do not exceed 4,000 mg of acetaminophen during a 24 hour period and keep in mind that acetaminophencan also be found in many peoq-her-ygpsomc cold medications as well as narcotics that may be given for pain. You received a medication called Toradol (a stronger IV ibuprofen) at 0900. Do NOT take any Ibuprofen / Advil / Aleve / Naproxen or products containing Ibuprofen until 3pm or later. [facility] Adult Discharge Orders & Instructions For 24 hours after surgery Get plenty of rest. A responsible adult must stay with you for at least 24 hours after you leave the hospital. Do not drive or use heavy equipment. If you have weakness or tingling, don't drive or use heavy equipment until this feeling goes away. Do not drink alcohol. Avoid strenuous or risky activities. Ask for help when climbing stairs. You may feel lightheaded. IF so, sit for a few minutes before standing. Have someone help you get up. If you have nausea (feel sick to your stomach): Drink only clear liquids such as apple juice, julita adalberto, broth or 7-Up. Rest may also help. Be sure to drink enough fluids. Move to a regular diet as you feel able. You may have a slight fever. Call the doctor if your fever is over 100??F (37.7??C) (taken under the tongue) or lasts longer than 24 hours. You may have a dry mouth, a sore throat, muscle aches or trouble sleeping. These should go away after 24 hours. Do not make important or legal decisions. Call your doctor for any of the followin. Signs of infection (fever, growing tenderness at the surgery site, a large amount of drainage orbleeding, severe pain, foul-smelling drainage, redness, swelling). 2. It has been over 8 to 10 hours since surgery and you are still not able to urinate (pass water). 3. Headache for over 24 hours. Post-Operative Symptom Control While you recover from your procedure, you can take steps to ease your recovery. Diet and Fluids: Eating your normal diet is fine. Drink a little more than normal but you don not have to flush your system. Activity: There are no activity restrictions after stone surgery. Some people find bending twisting movementscause discomfort or increased blood in urine. Activity may irritating but you will not hurt yourself. Medications: (That may be suggested or prescribed) Ibuprofen (Advil/Motrin)-Available over the counter. Take 2 (200mg) tablets at bedtime and every six hour for base pain management. Dramamine (brand name drowsy version)-Is available over the counter. Take 50 mg at bedtime and every 6 hours as needed. This medication can be helpful by: Decreasing nausea Decrease acute pain Decrease recurrence of pain for 24 hours *This medication my cause increased drowsiness, do not drive or operate machinery within 6 hours. Flomax (Tamsulosin)-After surgery Flomax has several potential benefits Decreased stent discomfort Increased likelihood passage of small stone fragments Take daily with food until your stent is removed *This may cause nasal congestion or light-headedness Detrol (Tolterodine)-After surgery Detrol may decrease stent irritation and pelvic pain Take as prescribed *This medication may cause dry mouth, constipation or blurry vision. Narcotics (oxycodone) Take as prescribed for severe pain Narcotics have significant side effects and only cover-up pain. They have no effect on cause of pain. Common side effects Confusion, disorientation and sedation-DO NOT DRIVE OR OPERATE MACHINERY WITH IN 24 HOURS OF TAKINGNARCOTICS Nausea-take Dramamine or Zofran to help control Constipation Sleep Disturbances Call the Clinic Immediately If You Have Any Of The Following Symptoms: Nausea/vomiting that is uncontrolled with medications You have a fever over 100.0 Chills Are not able to urinate for 8 hours Increasing back pain that is not relieved with pain medications Large amounts of blood in urine or large clots We can respond to your questions or concerns 24 hours a day at [phone]. For after hours phone calls please wait automation control technician to be connected with the care connection service for after hours care. Going Home With a Ureteral Stent What is it? A stent is a soft, plastic tube that helps urine (pee) drain into the bladder. During the surgery, it is placed in the ureter the tube that connects the kidney to the bladder. A thin curl at each endof the stent keeps one end in your kidney and the other in your bladder. The stent can not be seen from outside of the body. Why Do I Have It? Some sort of blockage is not letting pee drain into your bladder. This could be from a stone, certain surgeries or kidney infection. What Should I Expect? Stents often cause some discomfort. You may have: The need to pee suddenly Pain when you pee A dull backache, which may get worse when you pee Blood in your pee (color of fruit punch) and some clots, which may increase with physical activity. What Can I Do To Feel Better? Drink a little more fluids than usual. You can eat your normal diet. Enjoy a warm bath. Decrease your activity. Some people find bending or twisting movement cause discomfort or increasedblood in the urine. Even so, you will not harm yourself. Your stents can be removed on 03/01/2024 by pulling on the strings until you see both curls. If the stents are left in more than 3 months, it can lead to a need for procedure in order to remove it, permanent kidney damage or loss. Follow up: We will have you follow-up in clinic in 2 to 3 months after kidney renal ultrasound. Please complete your lab testing and 24 hr urine testing around the same time, at least 2 weeks prior to your follow up appointment. documented in this encounter Medications at Time of Discharge Medication Sig Dispensed Refills Start Date End Date acetaminophen (TYLENOL) 325 MG tablet Take 650 mg by mouth every 6 hours as needed for mild pain certolizumab pegol (CIMZIA PREFILLED) 2 X 200 [...] MG tablet Take 1 mg by mouth daily. lisinopril (ZESTRIL) 5 MG tablet Take 5 [...] INJECT 0.5MG INTO THE SKIN WEEKLY 01/28/2021 SENNA-docusate sodium (SENNA S) 8.6-50 MG tabletIndications:Nep hrolithiasis Take 1 tablet by mouth nightly as needed (constipation). 02/27/2024 tamsulosin (FLOMAX) 0.4 MG capsuleIndications:Ne phrolithiasis Take 1 capsule (0.4 mg) by mouth daily. 7 capsule 02/27/2024 tolterodine ER (DETROL LA) 2 MG 24 hr capsuleIndications:Ne phrolithiasis Take 1 capsule (2 mg) by mouth daily as needed (bladder spasms/urinary urgency). 7 capsule 02/27/2024 acetaminophen (TYLENOL) 500 MG tabletIndications:Nep hrolithiasis Take 1-2 tablets (500-1,000 mg) by mouth every 6 hours as needed for mild pain. 02/27/2024 03/05/2024 ibuprofen (ADVIL/MOTRIN) 200 MG tabletIndications:Nep hrolithiasis Take 2 tablets (400 mg) by mouth every 6 hours as needed for pain. 02/27/2024 03/05/2024 oxyCODONE (ROXICODONE) 5 MG tabletIndications:Nep hrolithiasis Take 1 tablet (5 mg) by mouth every 6 hours as needed for pain. 12 tablet 02/27/2024 03/01/2024 documented as of this encounter H&P Notes * Song Leach MD - 02/27/2024 8:10 AM CDT The History and Physical has been reviewed, the patient has been examined and no changes have occurred in the patient's condition since the H & P was completed. We discussed the benefits and risks of bilateral ureteroscopy, including but not limited to, bleeding, infection, need for stent/stent related symptoms, injury to ureter, need for second procedure ifunable to reach stone or residual fragments. Source Note - Jolie Provider - 02/27/2024 6:44 AM CDT documented in this encounter Miscellaneous Notes * Brief Op Note - Song Leach MD - 02/27/2024 9:08 AM CDT [facility] Brief Operative Note Pre-operative diagnosis: Nephrolithiasis [N20.0] Post-operative diagnosis Left renal stone, right lower midpole infundibular stenosis Procedure: Procedure(s): Cystoscopy, Left Ureteroscopy with Stone Basket Extraction, Right Ureteroscopy with Laser Incision of Infundibulum, Bilateral Ureteral Stent PLacement Surgeon: Song Leach MD Assistants(s): None Estimated blood loss: 2 ml Specimens: Left renal stone Findings: Lower pole left stone not visualized, presumed to be intraparenchymal 2 mm left midpole stone removed by basket extraction No right stones visualized in the collecting system Lower mid pole infundibulum with stenosis which was lasered open Bilateral Ron's plaques Bilateral 4.8 Portuguese by 26 cm ureteral stent placed on strings * Op Note - Song Leach MD - 02/27/2024 8:30 AM CDT OPERATIVE REPORT PREOPERATIVE DIAGNOSIS: Bilateral renal stones and flank pain POSTOPERATIVE DIAGNOSIS: Left renal stone, right lower mid pole infundibular stenosis PROCEDURES PERFORMED: Cystoscopy, Left Ureteroscopy with Stone Basket Extraction, Right Ureteroscopy with Laser Incision of Infundibulum, Bilateral Ureteral Stent Placement Interpretation of fluoroscopic images <60 min STAFF SURGEON: Song Leach MD FIREMAN(S): none ANESTHESIA: General ESTIMATED BLOOD LOSS: 2 ml COMPLICATIONS: None. SPECIMEN: Left renal stone for analysis SIGNIFICANT FINDINGS: Lower pole left stone not visualized, presumed to be intraparenchymal 2 mm left midpole stone removed by basket extraction No right stones visualized in the collecting system Lower mid pole infundibulum with stenosis which was lasered open Bilateral Ron's plaques Bilateral 4.8 Portuguese by 26 cm ureteral stent placed on strings BRIEF OPERATIVE INDICATIONS: Hubert Odell is a(n) 48 year old year old male who presented with bilateral flank pain. After a discussion of all risks, benefits, and alternatives, the patient electedto proceed with bilateral ureteroscopy. DESCRIPTION OF PROCEDURE: After informed consent was obtained, the patient was transported to the operating room & placed supine on the table. After adequate anesthesia was induced, the patient was placed in lithotomy and prepped and draped in the usual sterile fashion. A timeout was taken to confirm correct patient, procedure and laterality. Pre-operative IV antibiotics were administered. Cystoscopy: Rigid cystoscopy is performed. Anterior and posterior urethra are normal. Prostate is normal. Bladder is normal.. Ureteral Access: Bilateral Bentson wires were placed in each ureteral orifice without resistance tothe kidney. Retrograde Pyelography: On the left side, using a dual-lumen catheter retropyelogram was performed demonstrated no significant hydronephrosis or radiopaque stones. Flexible Ureteroscopy: I placed the ureteroscope alongside the wire up to the left kidney. There odin 2 mm stone in the midpole renal calyx urinary via basket extraction no other stones were visualized. Pullback ureteroscopy was unremarkable. A dual-lumen catheter was inserted over the right wire retrograde pyelogram was unremarkable. Flexible Ureteroscopy: On the right side the ureteroscope was inserted alongside the wire into the kidney. There are no visualized renal stones, however in the lower mid pole there is a indentation which appeared to be a stenosed infundibulum. I was able to puncture this with a wire however is unable to access the area with the ureteroscope. I then used a laser at settings of 1 J and 5 Hz in order to open up the infundibulum was able to get the ureteroscope and side and see if there are no stones visualized. Pullback ureteroscopy is unremarkable Ureteral Stent Insertion: Bilateral 4.8 Portuguese by 28 cm ureteral stones and placed on modified single string tethers. They were awakened from anesthesia and transferred to the PACU. POSTOP PLAN: Bilateral stent removal this week follow-up in 8 weeks with renal ultrasound and metabolic testing * Provider Notification - Fabiola Cho RN - 02/23/2024 3:27 PM CDTSummary: MRSA Documentation MRSA documented in chart- patient states that he had multiple incidents of blisters, skin breakdownthat caused him to be on antibiotics on a fdc basis. He has not had issues for 5 years and would like the MRSA status removed from his chart. documented in this encounter Plan of Treatment Upcoming Encounters Date Type Department Care Team (Late st Contact Info) Description 04/30/2024 4:20 PM [facility] Ancillary Procedure [address] [phone] Song Leach MD [address] [place] [id number] Scheduled Orders Name Type Priority Associated Diagnoses Orde r Schedule US Renal Complete Non-Vascular Imaging Routine Nephrolithiasis Expected: 04/28/2024 (Approximate), Expires: 02/26/2025 documented as of this encounter Procedures Procedure Name Priority Date/Time Associated Diagnosis Comments STONE ANALYSIS Routine 02/27/2024 8:57 AM CDT Nephrolithiasis CYSTOURETEROSCOPY, WITH RETROGRADE PYELOGRAM, HOLMIUM LASER LITHOTRIPSY OF URETERAL CALCULUS, AND STENT INSERTION 02/27/2024 8:14 AM CDT Nephrolithiasis GLUCOSE MONITOR NURSING POCT Routine 02/27/2024 7:20 AM CDT documented in this encounter Results * Stone analysis (02/27/2024 8:57 AM CDT) Stone Mass 3 mg 02/29/2024 9:50 PM CDT [facility] Calculi Description See Note 02/29/2024 9:50 PM CDT [facility] Comment: Specimen consists of one brown calculus. The total weight is 3 mg. Stone Composition See Note 9:50 PM CDT [facility] Comment: Calculi composed primarily of calcium oxalate monohydrate. INTERPRETIVE INFORMATION: Calculi (Stone) analysis Calculi are the products of physiological processes that yield crystalline compounds in a matrix of biological compounds and blood. ??Matrix components are not reported. ?? The clinically significant crystalline components identified in calculi specimens are reported. ??Gross description may not be consistent with composition determined by FTIR analysis. Performed By: [facility] [address] [place] [address] Build And Release Manager: Frankie Aldridge MD, PhD CLIA Number: [id number] Calculus/Stone LEFT KIDNEY STRUCTURE / Unknown Non-blood Collection / Unknown 02/27/2024 8:57 AM CDT 02/27/2024 2:18 PM CDT Song Leach MD LAB - BODY FLUIDS OR DERABLES [facility] [address] [place] [phone] [phone] * Glucose monitor nursing POCT (02/27/2024 7:20 AM CDT) Pathologist [facility] Glucose POCT 98 70 - 99 mg/dL Comment:[id number]. 09/08/24 Song Leach MD NURSING POCT INTERFA JOSELIN OR SENT TO LAB documented in this encounter Visit Diagnoses Diagnosis Nephrolithiasis- Primary Calculus of kidney Nephrolithiasis Calculus of kidney documented in this encounter Admitting Diagnoses Diagnosis Nephrolithiasis Calculus of kidney documented in this encounter Administered Medications Inactive Administered Medications - up to 3 most recent administrations Medication Order MAR Action Action Date Dose Rate Site acetaminophen (TYLENOL) tablet 975 mg 975 mg, Oral, ONCE, On Tue02/27/24 at 0700, For 1 dose, Maximum acetaminophen dose from all sources = 75 mg/kg/day not to exceed 4 grams/day., Pre-procedure $Given 02/27/2024 7:02 AM CDT 975 mg iohexol (OMNIPAQUE) injection PRN, Starting on Tue02/27/24 at 0835, Intra-procedure $Given 02/27/2024 8:35 AM CDT 8.5 mLs Operative Site/Surgical Site lactated ringers infusion at 100 mL/hr, Intravenous, CONTINUOUS, Pre-procedure, Starting on Tue02/27/24 at 0700, Until Tue02/28/24 at 0206 $New Bag 02/27/2024 7:16 AM CDT 100 mL/hr lidocaine (XYLOCAINE) 2 % external gel PRN, Starting on Tue02/27/24 at 0904, Intra-procedure $Given 02/27/2024 9:04 AM CDT 5 mLs Operative Site/Surgical Site sodium chloride 0.9% irrigation (bag) PRN, Starting on Tue02/27/24 at 0904, Intra-procedure $Given 02/27/2024 9:04 AM CDT 600 mLs documented in this encounter Additional Health Concerns Infection Onset Date Last Indicated Resolved Time MRSA Comment:Recurrent MRSA cellulitis per [facility] 03/26/2021 03/26/2021 documented as of this encounter Care Teams Physical Therapy Professor Relationship Specialty Start Date End Date Martina Owen PA-C PCP - General Physician Clinic Nurse 02/11/19 Queta Prater CNP [address] [place] [id number] Nurse Practitioner Urology 09/22/20 Song Leach MD [address] [place] [id number] Assigned Surgical Provider 11/20/23 documented as of this encounter
--- OUTSIDE RECORDS SUMMARY | 2024-03-19 17:02 | XMS_ITS | Referral Summary ---
Author Organization [facility] Address [address] [place] [id number] Care Team Providers Care Proposal Manager Name Role Phone Martina Owen PA-C Primary Care Provider Queta Prater CNP Unavailable [phone] Song Leach MD Unavailable [phone] Encounters Date Type Department Care Team Description 03/18/2024 MyC Medical Advice [facility] [place] [address] [place] [phone] Song Leach MD 02/28/2024 Orders Only [facility] [place] [address] [place] [phone] Song Leach MD 02/27/2024 7:45 AM CDT - 02/27/2024 9:00 AM CDT Surgery [facility] Surgery [address] [phone] Song Leach MD Cystoscopy, Left Ureteroscopy with Stone Basket Extraction, Right Ureteroscopy with Laser Incision of Infundibulum, Bilateral Ureteral Stent PLacement 02/27/2024 8:12 AM CDT Anesthesia Event [address] [phone] Freddy Aquino DO Lerdahl, David W, MD 02/27/2024 6:42 AM CDT - 02/27/2024 11:59 PM CDT Hospital Encounter [facility] [address] [facility] [address] [place] [address] Song Leach MD Nephrolithiasis Discharge Disposition: Home or Self Care 02/23/2024 Travel 02/13/2024 Telephone [facility] [place] [address] [place] [address] [address] [place] [address] Dai Nichole, RN Follow Up (Urine culture) 02/10/2024 MyC Medical Advice [facility] [place] [address] [place] [address] 200 [place] [address] Dai Nichole, AQUILES 02/10/2024 [facility] [place] [address] [place] [address] 200 [place] [address] Dai Nichole, RN Follow Up (Surgery review) 01/31/2024 MyC Medical Advice [facility] [place] [address] [place] [address] [address] [place] [address] Minal Boudreaux 01/31/2024 Telephone [facility] [place] [address] [place] [address] [address] [place] [address] Minal Boudreaux 01/31/2024 Telephone [facility] [place] [address] [place] [address] [address] [place] [address] Minal Boudreaux 01/27/2024 Telephone [facility] [place] [address] [place] [address] 200 [place] [address] Minal Boudreaux 01/27/2024 Telephone [facility] [place] [address] [place] [address] [address] [place] [address] Minal Boudreaux 01/26/2024 Telephone [facility] Services - Surgical Specialties Service Line [address] [place] [phone] Paras Gamez MD 01/20/2024 MyC Medical Advice [facility] [place] [address] [facility] [address] [place] [address] Song Leach MD 01/09/2024 MyC Medical Advice [facility] [place] [address] [facility] [address] [place] [address] Song Leach MD 01/06/2024 12:17 PM CDT - 01/06/2024 11:59 PM CDT Hospital Encounter [facility] [address] [facility] [address] [place] [phone] Michael Lundberg MD Crohn's disease of both small and large intestine without complication (H) Discharge Disposition: Home or Self Care 01/05/2024 Travel from Last 3 Months Allergies Active Allergy Reactions Criticality Noted Date Comments Chicken Allergy 04/10/2003 and turkey Cyclosporine 04/10/2003 anaphylactic Eggs 04/10/2003 anaphylactic Fish Allergy 04/10/2003 Nuts 04/10/2003 [place] 04/10/2003 Medications Medication Sig Dispensed Refills Start [...] mg by mouth every 7 days Active folic acid (FOLVITE) 1 MG tablet Take 1 mg by mouth daily. Active cetirizine (ZYRTEC) 10 MG tablet Take [...] dose is inadequate. 2 each 11/23/2022 Active tolterodine ER (DETROL LA) 2 MG 24 hr capsuleIndicatio ns:Nephrolithias is Take 1 capsule (2 mg) by mouth daily as needed (bladder spasms/urinary urgency). 7 capsule 02/27/2024 Active SENNA-docusate sodium (SENNA S) 8.6-50 MG tabletIndication s:Nephrolithiasi s Take 1 tablet by mouth nightly as needed (constipation). 02/27/2024 Active tamsulosin (FLOMAX) 0.4 MG capsuleIndicatio ns:Nephrolithias is Take 1 capsule (0.4 mg) by mouth daily. 7 capsule 02/27/2024 Active cephALEXin (KEFLEX) 500 MG capsule Take 500 mg by mouth 2 times daily 4 Discontinued (Med Rec(No AVS / No eCancel)) dexamethasone (DECADRON) 2 MG tablet Take 5 tablets (10 mg) by mouth once for 1 dose 5 tablet 11/24/2022 4 Discontinued (Stop at Discharge) acetaminophen (TYLENOL) 500 MG tabletIndication s:Nephrolithiasi s Take 1-2 tablets (500-1,000 mg) by mouth every 6 hours as needed for mild pain. 02/27/2024 4 ibuprofen (ADVIL/MOTRIN) 200 MG tabletIndication s:Nephrolithiasi s Take 2 tablets (400 mg) by mouth every 6 hours as needed for pain. 02/27/2024 4 oxyCODONE (ROXICODONE) 5 MG tabletIndication s:Nephrolithiasi s Take 1 tablet (5 mg) by mouth every 6 hours as needed for pain. 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 Last Assessment [...] PCNL and left URS (patient ok with [facility]) Esophageal reflux 10/01/2003 Allergic rhinitis due to [...] Sign Reading Time Taken Comments Blood Pressure 128/73 02/27/2024 10:00 AM CDT Pulse 79 02/27/2024 10:00 AM CDT Temperature 36.2 ??C (97.2 ??F) 02/27/2024 9:30 AM CD T Respiratory Rate 16 02/27/2024 10:00 AM CDT Oxygen Saturation 93% 02/27/2024 10:00 AM CDT Inhaled Oxygen Concentration - - Weight 113.4 kg (250 lb) 02/23/2024 2:07 PM CDT Height 180.3 cm (5' 11) 02/23/2024 2:07 PM CDT Body Mass Index 34.87 02/23/2024 2:07 PM CDT Plan of Treatment Upcoming Encounters Date Type Department Care Team (Late st Contact Info) Description 04/30/2024 4:20 PM CLINICAL NURSE SPECIALIST Ancillary Procedure [facility] [address] [place] [phone] Song Leach MD [address] [place], [place] [phone] Medical Devices Implanted Type Area Outside Sales Engineer Device Identifier Shelf Expiration Date Model / Serial / Lot Stent Ureteral Percuflex Plus [id number] - [id number] Implanted:Qty: 1 on 04/09/2021 by Song Leach MD at [facility] Stent Right: Ureter [employer] [id number] 09/02/2023 [id number] 30 / / [id number] Stent, Ureteral, 4.8fr X 26cm, Hydroplus Coating, Without Wire, Percuflex Plus - [id number] Implanted:Qty: 1 on 02/27/2024 by Song Leach MD at [facility] Stent Left: Urethra 06/10/2026 [id number] / / [id number] Stent, Ureteral, 4.8fr X 26cm, Hydroplus Coating, Without Wire, Percuflex Plus - [id number] Implanted:Qty: 1 on 02/27/2024 by Song Leach MD at [facility] Stent Right: Urethra [id number] / / [id number] Explanted Type Area Outside Sales Engineer Device Identifier Shelf Expiration Date Model / Serial / Lot Stent Ureteral Percuflex Plus [id number] - [id number] Implanted:Qty: 1 on 03/25/2021 by Song Leach MD at [facility] Explanted:Qty: 1 on 04/09/2021 by Song Leach MD at [facility] Stent Left: Ureter [employer] [id number] 12/19/2023 [id number] 30 / / [id number] Stent Ureteral Percuflex Plus [id number] - [id number] Implanted:Qty: 1 on 03/25/2021 by Song Leach MD at [facility] Explanted:Qty: 1 on 04/09/2021 by Song Leach MD at [facility] Stent Right: Ureter [employer] [id number] 09/09/2023 [id number] 40 / / [id number] Procedures Procedure Name Priority Date/Time Associated Diagnosis Comments STONE ANALYSIS Routine 02/27/2024 8:57 AM CDT Nephrolithiasis ANE AIRWAY SUPRAGLOTTIC PERFORMABLE Routine 02/27/2024 8:36 AM CDT CYSTOURETEROSCOPY, WITH RETROGRADE PYELOGRAM, HOLMIUM LASER LITHOTRIPSY OF URETERAL CALCULUS, AND STENT INSERTION 02/27/2024 8:14 AM CDT Nephrolithiasis GLUCOSE MONITOR NURSING POCT Routine 02/27/2024 7:20 AM CDT URINE CULTURE Routine 02/14/2024 4:41 PM CDT Nephrolithiasis MR ENTEROGRAPHY W/O AND W CONTRAST Routine 01/06/2024 2:14 PM CDT Crohn's disease of both small and large intestine without complication (H) GLUCOSE BY METER Routine 04/09/2021 12:5 7 PM CLINICAL NURSE SPECIALIST COLONOSCOPY Routine 02/23/2011 9:54 AM CDT from Last 3 Months or Most Recently Relevant to Health Maintenance Results * Stone analysis (02/27/2024 8:57 AM CDT) Stone Mass 3 mg 02/29/2024 9:50 PM CDT [facility] Calculi Description See Note 02/29/2024 9:50 PM CDT [facility] Comment: Specimen consists of one brown calculus. The total weight is 3 mg. Stone Composition See Note 9:50 PM CDT [facility] Comment: Calculi composed primarily of calcium [...] composition determined by FTIR analysis. Performed By: [facility] [address] [place] [address] Operations Support Analyst: Frankie Aldridge MD, PhD CLIA Number: [id number] Calculus/Stone LEFT KIDNEY STRUCTURE / Unknown Non-blood Collection / Unknown 02/27/2024 8:57 AM CDT 02/27/2024 2:18 PM CDT Song Leach MD LAB - BODY FLUIDS OR DERABLES [facility] [address] [place] [address], [facility] [phone] * ANE AIRWAY SUPRAGLOTTIC PERFORMABLE (02/27/2024 8:36 AM CDT) Narrative Esthela Gomez APRN SUPPLY CHAIN BUYER - 02/27/2024 8:36 AM CDT Esthela Gomez APRN CRNA ? 02/27/2024 ??8:37 AM Airway ? Patient location during procedure: OR Staff - ? SUPPLY CHAIN BUYER: Esthela Gomez APRN CRNA ? Performed By: SUPPLY CHAIN BUYER Consent for Airway ? Urgency: elective Indications and Patient Condition ? Indications for airway management: simran-procedural ? Mask difficulty assessment: 1 - vent by mask Final Airway Details ? Final airway type: supraglottic airway Supraglottic Airway Details ? Type: LMA ? Brand: Ambu AuraGain ? LMA size: 5 Post intubation assessment ? Placement verified by: capnometry, equal breath sounds and chest rise ? Number of attempts at approach: 1 ? Number of other approaches attempted: 0 ? Secured with: commercial tube romo ? Ease of procedure: easy ? Dentition: Intact and Unchanged Freddy Aquino DO [place] ANESTHESIA * Glucose monitor nursing POCT (02/27/2024 7:20 AM CDT) Glucose POCT 98 70 - 99 mg/dL Comment:[id number]. 09/08/24 Song Leach MD NURSING POCT INTERFA JOSELIN OR SENT TO LAB * Urine Culture Aerobic Bacterial [[id number]] (02/14/2024 4:41 PM CDT) Culture No Growth 02/15/2024 2:55 PM CDT [facility] Urine MID-STREAM URINE SPECIMEN / Unknown Non-blood Collection / Unknown 02/14/2024 4:41 PM CDT 02/14/2024 4:41 PM CDT Song Leach MD LAB - MICRO GENERAL ORDERABLES [facility] Inf. Diseases Diag. Lab [address] [facility], [address] [place] [phone] * MR Enterography wo and w Contrast (01/06/2024 2:14 PM CDT) Anatomical Region Laterality Modality Abdomen/Pelvis, SUBRAD MR BODY, UMP MR BODY, RAD MR Magnetic Resonance Impressions 01/06/2024 3:30 PM CDT IMPRESSION: No evidence for active inflammatory Crohn's disease. NELY DUMONT MD SYSTEM ID: ??[id number] Narrative 01/06/2024 3:30 PM CDT EXAMINATION: MR ENTEROGRAPHY W/O AND W CONTRAST, 01/06/2024 2:14 PM TECHNIQUE: ??Multiplanar, multisequence MRI imaging of the abdomen and pelvis was obtained using MR enterography protocol without and with intravenous gadolinium. Contrast dose: 11 mL Gadavist COMPARISON: 11/12/2023 HISTORY: Crohn's disease of both small and large intestine without complication (H) FINDINGS: Exam quality: Good distention Small bowel and colon: No small bowel wall thickening, edema, mural hyperenhancement, small bowel obstruction, strictures or fistula. No colonic wall thickening or surrounding inflammatory changes. Remainder of exam: Mild hepatic steatosis. The spleen, adrenal glands and pancreas are within normal limits. Normal gallbladder. Multiple cysts in the kidneys. No lymphadenopathy. Normal variant retroverted left renal vein. No ascites or fluid collections. Procedure Note Nely Dumont MD - 01/06/2024 EXAMINATION: MR ENTEROGRAPHY W/O AND W CONTRAST, 01/06/2024 2:14 PM TECHNIQUE: Multiplanar, multisequence MRI imaging of the abdomen and pelvis was obtained using MR enterography protocol without and with intravenous gadolinium. Contrast dose: 11 mL Gadavist COMPARISON: 11/12/2023 HISTORY: Crohn's disease of both small and large intestine without complication (H) FINDINGS: Exam quality: Good distention Small bowel and colon: No small bowel wall thickening, edema, mural hyperenhancement, small bowel obstruction, strictures or fistula. No colonic wall thickening or surrounding inflammatory changes. Remainder of exam: Mild hepatic steatosis. The spleen, adrenal glands and pancreas are within normal limits. Normal gallbladder. Multiple cysts in the kidneys. No lymphadenopathy. Normal variant retroverted left renal vein. No ascites or fluid collections. IMPRESSION: No evidence for active inflammatory Crohn's disease. NELY DUMONT MD SYSTEM ID: [id number] Michael Lundberg MD [facility] MRI ORDERABLES * (ABNORMAL) Glucose by meter (04/09/2021 12:57 PM CLINICAL NURSE SPECIALIST) GLUCOSE BY METER POCT 130(H) 70 - 99 mg/dL 04/09/2021 1:06 PM CLINICAL NURSE SPECIALIST [facility] POC Blood BLOOD SPECIMEN / Unknown 04/09/2021 12:57 PM CLINICAL NURSE SPECIALIST 04/09/2021 1:06 PM CLINICAL NURSE SPECIALIST Song Leach MD [facility] [address] [place] [address] 1st Floor Lab [place] [address] * COLONOSCOPY (02/23/2011 9:54 AM CDT) COLONOSCOPY [facility] Patient Name: Hubert Odell ?Procedure Date: 02/23/2011 [...] seconds RADIOLOGY RESULTS 02/23/2011 9:54 AM CDT Veerna Reister PROCEDURES RADIOLOGY RESULTS from Last 3 Months or Most Recently Relevant to Health Maintenance Additional Health Concerns Infection Onset Date Last Indicated MRSA Comment:Recurrent MRSA cellulitis per CareEverywhere 03/26/2021 1 Advance Directives For more information, please contact: [phone] * Full Code (Latest Code Status on File) Date Activated Date Inactivated Comments 03/25/2021 9:20 PM 03/26/2021 3:11 PM All basic and advanced life-sustaining interventions are performed as appropriate Question Answer Comments Code status determined by: Unable to dis cuss and no AD/POLST on file; continue PREVIOUSLY ORDERED code status Care Teams Proposal Manager Relationship Specialty Start Date End Date Martina Owen PA-C PCP - General Physician Hand Dry Cleaner 02/11/19 Queta Prater CNP [address] [place] [address] Nurse Practitioner Urology 09/22/20 Song Leach MD [address] [place] [phone] Assigned Surgical Provider 11/20/23
--- OUTSIDE RECORDS SUMMARY | 2024-03-19 17:02 | XMS_ITS | Encounter Summary ---
Author Organization [facility] Address [address] [place] [address]. [place] [address] Care Team Providers Care Wool Hat Hydraulicker Name Role Phone Martina Owen PA-C Primary Care Provider Queta Prater CNP Unavailable [phone] Song Leach MD Unavailable [phone] Reason for Visit * Reason Onset Date Comments Follow Up 02/10/2024 Surgery review Encounter Details Date Type Department Care Team (Late st Contact Info) Description 02/10/2024 Telephone [facility] [place] [address] [facility] [address] [place] [address] Dai Nichole, RN Follow Up (Surgery review) Social History Tobacco Use Types Packs/Day Years [...] Telephone Encounter - Dai Nichole RN - 02/10/2024 10:10 AM CDT Message left for patient to call back to nurse regarding appointment for preop and need for urine culture. [employer] message also sent. Dai Nichole RN documented in this encounter Plan of Treatment Upcoming Encounters Date Type Department Care Team (Late st Contact Info) Description 04/30/2024 4:20 PM DATA INTEGRATION ARCHITECT Ancillary Procedure [address] [phone] Song Leach MD [address] [place] [address] documented as of this encounter Results * Urine Culture Aerobic Bacterial [[id number]] (02/14/2024 4:41 PM CDT) Culture No Growth 02/15/2024 2:55 PM CDT [facility] Urine MID-STREAM URINE SPECIMEN / Unknown Non-blood Collection / Unknown 02/14/2024 4:41 PM CDT 02/14/2024 4:41 PM CDT Song Leach MD LAB - MICRO GENERAL ORDERABLES [facility] Inf. Diseases Diag. Lab [address] [facility], [address] [place] [phone] documented in this encounter Visit Diagnoses Diagnosis Nephrolithiasis- Primary Calculus of kidney documented in this encounter Additional Health Concerns Infection Onset Date Last Indicated Resolved Time MRSA Comment:Recurrent MRSA cellulitis per CareEverywhere 03/26/2021 03/26/2021 documented as of this encounter Care Teams Wool Hat Hydraulicker Relationship Specialty Start Date End Date Martina Owen PA-C PCP - General Physician Behavioral Health Therapist 02/11/19 Queta Prater CNP [address] [place] [address] Nurse Practitioner Urology 09/22/20 Song Leach MD [address] [place] [address] Assigned Surgical Provider 11/20/23 documented as of this encounter
--- OUTSIDE RECORDS SUMMARY | 2024-03-19 17:02 | XMS_ITS | Encounter Summary ---
Author Organization [facility] Address [address] [place] [address]. [place] [address] Care Team Providers Care Seat Joiner Chainstitch Name Role Phone Martina Owen PA-C Primary Care Provider Queta Prater CNP Unavailable [phone] Song Leach MD Unavailable [phone] Reason for Visit * Auth/Cert (Routine) Specialty Diagnoses / Procedures Referred By Lc vivas Referred To Contact Surgery Diagnoses Nephrolithiasis Nephrolithiasis [N20.0] Procedures [place] CYSTO/URETERO W/LITHOTRIPSY &INDWELL STENT INSRT [place] UROGRAPHY, RETROGRADE W/WO KUB Cystoscopy, Bilateral Ureteroscopy, Bilateral Retrograde Pyelogram, Bilateral Laser Lithotripsy, Right Possible Stent Placement Left Possible Stent Placement [facility] Or [address] [place] [id number] Referral ID Status Reason Start Date Expiration Date Visits Re quested Visits Authorized [id number] 1 1 Encounter Details Date Type Department Care Team (Late st Contact Info) Description 02/27/2024 8:12 AM CDT Anesthesia Event [address] [phone] Freddy Aquino, [facility] [address] [place], [place] [address] Severiano Patel MD [address] [address] Anesthesia Record Procedure Summary Procedure Name Responsible Anesthesiologist Anesthesia Start Time Anesthesia Stop Time Cystoscopy, Left Ureteroscopy with Stone Basket Extraction, Right Ureteroscopy with Laser Incision of Infundibulum, Bilateral Ureteral Stent PLacement (Bilateral: Urethra) Freddy Aquino, DO 02/27/24 0812 02/27/24 0910 Events Date Time Event Comment 02/27/2024 0733 0812 An Start Anesthesia Star t is defined as when the anesthesia provider assumed care, began anesthesia prep, remained continuously present with the patient, and excludes all time for performing the pre-anesthesia evaluation. The Pre-Anesthesia Evaluation was completed before Anesthesia Start. 0814 An Start Data 0814 AN REASSESS I attest that I have identified and re-evaluated the patient immediately before the induction of anesthesia and I am satisfied that the anesthetic plan is suitable for the patient's condition and procedure. The first vital signs recorded are pre- induction. Esthela Gomez APRN INTELLIGENCE CLERK 0818 An Induction 0820 An LMA 0906 LMA Removed 0907 an stop data 0910 An Stop Electronically signed by Esthela Gomez APRN INTELLIGENCE CLERK on February 27, 2024 9:10 AM Meds Name Total ceFAZolin (ANCEF) 2 g in 100 mL D5W inte rmittent infusion 2 g midazolam 1mg/mL 2 mg fentaNYL (SUBLIMAZE) injection 100 mcg lidocaine 2% 3 mL dexamethasone (DECADRON) 4 mg/mL 6 mg glycopyrrolate 0.2mg/mL 0.4 mg etomidate 2 mg/mL 20 mg ketorolac 30mg/mL 15 mg lactated ringers infusion 800 mL * Agents Name O2 N2O Air Exp Sevoflurane Ins Sevoflurane * Blood No blood administrations on file. Lines, Drains, and Airways Type Details Placement Removal Incision/Surgical Site 03/25/21; 170; R ight; Back 03/25/21 170 by Katie Henriquez RN Incision/Surgical Site No Incision; 01/30 ; 904; Urethral meatus; stebnt strings on 02/27/24904 by Claritza Boyd RN Peripheral IV 02/27/24; 0716; 20 G ; Right; Antecubital fossa; Alcohol; 1 02/27/24 0716 by Quinton Mcallister RN 02/27/24 1024 by Alia rAroyo RN Supraglottic Airway Placement Date: 02/27/24; Placement Time: 836 (created via procedure documentation); Mask Ventilation: 1; LMA Size: 5; Airway Brand: Ambu AuraGain; Attempts: 1 02/27/24 0837 by Esthela Gomez APRN CRNA 02/27/24 0906 by Esthela Gomez APRN INTELLIGENCE CLERK documented in this encounter Social History Tobacco [...] PM CDT documented as of this encounter OR Notes * Anesthesia Postprocedure Evaluation - Freddy Aquino DO - 02/27/2024 12:20 PM CDT Patient: Hubert Odell Procedure: Procedure(s): Cystoscopy, Left Ureteroscopy with Stone Basket Extraction, Right Ureteroscopy with Laser Incision of Infundibulum, Bilateral Ureteral Stent PLacement Anesthesia Type: General Note: Disposition: Outpatient Postop Pain Control: Uneventful Sign Out: Well controlled pain PONV: No Neuro/Psych: Uneventful Sign Out: Acceptable/Baseline neuro status Airway/Respiratory: Uneventful Sign Out: Acceptable/Baseline resp. status CV/Hemodynamics: Uneventful Sign Out: Acceptable CV status; No obvious hypovolemia; No obvious fluid overload Other NRE: NONE DID A NON-ROUTINE EVENT OCCUR? No Event details/Postop Comments: Patient recovering comfortably. Last vitals: Vitals Value Taken Time BP 135/79 02/27/24925 Temp 96.9 ??F (36.1 ??C) 02/27/24925 Pulse 87 02/27/24925 Resp 16 02/27/24925 SpO2 95 % 02/27/24925 Electronically Signed By: Freddy Aquino DO February 27, 2024 12:20 PM * Anesthesia Procedure Notes - Esthela Gomez APRN INTELLIGENCE CLERK - 02/27/2024 8:36 AM CDTAssociated Order(s): Airway Airway Patient location during procedure: OR Staff - INTELLIGENCE CLERK: Esthela Gomez APRN INTELLIGENCE CLERK Performed By: INTELLIGENCE CLERK Consent for Airway Urgency: elective Indications and Patient Condition Indications for airway management: simran-procedural Mask difficulty assessment: 1 - vent by mask Final Airway Details Final airway type: supraglottic airway Supraglottic Airway Details Type: LMA Brand: Ambu AuraGain LMA size: 5 Post intubation assessment Placement verified by: capnometry, equal breath sounds and chest rise Number of attempts at approach: 1 Number of other approaches attempted: 0 Secured with: commercial tube romo Ease of procedure: easy Dentition: Intact and Unchanged * Anesthesia Preprocedure Evaluation - Freddy Aquino DO - 02/27/2024 7:21 AM CDT Anesthesia Pre-Procedure Evaluation Patient: Hubert Odell : 1975 Procedure : Procedure(s): Cystoscopy, Bilateral Ureteroscopy, Bilateral Retrograde Pyelogram, Bilateral Laser Lithotripsy, Right Possible Stent Placement Left Possible Stent Placement Past Medical History: Diagnosis Date ??? Arthritis ??? Diabetes (H) ??? Hypertension ??? Noninfectious ileitis ??? Obese ??? Other chronic pain ??? [place] ulcerative (chronic) colitis(556.6) (H) Past Surgical History: Procedure Laterality Date ??? BACK SURGERY ??? COMBINED CYSTOSCOPY, RETROGRADES, URETEROSCOPY, INSERT STENT Left 03/25/2021 Procedure: Combined Cystoscopy, Retrogrades, Ureteroscopy, Left Kidney stone basket removal and Left Ureteral Stent Insertion; Surgeon: Song Leach MD; Location: [facility] OR ? ? HC REMOVE TONSILS/ADENOIDS,<12 Y/O ??? LASER HOLMIUM LITHOTRIPSY URETER(S), INSERT STENT, COMBINED Bilateral 04/09/2021 Procedure: Cystoscopy, Bilateral retrograde pyelogram, Left ureteroscopic stone extraction, Right Ureteroscopice Laser Lithotripsy, Right stent exchange, Left Stent Removal; Surgeon: Song Leach MD; Location: [facility] OR ??? LASER HOLMIUM NEPHROLITHOTOMY VIA PERCUTANEOUS NEPHROSTOMY Right 03/25/2021 Procedure: RIGHT NEPHROLITHOTOMY, PERCUTANEOUS HOLMIUM LASER; Surgeon: Song Leach MD; Location: [facility] OR ??? ZZC NONSPECIFIC PROCEDURE 04/29/2001 (R) shoulder-bone spur/bursitis Allergies Allergen Reactions ??? Chicken Allergy and turkey ??? Cyclosporine anaphylactic ??? Eggs anaphylactic ??? Fish Allergy ??? Nuts ??? [place] Social History Tobacco Use ??? Smoking status: Former Current packs/day: 0.00 Types: Cigarettes Quit date: 04/13/1996 Years since quittin.8 ??? Smokeless tobacco: Never Substance Use Topics ??? Alcohol use: Not Currently Comment: stopped 15yrs ago Wt Readings from Last 1 Encounters: 02/23/24 113.4 kg (250 lb) Anesthesia Evaluation ROS/MED HX ENT/Pulmonary: Neurologic: Cardiovascular: (+) hypertension- - - - - METS/Exercise Tolerance: Hematologic: Musculoskeletal: GI/Hepatic: (+) GERD, Renal/Genitourinary: Endo: (+) type II DM, Obesity, Psychiatric/Substance Use: Infectious Disease: Malignancy: Other: Physical Exam Airway Mallampati: III TM distance: > 3 FB Neck ROM: full Respiratory Devices and Support Dental (+) Minor Abnormalities - some fillings, tiny chips Cardiovascular cardiovascular exam normal Pulmonary pulmonary exam normal OUTSIDE LABS: CBC: Lab Results Component Value Date WBC 10.0 03/29/2021 WBC 11.4 (H) 03/26/2021 HGB 11.5 (L) 03/29/2021 HGB 12.8 (L) 03/26/2021 HCT 34.4 (L) 03/29/2021 HCT 38.3 (L) 03/26/2021 PLT 188 03/29/2021 PLT 187 03/26/2021 BMP: Lab Results Component Value Date NA 141 03/29/2021 NA 139 03/26/2021 POTASSIUM 4.3 03/29/2021 POTASSIUM 4.5 03/26/2021 CHLORIDE 106 03/29/2021 CHLORIDE 107 03/26/2021 CO2 29 03/29/2021 CO2 27 03/26/2021 BUN 25 03/29/2021 BUN 18 03/26/2021 CR 1.13 03/29/2021 CR 1.14 03/26/2021 GLC 130 (H) 04/09/2021 GLC 117 (H) 03/29/2021 COAGS: No results found for: PTT, INR, FIBR POC: No results found for: BGM, HCG, HCGS HEPATIC: No results found for: ALBUMIN, PROTTOTAL, ALT, AST, GGT, ALKPHOS, BILITOTAL,BILIDIRECT, ESHA OTHER: Lab Results Component Value Date MILTON 9.0 03/29/2021 SED 9 08/12/2008 Anesthesia Plan ASA Status: 3 NPO Status: NPO Appropriate Anesthesia Type: General. - Airway: LMA Consents Anesthesia Plan(s) and associated risks, benefits, and realistic alternatives discussed. Questions answered and patient/footwear sales representative(s) expressed understanding. - Discussed: Risks, Benefits and Alternatives for BOTH SEDATION and the PROCEDURE were discussed - Discussed with: Patient - Extended Intubation/Ventilatory Support Discussed: No. - Patient is DNR/DNI Status: No Use of blood products discussed: No . Postoperative Care Pain management: IV analgesics, Oral pain medications. PONV prophylaxis: Ondansetron (or other 5HT-3), Dexamethasone or Solumedrol Comments: Freddy Aquino DO I have reviewed the pertinent notes and labs in the chart from the past 30 days and (re)examined the patient. Any updates or changes from those notes are reflected in this note. # Obesity: Estimated body mass index is 34.87 kg/m?? as calculated from the following: Height as of this encounter: 1.803 m (5' 11). Weight as of this encounter: 113.4 kg (250 lb). documented in this encounter Miscellaneous Notes * Anesthesia Care Transfer Note - Esthela Gomez APRN CRNA - 02/27/2024 9:09 AM CDT Patient: Hubert Odell Procedure: Procedure(s): Cystoscopy, Left Ureteroscopy with Stone Basket Extraction, Right Ureteroscopy with Laser Incision of Infundibulum, Bilateral Ureteral Stent PLacement Diagnosis: Nephrolithiasis [N20.0] Diagnosis Additional Information: No value filed. Anesthesia Type: General Note: Oropharynx: spontaneously breathing and oropharynx clear of all foreign objects Level of Consciousness: drowsy Oxygen Supplementation: face mask Level of Supplemental Oxygen (L/min / FiO2): 8 Independent Airway: airway patency satisfactory and stable Dentition: dentition unchanged Vital Signs Stable: post-procedure vital signs reviewed and stable Report to RN Given: handoff report given Patient transferred to: PACU Handoff Report: Identifed the Patient, Identified the Reponsible Provider, Reviewed the pertinent medical history, Discussed the surgical course, Reviewed Intra-OP anesthesia mangement and issues during anesthesia, Set expectations for post-procedure period and Allowed opportunity for questions andacknowledgement of understanding Vitals: Vitals Value Taken Time BP 135/75 02/27/24 0907 Temp 96.8 ??F (36 ??C) 02/27/24 0907 Pulse 85 02/27/24 0907 Resp 18 02/27/24 09 SpO2 98 % 02/27/24 09 Electronically Signed By: Esthela Gomez APRN CRNA February 27, 2024 9:09 AM documented in this encounter Plan of Treatment Upcoming Encounters Date Type Department Care Team (Late st Contact Info) Description 04/30/2024 4:20 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 02/27/2024 ??8:37 AM Airway ? Patient location during procedure: OR Staff - ? INTELLIGENCE CLERK: Esthela Gomez APRN CRNA ? Performed By: INTELLIGENCE CLERK Consent for Airway ? Urgency: elective Indications [...] Dentition: Intact and Unchanged Freddy Aquino DO [place] ANESTHESIA documented in this encounter Visit Diagnoses Not on filedocumented in this encounter Administered Medications Inactive Administered Medications - up to 3 most recent administrations Medication Order MAR Action Action Date Dose Rate Site ceFAZolin (ANCEF) 2 g in 100 mL D5W intermittent infusion Routine, 2 g, Intravenous, PRE-OP/PRE-PROCEDURE, Starting on Tue02/27/24 at 0645, For 1 dose, Give first dose within 1 hour PRIOR to incision. If patient weight is greater than or equal to 120 kg increase dose to 3 g., Indications: Perioperative Pharmacoprophylaxis, Pre-procedure $Given 02/27/2024 8:16 AM CDT 2 g dexAMETHasone (DECADRON) injection Intravenous, PRN, Administer over 1 Minutes, Starting on Tue02/27/24 at 0818, Anesthesia Intra-op $Given 02/27/2024 8:18 AM CDT 6 mg etomidate (AMIDATE) injection Intravenous, PRN, Starting on Tue02/27/24 at 0818, Anesthesia Intra-op $Given 02/27/2024 8:23 AM CDT 6 mg $Given 02/27/2024 8:18 AM CDT 14 mg fentaNYL (PF) (SUBLIMAZE) injection Intravenous, PRN, Administer over 3-5 Minutes, Starting on Tue02/27/24 at 0818, Anesthesia Intra-op $Given 02/27/2024 8:23 AM CDT 50 mcg $Given 02/27/2024 8:18 AM CDT 50 mcg glycopyrrolate (ROBINUL) injection Intravenous, PRN, Administer over 1-2 Minutes, Starting on Tue02/27/24 at 0821, Anesthesia Intra-op $Given 02/27/2024 8:27 AM CDT 0.2 mg $Given 02/27/2024 8:21 AM CDT 0.2 mg ketorolac (TORADOL) injection Intravenous, PRN, Administer over 2 Minutes, Starting on Tue02/27/24 at 0902, Anesthesia Intra-op $Given 02/27/2024 9:02 AM CDT 15 mg lidocaine 2% injection (MDV) Intravenous, PRN, Starting on Tue02/27/24 at 0814, Anesthesia Intra-op $Given 02/27/2024 8:14 AM CDT 3 mLs midazolam (VERSED) injection Intravenous, Administer over 2 Minutes, PRN, Starting on Tue02/27/24 at 0814, Anesthesia Intra-op $Given 02/27/2024 8:14 AM CDT 2 mg documented in this encounter Additional Health Concerns Infection Onset Date Last Indicated Resolved Time MRSA Comment:Recurrent MRSA cellulitis per [facility] 03/26/2021 03/26/2021 documented as of this encounter Care Teams Seat Joiner Chainstitch Relationship Specialty Start Date End Date Martina Owen PA-C PCP - General Physician Hvac/R Service Technician 02/11/19 Queta Prater CNP [address] [place] [address] Nurse Practitioner Urology 09/22/20 Song Leach MD [address] [place] [address] Assigned Surgical Provider 11/20/23 documented as of this encounter
--- OUTSIDE RECORDS SUMMARY | 2024-03-19 17:02 | XMS_ITS | Clinical Summary ---
Author Organization [facility] Address [address] [place] [address] Care Team Providers Care Advocacy Director Name Role Phone Martina Owen PA-C Primary Care Provider Queta Prater CNP Unavailable [phone] Song Leach MD Unavailable [phone] Allergies Active Allergy Reactions Criticality Noted Date Comments Chicken Allergy 04/10/2003 and turkey Cyclosporine 04/10/2003 anaphylactic Eggs 04/10/2003 anaphylactic Fish Allergy 04/10/2003 Nuts 04/10/2003 Dane 04/10/2003 Medications Medication Sig Dispensed Refills Start [...] as needed for pain. 12 tablet 02/27/2024 4 Active Problems Problem Noted Date Diagnosed Date [...] PCNL and left URS (patient ok with [facility] or [facility]) Esophageal reflux 10/01/2003 Allergic rhinitis due to pollen 10/01/2003 Encounters Date Type Department Care Team Description 03/18/2024 MyC Medical Advice [facility] [address] [place] [address] [address] [place] [address] Song Leach MD 02/28/2024 Orders Only [facility] [address] [place] [address] Song Leach MD 02/27/2024 8:12 AM CDT Anesthesia Event [address] [address] Freddy Aquino, Severiano Phillip MD 02/27/2024 7:45 AM CDT - 02/27/2024 9:00 AM CDT Surgery [address] [address] Song Leach MD Cystoscopy, Left Ureteroscopy with Stone Basket Extraction, Right Ureteroscopy with Laser Incision of Infundibulum, Bilateral Ureteral Stent PLacement 02/27/2024 6:42 AM CDT - 02/27/2024 11:59 PM CDT Hospital Encounter [address] [place] [address] Song Leach MD Nephrolithiasis Discharge Disposition: Home or Self Care 02/23/2024 Travel 02/13/2024 [facility] [address] [place] [address] [address] [place] [address] Dai Nichole, RN Follow Up (Urine culture) 02/10/2024 MyC Medical Advice [facility] [address] [place] [address] [address] [place] [address] Dai Nichole, RN 02/10/2024 [facility] [address] [place] [address] [address] [place] [address] Dai Nichole, RN Follow Up (Surgery review) 01/31/2024 Elena Medical Advice [facility] [address] [place] [address] [address] [place] [address] Minal Boudreaux 01/31/2024 Telephone [facility] [address] [place] [address] [address] [place] [address] Minal Boudreaux 01/31/2024 Telephone [facility] [address] [place] [address] [address] [place] [address] Minal Boudreaux 01/27/2024 Telephone [facility] [address] [place] [address] [address] [place] [address] Minal Boudreaux 01/27/2024 Telephone [facility] [address] [place] [address] [address] [place] [address] Minal Boudreaux 01/26/2024 [facility] Services - Surgical Specialties Service Line [address] [place] [address] Paras Gamez MD 01/20/2024 MyC Medical Advice [facility] [address] [facility] [address] [place] [address] Song Leach MD 01/09/2024 MyC Medical Advice [facility] [address] [facility] [address] [place] [address] Song Leach MD 01/06/2024 12:17 PM CDT - 01/06/2024 11:59 PM CDT Hospital Encounter [facility] [address] [place] [address] Michael Lundberg MD Crohn's disease of both small and large intestine without complication (H) Discharge Disposition: Home or Self Care 01/05/2024 Travel from Last 3 Months Social History Tobacco [...] st Contact Info) Description 04/30/2024 4:20 PM PRESS TENDER LONG GOODS Ancillary Procedure [address] [address] Song Leach MD [address] [place] [address] Health Maintenance Due Date Last Done Comments [...] - 19+ 3-dose series) 12/09/1995 LIPID 2016 COVID-19 Vaccine ( - season) 2024 04/16/2021, 09/10/2020, 08/13/2020 INFLUENZA VACCINE (#1) 2024 GLUCOSE 04/09/2024 04/09/2021, 03/01, 03/26/2021, Additional history exists DTAP/TDAP/TD IMMUNIZATION (4 - Td or Tdap) 05/28/2031 05/28/2021, 06/15/2014, 07/01/2010, Additional history exists COLONOSCOPY 01/15/2034 01/16/2024, 01/29, 02/10/2009 COLORECTAL CANCER SCREENING 01/15/2034 RSV VACCINE (1 - 1-dose 75+ series) 12/09/2051 PHQ-2 (once per calendar year) Completed 11/14/2023, 02/05/2021 HPV IMMUNIZATION Aged Out No longer e ligible based on patient's age to complete this topic MENINGITIS IMMUNIZATION Aged Out No l onger eligible based on patient's age to complete this topic RSV MONOCLONAL ANTIBODY Aged Out No l onger eligible based on patient's age to complete this topic Medical Devices Implanted Type Area Superintendent Concrete Mixing Plant Device Identifier Shelf Expiration Date Model / Serial / Lot Stent Ureteral Percuflex Plus [id number] - [id number] Implanted:Qty: 1 on 04/09/2021 by Song Leach MD at [facility] Stent Right: Ureter [employer] [id number] 09/02/2023 [id number] 30 / / [id number] Stent, Ureteral, 4.8fr X 26cm, Hydroplus Coating, Without Wire, Percuflex Plus - [id number] Implanted:Qty: 1 on 02/27/2024 by Song Leach MD at [facility] Stent Left: Urethra 06/10/2026 [id number] / / [id number] Stent, Ureteral, 4.8fr X 26cm, Hydroplus Coating, Without Wire, Percuflex Plus - [id number] Implanted:Qty: 1 on 02/27/2024 by Song Leach MD at [facility] Stent Right: Urethra 175-253 / / [id number] Explanted Type Area Superintendent Concrete Mixing Plant Device Identifier Shelf Expiration Date Model / Serial / Lot Stent Ureteral Percuflex Plus [id number] - [id number] Implanted:Qty: 1 on 03/25/2021 by Song Leach MD at [facility] Explanted:Qty: 1 on 04/09/2021 by Song Leach MD at [facility] Stent Left: Ureter [employer] [id number] 12/19/2023 [id number] 30 / / [id number] Stent Ureteral Percuflex Plus [id number] - [id number] Implanted:Qty: 1 on 03/25/2021 by Song Leach MD at [facility] Explanted:Qty: 1 on 04/09/2021 by Song Leach MD at [facility] Stent Right: Ureter [employer] [id number] 09/09/2023 [id number] 40 / / [id number] Procedures Procedure Name Priority Date/Time Associated Diagnosis [...] BY METER Routine 04/09/2021 12:5 7 PM PRESS TENDER LONG GOODS COLONOSCOPY Routine 02/23/2011 9:54 AM CDT from Last 3 Months or Most Recently Relevant to Health Maintenance Results * Stone analysis (02/27/2024 8:57 AM CDT) Stone Mass 3 mg 02/29/2024 9:50 PM CDT [facility] Calculi Description See Note 02/29/2024 9:50 PM CDT [facility] Comment: Specimen consists of one brown calculus. The total weight is 3 mg. Stone Composition See Note 9:50 PM CDT [facility] Comment: Calculi composed primarily of calcium [...] composition determined by FTIR analysis. Performed By: [employer] [address] [place] [address] Storage Garage Attendant: Frankie Aldridge MD, PhD CLIA Number: [id number] Calculus/Stone LEFT KIDNEY STRUCTURE / Unknown Non-blood Collection / Unknown 02/27/2024 8:57 AM CDT 02/27/2024 2:18 PM CDT Song Leach MD LAB - BODY FLUIDS OR DERABLES [facility] [address] [place] [address], [facility] [phone] * ANE AIRWAY SUPRAGLOTTIC PERFORMABLE (02/27/2024 8:36 AM CDT) Narrative Esthela Gomez APRN COMPARISON SHOPPER - 02/27/2024 8:36 AM CDT Esthela Gomez APRN CRNA ? 02/27/2024 ??8:37 AM Airway ? Patient location during procedure: OR Staff - ? COMPARISON SHOPPER: Esthela Gomez APRN COMPARISON SHOPPER ? Performed By: COMPARISON SHOPPER Consent for Airway ? Urgency: elective Indications [...] Dentition: Intact and Unchanged Freddy Aquino DO [place] ANESTHESIA * Glucose monitor nursing POCT (02/27/2024 7:20 AM CDT) Glucose POCT 98 70 - 99 mg/dL Comment:[id number]. 09/08/24 Song Leach MD NURSING POCT INTERFA JOSELIN OR SENT TO LAB * Urine Culture Aerobic Bacterial [[id number]] (02/14/2024 4:41 PM CDT) Culture No Growth 02/15/2024 2:55 PM CDT [facility] Urine MID-STREAM URINE SPECIMEN / Unknown Non-blood Collection / Unknown 02/14/2024 4:41 PM CDT 02/14/2024 4:41 PM CDT Song Leach MD LAB - MICRO GENERAL ORDERABLES [facility] Inf. Diseases Diag. Lab [address] [facility], Room [address] [place], [place] [id number] * MR Enterography wo and w Contrast (01/06/2024 2:14 PM CDT) Anatomical Region Laterality Modality Abdomen/Pelvis, SUBRAD MR BODY, UMP MR BODY, RAD MR Magnetic Resonance Impressions 01/06/2024 3:30 PM CDT IMPRESSION: No evidence for active inflammatory Crohn's disease. NELY DUMONT MD SYSTEM ID: ??[id number] Narrative 01/06/2024 3:30 PM CDT EXAMINATION: MR [...] Crohn's disease. NELY DUMONT MD SYSTEM ID: [id number] Michael Lundberg MD [facility] MRI ORDERABLES * (ABNORMAL) Glucose by meter (04/09/2021 12:57 PM PRESS TENDER [employer]) GLUCOSE BY METER POCT 130(H) 70 - 99 mg/dL 04/09/2021 1:06 PM PRESS TENDER LONG GOODS [facility] POC Blood BLOOD SPECIMEN / Unknown 04/09/2021 12:57 PM PRESS TENDER [employer] GOODS 04/09/2021 1:06 PM PRESS TENDER [employer] GOODS Song MALHOTRA POCT [facility] POC [facility] [place] - [address] 1[address] [place] [address] * COLONOSCOPY (02/23/2011 9:54 AM CDT) COLONOSCOPY [facility] Patient Name: Hubert [place] ?Procedure Date: 02/23/2011 9:54:16 AM ? Date of : 1975 ?Admit Type: Outpatient ? Age: 35 ? Gender: Male ? Attending MD: Last Christina MD ? Procedure: ?Colonoscopy Indications: ?Established Crohn's disease of the small bowel and ?colon, Follow-up of Crohn's disease of the small ?bowel and colon Providers: ?Last Cruz MD Referring MD: ? Verena Regraham Medicines: ?Fentanyl 100 micrograms IV, Midazolam 2 [...] Advance Directives For more information, please contact: [phone] * Full Code (Latest Code Status on File) Date Activated Date Inactivated Comments 03/25/2021 9:20 PM 03/26/2021 3:11 PM All basic and advanced life-sustaining interventions are performed as appropriate Question Answer Comments Code status determined by: Unable to dis cuss and no AD/POLST on file; continue PREVIOUSLY ORDERED code status Care Teams Advocacy Director Relationship Specialty Start Date End Date Martina Owen PA-C PCP - General Physician Control Panel Builder 02/11/19 Queta Prater CNP [address] [place] [address] Nurse Practitioner Urology 09/22/20 Song Leach MD [address] [place] [address] Assigned Surgical Provider 11/20/23
--- OUTSIDE RECORDS SUMMARY | 2024-03-19 17:02 | XMS_ITS | Encounter Summary ---
Author Organization [facility] Address [address] [place] [address]. [place] [address] Care Team Providers Care Poly Area Supervisor Name Role Phone Martina Owen PA-C Primary Care Provider Queta Prater CNP Unavailable [phone] Song Leach MD Unavailable [phone] Encounter Details Date Type Department Care Team (Latest Contact Info) Description 02/23/2024 Travel Social History Tobacco Use Types Packs/Day [...] st Contact Info) Description 04/30/2024 4:20 PM WELDING INSPECTOR Ancillary Procedure [address] [address] Song Leach MD [address] [place] [id number] documented as of this encounter Visit Diagnoses Not on filedocumented in this encounter Additional Health Concerns Infection Onset Date Last Indicated Resolved Time MRSA Comment:Recurrent MRSA cellulitis per CareEverywhere 03/26/2021 03/26/2021 documented as of this encounter Care Teams Poly Area Supervisor Relationship Specialty Start Date End Date Martina Owen PA-C PCP - General Physician Ground Crew Linesman 02/11/19 Queta Prater CNP [address] [place] [address] Nurse Practitioner Urology 09/22/20 Song Leach MD [address] [place] [address] Assigned Surgical Provider 11/20/23 documented as of this encounter
--- OUTSIDE RECORDS SUMMARY | 2024-03-19 17:02 | XMS_ITS | Encounter Summary ---
Author Organization [facility] Address [address] [place] [address]. [place] [address] Care Team Providers Care Ctc Operator Name Role Phone Martina Owen PA-C Primary Care Provider Queta Prater CNP Unavailable [phone] Song Leach MD Unavailable [phone] Reason for Referral * Diagnostic Imaging Ultrasound (Routine) - Pending Review Specialty Diagnoses / Procedures Referred By Lc vivas Referred To Contact Radiology. Diagnoses Nephrolithiasis Procedures US Renal Complete Non-Vascular Song Leach MD [address] [place] [address] Referral ID Status Reason Start Date Expiration Date V isits Requested Visits Authorized [id number] Pending Review 02/27/2024 02/26/2025 1 1 Reason for Visit * Auth/Cert (Routine) Specialty Diagnoses / Procedures Referred By Lc vivas Referred To Contact Surgery Diagnoses Nephrolithiasis Nephrolithiasis [N20.0] Procedures MI CYSTO/URETERO W/LITHOTRIPSY &INDWELL STENT INSRT MI UROGRAPHY, RETROGRADE W/WO KUB Cystoscopy, Bilateral Ureteroscopy, Bilateral Retrograde Pyelogram, Bilateral Laser Lithotripsy, Right Possible Stent Placement Left Possible Stent Placement [facility] [address] [place] [address] Referral ID Status Reason Start Date Expiration Date Visits Re quested Visits Authorized [id number] 1 1 Encounter Details Date Type Department Care Team (Latest Contact Info) Description 02/27/2024 6:42 AM CDT - 02/27/2024 11:59 PM CDT Hospital Encounter [facility] [address] [facility] [address] [place] [phone] Song Leach MD [address] [place] [id number] Nephrolithiasis Discharge Disposition: Home or Self Care [...] contact Dr. Leach, his office number is [phone]. You have received 975 mg of Acetaminophen (Tylenol) at 0700. Please do not take an additional dose of Tylenol until after 1pm. Do not exceed 4,000 mg of acetaminophen during a 24 hour period and keep in mind that acetaminophencan also be found in many thwq-wdg-syjngsp cold medications as well as narcotics that may be given for pain. You received a medication called Toradol (a stronger IV ibuprofen) at 0900. Do NOT take any Ibuprofen / Advil / Aleve / Naproxen or products containing Ibuprofen until 3pm or later. [facility] Adult Discharge Orders & Instructions [...] or concerns 24 hours a day at [phone]. For after hours phone calls please wait airborne weapons technical manager to be connected with the care connection [...] Leach MD - 02/27/2024 9:08 AM CDT [facility] Brief Operative Note Pre-operative diagnosis: Nephrolithiasis [N20.0] [...] lasered open Bilateral Ron's plaques Bilateral 4.8 Turkmen by 26 cm ureteral stent placed on [...] <60 min STAFF SURGEON: Song Leach MD DOMAIN ARCHITECT(S): none ANESTHESIA: General ESTIMATED BLOOD LOSS: 2 ml COMPLICATIONS: None. SPECIMEN: Left renal stone for analysis SIGNIFICANT FINDINGS: Lower pole left stone not visualized, presumed to be intraparenchymal 2 mm left midpole stone removed by basket extraction No right stones visualized in the collecting system Lower mid pole infundibulum with stenosis which was lasered open Bilateral Ron's plaques Bilateral 4.8 Turkmen by 26 cm ureteral stent placed on [...] is unremarkable Ureteral Stent Insertion: Bilateral 4.8 Turkmen by 28 cm ureteral stones and placed [...] him to be on antibiotics on a alf basis. He has not had issues for 5 years and would like the MRSA status removed from his chart. documented in this encounter Plan of Treatment Upcoming Encounters Date Type Department Care Team (Late st Contact Info) Description 04/30/2024 4:20 PM CLAY THROWER Ancillary Procedure [address] [address] Song Leach MD [address] [place] [address] Scheduled Orders Name Type Priority Associated Diagnoses [...] Mass 3 mg 02/29/2024 9:50 PM CDT [facility] Calculi Description See Note 02/29/2024 9:50 PM CDT [facility] Comment: Specimen consists of one brown calculus. The total weight is 3 mg. Stone Composition See Note 9:50 PM CDT [facility] Comment: Calculi composed primarily of calcium [...] composition determined by FTIR analysis. Performed By: [facility] [address] [place] [address] Manufacturing Maintenance Manager: Frankie Aldridge MD, PhD CLIA Number: [id number] Calculus/Stone LEFT KIDNEY STRUCTURE / Unknown Non-blood Collection / Unknown 02/27/2024 8:57 AM CDT 02/27/2024 2:18 PM CDT Song Leach MD LAB - BODY FLUIDS OR DERABLES [employer] [address] [place] [address], [facility] [phone] * Glucose monitor nursing POCT (02/27/2024 7:20 AM CDT) Glucose POCT 98 70 - 99 mg/dL Comment:[id number]. 09/08/24 Song Leach MD NURSING POCT INTERFA [...] 975 mg 975 mg, Oral, ONCE, On 9/30/24 at 0700, For 1 dose, Maximum acetaminophen dose from all sources = 75 mg/kg/day not to exceed 4 grams/day., Pre-procedure $Given 02/27/2024 7:02 AM CDT 975 mg lactated ringers infusion at 100 mL/hr, Intravenous, CONTINUOUS, Pre-procedure, Starting on 02/27/24 at 0700, Until Tu02/28/24 at 0206 $New Bag 02/27/2024 7:16 AM CDT 100 mL/hr documented in this encounter Additional Health Concerns Infection Onset Date Last Indicated Resolved Time MRSA Comment:Recurrent MRSA cellulitis per CareEverywhere 03/26/2021 03/26/2021 documented as of this encounter Care Teams Ctc Operator Relationship Specialty Start Date End Date Martina Owen PA-C PCP - General Physician Preschool Teacher'S Assistant 02/11/19 Queta Prater CNP [address] [place], [place] [address] Nurse Practitioner Urology 09/22/20 Song Leach MD [address] [place], [place] [id number] Assigned Surgical Provider 11/20/23 documented as of this encounter
--- OUTSIDE RECORDS SUMMARY | 2024-03-19 17:03 | XMS_ITS | Encounter Summary ---
Author Organization [facility] Address [address] [place] [address]. [place] [address] Care Team Providers Care Wood Machinist Name Role Phone Martina Owen PA-C Primary Care Provider Queta Prater CNP Unavailable [phone] Yanelis Benavides Unavailable [phone] Song Leach MD Unavailable [phone] Song Leach MD Unavailable [phone] Encounter Details Date Type Department Care Team (Late st Contact Info) Description 02/26/2021 MyC Medical [facility] [address] [place] [address] Winnie Sánchez Social History Tobacco [...] st Contact Info) Description 04/30/2024 4:20 PM ASSOCIATE PROFESSOR OF BIOSTATISTICS Ancillary Procedure [address] [address] Song Leach MD [address] [place] [address] documented as of this encounter Visit Diagnoses Not on filedocumented in this encounter Additional Health Concerns Infection Onset Date Last Indicated Resolved Time MRSA-Contact Isolation 03/26 8:42 AM CDT MRSA Comment:Recurrent MRSA cellulitis per CareEverywhere 03/26/2021 03/26/2021 documented as of this encounter Care Teams Wood Machinist Relationship Specialty Start Date End Date Martina Owen PA-C PCP - General Physician Garment Manufacturing Supervisor 02/11/19 Queta Prater CNP [address] [place] [address] Nurse Practitioner Urology 09/22/20 Yanelis Benavides PA [address] [place] [address] [place] [address] Assigned Surgical Provider 02/08/21 07/11/21 Song Leach MD [address] [place] [address] Assigned Surgical Provider 07/12/21 12/31/22 Song Leach MD [address] [place] [address] Assigned Surgical Provider 11/20/23 documented as of this encounter
--- OUTSIDE RECORDS SUMMARY | 2024-03-19 17:03 | XMS_ITS | Encounter Summary ---
Author Organization [facility] Address [address] [place] [address]. [place] [address] Care Team Providers Care Bow Stapler Name Role Phone Martina Owen PA-C Primary Care Provider Queta Prater CNP Unavailable [phone] Song Leach MD Unavailable [phone] Encounter Details Date Type Department Care Team (Latest Contact Info) Description 01/05/2024 Travel Social History Tobacco Use Types Packs/Day [...] st Contact Info) Description 04/30/2024 4:20 PM BUILDING ILLUMINATING ENGINEER Ancillary Procedure [facility] [address] [place] [address] Song Leach MD [address] [place] [address] documented as of this encounter Visit Diagnoses Not on filedocumented in this encounter Additional Health Concerns Infection Onset Date Last Indicated Resolved Time MRSA Comment:Recurrent MRSA cellulitis per CareEverywhere 03/26/2021 03/26/2021 documented as of this encounter Care Teams Bow Stapler Relationship Specialty Start Date End Date Martina Owen PA-C PCP - General Physician Manager Rail 02/11/19 Queta Prater CNP [address] [place], [place] [id number] Nurse Practitioner Urology 09/22/20 Song Leach MD [address] [place], [place] [address] Assigned Surgical Provider 11/20/23 documented as of this encounter
--- OUTSIDE RECORDS SUMMARY | 2024-03-19 17:03 | XMS_ITS | Encounter Summary ---
Author Organization [facility] Address [address] [place] [address]. [place] [address] Care Team Providers Care Reel Cutter Name Role Phone Martina Owen PA-C Primary Care Provider Queta Prater CNP Unavailable [phone] Yanelis Benavides Unavailable [phone] Song Leach MD Unavailable [phone] Song Leach MD Unavailable [phone] Encounter Details Date Type Department Care Team [...] st Contact Info) Description 04/30/2024 4:20 PM AUTOMATIC CIGAR WRAPPER TENDER Ancillary Procedure [facility] [address] [place] [address] Song Leach MD [address] [place] [address] documented as of this encounter Visit Diagnoses Not on filedocumented in this encounter Additional Health Concerns Infection Onset Date Last Indicated Resolved Time MRSA Comment:Recurrent MRSA cellulitis per CareEverywhere 03/26/2021 03/26/2021 documented as of this encounter Care Teams Reel Cutter Relationship Specialty Start Date End Date Martina Owen PA-C PCP - General Physician Ring Stamper 02/11/19 Queta Prater CNP [address] [place] [address] Nurse Practitioner Urology 09/22/20 Yanelis Benavides PA [address] [place] [address] [place] [address] Assigned Surgical Provider 02/08/21 07/11/21 Song Leach MD [address] [place] [address] Assigned Surgical Provider 07/12/21 12/31/22 Song Leach MD [address] [place] [address] Assigned Surgical Provider 11/20/23 documented as of this encounter
--- OUTSIDE RECORDS SUMMARY | 2024-03-19 17:03 | XMS_ITS | Encounter Summary ---
Author Organization [place] Address [address] [place] [address]. [place] [address] Care Team Providers Care Credentialing Assistant Name Role Phone Martina Owen PA-C Primary Care Provider Queta Prater CNP Unavailable [phone] Song Leach MD Unavailable [phone] Encounter Details Date Type Department Care Team (Late st Contact Info) Description 01/27/2024 Telephone [facility] Kidney Stone [place] [address] [place] [phone] Minal Boudreaux Social History Tobacco Use Types Packs/Day Years [...] st Contact Info) Description 04/30/2024 4:20 PM HOOP MAKER Ancillary Procedure [facility] [address] [place] [address] Song Leach MD [address] [place] [address] 335155 documented as of this encounter Visit Diagnoses Not on filedocumented in this encounter Additional Health Concerns Infection Onset Date Last Indicated Resolved Time MRSA Comment:Recurrent MRSA cellulitis per CareEverywhere 03/26/2021 03/26/2021 documented as of this encounter Care Teams Credentialing Assistant Relationship Specialty Start Date End Date Martina Owen PA-C PCP - General Physician Accounts Receivable Representative 02/11/19 Queta Prater CNP [address] [place] [address] 275475 Nurse Practitioner Urology 09/22/20 Song Leach MD [address] [place] [address] [id number] Assigned Surgical Provider 11/20/23 documented as of this encounter
--- OUTSIDE RECORDS SUMMARY | 2024-03-19 17:03 | XMS_ITS | Encounter Summary ---
Author Organization [place] Address [address] [place] [address]. [place] [address] Care Team Providers Care Assistant Public Defender Name Role Phone Martina Owen PA-C Primary Care Provider Queta Prater CNP Unavailable [phone] Song Leach MD Unavailable [phone] Encounter Details Date Type Department Care Team (Late st Contact Info) Description 01/31/2024 Telephone [facility] Kidney Stone [place] [address] [place] [phone] Minal Boudreaux Social History Tobacco Use Types [...] st Contact Info) Description 04/30/2024 4:20 PM MAINTENANCE HELPER UTILITY ENGINEER Ancillary Procedure [facility] [address] [place] [address] Song Leach MD [address] [place] [address] 610095 documented as of this encounter Visit Diagnoses Not on filedocumented in this encounter Additional Health Concerns Infection Onset Date Last Indicated Resolved Time MRSA Comment:Recurrent MRSA cellulitis per CareEverywhere 03/26/2021 03/26/2021 documented as of this encounter Care Teams Assistant Public Defender Relationship Specialty Start Date End Date Martina Owen PA-C PCP - General Physician Doctorate Of Chiropractic 02/11/19 Queta Prater CNP [address] [place] [address] 749535 Nurse Practitioner Urology 09/22/20 Song Leach MD [address] [place] [address] 427755 Assigned Surgical Provider 11/20/23 documented as of this encounter
--- OUTSIDE RECORDS SUMMARY | 2024-03-19 17:03 | XMS_ITS | Encounter Summary ---
Author Organization [place] Address [address] [place] [address]. [place] [address] Care Team Providers Care Claims Processor Name Role Phone Martina Owen PA-C Primary Care Provider Queta Prater CNP Unavailable [phone] Yanelis Benavides Unavailable [phone] Song Leach MD Unavailable [phone] Song Leach MD Unavailable [phone] Reason for Visit * Reason Onset Date Comments Patient Request 04/10/2021 Encounter Details Date Type Department Care Team (Late st Contact Info) Description 04/10/2021 Telephone [facility] [address] [address] Song Leach MD [address] [place] [address] Patient Request Social History Tobacco Use [...] Deisi Alvarado - 04/10/2021 8:08 AM CST [facility] Call Center Phone Message May a [...] Center ([facility]): Urology Travel Screening: Not Applicable GE TREATMENT PLANT OPERATOR documented in this encounter Plan of Treatment Upcoming Encounters Date Type Department Care Team (Late st Contact Info) Description 04/30/2024 4:20 PM SEWAGE TREATMENT PLANT OPERATOR Ancillary Procedure [address] [phone] Song Leach MD [address] [place] [address] documented as of this encounter Visit Diagnoses Not on filedocumented in this encounter Additional Health Concerns Infection Onset Date Last Indicated Resolved Time MRSA Comment:Recurrent MRSA cellulitis per CareEverywhere 03/26/2021 03/26/2021 documented as of this encounter Care Teams Claims Processor Relationship Specialty Start Date End Date Martina Owen PA-C PCP - General Physician Appointment Manager 02/11/19 Queta Prater CNP [address] [place] [address] [phone] Nurse Practitioner Urology 09/22/20 Yanelis Benavides PA [address] [facility] Urology [place], [place] 9568[address] Assigned Surgical Provider 02/08/21 07/11/21 Song Leach MD [address] [place], [place] 028215 Assigned Surgical Provider 07/12/21 12/31/22 Song Leach MD [address] [place], [place] 988255 Assigned Surgical Provider 11/20/23 documented as of this encounter
--- OUTSIDE RECORDS SUMMARY | 2024-03-19 17:03 | XMS_ITS | Encounter Summary ---
Author Organization [place] Address [address] [place] [address]. [place] [address] Care Team Providers Care Blunger Name Role Phone Martina Owen PA-C Primary Care Provider Queta Prater CNP Unavailable [phone] Song Leach MD Unavailable [phone] Encounter Details Date Type Department Care Team (Late st Contact Info) Description 01/26/2024 Telephone [facility] [place] Services - Surgical Specialties Service Line [address] [place] [address] Paras Gamez MD [address] [place] [address] Social History Tobacco Use Types Packs/Day Years [...] encounter Miscellaneous Notes * Telephone Encounter - Paras Gamez MD - 01/26/2024 9:48 PM CDT Orders for dr leach bilateral urs documented in this encounter Plan of Treatment Upcoming Encounters Date Type Department Care Team (Late st Contact Info) Description 04/30/2024 4:20 PM HOUSEKEEPING STAFF Ancillary Procedure [address] [phone] Song Leach MD [address] [place] [address] 340845 documented as of this encounter Visit Diagnoses Diagnosis Nephrolithiasis- Primary Calculus of kidney documented in this encounter Additional Health Concerns Infection Onset Date Last Indicated Resolved Time MRSA Comment:Recurrent MRSA cellulitis per CareEverywhere 03/26/2021 03/26/2021 documented as of this encounter Care Teams Blunger Relationship Specialty Start Date End Date Martina Owen PA-C PCP - General Physician Handle Turner 02/11/19 Queta Prater CNP [address] [place] [address] 812085 Nurse Practitioner Urology 09/22/20 Song Leach MD [address] [place] [address] [phone] Assigned Surgical Provider 11/20/23 documented as of this encounter
--- OUTSIDE RECORDS SUMMARY | 2024-03-19 17:03 | XMS_ITS | Encounter Summary ---
Author Organization [place] Address [address] [place] [address]. [place] [address] Care Team Providers Care Business Continuity Management Director Name Role Phone Martina Owen PA-C Primary Care Provider Queta Prater CNP Unavailable [phone] Yanelis Benavides Unavailable [phone] Song Leach MD Unavailable [phone] Song Leach MD Unavailable [phone] Reason for Visit * Reason Onset Date Comments Schedule Surgery 02/20/2021 surgery Schedule Surgery 02/20/2021 Kidney stone re moval Encounter Details Date Type Department Care Team (Late st Contact Info) Description 02/20/2021 Telephone [facility] [address] [address] Song Leach MD [address] [place] [address] Schedule Surgery (surgery ); Schedule Surgery [...] Message routed to: [facility] [place] u[place] Travel Screening: Not Applicable * Telephone Encounter - Melissa Vargas - 02/20/2021 12:34 PM CDT [facility] Call Center Phone Message May a detailed message be left on voicemail: yes Reason for Call: Other: . please call tp to schedule his kidney stone removal surgery , thank you Action Taken: Message routed to: [facility] ([facility] uro Travel Screening: Not Applicable documented in this encounter Plan of Treatment Upcoming Encounters Date Type Department Care Team (Late st Contact Info) Description 04/30/2024 4:20 PM TORQUE TESTER Ancillary Procedure [address] [address] Song Leach MD [address] [place] [address] [phone] documented as of this encounter Visit Diagnoses Not on filedocumented in this encounter Additional Health Concerns Infection Onset Date Last Indicated Resolved Time MRSA-Contact Isolation 03/26 8:42 AM CDT MRSA Comment:Recurrent MRSA cellulitis per CareEverywhere 03/26/2021 03/26/2021 documented as of this encounter Care Teams Business Continuity Management Director Relationship Specialty Start Date End Date Martina Owen PA-C PCP - General Physician Fisheries Officer 02/11/19 Queta Prater CNP [address] [place] [address] Nurse Practitioner Urology 09/22/20 Yanelis Benavides PA [address] [place], [place] [address]y [place] [address] Assigned Surgical Provider 02/08/21 07/11/21 Song Leach MD [address] [place] [address] Assigned Surgical Provider 07/12/21 12/31/22 Song Leach MD [address] [place] [address] Assigned Surgical Provider 11/20/23 documented as of this encounter
--- OUTSIDE RECORDS SUMMARY | 2024-03-19 17:03 | XMS_ITS | Encounter Summary ---
Author Organization [place] Address [address] [place] [address]. [place] [address] Care Team Providers Care Wedding Day Coordinator Name Role Phone Martina Owen PA-C Primary Care Provider Queta Prater CNP Unavailable [phone] Song Leach MD Unavailable [phone] Encounter Details Date Type Department Care Team (Late st Contact Info) Description 01/31/2024 MyC Medical Advice [facility] Kidney Stone [place] [address] [facility] [address] [place] [phone] Minal Boudreaux Social History Tobacco Use Types [...] st Contact Info) Description 04/30/2024 4:20 PM LOG RAFT WORKER Ancillary Procedure [facility] [address] [place] [address] Song Leach MD [address] [place] [address] documented as of this encounter Visit Diagnoses Not on filedocumented in this encounter Additional Health Concerns Infection Onset Date Last Indicated Resolved Time MRSA Comment:Recurrent MRSA cellulitis per CareEverywhere 03/26/2021 03/26/2021 documented as of this encounter Care Teams Wedding Day Coordinator Relationship Specialty Start Date End Date Martina Owen PA-C PCP - General Physician Cash Register Mechanic 02/11/19 Queta Prater CNP [address] [place] [address] 539395 Nurse Practitioner Urology 09/22/20 Song Leach MD [address] [place] [address] 304605 Assigned Surgical Provider 11/20/23 documented as of this encounter
--- OUTSIDE RECORDS SUMMARY | 2024-03-19 17:03 | XMS_ITS | Encounter Summary ---
Author Organization [place] Address [facility] [place] [address] Care Team Providers Care Automation And Control Engineer Name Role Phone Martina Owen PA-C Primary Care Provider Queta Prater CNP Unavailable [phone] Song Leach MD Unavailable [phone] Encounter Details Date Type Department Care Team (Late st Contact Info) Description 12/14/2023 MyC Medical Advice [facility]rology Clinic [place] [phone] [facility] [address] [place] [address] Harika Andrew, RN Social History Tobacco Use Types Packs/Day [...] st Contact Info) Description 04/30/2024 4:20 PM SOLAR INSTALLER TECHNICIAN Ancillary Procedure [facility] [address] [place] [address] Song Leach MD [address] [place] [address] [phone] documented as of this encounter Visit Diagnoses Not on filedocumented in this encounter Additional Health Concerns Infection Onset Date Last Indicated Resolved Time MRSA Comment:Recurrent MRSA cellulitis per CareEverywhere 03/26/2021 03/26/2021 documented as of this encounter Care Teams Automation And Control Engineer Relationship Specialty Start Date End Date Martina Owen PA-C PCP - General Physician Kosher Dietary Service Supervisor 02/11/19 Queta Prater CNP [address] [place] [address] 593125 Nurse Practitioner Urology 09/22/20 Song Leach MD [address] [place] [address] 150245 Assigned Surgical Provider 11/20/23 documented as of this encounter
--- OUTSIDE RECORDS SUMMARY | 2024-03-19 17:03 | XMS_ITS | Encounter Summary ---
Author Organization [place] Address [address] [place] [address]. [place] [address] Care Team Providers Care Cluster Bore Operator Name Role Phone Martina Owen PA-C Primary Care Provider Queta Prater CNP Unavailable [phone] Song Leach MD Unavailable [phone] Reason for Referral * Diagnostic Imaging MRI (Routine) - Closed Specialty Diagnoses / Procedures Referred By Contac ortega Referred To Contact Radiology. Diagnoses Crohn's disease of both small and large intestine without complication (H) Procedures MR Enterography wo and w Contrast Michael Lundberg MD [facility] [address] [place] [address] [place] [address] Referral ID Status Reason Start Date Expiration Date Visits Re quested Visits Authorized [id number] Closed 12/15/2023 12/14/2024 1 1 Reason for Visit * Diagnostic Imaging MRI (Routine) - Closed Specialty Diagnoses / Procedures Referred By Contac t Referred To Contact Radiology. Diagnoses Crohn's disease of both small and large intestine without complication (H) Procedures MR Enterography wo and w Contrast Michael Lundberg MD [facility] [address] [place], [place] [address] [address] Referral ID Status Reason Start Date Expiration Date Visits Re quested Visits Authorized [id number] Closed 12/15/2023 12/14/2024 1 1 Encounter Details Date Type Department Care Team (Late st Contact Info) Description 01/06/2024 12:17 PM CDT - 01/06/2024 11:59 PM CDT Hospital Encounter [facility] [address] [facility] [address] [place] [phone] Michael Lundberg MD [facility] [address] [place] [id number] Crohn's disease of both small and large intestine without complication (H) Discharge Disposition: Home or Self Care Social [...] INJECT 0.5MG INTO THE SKIN WEEKLY 01/28/2021 cephALEXin (KEFLEX) 500 MG capsule Take 500 mg by mouth 2 times daily 02/27/2024 dexamethasone (DECADRON) 2 MG tablet Take 5 tablets (10 mg) by mouth once for 1 dose 5 tablet 11/24/2022 02/27/2024 documented as of this encounter Plan of Treatment Upcoming Encounters Date Type Department Care Team (Late st Contact Info) Description 04/30/2024 4:20 PM GREASE RENDERER Ancillary Procedure [facility] [address] [place] [phone] Song Leach MD [address] [place] [address] documented as of this encounter Procedures Procedure Name Priority Date/Time Associated Diagnosis Comments MR ENTEROGRAPHY W/O AND W CONTRAST Routine 01/06/2024 2:14 PM CDT Crohn's disease of both small and large intestine without complication (H) documented in this encounter Results * MR Enterography wo and w Contrast (01/06/2024 2:14 PM CDT) Anatomical Region Laterality Modality Abdomen/Pelvis, SUBRAD MR BODY, UMP MR BODY, RAD MR Magnetic Resonance Impressions 01/06/2024 3:30 PM CDT IMPRESSION: No evidence for active inflammatory Crohn's disease. NELY ARGUELLO MD SYSTEM ID: [id number] Narrative 01/06/2024 3:30 PM CDT EXAMINATION: MR [...] ascites or fluid collections. Procedure Note Nely Arguello MD - 01/06/2024 EXAMINATION: MR ENTEROGRAPHY W/O [...] evidence for active inflammatory Crohn's disease. NELY ARGUELLO MD SYSTEM ID: [id number] Michael Lundberg MD T[facility] MRI ORDERABLES documented in this encounter Visit Diagnoses Diagnosis Crohn's disease of both small and large intestine without complication (H) Regional enteritis of small intestine with large intestine documented in this encounter Administered Medications Inactive Administered Medications - up to 3 most recent administrations Medication Order MAR Action Action Date Dose Rate Site gadobutrol (GADAVIST) injection 11 mL 11 mL, Intravenous, ONCE, On Tue01/06/24 at 1300, For 1 dose $Given 01/06/2024 1:35 PM CDT 11 mLs glucagon injection 1 mg 1 mg, Intravenous, ONCE, On Tue01/06/24 at 1300, For 1 dose, The tech will be required to give the injection of 0.5 mg of glucagon slowly at the beginning of imaging and 0.5 mg of glucagon just before contrast injection. $Given 01/06/2024 1:36 PM CDT 1 mg sodium chloride (PF) 0.9% PF flush 60 mL 60 mL, Intravenous, ONCE, On Tue01/06/24 at 1300, For 1 dose $Given 01/06/2024 1:35 PM CDT 60 mLs documented in this encounter Additional Health Concerns Infection Onset Date Last Indicated Resolved Time MRSA Comment:Recurrent MRSA cellulitis per CareEverywhere 03/26/2021 03/26/2021 documented as of this encounter Care Teams Cluster Bore Operator Relationship Specialty Start Date End Date Martina Owen PA-C PCP - General Physician Surveying Crew Stake Runner 02/11/19 Queta Prater CNP [address] [place], [place] 216975 Nurse Practitioner Urology 09/22/20 Song Leach MD [address] [place], [place] 684675 Assigned Surgical Provider 11/20/23 documented as of this encounter
--- OUTSIDE RECORDS SUMMARY | 2024-03-19 17:03 | XMS_ITS | Encounter Summary ---
Author Organization [place] Address [address] [place] [address]. [place] [address] Care Team Providers Care Commissions Manager Name Role Phone Martina Owen PA-C Primary Care Provider Queta Prater CNP Unavailable [phone] Yanelis Benavides Unavailable [phone] Song Leach MD Unavailable [phone] Song Leach MD Unavailable [phone] Reason for Visit * Reason Onset Date Comments Patient Request 03/30/2021 Call Back 03/31/2021 Schedule Surgery for more stones or stent removal Call Back 04/02/2021 Schedule surgery for more stones and stent removal Encounter Details Date Type Department Care Team ([facility] st Contact Info) Description 03/30/2021 Telephone [facility] Clinic [address] [address] Song Leach MD [address] [place] [address] Patient Request; Call Back (Schedule Surgery [...] Message routed to: [facility] [place] U[place] Travel Screening: Not Applicable * Telephone [...] to be doing and schedulingfor that. Dr. Laech's corporate scheduler is out of the office, returning 04/02/21 (which the pt isaware of). Please call him to discuss which route he should be doing. Action Taken: Message routed to: [facility] [place] uro Travel Screening: Not Applicable * Telephone Encounter - Deisi Alvarado - 03/30/2021 3:13 PM CDT [facility] Call Center Phone Message May a detailed [...] st Contact Info) Description 04/30/2024 4:20 PM SNOW REMOVER Ancillary Procedure [address] [phone] Song Leach MD [address] [place] [address] [phone] documented as of this encounter Visit Diagnoses Not on filedocumented in this encounter Additional Health Concerns Infection Onset Date Last Indicated Resolved Time MRSA Comment:Recurrent MRSA cellulitis per CareEverywhere 03/26/2021 03/26/2021 documented as of this encounter Care Teams Commissions Manager Relationship Specialty Start Date End Date Martina Owen PA-C PCP - General Physician Investigations Director 02/11/19 Queta Prater CNP [address] [place] [address] [phone] Nurse Practitioner Urology 09/22/20 Yanelis Benavides PA [address] [place] [address] [place], [place] 872645 Assigned Surgical Provider 02/08/21 07/11/21 Song Leach MD [address] [place] [address] 287353 Assigned Surgical Provider 07/12/21 12/31/22 Song Leach MD [address] [place] [address] Assigned Surgical Provider 11/20/23 documented as of this encounter
--- OUTSIDE RECORDS SUMMARY | 2024-03-19 17:03 | XMS_ITS | Encounter Summary ---
Author Organization [place] Address [address] [place] [address]. [place] [address] Care Team Providers Care Pro Shop Attendant Name Role Phone Bryan Cardoza MD Primary Care Provider [phone] Martina Owen PA-C Primary Care Provider Queta Prater CNP Unavailable [phone] Yanelis Benavides Unavailable [phone] Song Leach MD Unavailable [phone] Song Leach MD Unavailable [phone] Encounter Details Date Type Department Care Team (Late st Contact Info) Description 10/16/[address] [address] Srinivas Salinas MD OPERATIVE REPORT [...] encounter Progress Notes * 10/16/2003 11:59 PM [id number] 00:00 Operative Report-OMAR LÓPEZ) [Entered: 00:00 Tr anscription ([facility])] PREOPERATIVE DIAGNOSES: 1. Crohn disease. 2. [...] sta ndard surgical fashion. Using a 21- South African rigid cystoscope with a 30-degree lens and [...] Through the st ent, we placed a Syncano guidewire with fluoroscopic guidance all the way up to the kidney. The sten t was then removed. Using the 7.5-South African Ford semi-rigid ureteroscope, we performed rigid ureterosco [...] to the left ureteral orifice. Using a 5-South African open-ended catheter and a Be ntson guidewire, [...] a flexible ureterosco py with the Olympus 7.5-South African flexible ureteroscope. The ureteroscopy itself went fairly [...] w ere able to basket with the 1.9-South African tipless basket and pull out through the [...] over the existing guidewire we placed a 7-South African, 28-cm double- J stent with a nice pigtail curl in the renal pelvis and in the bladder. On the right side, there wa s a 6-South African, 28-cm double-J stent placed. At the end [...] RUIZ MD 15 :14 MT: ge Document: [id number] CC: MD SONAL CARVALHO MD JEFFREY R MICHELL, MD LCN: [id number] DSC: 10/17/2003 Name: MR#: : Proce dure Date: HUBERT ODELL -98 1975 10/16/2003 OPERATIVE REPORT Page 3 of 3 Elect ronically filed by Bhavya Ruiz 10/24/2003 2:01 PM documented in this encounter Plan of Treatment Upcoming Encounters Date Type Department Care Team (Late st Contact Info) Description 04/30/2024 4:20 PM NUMERICAL CONTROL MACHINE MACHINIST Ancillary Procedure [address] [phone] Song Leach MD [address] [place] [address] documented as of this encounter Visit Diagnoses Diagnosis OPERATIVE REPORT- Primary documented in this encounter Additional Health Concerns Infection Onset Date Last Indicated Resolved Time MRSA-Contact Isolation 03/26 8:42 AM CDT MRSA Comment:Recurrent MRSA cellulitis per CareEverywhere 03/26/2021 03/26/2021 documented as of this encounter Care Teams Pro Shop Attendant Relationship Specialty [place] [address] [place] [address] PCP - General 04/10/03 02/10/19 Martina Owen PA-C [address] [place] [address] PCP - General Physician Carpet Jack 02/11/19 Queta Prater CNP [address] [place] [address] Nurse Practitioner Urology 09/22/20 Yanelis Benavides PA [address] [place] [address] [place] [address] Assigned Surgical Provider 02/08/21 07/11/21 Song Leach MD [address] [place] [address] Assigned Surgical Provider 07/12/21 12/31/22 Song Leach MD [address] [place] [address] Assigned Surgical Provider 11/20/23 documented as of this encounter
--- OUTSIDE RECORDS SUMMARY | 2024-03-19 17:03 | XMS_ITS | Encounter Summary ---
Author Organization [facility] Address [address] [place] [address]. [place] [address] Care Team Providers Care Senior Lead Project Manager Name Role Phone Martina Owen PA-C Primary Care Provider Queta Prater CNP Unavailable [phone] Song Leach MD Unavailable [phone] Encounter Details Date Type Department Care Team (Late st Contact Info) Description 01/20/2024 [facility] Kidney [place] [address] [place] [phone] Song Leach MD 9 [place], [place] [phone] Social History Tobacco Use Types Packs/Day Years [...] Contact Info) Description 04/30/2024 4:20 PM ASSOCIATE PASTOR Ancillary Procedure [facility] [address] [place] [phone] Song Leach MD 9 [place], [place] 778[address] documented as of this encounter Visit Diagnoses Not on filedocumented in this encounter Additional Health Concerns Infection Onset Date Last Indicated Resolved Time MRSA Comment:Recurrent MRSA cellulitis per CareEverywhere 03/26/2021 03/26/2021 documented as of this encounter Care Teams Senior Lead Project Manager Relationship Specialty Start Date End Date Martina Owen PA-C PCP - General Physician Surg Tech 02/11/19 Queta Prater CNP [address] [place] [address] 854055 Nurse Practitioner Urology 09/22/20 Song Leach MD [address] [place] [address] [id number] Assigned Surgical Provider 11/20/23 documented as of this encounter
--- OUTSIDE RECORDS SUMMARY | 2024-03-19 17:03 | XMS_ITS | Encounter Summary ---
Author Organization [facility] Address [address] [place] [address]. [place] [address] Care Team Providers Care Permastone Applicator Name Role Phone Martina Owen PA-C Primary Care Provider Queta Prater CNP Unavailable [phone] Yanelis Benavides Unavailable [phone] Song Leach MD Unavailable [phone] Song Leach MD Unavailable [phone] Encounter Details Date Type Department Care Team (Late st Contact Info) Description 04/02/2021 [facility] Medical Advice [facility] [address] [address] Song Leach MD [address] [place] [address] Social History Tobacco Use Types Packs/Day [...] st Contact Info) Description 04/30/2024 4:20 PM PRINTMAKER Ancillary Procedure [facility] [address] [place] [address] [phone] Song Leach MD [address] [place] [address] 684995 documented as of this encounter Visit Diagnoses Not on filedocumented in this encounter Additional Health Concerns Infection Onset Date Last Indicated Resolved Time MRSA Comment:Recurrent MRSA cellulitis per CareEverywhere 03/26/2021 03/26/2021 documented as of this encounter Care Teams Permastone Applicator Relationship Specialty Start Date End Date Martina Owen PA-C PCP - General Physician Crutcher Helper 02/11/19 Queta Prater CNP [address] [place] [address] 604065 Nurse Practitioner Urology 09/22/20 Yanelis Benavides PA [address] [place] [address] [place], [place] 048975 Assigned Surgical Provider 02/08/21 07/11/21 Song Leach MD [address] [place] [address] 357435 Assigned Surgical Provider 07/12/21 12/31/22 Song Leach MD [address] [place] [address] 000775 Assigned Surgical Provider 11/20/23 documented as of this encounter
--- OUTSIDE RECORDS SUMMARY | 2024-03-19 17:03 | XMS_ITS | Encounter Summary ---
Author Organization [facility] Address [address] [place] [address]. [place] [address] Care Team Providers Care Log Loader Name Role Phone Martina Owen PA-C Primary Care Provider Queta Prater CNP Unavailable [phone] Song Leach MD Unavailable [phone] Encounter Details Date Type Department Care Team (Late st Contact Info) Description 01/27/2024 Telephone [facility] Kidney Stone [place] [address] [facility] [address] [place] [phone] Minal Boudreaux Social History Tobacco Use Types [...] st Contact Info) Description 04/30/2024 4:20 PM COLLECTION SYSTEMS FOREMAN Ancillary Procedure [facility] [address] [place] [phone] Song Leach MD [address] [place] [address] [id number] documented as of this encounter Visit Diagnoses Not on filedocumented in this encounter Additional Health Concerns Infection Onset Date Last Indicated Resolved Time MRSA Comment:Recurrent MRSA cellulitis per CareEverywhere 03/26/2021 03/26/2021 documented as of this encounter Care Teams Log Loader Relationship Specialty Start Date End Date Martina Owen PA-C PCP - General Physician Maintenance Representative 02/11/19 Queta Prater CNP [address] [place] [address] 938375 Nurse Practitioner Urology 09/22/20 Song Leach MD [address] [place] [address] [id number] Assigned Surgical Provider 11/20/23 documented as of this encounter
--- OUTSIDE RECORDS SUMMARY | 2024-03-19 17:03 | XMS_ITS | Encounter Summary ---
Author Organization [facility] [place] Address [address] [place] [address]. [place] [address] Care Team Providers Care Goldsmith Apprentice Name Role Phone Martina Owen PA-C Primary Care Provider Queta Prater CNP Unavailable [phone] Yanelis Benavides Unavailable [phone] Song Leach MD Unavailable [phone] Song Leach MD Unavailable [phone] Encounter Details Date Type Department Care Team (Late st Contact Info) Description 04/07/2021 [facility] Medical Advice [address] [place] [address] Mabel Arthur, RN Social History [...] st Contact Info) Description 04/30/2024 4:20 PM ENGINE BUILDER Ancillary Procedure [address] [address] Song Leach MD [address] [place] [address] documented as of this encounter Visit Diagnoses Not on filedocumented in this encounter Additional Health Concerns Infection Onset Date Last Indicated Resolved Time MRSA Comment:Recurrent MRSA cellulitis per CareEverywhere 03/26/2021 03/26/2021 documented as of this encounter Care Teams Goldsmith Apprentice Relationship Specialty Start Date End Date Martina Owen PA-C PCP - General Physician Cover Mat Machine Operator 02/11/19 Queta Prater CNP [address] [place] [address] Nurse Practitioner Urology 09/22/20 Yanelis Benavides PA [address] [place] [address] [place] [address] Assigned Surgical Provider 02/08/21 07/11/21 Song Leach MD [address] [place] [address] Assigned Surgical Provider 07/12/21 12/31/22 Song Leach MD [address] [place] [address] Assigned Surgical Provider 11/20/23 documented as of this encounter
--- OUTSIDE RECORDS SUMMARY | 2024-03-19 17:03 | XMS_ITS | Encounter Summary ---
Author Organization [facility] Address [address] [place] [address]. [place] [address] Care Team Providers Care Bladder Changer Name Role Phone Bryan Cardoza MD Primary Care Provider [phone] Martina Owen PA-C Primary Care Provider Queta Prater CNP Unavailable [phone] Yanelis Benavides Unavailable [phone] Song Leach MD Unavailable [phone] Song Leach MD Unavailable [phone] Encounter Details Date Type Department Care Team (Late st Contact Info) Description 10/02/[address] [address] Srinivas Salinas MD OPERATIVE REPORT [...] encounter Progress Notes * 10/02/2003 11:59 PM [id number] 00:00 Operative Report-OMAR LÓPEZ) [Entered: 00:00 Tr anscription ([facility])] PREOPERATIVE DIAGNOSIS: Bilateral nephrolithiasis. POSTOPERATIVE DIAGNOSIS: Bi lateral nephrolithiasis. NAME OF OPERATION: 1. Cystoscopy. 2. Right ureteroscopy with holmium laser fragmentation and stone basketing. 3. Right double-J stent placement. SURGEON: Sonal Perez MD RE SIDENT SURGEON: Omar Ruiz MD ANESTHESIA: General endotracheal anesthesia. ESTIMATED BLOOD LOSS: 3 mL. COMPLICATIONS: None. OPERATIVE INDICATIONS: Hubert Odell is a 27-year-old male with a [...] the standard lydia gical fashion. Using a 21-Solomon Islander cystoscope with 30 degree lens in bridge, the penile meatus was gen tly cannulated. The urethra was normal in caliber and appearance. The prostate was small and benign . The bladder was superficially inspected and was free of stones, foreign objects, or tumors. Attent ion was then turned to the right ureteral orifice. Using a 5-Solomon Islander open-ended catheter and a Bentso n guidewire, the right ureteral orifice was gently cannulated. It was quite easy to feel a stone at the distal UVJ. Using C-arm fluoroscopy the guidewire was taken all the way up to the right renal pel vis. At this point both the cystoscope and open-ended stent were removed, leaving the [place]istasson guidew shaw in place. Using the 7.5-Solomon Islander semi rigid ureteroscope, we then performed ureteroscopy. [...] using a 2.2 nitinol tiples s and chitimacha basket. Once all stone fragments were removed, [...] to place a double-J stent. A 6 -Solomon Islander 28-cm contour stent was placed with a [...] by: OMAR RUIZ MD D: 2003 12:53 [id number] MT: ge Document: [id number] CC: MD SONAL DORSEY MD JEFFREY R MICHELL, MD Document: [id number] CC: MD SONAL CARVALHO MD JEFFREY R MICHELL, MD MT: ?? LCN: [id number] DSC: 10/02/2003 Name: MR#: : Procedure Date: HUBERT ODELL -[id number] 10/02/2003 OPERATIVE REPORT Page 3 of 2 Electronically filed by Bhavya Ruiz 004 9:53 AM documented in this encounter Plan of Treatment Upcoming Encounters Date Type Department Care Team (Late st Contact Info) Description 04/30/2024 4:20 PM ASSEMBLY INSPECTOR Ancillary Procedure [address] [phone] Song Leach MD [address] [place] [address] [id number] documented as of this encounter Visit Diagnoses Diagnosis OPERATIVE REPORT- Primary documented in this encounter Additional Health Concerns Infection Onset Date Last Indicated Resolved Time MRSA-Contact Isolation 03/26 8:42 AM CDT MRSA Comment:Recurrent MRSA cellulitis per CareEverywhere 03/26/2021 03/26/2021 documented as of this encounter Care Teams Bladder Changer Relationship Specialty [place] [address] [place] [address] PCP - General 04/10/03 02/10/19 Martina Owen PA-C [address] [place] [address] PCP - General Physician Mid Level Clinician 02/11/19 Queta Prater CNP [address] [place], [place] 020215 Nurse Practitioner Urology 09/22/20 Yanelis Benavides PA [address] [facility] [place], [place] 065[address] Assigned Surgical Provider 02/08/21 07/11/21 Song Leach MD [address] [place], [place] 571655 Assigned Surgical Provider 07/12/21 12/31/22 Song Leach MD [address] [place], [place] 443405 Assigned Surgical Provider 11/20/23 documented as of this encounter
--- OUTSIDE RECORDS SUMMARY | 2024-03-19 17:03 | XMS_ITS | Encounter Summary ---
Author Organization [facility] Address [address] [place] [address]. [place] [address] Care Team Providers Care Inspector Boiler Name Role Phone Martina Owen PA-C Primary Care Provider Queta Prater CNP Unavailable [phone] Song Leach MD Unavailable [phone] Encounter Details Date Type Department Care Team (Late st Contact Info) Description 01/31/2024 Telephone [facility] Kidney Stone [place] [address] [facility] [address] [place] [phone] Minal Boudreaux Social History Tobacco Use Types [...] encounter Miscellaneous Notes * Telephone Encounter - Minal Boudreaux - 01/31/2024 1:51 PM CDT .Spoke with: Patient Date of surgery: Tuesday with Dr Leach Location: [facility] 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 Pre op with provider: Patient will schedule with [facility] H&P Scheduled in PAC- NA Pre procedure covid :NA Additional imaging: NA Surgery Packet : Sent via [employer] Additional comments: Please call for surgery teaching documented in this encounter Plan of Treatment Upcoming Encounters Date Type Department Care Team (Late st Contact Info) Description 04/30/2024 4:20 PM CLOTH DYEING RANGE TENDER Ancillary Procedure [address] [address] Song Leach MD [address] [place] [address] 016505 documented as of this encounter Visit Diagnoses Not on filedocumented in this encounter Additional Health Concerns Infection Onset Date Last Indicated Resolved Time MRSA Comment:Recurrent MRSA cellulitis per CareEverywhere 03/26/2021 03/26/2021 documented as of this encounter Care Teams Inspector Boiler Relationship Specialty Start Date End Date Martina Owen PA-C PCP - General Physician Pressure Washer 02/11/19 Queta Prater CNP [address] [place] [address] 910725 Nurse Practitioner Urology 09/22/20 Song Leach MD [address] [place] [address] [phone] Assigned Surgical Provider 11/20/23 documented as of this encounter
--- OUTSIDE RECORDS SUMMARY | 2024-03-19 17:03 | XMS_ITS | Encounter Summary ---
Author Organization [facility] Address [address] [place] [address]. [place] [address] Care Team Providers Care Maintenance Director Name Role Phone Martina Owen PA-C Primary Care Provider Queta Prater CNP Unavailable [phone] Yanelis Benavides Unavailable [phone] Song Leach MD Unavailable [phone] Song Leach MD Unavailable [phone] Encounter Details Date Type Department Care Team (Late st Contact Info) Description 04/03/2021 [facility] [address] [place] [address] Gerry Greenfield Social History Tobacco [...] st Contact Info) Description 04/30/2024 4:20 PM BANKRUPTCY ATTORNEY Ancillary Procedure [address] [address] Song Leach MD [address] [place] [address] documented as of this encounter Visit Diagnoses Not on filedocumented in this encounter Additional Health Concerns Infection Onset Date Last Indicated Resolved Time MRSA Comment:Recurrent MRSA cellulitis per CareEverywhere 03/26/2021 03/26/2021 documented as of this encounter Care Teams Maintenance Director Relationship Specialty Start Date End Date Martina Owen PA-C PCP - General Physician Stone Fabricator 02/11/19 Queta Prater CNP [address] [place] [address] Nurse Practitioner Urology 09/22/20 Yanelis Benavides PA [address] [place] [address] [place] [address] Assigned Surgical Provider 02/08/21 07/11/21 Song Leach MD [address] [place] [address] Assigned Surgical Provider 07/12/21 12/31/22 Song Leach MD [address] [place] [address] Assigned Surgical Provider 11/20/23 documented as of this encounter
--- OUTSIDE RECORDS SUMMARY | 2024-03-19 17:03 | XMS_ITS | Encounter Summary ---
Author Organization [facility] Address [address] [place] [address]. [place] [address] Care Team Providers Care Flight Control Manager Name Role Phone Martina Owen PA-C Primary Care Provider Queta Prater CNP Unavailable [phone] oSng Leach MD Unavailable [phone] Encounter Details Date Type Department Care Team (Late st Contact Info) Description 01/09/2024 [facility] Medical Advice [facility] Kidney Stone [place] [address] [facility] [address] [place] [phone] Song Leach MD 9 [place], [place] 94[address] Social History Tobacco Use Types Packs/Day Years [...] st Contact Info) Description 04/30/2024 4:20 PM MANAGER OF BUSINESS Ancillary Procedure [facility] [address] [place] [phone] Song Leach MD 9 [place], [place] 574[address] documented as of this encounter Visit Diagnoses Not on filedocumented in this encounter Additional Health Concerns Infection Onset Date Last Indicated Resolved Time MRSA Comment:Recurrent MRSA cellulitis per CareEverywhere 03/26/2021 03/26/2021 documented as of this encounter Care Teams Flight Control Manager Relationship Specialty Start Date End Date Martina Owen PA-C PCP - General Physician Black Oxide Operator 02/11/19 Queta Prater CNP [address] [place] [address] 626565 Nurse Practitioner Urology 09/22/20 Song Leach MD [address] [place] [address] 395615 Assigned Surgical Provider 11/20/23 documented as of this encounter
[2024-03-19 17:17] LABS: Basophils Absolute Auto 0.02 K/uL (0.00-0.30); Basophils Percent Auto 0.2 % (0.0-3.0); Eosinophils Absolute Auto 0.33 K/uL (0.00-0.50); Eosinophils Percent Auto 4.1 % (0.0-7.0); Hematocrit 46.6 % (37.0-53.0); Hemoglobin* 15.5 gm/dL (13.5-17.5); Immature Granulocytes Abs Auto 0.03 K/uL (0.00-0.30); Immature Granulocytes Pct Auto 0.4 %; Lymphocytes Absolute Auto 3.45 K/uL (0.90-2.90); Lymphocytes Percent Auto 42.9 % (20-44); Mean Corpuscular HGB Conc 33 gm/dL (32-36); Mean Corpuscular Hemoglobin 31 pg (26-34); Mean Corpuscular Volume 94 fL (80-100); Monocytes Percent Auto 15.2 % (0.0-11.0); Neutrophils Percent Auto 37.2 % (42.0-72.0); Platelet Count* 193 K/uL (140-440); RDW Coefficient of Variation % 12.2 % (11.5-15.5); Red Blood Count 4.97 m/uL (4.30-5.90); White Blood Count* 8.04 K/uL (4.50-11.00)
[2024-03-19 17:19] LABS: Slide Review Reflex No
[2024-03-19 17:28] LABS: Albumin* 5.1 g/dL (3.3-5.0); Chloride* 101 mmol/L (96-114); Sodium* 139 mmol/L (135-149)
[2024-03-19 17:29] LABS: Potassium* 4.2 mmol/L (3.6-5.1)
[2024-03-19 17:31] LABS: Alanine Aminotransferase* 37 U/L (4-50); Alkaline Phosphatase* 63 U/L (40-150); Anion Gap 12 mEq/L (7-15); Aspartate Amino Transferase* 25 U/L (12-35); Bilirubin Total* 0.6 mg/dL (0.1-1.5); Blood Urea Nitrogen* 20 mg/dL (5-24); Carbon Dioxide* 26 mmol/L (20-32); Creatinine* 0.9 mg/dL (0.5-1.5); Est. Creatinine Clearance* 108.07; Estimated Glomerular Filt Rate 106 ml/min; Total Protein* 8.5 g/dL (6.0-8.3)
[2024-03-19 17:32] LABS: Calcium* 9.9 mg/dL (8.4-10.6); Glucose* 108 mg/dL (60-115)
[2024-03-19 17:37] LABS: C Reactive Protein* < 0.5 mg/dL (0.5-1.0)
[2024-03-19 18:03] LABS: INR 0.92 (0.91-1.10); Prothrombin Time 12.9 Seconds
[2024-03-19 18:04] LABS: Partial Thromboplastin Time* 28 Seconds (23-33)
[2024-03-19 18:06] LABS: D Dimer Quantitative* 0.51 ug/ml (0.00-0.50)
== END 2024-03-19 17:55 | disposition home or self-care (01) ==
PROVIDERS: Emergency Provider Family Medicine; PCP Emergency Medicine
DX: M25.561 Pain in right knee (principal); R60.0 Localized edema
CPT/HCPCS: 36415; 80053; 85025; 85379; 85610; 85730; 86140; 93971; 99283; 99284

== ENCOUNTER 2024-07-25 16:15 | Outpatient (RCR) | payer OTHER, SELFPAY ==
--- OUTSIDE RECORDS SUMMARY | 2024-05-31 16:13 | XMS_ITS | Encounter Summary ---
Author Organization [facility] Address [address] [place] [address]. [place] [address] Care Team Providers Care Dock Operations Supervisor Name Role Phone Martina Owen PA-C Primary Care Provider Queta Prater CNP Unavailable [phone] Song Leach MD Unavailable [phone] Song Leach MD Unavailable [phone] Encounter Details Date Type Department Care Team (Late st Contact Info) Description 02/10/2024 [facility] Medical Advice [facility] Kidney Stone [place] [address] [facility] [address] [place] [phone] Dai Nichole RN Social History Tobacco Use [...] Assigned at Male 12/01/2020 9:08 PM CDT Legal Sex Male 3:33 AM SUPERVISOR NETWORK CONTROL OPERATORS Gender Identity Male 12/01/2020 9:08 PM CDT Sexual Orientation Straight 12/01/2020 9: 08 PM CDT documented as of this encounter Plan of Treatment Upcoming Encounters Date Type Department Care Team (Late st Contact Info) Description 07/09/2024 1:00 PM SUPERVISOR NETWORK CONTROL OPERATORS Virtual Visit [facility] Kidney Stone [place] [address] [facility] [address] [place] [address] Song Leach MD [address] [place] [address] documented as of this encounter Visit Diagnoses Not on filedocumented in this encounter Additional Health Concerns Infection Onset Date Last Indicated Resolved Time MRSA Comment:Recurrent MRSA cellulitis per CareEverywhere 03/26/2021 03/26/2021 documented as of this encounter Care Teams Dock Operations Supervisor Relationship Specialty Start Date End Date Martina Owen PA-C PCP - General Physician Field Service Technician Poultry 02/11/19 Queta Prater CNP [address] [place] [address] Nurse Practitioner Urology 09/22/20 Song Leach MD [address] [place] [address] Assigned Surgical Provider 11/20/23 Song Leach MD 9 [place] [address] Urology 05/28/24 documented as of this encounter
--- OUTSIDE RECORDS SUMMARY | 2024-05-31 16:13 | XMS_ITS | Encounter Summary ---
Author Organization [facility] Address [address] [place], [place] [address]. [place] [address] Care Team Providers Care Metal Sheet Roller Operator Name Role Phone Martina Owen PA-C Primary Care Provider Queta Prater CNP Unavailable [phone] Song Leach MD Unavailable [phone] Song Leach MD Unavailable [phone] Encounter Details Date Type Department Care Team (Late st Contact Info) Description 04/25/2024 [facility] Advice [facility] Kidney Stone [place] [address] [facility] [address] [place] [phone] Ayse Alvarado, NAOMY Social History Tobacco Use Types Packs/Day Years [...] PM CDT Legal Sex Male 3:33 AM SIGN SHOP SUPERVISOR Gender Identity Male 12/01/2020 9:08 PM CDT Sexual Orientation Straight 12/01/2020 9: 08 PM CDT documented as of this encounter Plan of Treatment Upcoming Encounters Date Type Department Care Team (Late st Contact Info) Description 07/09/2024 1:00 PM SIGN SHOP SUPERVISOR Virtual Visit [facility] Kidney Stone [place] [address] [place] [address] [address] [place] [address] Song Leach MD [address] [place] [address] 078675 documented as of this encounter Visit Diagnoses Not on filedocumented in this encounter Additional Health Concerns Infection Onset Date Last Indicated Resolved Time MRSA Comment:Recurrent MRSA cellulitis per CareEverywhere 03/26/2021 03/26/2021 documented as of this encounter Care Teams Metal Sheet Roller Operator Relationship Specialty Start Date End Date Martina Oewn PA-C PCP - General Physician Social Work Instructor 02/11/19 Queta Prater CNP [address] [place] [address] Nurse Practitioner Urology 09/22/20 Song Leach MD [address] [place] [address] Assigned Surgical Provider 11/20/23 Song Leach MD [address] [place] [address] Urology 05/28/24 documented as of this encounter
--- OUTSIDE RECORDS SUMMARY | 2024-05-31 16:13 | XMS_ITS | Encounter Summary ---
Author Organization [facility] Address [address] [place] [address]. [place] [address] Care Team Providers Care Sales And Distribution Clerk Name Role Phone Martina Owen PA-C Primary Care Provider Queta Prater CNP Unavailable [phone] Song Leach MD Unavailable [phone] Reason for Visit * Reason Onset Date Comments Appointment 05/21/2024 Encounter Details Date Type Department Care Team ([facility] st Contact Info) Description 05/21/2024 Telephone [facility] [place] [address] [facility] [address] [place] [address] Song Leach MD 909 [place], [place] 48[address] Appointment Social History Tobacco Use Types Packs/Day Years [...] PM CDT Legal Sex Male 3:33 AM NEGATIVE CLEANER Gender Identity Male 12/01/2020 9:08 PM CDT Sexual Orientation Straight 12/01/2020 9: 08 PM CDT documented as of this encounter Miscellaneous Notes * Telephone Encounter - Ayse Alvarado CMA - 05/22/2024 11:05 AM CST Message left for patient to call Urology scheduling to reschedule 05/21/24 appointment for when he is back in [place]. TIVE CLEANER * Telephone Encounter - Jane Escalona - 05/21/2024 12:27 PM CST Patient needs to be rescheduled for their virtual visit due to Reason for Reschedule: [id number] Scheduling team, please refer to service line late cancellation/no-show policies and reach out to patient at a later date for rescheduling. Appointment mode: Video Provider: Song Leach TIVE CLEANER documented in this encounter Plan of Treatment Upcoming Encounters Date Type Department Care Team (Late st Contact Info) Description 07/09/2024 1:00 PM NEGATIVE CLEANER Virtual Visit [facility] Kidney Stone [place] [address] [facility] [address] [place] [phone] Song Leach MD [address] [place] [address] 556145 documented as of this encounter Visit Diagnoses Not on filedocumented in this encounter Additional Health Concerns Infection Onset Date Last Indicated Resolved Time MRSA Comment:Recurrent MRSA cellulitis per CareEverywhere 03/26/2021 03/26/2021 documented as of this encounter Care Teams Sales And Distribution Clerk Relationship Specialty Start Date End Date Martina Owen PA-C PCP - General Physician Entertainment Manager 02/11/19 Queta Prater CNP 9 [place], [place] [phone] Nurse Practitioner Urology 09/22/20 Song Leach MD [address] [place] [address] 932205 Assigned Surgical Provider 11/20/23 documented as of this encounter
--- OUTSIDE RECORDS SUMMARY | 2024-05-31 16:13 | XMS_ITS | Encounter Summary ---
Author Organization [place] Address [address] [place] [address]. [place] [address] Care Team Providers Care Copper Miner Name Role Phone Martina Owen PA-C Primary Care Provider Queta Prater CNP Unavailable [phone] Song Leach MD Unavailable [phone] Song Leach MD Unavailable [phone] Encounter Details Date Type Department Care Team (Late st Contact Info) Description 03/18/2024 [facility] Medical Advice [facility] [place] [address] [facility] [address] [place] [phone] Song Leach MD [address] [place], [place] [id number] Social History Tobacco Use Types Packs/Day Years [...] PM CDT Legal Sex Male 3:33 AM SHEET CUTTING OPERATOR Gender Identity Male 12/01/2020 9:08 PM CDT Sexual Orientation Straight 12/01/2020 9: 08 PM CDT documented as of this encounter Plan of Treatment Upcoming Encounters Date Type Department Care Team (Late st Contact Info) Description 07/09/2024 1:00 PM SHEET CUTTING OPERATOR Virtual Visit [facility] [place] [address] [facility] [address] [place] [phone] Song Leach MD [address] [place] [address] documented as of this encounter Visit Diagnoses Not on filedocumented in this encounter Additional Health Concerns Infection Onset Date Last Indicated Resolved Time MRSA Comment:Recurrent MRSA cellulitis per CareEverywhere 03/26/2021 03/26/2021 documented as of this encounter Care Teams Copper Miner Relationship Specialty Start Date End Date Martina Owen PA-C PCP - General Physician Community Assistant 02/11/19 Queta Prater CNP [address] [place] [address] [id number] Nurse Practitioner Urology 09/22/20 Song Leach MD [address] [place] [address] [id number] Assigned Surgical Provider 11/20/23 Song Leach MD [address] [place] [id number] Urology 05/28/24 documented as of this encounter
--- OUTSIDE RECORDS SUMMARY | 2024-05-31 16:13 | XMS_ITS | Encounter Summary ---
Author Organization [place] Address [address] [place] [address]. [place] [address] Care Team Providers Care Stretch Box Tender Name Role Phone Martina Owen PA-C Primary Care Provider Queta Prater CNP Unavailable [phone] Song Leach MD Unavailable [phone] Reason for Visit * Diagnostic Imaging Ultrasound (Routine) - Pending Review Specialty Diagnoses / Procedures Referred By Contac t Referred To Contact Radiology. Diagnoses Nephrolithiasis Procedures US Renal Complete Non-Vascular Song Leach MD [address] [place] [address] Phone: tel: fax: Referral ID Status Reason Start Date Expiration Date V isits Requested Visits Authorized [id number] Pending Review 02/27/2024 02/26/2025 1 1 Encounter Details Date Type Department Care Team (Latest Contact Info) Description 04/30/2024 4:20 PM NIBBLER OPERATOR Ancillary Procedure [facility] [address] [place] [phone] Song Leach MD [address] [place] [address] Nephrolithiasis Social History Tobacco Use Types Packs/Day [...] PM CDT Legal Sex Male 3:33 AM NIBBLER OPERATOR Gender Identity Male 12/01/2020 9:08 PM CDT Sexual Orientation Straight 12/01/2020 9: 08 PM CDT documented as of this encounter Plan of Treatment Upcoming Encounters Date Type Department Care Team (Late st Contact Info) Description 07/09/2024 1:00 PM NIBBLER OPERATOR Virtual Visit [facility] [place] [address] [facility] [address] [place] [phone] Song Leach MD [address] [place] [id number] documented as of this encounter Procedures Procedure Name Priority Date/Time Associated Diagnosis Comments US RENAL COMPLETE NON-VASCULAR Routine 04/30/2024 4:31 PM NIBBLER OPERATOR Nephrolithiasis documented in this encounter Results * US Renal Complete Non-Vascular (04/30/2024 4:31 PM NIBBLER OPERATOR) Anatomical Region Laterality Modality Abdomen/Pelvis Ultrasound 04/30/2024 4:31 PM NIBBLER OPERATOR Impressions 04/30/2024 4:33 PM NIBBLER OPERATOR IMPRESSION: 1. No hydronephrosis is seen. 2. Several echogenic foci are seen within both kidneys, likely correlating with small stones better characterized on the prior CT exam from 11/11/2013. Narrative 04/30/2024 4:33 PM NIBBLER OPERATOR EXAM: US RENAL COMPLETE NON-VASCULAR LOCATION: [facility] DATE: 04/30/2024 INDICATION: assess for stone or hydronephrosis after ureteroscopy COMPARISON: Correlate with CT abdomen and pelvis performed on 11/12/2023 TECHNIQUE: Routine Bilateral Renal and Bladder Ultrasound. FINDINGS: RIGHT KIDNEY: 12.7 x 6.3 x 5.2 cm. No hydronephrosis. 1.8 x 1.5 x 1.5 cm cyst is seen along the inferior pole. 3 mm echogenic focus is present along the mid pole. LEFT KIDNEY: 12.7 x 5.8 x 5.8 cm. No hydronephrosis. 1.4 x 1.3 x 1.0 cm cyst is present along the mid pole. Several echogenic foci are present measuring up to 3 mm along the superior pole. BLADDER: Partially distended with volume measuring 190 cc. Procedure Note Hitesh Zurita MD - 04/30/2024 EXAM: US RENAL COMPLETE NON-VASCULAR LOCATION: [facility] DATE: 04/30/2024 INDICATION: assess for stone or hydronephrosis after ureteroscopy COMPARISON: Correlate with CT abdomen and pelvis performed on 11/12/2023 TECHNIQUE: Routine Bilateral Renal and Bladder Ultrasound. FINDINGS: RIGHT KIDNEY: 12.7 x 6.3 x 5.2 cm. No hydronephrosis. 1.8 x 1.5 x 1.5 cmcyst is seen along the inferior pole. 3 mm echogenic focus is presentalong the mid pole. LEFT KIDNEY: 12.7 x 5.8 x 5.8 cm. No hydronephrosis. 1.4 x 1.3 x 1.0 cmcyst is present along the mid pole. Several echogenic foci are presentmeasuring up to 3 mm along the superior pole. BLADDER: Partially distended with volume measuring 190 cc. IMPRESSION: 1. No hydronephrosis is seen. 2. Several echogenic foci are seen within both kidneys, likelycorrelating with small stones better characterized on the prior CT examfrom 11/11/2013. us Song Leach MD IMG US ORDERABLES Final Result documented in this encounter Visit Diagnoses Diagnosis Nephrolithiasis Calculus of kidney documented in this encounter Additional Health Concerns Infection Onset Date Last Indicated Resolved Time MRSA Comment:Recurrent MRSA cellulitis per CareEverywhere 03/26/2021 03/26/2021 documented as of this encounter Care Teams Stretch Box Tender Relationship Specialty Start Date End Date Martina Owen PA-C PCP - General Physician Sas Programmer 02/11/19 Queta Prater CNP [address] [place] [address] [phone] Nurse Practitioner Urology 09/22/20 Song Leach MD [address] [place] [address] [phone] Assigned Surgical Provider 11/20/23 documented as of this encounter
--- OUTSIDE RECORDS SUMMARY | 2024-05-31 16:13 | XMS_ITS | Encounter Summary ---
Author Organization [place] Address [facility] [place] [address] Care Team Providers Care Wrist Closer Name Role Phone Martina Owen PA-C Primary Care Provider Queta Prater CNP Unavailable [phone] Song Leach MD Unavailable [phone] Encounter Details Date Type Department Care Team (Latest Contact Info) Description 04/30/2024 Travel Social History Tobacco Use Types Packs/Day [...] PM CDT Legal Sex Male 3:33 AM BEE RANCHER Gender Identity Male 12/01/2020 9:08 PM CDT Sexual Orientation Straight 12/01/2020 9: 08 PM CDT documented as of this encounter Plan of Treatment Upcoming Encounters Date Type Department Care Team (Late st Contact Info) Description 07/09/2024 1:00 PM BEE RANCHER Virtual Visit [facility] [place] [address] [facility] [address] [place] [phone] Song Leach MD [address] [place] [address] documented as of this encounter Visit Diagnoses Not on filedocumented in this encounter Additional Health Concerns Infection Onset Date Last Indicated Resolved Time MRSA Comment:Recurrent MRSA cellulitis per CareEverywhere 03/26/2021 03/26/2021 documented as of this encounter Care Teams Wrist Closer Relationship Specialty Start Date End Date Martina Owen PA-C PCP - General Physician Gallery Or Museum Guide 02/11/19 Queta Prater CNP [address] [place] [address] Nurse Practitioner Urology 09/22/20 Song Leach MD [address] [place] [id number] Assigned Surgical Provider 11/20/23 documented as of this encounter
--- OUTSIDE RECORDS SUMMARY | 2024-05-31 16:13 | XMS_ITS | Referral Summary ---
Author Organization [place] Address [address] [place], [place] [address]. [place] [address] Care Team Providers Care Roof Technician Name Role Phone Martina Owen PA-C Primary Care Provider Queta Prater PORTFOLIO LEAD Unavailable [phone] Song Leach MD Unavailable [phone] Song Leach MD Unavailable [phone] Encounters Date Type Department Care Team Description 05/21/2024 Telephone [facility] [place] [address] [facility] [address] [place] [phone] Song Leach MD Appointment 04/30/2024 Travel 04/30/2024 4:20 PM IMMUNOPATHOLOGIST Ancillary Procedure [facility] [address] [place] [phone] Song Leach MD Nephrolithiasis 04/25/2024 [facility] Medical Advice [facility] [place] [address] [place] [address] [address] [place] [phone] Ayse Alvarado, AUDIO VISUAL DIRECTOR 03/18/2024 [facility] Medical Advice [facility] [place] [address] [place] [address] [address] [place] [phone] Song Leach MD from Last 3 Months Allergies Active Allergy Reactions Criticality Noted Date Comments Chicken Allergy 04/10/2003 and turkey Cyclosporine 04/10/2003 anaphylactic Eggs 04/10/2003 anaphylactic Fish Allergy 04/10/2003 Nuts 04/10/2003 Howell 04/10/2003 Medications CLARITIN-D 24 HOUR 10-240 MG OR TB24 1 tab po QD (Once per day) as needed for allergy symptoms 3 Active MULTI-VITAMIN OR TABS 4 Active certolizumab pegol (CIMZIA PREFILLED) 2 X [...] pen INJECT 0.5MG INTO THE SKIN WEEKLY 1 Active metFORMIN (GLUCOPHAGE-XR) 500 MG 24 hr tablet TAKE FOUR TABLETS BY MOUTH DAILY 1 Active lisinopril (ZESTRIL) 5 MG tablet Take [...] to initial dose is inadequate. 2 each 3 Active tolterodine ER (DETROL LA) 2 MG 24 hr capsuleIndicati ons:Nephrolithi asis Take 1 capsule (2 mg) by mouth daily as needed (bladder spasms/urinary urgency). 7 capsule 4 Active SENNA-docusate sodium (SENNA S) 8.6-50 MG tabletIndicatio ns:Nephrolithia sis Take 1 tablet by mouth nightly as needed (constipation). 4 Active tamsulosin (FLOMAX) 0.4 MG capsuleIndicati ons:Nephrolithi asis Take 1 capsule (0.4 mg) by mouth daily. 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 Assessment & Plan (02/20/2021 8:29 AM CDT): Patient has large volume lower pole right [...] PCNL and left URS (patient ok with [facility]) Esophageal reflux 10/01/2003 Allergic rhinitis due to [...] PM CDT Legal Sex Male 3:33 AM IMMUNOPATHOLOGIST Gender Identity Male 12/01/2020 9:08 PM CDT Sexual Orientation Straight 12/01/2020 9 :08 PM CDT Last Filed Vital Signs Vital Sign Reading Time Taken Comments Blood Pressure 128/73 02/27/2024 10:00 AM CDT Pulse 79 02/27/2024 10:00 AM CDT Temperature 36.2 C (97.2 F) 02/27/2024 9:30 AM CDT Respiratory Rate 16 02/27/2024 10:00 AM CDT Oxygen Saturation 93% 02/27/2024 10:00 AM CDT Inhaled Oxygen Concentration - - Weight 113.4 kg (250 lb) 02/23/2024 2:07 PM CDT Height 180.3 cm (5' 11) 02/23/2024 2:07 PM CDT Body Mass Index 34.87 02/23/2024 2:07 PM CDT Plan of Treatment Upcoming Encounters Date Type Department Care Team (Late st Contact Info) Description 07/09/2024 1:00 PM IMMUNOPATHOLOGIST Virtual Visit [facility] [place] [address] [facility] [address] [place] [phone] Song Leach MD [address] [place] [id number] Medical Devices Implanted Type Area Pork Cutlet Maker Device Identifier Shelf Expiration Date Model / Serial / Lot Stent Ureteral Percuflex Plus [id number] - [id number] Implanted:Qty: 1 on 04/09/2021 by Song Leach MD at [facility] Stent Right: Ureter [employer] [id number] 09/02/2023 [id number] / / [id number] Stent, Ureteral, 4.8fr X 26cm, Hydroplus Coating, Without Wire, Percuflex Plus - [id number] Implanted:Qty: 1 on 02/27/2024 by Song Leach MD at [facility] Stent Left: Urethra 06/10/2026 [id number] / / [id number] Stent, Ureteral, 4.8fr X 26cm, Hydroplus Coating, Without Wire, Percuflex Plus - [id number] Implanted:Qty: 1 on 02/27/2024 by Song Leach MD at [facility] Stent Right: Urethra [id number] / / [id number] Explanted Type Area Pork Cutlet Maker Device Identifier Shelf Expiration Date Model / Serial / Lot Stent Ureteral Percuflex Plus [id number] - [id number] Implanted:Qty: 1 on 03/25/2021 by Song Leach MD at [facility] Explanted:Qty: 1 on 04/09/2021 by Song Leach MD at [facility] Stent Left: Ureter [employer] [id number] 12/19/2023 [id number] / / [id number] Stent Ureteral Percuflex Plus [id number] - [id number] Implanted:Qty: 1 on 03/25/2021 by Song Leach MD at [facility] Explanted:Qty: 1 on 04/09/2021 by Song Leach MD at [facility] Stent Right: Ureter [employer] [id number] 09/09/2023 [id number] / / [id number] Procedures Procedure Name Priority Date/Time Associated Diagnosis Comments US RENAL COMPLETE NON-VASCULAR Routine 04/30/2024 4:31 PM IMMUNOPATHOLOGIST Nephrolithiasis GLUCOSE BY METER Routine 04/09/2021 12:5 7 PM IMMUNOPATHOLOGIST COLONOSCOPY Routine 02/23/2011 9:54 AM CDT from Last 3 Months or Most Recently Relevant to Health Maintenance Results * US Renal Complete Non-Vascular (04/30/2024 4:31 PM IMMUNOPATHOLOGIST) Anatomical Region Laterality Modality Abdomen/Pelvis Ultrasound 04/30/2024 4:31 PM IMMUNOPATHOLOGIST Impressions 04/30/2024 4:33 PM IMMUNOPATHOLOGIST IMPRESSION: 1. No hydronephrosis is seen. 2. Several echogenic foci are seen within both kidneys, likely correlating with small stones better characterized on the prior CT exam from 11/11/2013. Narrative 04/30/2024 4:33 PM IMMUNOPATHOLOGIST EXAM: US RENAL COMPLETE NON-VASCULAR LOCATION: [facility] DATE: 04/30/2024 INDICATION: assess for stone or [...] 04/30/2024 EXAM: US RENAL COMPLETE NON-VASCULAR LOCATION: [facility] DATE: 04/30/2024 INDICATION: assess for stone or [...] CT examfrom 11/11/2013. us Song Leach MD [facility] US ORDERABLES Final Result * (ABNORMAL) Glucose by meter (04/09/2021 12:57 PM IMMUNOPATHOLOGIST) GLUCOSE BY METER POCT 130(H) 70 - 99 mg/dL 04/09/2021 1:06 PM IMMUNOPATHOLOGIST [facility] POC Blood BLOOD SPECIMEN / Unknown 04/09/2021 12:57 PM IMMUNOPATHOLOGIST 04/09/2021 1:06 PM IMMUNOPATHOLOGIST us Song Leach MD LAB - BEAKER POCT Final Result [facility] P[facility] [place] - [address] 1[address] [place] [address] * COLONOSCOPY (02/23/2011 9:54 AM CDT) COLONOSCOPY [facility] Patient Name: Hubert Jose R Procedure Date: 02/23/2011 9:54:16 AM Date of : 1975 Admit Type: Outpatient Age: 35 Gender: Male Attending MD: Last Christina MD Procedure: Colonoscopy Indications: Established Crohn's disease of the small bowel and colon, Follow-up of Crohn's disease of the small bowel and colon Providers: Last Cruz MD Referring MD: Verena Francis Medicines: Fentanyl 100 micrograms IV, Midazolam 2 mg IV, Atropine 0.6 mg IV Complications: No immediate complications Procedure: Pre-Anesthesia Assessment: - Prior to the procedure, a History and Physical was performed, and patient medications and allergies were reviewed. The patient is competent. The risks and benefits of the procedure and the sedation options and risks were discussed with the patient. All questions were answered and informed consent was obtained. Patient identification and proposed procedure were verified by the physician in the procedure room. Mental Status Examination: alert and oriented. Airway Examination: normal oropharyngeal airway and neck mobility. Respiratory Examination: clear to auscultation. CV Examination: normal. ASA Grade Assessment: I - A normal, healthy patient. After reviewing the risks and benefits, the patient was deemed in satisfactory condition to undergo the procedure. The anesthesia plan was to use moderate sedation / analgesia (conscious sedation). Immediately prior to administration of medications, the patient was re-assessed for adequacy to receive sedatives. The heart rate, respiratory rate, oxygen saturations, blood pressure, adequacy of pulmonary ventilation, and response to care were monitored throughout the procedure. The physical status of the patient was re-assessed after the procedure. After obtaining informed consent, the colonoscope was passed under direct vision. Throughout the procedure, the patient's blood pressure, pulse, and oxygen saturations were monitored continuously. The Colonoscope was introduced through the anus and advanced to the terminal ileum. The colonoscopy was performed without difficulty. The patient tolerated the procedure well. The quality of the bowel preparation was excellent. Findings: The digital rectal exam was normal. The rectum, sigmoid colon, descending colon, splenic flexure, transverse colon, hepatic flexure, ascending colon, cecum, appendiceal orifice, ileocecal valve and ileum appeared normal. Biopsies were taken with a cold forceps for histology. The retroflexed view of the anal verge was normal and showed no anal or rectal abnormalities. The terminal ileum appeared normal. Impression: - The rectum, sigmoid colon, descending colon, splenic flexure, transverse colon, hepatic flexure, ascending colon, cecum, appendiceal orifice, ileocecal valve and terminal ileum are normal. This was biopsied. - The examined portion of the ileum was normal. Recommendation: - Discharge patient to home (ambulatory). - Continue present medications. - Telephone endoscopist for pathology results in 1 week. Assuming no dysplasia then recolonoscopy in 2 yrs. - Return to primary care physician PRN. Juanis Crzu M.D Last Cruz MD Signed Date: 02/23/2011 10:34:34 AM Number of Addenda: 0 I was physically present for the entire viewing portion of the exam. Note Initiated On: 02/23/2011 9:54:16 AM Scope Withdrawal Time: 0 hours 10 minutes 41 seconds Total Procedure Duration: 0 hours 14 minutes 48 seconds RADIOLOGY RESULTS 02/23/2011 9:54 AM CDT us Verena Reister PROCEDURES Final Result RADIOLOGY RESULTS from Last 3 Months or Most Recently Relevant to Health Maintenance Additional Health Concerns Infection Onset Date Last Indicated MRSA Comment:Recurrent MRSA cellulitis per CareEverywhere 03/26/2021 1 Insurance [employer] Advance Directives For more information, please contact: [phone] * Full Code (Latest Code Status on File) Date Activated Date Inactivated Comments 03/25/2021 9:20 PM 03/26/2021 3:11 PM All basic and advanced life-sustaining interventions are performed as appropriate Question Answer Comments Code status determined by: Unable to dis cuss and no AD/POLST on file; continue PREVIOUSLY ORDERED code status Care Teams Roof Technician Relationship Specialty Start Date End Date Martina Owen PA-C PCP - General Physician Dirt Shoveler 02/11/19 Queta Prater CNP [address] [place] [address] Nurse Practitioner Urology 09/22/20 Song Leach MD [address] [place] [address] [id number] Assigned Surgical Provider 11/20/23 Song Leach MD [facility] [place] [address] Urology 05/28/24
--- OUTSIDE RECORDS SUMMARY | 2024-05-31 16:13 | XMS_ITS | Clinical Summary ---
Author Organization [facility] Address [address] [place] [address] Care Team Providers Care Nursing Service Director Name Role Phone Martina Owen PA-C Primary Care Provider Queta Prater CNP Unavailable [phone] Song Leach MD Unavailable [phone] Song Leach MD Unavailable [phone] Allergies Active Allergy Reactions Criticality Noted Date Comments Chicken Allergy 04/10/2003 and turkey Cyclosporine 04/10/2003 anaphylactic Eggs 04/10/2003 anaphylactic Fish Allergy 04/10/2003 Nuts 04/10/2003 [place] 04/10/2003 Medications CLARITIN-D 24 HOUR 10-240 MG [...] PCNL and left URS (patient ok with [facility]) Esophageal reflux 10/01/2003 Allergic rhinitis due to pollen 10/01/2003 Encounters Date Type Department Care Team Description 05/21/2024 Telephone [facility] [place] [address] [place] [phone] Song Leach MD Appointment 04/30/2024 4:20 PM DELICATESSEN SLICER Ancillary Procedure [facility] [address] [place] [phone] Song Leach MD Nephrolithiasis 04/30/2024 Travel 04/25/2024 MyC Medical Advice [facility] [address] [place] [address] [facility] [address] [place] [phone] Ayse Alvarado CMA 03/18/2024 MyC Medical Advice [facility] [address] [place] [address] [facility] [address] [place] [phone] Song Leach MD from Last 3 Months Social History Tobacco [...] PM CDT Legal Sex Male 3:33 AM DELICATESSEN SLICER Gender Identity Male 12/01/2020 9:08 PM CDT [...] st Contact Info) Description 07/09/2024 1:00 PM DELICATESSEN SLICER Virtual Visit [facility] [address] [place] [address] [facility] [address] [place] [address] Song Leach MD [address] [place] [address] [phone] Health Maintenance Due Date Last Done Comments ADVANCE CARE PLANNING 1976 ANNUAL REVIEW OF HM ORDERS [address] CT COLONOGRAPHY 1976 FIT 1976 FLEX SIG 1976 sDNA (Cologuard) 1976 YEARLY PREVENTIVE VISIT 12/09/1979 HIV SCREENING 12/09/1991 HEPATITIS C SCREENING 1994 HEPATITIS B IMMUNIZATION (1 of 3 - 19+ 3-dose series) 12/09/1995 Pneumococcal Vaccine: Pediatrics (0 to 5 Years) and At-Risk Patients (6 to 49 Years) (1 of 2 - PCV) 12/09/1995 LIPID 2016 COLONOSCOPY 02/23/2021 02/23/2011, 02/10/2009 COLORECTAL CANCER SCREENING 02/23/2021 COVID-19 Vaccine ( season) 2024 04/16/2021, 09/10/2020, 08/13/2020 INFLUENZA VACCINE (#1) 2024 GLUCOSE 04/09/2024 04/09/2021, 03/01, 03/26/2021, Additional history exists DTAP/TDAP/TD IMMUNIZATION (4 - Td or Tdap) 05/28/2031 05/28/2021, 06/15/2014, 07/01/2010, Additional history exists RSV VACCINE (1 - 1-dose 75+ series) [...] this topic Medical Devices Implanted Type Area Associate Automation Engineer Device Identifier Shelf Expiration Date Model / Serial / Lot Stent Ureteral Percuflex Plus [id number] - [id number] Implanted:Qty: 1 on 04/09/2021 by Song Leach MD at [facility] Stent Right: Ureter [employer] [id number] 09/02/2023 [id number] 30 / / [id number] Stent, Ureteral, 4.8fr X 26cm, Hydroplus Coating, Without Wire, Percuflex Plus - [id number] Implanted:Qty: 1 on 02/27/2024 by Song Leach MD at [facility] Stent Left: Urethra 06/10/2026 [id number] / / [id number] Stent, Ureteral, 4.8fr X 26cm, Hydroplus Coating, Without Wire, Percuflex Plus - [id number] Implanted:Qty: 1 on 02/27/2024 by Song Leach MD at [facility] Stent Right: Urethra 175-253 / / [id number] Explanted Type Area Associate Automation Engineer Device Identifier Shelf Expiration Date Model / Serial / Lot Stent Ureteral Percuflex Plus [id number] - [id number] Implanted:Qty: 1 on 03/25/2021 by Song Leach MD at [facility] Explanted:Qty: 1 on 04/09/2021 by Song Leach MD at [facility] Stent Left: Ureter [employer] [id number] 12/19/2023 [id number] 30 / / [id number] Stent Ureteral Percuflex Plus [id number] - [id number] Implanted:Qty: 1 on 03/25/2021 by Song Leach MD at [facility] Explanted:Qty: 1 on 04/09/2021 by Song Leach MD at [facility] Stent Right: Ureter [employer] [id number] 09/09/2023 [id number] / / [id number] Procedures Procedure Name Priority Date/Time Associated Diagnosis Comments US RENAL COMPLETE NON-VASCULAR Routine 04/30/2024 4:31 PM DELICATESSEN SLICER Nephrolithiasis GLUCOSE BY METER Routine 04/09/2021 12:5 7 PM DELICATESSEN SLICER COLONOSCOPY Routine 02/23/2011 9:54 AM CDT from Last 3 Months or Most Recently Relevant to Health Maintenance Results * US Renal Complete Non-Vascular (04/30/2024 4:31 PM DELICATESSEN SLICER) Anatomical Region Laterality Modality Abdomen/Pelvis Ultrasound 04/30/2024 4:31 PM DELICATESSEN SLICER Impressions 04/30/2024 4:33 PM DELICATESSEN SLICER IMPRESSION: 1. No hydronephrosis is seen. 2. Several echogenic foci are seen within both kidneys, likely correlating with small stones better characterized on the prior CT exam from 11/11/2013. Narrative 04/30/2024 4:33 PM DELICATESSEN SLICER EXAM: US RENAL COMPLETE NON-VASCULAR LOCATION: [facility] DATE: 04/30/2024 INDICATION: assess for stone or [...] 04/30/2024 EXAM: US RENAL COMPLETE NON-VASCULAR LOCATION: [facility] DATE: 04/30/2024 INDICATION: assess for stone or [...] characterized on the prior CT examfrom 11/11/2013. Song Leach MD [facility] [place] ORDER[place]LES Final Result * (ABNORMAL) Glucose by meter (04/09/2021 12:57 PM DELICATESSEN SLICER) GLUCOSE BY METER POCT 130(H) 70 - 99 mg/dL 04/09/2021 1:06 PM DELICATESSEN SLICER [facility] POC Blood BLOOD SPECIMEN / Unknown 04/09/2021 12:57 PM DELICATESSEN SLICER 04/09/2021 1:06 PM DELICATESSEN SLICER Song Leach MD LAB - BEAKER POCT Final Result [facility] POC [facility] - [address] 1st [place] [address] * COLONOSCOPY (02/23/2011 9:54 AM CDT) COLONOSCOPY [facility] Patient Name: Hubert Odell Procedure Date: 02/23/2011 9:54:16 AM Date of [...] Return to primary care physician PRN. Juanis Cruz M.D Last Cruz MD Signed Date: 02/23/2011 10:34:34 AM Number of Addenda: 0 I was physically present for the entire viewing portion of the exam. Note Initiated On: 02/23/2011 9:54:16 AM Scope Withdrawal Time: 0 hours 10 minutes 41 seconds Total Procedure Duration: 0 hours 14 minutes 48 seconds RADIOLOGY RESULTS 02/23/2011 9:54 AM CDT us Verena Francis PROCEDURES Final Result RADIOLOGY RESULTS from Last 3 Months or Most Recently Relevant to Health Maintenance Additional Health Concerns Infection Onset Date Last Indicated MRSA Comment:Recurrent MRSA cellulitis per CareEverywhere 03/26/2021 1 Insurance [employer] Advance Directives For more information, please contact: [phone] * Full Code (Latest Code Status on File) Date Activated Date Inactivated Comments 03/25/2021 9:20 PM 03/26/2021 3:11 PM All basic and advanced life-sustaining interventions are performed as appropriate Question Answer Comments Code status determined by: Unable to dis cuss and no AD/POLST on file; continue PREVIOUSLY ORDERED code status Care Teams Nursing Service Director Relationship Specialty Start Date End Date Martina Owen PA-C PCP - General Physician Medical Orderly 02/11/19 Queta Prater CNP [address] [place] [address] [id number] Nurse Practitioner Urology 09/22/20 Song Leach MD [address] [place] [address] 194745 Assigned Surgical Provider 11/20/23 Song Leach MD [address] [place] [address] 357995 Urology 05/28/24
--- OUTSIDE RECORDS SUMMARY | 2024-05-31 16:13 | XMS_ITS | Clinical Summary ---
Author Organization [facility] Address [place], [place] [address] Care Team Providers Care Cost Accounting Clerk Name Role Phone Trino Jimenez Of Primary Care Provider Un available Allergies Active Allergy Reactions Criticality Noted Date Comments Bee Venom Protein (Honey Bee) Anaphylaxis High 12/24/2019 Egg Derived Anaphylaxis 12/20/2011 Cyclosporine Anaphylaxis 09/27/2006 Cyclosporine Anaphylaxis High 12/24/2019 Egg Anaphylaxis 09/27/2006 Iodine Anaphylaxis High 12/24/2019 Mushroom *Unknown 12/24/2019 Tree Nut Anaphylaxis High 12/24/2019 [place] *Unknown 12/24/2019 Flavor Pear *Unknown 12/24/2019 flavor Shellfish Containing Products Anaphylaxis 09/27/2006 [place] *Unknown 12/24/2019 Unknown-Follow Up Needed (Include Details In Comments) 09/28/2006 martínez, cause respiratory distress ,,, peaches ,pears and pineapple cause itching in mouth, poultry causes anaphylaxis treenuts and peanuts cause anaphylaxis Medications CEFADROXIL 500 MG CAP take 1 capsule by oral route once daily 0 Active FLONASE 50 MCG/ACTUATION NASAL SPRAY AEROSOL use twice daily 0 Acti ve BENADRYL 25 MG CAP take 1 capsule (25mg) by oral route every 4 hours as needed 0 Active MULTIVITAMIN CAP take 1 tablet daily 0 Active EPINEPHrine (EPIPEN) 0.3 mg/0.3 mL injection Inject 0.3 mg intramuscular one time if needed for Allergic Reaction for 1 dose. 2 Each 0 2 Active Certolizumab Pegol (CIMZIA) 400 mg/2 mL (200 mg/mL x 2) sykt injectionIndic ations:Crohn's disease Inject 400 mg subcutaneous every 2 weeks. Indications: Crohn's disease Active omeprazole (PRILOSEC) 40 mg Delayed-Releas e capsule Take 40 mg by mouth once [...] by mouth 2 times daily. Active cetirizine HCl/pseudoephe drine (ZYRTEC-D ORAL) Take by mouth. Activ e [...] Recorded Sex Assigned at Not on file Legal Sex Male 6:53 AM PUTTY GLAZER Gender Identity Not on file Sexual Orientation Not on file Obstetrics History Last Filed Vital Signs Vital Sign Reading Time Taken Comments Blood Pressure 133/89 12/25/2019 9:30 AM CDT Pulse 64 12/25/2019 9:30 AM CDT Temperature 36.6 C (97.9 F) 12/25/2019 9:00 AM CDT Respiratory Rate 16 12/25/2019 9:30 AM CDT [...] age 9-49 01/29/2024 Pneumococcal series for age 6-49 Aged Out No longer eligible based on patient's age to complete this topic Medical Devices Implanted Type Area Bench Worker Hollow Handle Device Identifier Shelf Expiration Date Model / Serial / Lot Plate Cerv Ant 25mm [employer] 976-125 - [id number] Implanted:Qty: 1 on 09/28/2006 at [facility] Spine Implants Spine [employer] 976-125# / / Screw 4.0x14mm - [id number] Implanted:Qty: 4 on 09/28/2006 at [facility] Spine Implants Spine [employer] [id number]# / / [id number] k José Miguel [id number] [[id number]] Implanted:Qty: 1 on 09/28/2006 at [facility] Explanted:at [facility] (Quantity not on file) Spine [employer] 08/25/2009 [id number]# / [id number] / Insurance [place] [id number] WORKERS COMP [id number] PRETTY [id number] Advance Directives * Full Code (Latest Code Status on File) Date Activated Date Inactivated Comments 12/25/2019 7:10 AM 12/25/2019 11:45 AM * Full Code Date Activated Date Inactivated Comments 09/28/2006 2:42 PM 09/29/2006 9:12 PM * Full Code Date Activated Date Inactivated Comments 09/28/2006 8:05 AM 09/28/2006 2:42 PM Care Teams Cost Accounting Clerk Relationship Specialty Start Date End Date Trino Jimenez Phys Of PCP - General 07/18/19
--- OUTSIDE RECORDS SUMMARY | 2024-05-31 16:14 | XMS_ITS | Encounter Summary ---
Author Organization [facility] Address [address] [place] [address]. [place] [address] Care Team Providers Care Psychiatrist Name Role Phone Martina Owen PA-C Primary Care Provider Queta Prater CNP Unavailable [phone] Song Leach MD Unavailable [phone] Song Leach MD Unavailable [phone] Encounter Details Date Type Department Care Team (Late Contact Info) Description 01/31/2024 MyC Medical Advice [facility] [place] [address] [facility] [address] [place] [phone] Minal Boudreaux Social History Tobacco Use Types [...] PM CDT Legal Sex Male 3:33 AM ADVERTISING SOLICITOR Gender Identity Male 12/01/2020 9:08 PM CDT Sexual Orientation Straight 12/01/2020 9: 08 PM CDT documented as of this encounter Plan of Treatment Upcoming Encounters Date Type Department Care Team (Late Contact Info) Description 07/09/2024 1:00 PM ADVERTISING SOLICITOR Virtual Visit [facility] [place] [address] [facility] [address] [place] [address] Song Leach MD [address] [place] [address] documented as of this encounter Visit Diagnoses Not on filedocumented in this encounter Additional Health Concerns Infection Onset Date Last Indicated Resolved Time MRSA Comment:Recurrent MRSA cellulitis per CareEverywhere 03/26/2021 03/26/2021 documented as of this encounter Care Teams Psychiatrist Relationship Specialty Start Date End Date Martina Owen PA-C PCP - General Physician Personnel Generalist Manager 02/11/19 Queta Prater CNP [address] [place] [address] Nurse Practitioner Urology 09/22/20 Song Leach MD [address] [place] [address] Assigned Surgical Provider 11/20/23 Song Leach MD [address] [place] [address] Urology 05/28/24 documented as of this encounter
--- OUTSIDE RECORDS SUMMARY | 2024-05-31 16:14 | XMS_ITS | Encounter Summary ---
Author Organization [facility] Address [address] [place] [address]. [place] [address] Care Team Providers Care Meter Record Clerk Name Role Phone Martina Owen PA-C Primary Care Provider Queta Prater CNP Unavailable [phone] Yanelis Benavides Unavailable [phone] Song Leach MD Unavailable [phone] Song Leach MD Unavailable [phone] Song Leach MD Unavailable [phone] Encounter Details Date Type Department Care Team (Late st Contact Info) Description 04/07/2021 [facility] [address] [place] [address] Mabel Arthur, AQUILES Social History Tobacco Use Types Packs/Day Years [...] PM CDT Legal Sex Male 3:33 AM LEARNING SUPPORT SPECIALIST Gender Identity Male 12/01/2020 9:08 PM CDT [...] st Contact Info) Description 07/09/2024 1:00 PM LEARNING SUPPORT SPECIALIST Virtual Visit [facility] [place] [address] [facility] [address] [place] [address] Song Leach MD [address] [place] [address] documented as of this encounter Visit Diagnoses Not on filedocumented in this encounter Additional Health Concerns Infection Onset Date Last Indicated Resolved Time MRSA Comment:Recurrent MRSA cellulitis per CareEverywhere 03/26/2021 03/26/2021 documented as of this encounter Care Teams Meter Record Clerk Relationship Specialty Start Date End Date Martina Owen PA-C PCP - General Physician Freight Car Builder 02/11/19 Queta Prater CNP [address] [place] [address] [phone] Nurse Practitioner Urology 09/22/20 Yanelis Benavides PA [address] [place] [address] [place], [place] 722605 Assigned Surgical Provider 02/08/21 07/11/21 Song Leach MD [address] [place] [address] [id number] Assigned Surgical Provider 07/12/21 12/31/22 Song Leach MD [address] [place] [address] 598175 Assigned Surgical Provider 11/20/23 Song Leach MD [address] [place], [place] 6007[address] Urology 05/28/24 documented as of this encounter
--- OUTSIDE RECORDS SUMMARY | 2024-05-31 16:14 | XMS_ITS | Encounter Summary ---
Author Organization [facility] Address [address] [place] [address]. [place] [address] Care Team Providers Care Sock Lining Examiner Name Role Phone Martina Owen PA-C Primary Care Provider Queta Prater CNP Unavailable [phone] Yanelis Benavides Unavailable [phone] Song Leach MD Unavailable [phone] Song Leahc MD Unavailable [phone] Song Leach MD Unavailable [phone] Reason for Visit * Reason Onset Date Comments Patient Request 04/10/2021 Encounter Details Date Type Department Care Team (Late st Contact Info) Description 04/10/2021 Telephone [facility] [address] [address] Song Leach MD [address] [place] [address] [phone] Patient Request Social History Tobacco Use Types [...] PM CDT Legal Sex Male 3:33 AM INSURANCE SOLICITOR Gender Identity Male 12/01/2020 9:08 PM [...] Deisi Alvarado - 04/10/2021 8:08 AM CST [facility] Call Center Phone Message May a [...] Center ([facility]): Urology Travel Screening: Not Applicable RANCE SOLICITOR documented in this encounter Plan of Treatment Upcoming Encounters Date Type Department Care Team (Late st Contact Info) Description 07/09/2024 1:00 PM INSURANCE SOLICITOR Virtual Visit [facility] Stone [place] [address] [facility] [address] [place] [address] Song Leach MD [address] [place] [address] [phone] documented as of this encounter Visit Diagnoses Not on filedocumented in this encounter Additional Health Concerns Infection Onset Date Last Indicated Resolved Time MRSA Comment:Recurrent MRSA cellulitis per CareEverywhere 03/26/2021 03/26/2021 documented as of this encounter Care Teams Sock Lining Examiner Relationship Specialty Start Date End Date Martina Owen PA-C PCP - General Physician Gift Shop Manager 02/11/19 Queta Prater CNP [address] [place] [address] Nurse Practitioner Urology 09/22/20 Yanelis Benavides PA [address] [place] [address] [place] [address] Assigned Surgical Provider 02/08/21 07/11/21 Song Leach MD [address] [place] [address] Assigned Surgical Provider 07/12/21 12/31/22 Song Leach MD [address] [place] [address] Assigned Surgical Provider 11/20/23 Song Leach MD [address] [place] [address] Urology 05/28/24 documented as of this encounter
--- OUTSIDE RECORDS SUMMARY | 2024-05-31 16:14 | XMS_ITS | Encounter Summary ---
Author Organization [facility] Address [address] [place] [address]. 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 Gender Identity Male 12/01/2020 9:08 PM CDT Sexual Orientation Straight 12/01/2020 9: 08 PM CDT documented as of this encounter Plan of Treatment Upcoming Encounters Date Type Department Care Team (Late st Contact Info) Description 07/09/2024 1:00 PM AIRCRAFT STRUCTURAL REPAIRER Virtual Visit [facility] Stone [place] [address] [facility] [address] [place] [address] Song Leach MD [address] [place] [address] documented as of this encounter Visit Diagnoses Not on filedocumented in this encounter Additional Health Concerns Infection Onset Date Last Indicated Resolved Time MRSA Comment:Recurrent MRSA cellulitis per CareEverywhere 03/26/2021 03/26/2021 documented as of this encounter Care Teams Furniture Upholsterer Relationship Specialty Start Date End Date Martina Owen PA-C PCP - General Physician Tab Machine Operator 02/11/19 Queta Prater CNP [address] [place] [address] Nurse Practitioner Urology 09/22/20 Song Leach MD [address] [place] [address] Assigned Surgical Provider 11/20/23 Song Leach MD [address] [place] [address] Urology 05/28/24 documented as of this encounter
--- OUTSIDE RECORDS SUMMARY | 2024-05-31 16:14 | XMS_ITS | Encounter Summary ---
Author Organization [facility] Address [address] [place] [address]. [place] [address] Care Team Providers Care Siding Installer Name Role Phone Martina Owen PA-C Primary Care Provider Queta Prater CNP Unavailable [phone] Yanelis Benavides Unavailable [phone] Song Leach MD Unavailable [phone] Song Leach MD Unavailable [phone] Song Leach MD Unavailable [phone] Reason for Visit * Reason Onset Date Comments Patient Request 03/30/2021 Call Back 03/31/2021 Schedule Surgery for more stones or stent removal Call Back 04/02/2021 Schedule surgery for more stones and stent removal Encounter Details Date Type Department Care Team (Late st Contact Info) Description 03/30/2021 Telephone [facility] [address] [address] Song Leach MD [address] [place] [address] Patient Request; Call Back (Schedule Surgery [...] PM CDT Legal Sex Male 3:33 AM CHOKER HOOKER Gender Identity Male 12/01/2020 9:08 PM CDT [...] to discuss. Action Taken: Message routed to: [facility] ([facility]): Uro Travel Screening: Not Applicable * Telephone [...] be doing and schedulingfor that. Dr. Leach's registration officer is out of the office, returning 04/02/21 (which the pt isaware of). Please call him to discuss which route he should be doing. Action Taken: Message routed to: [facility] ([facility]): uro Travel Screening: Not Applicable * Telephone Encounter - Deisi Alvarado - 03/30/2021 3:[address] [facility] Call Center Phone Message May a detailed [...] st Contact Info) Description 07/09/2024 1:00 PM CHOKER HOOKER Virtual Visit [facility] Stone [place] [address] [facility] [address] [place] [address] Song Leach MD [address] [place] [address] [phone] documented as of this encounter Visit Diagnoses Not on filedocumented in this encounter Additional Health Concerns Infection Onset Date Last Indicated Resolved Time MRSA Comment:Recurrent MRSA cellulitis per CareEverywhere 03/26/2021 03/26/2021 documented as of this encounter Care Teams Siding Installer Relationship Specialty Start Date End Date Martina Owen PA-C PCP - General Physician Engineering Group Manager 02/11/19 Queta Prater CNP [address] [place] [address] [phone] Nurse Practitioner Urology 09/22/20 Yanelis Benavides PA [address] [place] [address] [place], [place] 029185 Assigned Surgical Provider 02/08/21 07/11/21 Song Leach MD [address] [place] [address] Assigned Surgical Provider 07/12/21 12/31/22 Song Leach MD [address] [place], [place] 7832[address] Assigned Surgical Provider 11/20/23 Song Leach MD [address] [place] [address] Urology 05/28/24 documented as of this encounter
--- OUTSIDE RECORDS SUMMARY | 2024-05-31 16:14 | XMS_ITS | Encounter Summary ---
Author Organization [facility] Address [address] [place] [address]. [place] [address] Care Team Providers Care Manufacturing Manager Name Role Phone Martina Owen PA-C Primary Care Provider Queta Prater CNP Unavailable [phone] Song Leach MD Unavailable [phone] Song Leach MD Unavailable [phone] Encounter Details Date Type Department Care Team (Late st Contact Info) Description 01/20/2024 MyC Medical Advice [facility] [place] [address] [facility] [address] [place] [phone] Song Leach MD [address] [place], [place] [address] Social History Tobacco Use Types Packs/Day Years [...] PM CDT Legal Sex Male 3:33 AM TENDERIZER TENDER Gender Identity Male 12/01/2020 9:08 PM CDT Sexual Orientation Straight 12/01/2020 9: 08 PM CDT documented as of this encounter Plan of Treatment Upcoming Encounters Date Type Department Care Team (Late st Contact Info) Description 07/09/2024 1:00 PM TENDERIZER TENDER Virtual Visit [facility] [place] [address] [facility] [address] [place] [address] Song Leach MD [address] [place] [address] documented as of this encounter Visit Diagnoses Not on filedocumented in this encounter Additional Health Concerns Infection Onset Date Last Indicated Resolved Time MRSA Comment:Recurrent MRSA cellulitis per CareEverywhere 03/26/2021 03/26/2021 documented as of this encounter Care Teams Manufacturing Manager Relationship Specialty Start Date End Date Martina Owen PA-C PCP - General Physician Property Investor 02/11/19 Queta Prater CNP [address] [place] [address] Nurse Practitioner Urology 09/22/20 Song Leach MD [address] [place] [address] Assigned Surgical Provider 11/20/23 Song Leach MD [address] [place] [address] Urology 05/28/24 documented as of this encounter
--- OUTSIDE RECORDS SUMMARY | 2024-05-31 16:14 | XMS_ITS | Encounter Summary ---
Author Organization [place] Address [address] [place] [address]. [place] [address] Care Team Providers Care Account Support Specialist Name Role Phone Martina Owen PA-C Primary Care Provider Queta Prater CNP Unavailable [phone] Yanelis Benavides Unavailable [phone] Song Leach MD Unavailable [phone] Sogn Leach MD Unavailable [phone] Song Leach MD Unavailable [phone] Encounter Details Date Type Department Care Team (Late st Contact Info) Description 04/02/2021 [facility] Medical Advice [facility] [address] [address] Song Leach MD [address] [place] [address] Social History Tobacco Use Types Packs/Day [...] PM CDT Legal Sex Male 3:33 AM DESIGN PRINTING MACHINE SET UP OPERATOR Gender Identity Male 12/01/2020 9:08 PM [...] st Contact Info) Description 07/09/2024 1:00 PM DESIGN PRINTING MACHINE SET UP OPERATOR Virtual Visit [facility] Stone [place] [address] [facility] 200 [place] [address] Song Leach MD [address] [place] [address] 696815 documented as of this encounter Visit Diagnoses Not on filedocumented in this encounter Additional Health Concerns Infection Onset Date Last Indicated Resolved Time MRSA Comment:Recurrent MRSA cellulitis per CareEverywhere 03/26/2021 03/26/2021 documented as of this encounter Care Teams Account Support Specialist Relationship Specialty Start Date End Date Martina Owen PA-C PCP - General Physician Chief Wheelage Clerk 02/11/19 Queta Prater CNP [address] [place] [address] Nurse Practitioner Urology 09/22/20 Yanelis Benavides PA [address] [place] [address] [place] [address] Assigned Surgical Provider 02/08/21 07/11/21 Song Leach MD [address] [place] [address] Assigned Surgical Provider 07/12/21 12/31/22 Song Leach MD [address] [place] [address] Assigned Surgical Provider 11/20/23 Song Leach MD [address] [place] [address] Urology 05/28/24 documented as of this encounter
--- OUTSIDE RECORDS SUMMARY | 2024-05-31 16:14 | XMS_ITS | Encounter Summary ---
Author Organization [facility] Address [address] [place] [address]. [place] [address] Care Team Providers Care Warehouse Order Picker Name Role Phone Martina Owen PA-C Primary Care Provider Queta Prater CNP Unavailable [phone] Yanelis Benavides Unavailable [phone] Song Leach MD Unavailable [phone] Song Leach MD Unavailable [phone] Song Leach MD Unavailable [phone] Encounter Details Date Type Department Care Team (Late st Contact Info) Description 04/03/2021 [facility] Clinic [address] [address] [facility] Social History Tobacco Use Types Packs/Day Years [...] PM CDT Legal Sex Male 3:33 AM HEAD CD REACTOR OPERATOR Gender Identity Male 12/01/2020 9:08 PM [...] st Contact Info) Description 07/09/2024 1:00 PM HEAD CD REACTOR OPERATOR Virtual Visit [facility] Kidney Stone [place] [address] [facility] 200 [place] [address] Song Leach MD [address] [place] [address] documented as of this encounter Visit Diagnoses Not on filedocumented in this encounter Additional Health Concerns Infection Onset Date Last Indicated Resolved Time MRSA Comment:Recurrent MRSA cellulitis per CareEverywhere 03/26/2021 03/26/2021 documented as of this encounter Care Teams Warehouse Order Picker Relationship Specialty Start Date End Date Martina Owen PA-C PCP - General Physician Corporate Administrative Assistant 02/11/19 Queta Prater CNP [address] [place] [address] 200855 Nurse Practitioner Urology 09/22/20 Yanelis Benavides PA [address] [place] [address] Urology [place], [place] [address]285 Assigned Surgical Provider 02/08/21 07/11/21 Snog Leach MD [address] [place] [address] Assigned Surgical Provider 07/12/21 12/31/22 Song Leach MD [address] [place] [address] Assigned Surgical Provider 11/20/23 Song Leach MD [address] [place], [place] 0310[address] Urology 05/28/24 documented as of this encounter
--- OUTSIDE RECORDS SUMMARY | 2024-05-31 16:14 | XMS_ITS | Encounter Summary ---
Author Organization [facility] Address [address] [place] [address]. [place] [address] Care Team Providers Care Chimney Construction Supervisor Name Role Phone Martina Owen PA-C Primary Care Provider Queta Prater CNP Unavailable [phone] Song Leach MD Unavailable [phone] Song Leach MD Unavailable [phone] Encounter Details Date Type Department Care Team (Late st Contact Info) Description 12/14/2023 MyC Medical Advice [facility] [place] [address] [facility] [address] [place] [address] Harika Andrew, RN Social History [...] PM CDT Legal Sex Male 3:33 AM PACKAGING DESIGN ENGINEER Gender Identity Male 12/01/2020 9:08 PM CDT Sexual Orientation Straight 12/01/2020 9: 08 PM CDT documented as of this encounter Plan of Treatment Upcoming Encounters Date Type Department Care Team (Late st Contact Info) Description 07/09/2024 1:00 PM PACKAGING DESIGN ENGINEER Virtual Visit [facility] Kid[facility] Stone [place] [address] [facility] [address] [place] [address] Song Leach MD [address] [place] [address] documented as of this encounter Visit Diagnoses Not on filedocumented in this encounter Additional Health Concerns Infection Onset Date Last Indicated Resolved Time MRSA Comment:Recurrent MRSA cellulitis per CareEverywhere 03/26/2021 03/26/2021 documented as of this encounter Care Teams Chimney Construction Supervisor Relationship Specialty Start Date End Date Martina Owen PA-C PCP - General Physician Mining Captain 02/11/19 Queta Prater CNP [address] [place] [address] Nurse Practitioner Urology 09/22/20 Song Leach MD [address] [place] [address] Assigned Surgical Provider 11/20/23 Song Leach MD 9 [place] [address] Urology 05/28/24 documented as of this encounter
--- OUTSIDE RECORDS SUMMARY | 2024-05-31 16:15 | XMS_ITS | Encounter Summary ---
Author Organization [facility] Address [address] [place] [address]. [place] [address] Care Team Providers Care Substance Addiction Coordinator Name Role Phone Martina Owen PA-C Primary Care Provider Queta Prater CNP Unavailable [phone] Yanelis Benavides Unavailable [phone] Song Leach MD Unavailable [phone] Song Leach MD Unavailable [phone] Song Leach MD Unavailable [phone] Reason for Visit * Reason Onset Date Comments Schedule Surgery 02/20/2021 surgery Schedule Surgery 02/20/2021 Kidney stone re moval Encounter Details Date Type Department Care Team (Late st Contact Info) Description 02/20/2021 Telephone [facility] [address] [address] Song Leach MD [address] [place] [address] 486525 Schedule Surgery (surgery ); Schedule Surgery (Kidney [...] PM CDT Legal Sex Male 3:33 AM USED CAR MANAGER Gender Identity Male 12/01/2020 9:08 PM CDT [...] CNA - 02/24/2021 2:43 PM CDT M [facility] Call Center Phone Message May a detailed message be left on voicemail: yes Reason for Call: Other: Hubert called in regards to his Kidney stone removal. He is having pain and still waiting to receive a date as to when the procedure will be. Please give him a call to discuss scheduling options. Thanks Action Taken: Message routed to: [facility] uro Travel Screening: Not Applicable * Telephone Encounter - Melissa Vargas - 02/20/2021 12:34 PM CDT [facility] Phone Message May a detailed message be left on voicemail: yes Reason for Call: Other: . please call tp to schedule his kidney stone removal surgery , thank you Action Taken: Message routed to: [facility] ([facility]): uro Travel Screening: Not Applicable documented in this encounter Plan of Treatment Upcoming Encounters Date Type Department Care Team (Late st Contact Info) Description 07/09/2024 1:00 PM USED CAR MANAGER Virtual Visit [facility] Kidney Stone [place] [address] [facility] [address] [place] [address] Song Leach MD 9 [place], [place] [address] documented as of this encounter Visit Diagnoses Not on filedocumented in this encounter Additional Health Concerns Infection Onset Date Last Indicated Resolved Time MRSA-Contact Isolation 03/26 8:42 AM CDT MRSA Comment:Recurrent MRSA cellulitis per CareEverywhere 03/26/2021 03/26/2021 documented as of this encounter Care Teams Substance Addiction Coordinator Relationship Specialty Start Date End Date Martina Owen PA-C PCP - General Physician Cartography Supervisor 02/11/19 Queta Prater CNP [address] [place] [address] 446035 Nurse Practitioner Urology 09/22/20 Yanelis Benavides PA [address] [place] [address] Urology [place], [place] 223575 Assigned Surgical Provider 02/08/21 07/11/21 Song Leach MD [address] [place] [address] 808455 Assigned Surgical Provider 07/12/21 12/31/22 Song Leach MD [address] [place] [address] Assigned Surgical Provider 11/20/23 Song Leach MD [address] [place] [address] Urology 05/28/24 documented as of this encounter
--- OUTSIDE RECORDS SUMMARY | 2024-05-31 16:15 | XMS_ITS | Encounter Summary ---
Author Organization [place] Address [address] [place] [address]. [place] [address] Care Team Providers Care Asparagus Buncher Name Role Phone Martina Owen PA-C Primary Care Provider Queta Prater CNP Unavailable [phone] Yanelis Benavides Unavailable [phone] Song Leach MD Unavailable [phone] Song Leach MD Unavailable [phone] Song Leach MD Unavailable [phone] Encounter Details Date Type Department Care Team (Late st Contact Info) Description 02/26/2021 [facility] General Surgery Clinic [address] [place] [address] Winnie Sánchez Social History Tobacco [...] PM CDT Legal Sex Male 3:33 AM WEAPONS AND TACTICS INSTRUCTOR Gender Identity Male 12/01/2020 9:08 PM CDT [...] st Contact Info) Description 07/09/2024 1:00 PM WEAPONS AND TACTICS INSTRUCTOR Virtual Visit [facility] Kidney Stone [place] [address] [facility] [address] [place] [address] Song Leach MD [address] [place] [address] 612225 documented as of this encounter Visit Diagnoses Not on filedocumented in this encounter Additional Health Concerns Infection Onset Date Last Indicated Resolved Time MRSA-Contact Isolation 03/26 8:42 AM CDT MRSA Comment:Recurrent MRSA cellulitis per CareEverywhere 03/26/2021 03/26/2021 documented as of this encounter Care Teams Asparagus Buncher Relationship Specialty Start Date End Date Martina Owen PA-C PCP - General Physician Manager Programming 02/11/19 Queta Prater CNP [address] [place] [address] 720885 Nurse Practitioner Urology 09/22/20 Yanelis Benavides PA [address] [place] [address] Urology [place], [place] 267545 Assigned Surgical Provider 02/08/21 07/11/21 Song Leach MD [address] [place] [address] 634345 Assigned Surgical Provider 07/12/21 12/31/22 Song Leach MD [address] [place] [address] 619155 Assigned Surgical Provider 11/20/23 Song Leach MD 9[address] [place] [address] Urology 05/28/24 documented as of this encounter
--- OUTSIDE RECORDS SUMMARY | 2024-05-31 16:16 | XMS_ITS | Encounter Summary ---
Author Organization [facility] Address [address] [place] [address]. [place] [address] Care Team Providers Care Respite Worker Name Role Phone Byran Cardoza MD Primary Care Provider [phone] Martina Owen PA-C Primary Care Provider Queta Prater CNP Unavailable [phone] Yanelis Benavides Unavailable [phone] Song Leach MD Unavailable [phone] Song Leach MD Unavailable [phone] Song Leach MD Unavailable [phone] Encounter Details Date Type Department Care Team (Late st Contact Info) Description 10/02/[address] [address] Srinivas Salinas MD OPERATIVE REPORT [...] PM CDT Legal Sex Male 3:[address] Gender Identity Male 12/01/2020 9:08 PM CDT Sexual Orientation Straight 12/01/2020 9: 08 PM CDT documented as of this encounter Progress Notes * 10/02/2003 11:59 PM [id number] 00:00 Operative Report-[facility] OMAR HORTA () [Entered: 00:00 Tr anscription ([facility])] PREOPERATIVE DIAGNOSIS: Bilateral nephrolithiasis. POSTOPERATIVE DIAGNOSIS: Bi lateral nephrolithiasis. NAME OF OPERATION: 1. Cystoscopy. 2. Right ureteroscopy with holmium laser fragmentation and stone basketing. 3. Right double-J stent placement. SURGEON: Linus Howard MD RE SIDENT SURGEON: Omar Horta MD ANESTHESIA: General endotracheal anesthesia. ESTIMATED BLOOD LOSS: 3 mL. COMPLICATIONS: None. OPERATIVE INDICATIONS: Hubert Warner is a 27-year-old male with a history [...] the standard lydia gical fashion. Using a 21-Iraqi cystoscope with 30 degree lens in bridge, the penile meatus was gen tly cannulated. The urethra was normal in caliber and appearance. The prostate was small and benign . The bladder was superficially inspected and was free of stones, foreign objects, or tumors. Attent ion was then turned to the right ureteral orifice. Using a 5-Iraqi open-ended catheter and a Bentso n guidewire, the right ureteral orifice was gently cannulated. It was quite easy to feel a stone at the distal UVJ. Using C-arm fluoroscopy the guidewire was taken all the way up to the right renal pel vis. At this point both the cystoscope and open-ended stent were removed, leaving the Bentson guidew shaw in place. Using the 7.5-Iraqi semi rigid ureteroscope, we then performed ureteroscopy. [...] using a 2.2 nitinol tiples s and kalispel basket. Once all stone fragments were removed, [...] to place a double-J stent. A 6 -Iraqi 28-cm contour stent was placed with a nice pigtail curl in the right renal pelvis as well as in the bladder under direct vision. The patient's bladder was them emptied. The scope was removed. Duncan catheter was placed to gravity. The patient was then awakened from anesthesia, extubated, anne sferred to the recovery room in stable condition without complications. Dr. Linus Howard was present and scrubbed throughout the entire [...] prefer ence will depend on his followup. LINUS HOWARD MD Dictated by: OMAR HORTA MD D: 2003 12:53 [id number] MT: ge Document: [id number] CC: MD LINUS DORSEY MD JEFFREY R MICHELL, MD Document: [id number] CC: MD LINUS CARVALHO MD JEFFREY R MICHELL, MD MT: ?? LCN: [id number] DSC: 10/02/2003 Name: MR#: : Procedure Date: HUBERT WARNER -[id number] 1975 10/02/2003 OPERATIVE REPORT Page 3 of 2 Electronically filed by Bhavya Ruiz 004 9:53 AM documented in this encounter Plan of Treatment Upcoming Encounters Date Type Department Care Team ([facility] st Contact Info) Description 07/09/2024 1:[address] JUSTICE Virtual Visit [facility] Kidney Stone [place] [address] [facility] 200 [place] [address] Song Leach MD [address] [place] [address] documented as of this encounter Visit Diagnoses Diagnosis OPERATIVE REPORT- Primary documented in this encounter Additional Health Concerns Infection Onset Date Last Indicated Resolved Time MRSA-Contact Isolation 03/26 8:42 AM CDT MRSA Comment:Recurrent MRSA cellulitis per CareEverywhere 03/26/2021 03/26/2021 documented as of this encounter Care Teams Respite Worker Relationship Specialty [place] [address] [place] [address] PCP - General 04/10/03 02/10/19 Martina Owen PA-C [address] [place] [address] PCP - General Physician Vinyl Top Installer 02/11/19 Queta Prater CNP [address] [place], [place] [address] 158 Nurse Practitioner Urology 09/22/20 Yanelis Benavides PA [address] [place] [address] [place] [address] Assigned Surgical Provider 02/08/21 07/11/21 Song Leach MD [address] [place] [address] Assigned Surgical Provider 07/12/21 12/31/22 Song Leach MD [address] [place] [address] Assigned Surgical Provider 11/20/23 Song Leach MD [address] [place] [address] Urology 05/28/24 documented as of this encounter
--- OUTSIDE RECORDS SUMMARY | 2024-05-31 16:16 | XMS_ITS | Encounter Summary ---
Author Organization [place] Address [address] [place] [address]. [place] [address] Care Team Providers Care Rehabilitation Therapy Technician Name Role Phone Bryan Cardoza MD Primary Care Provider [phone] Martina Owen PA-C Primary Care Provider Queta Prater CNP Unavailable [phone] Yanelis Benavides Unavailable [phone] Song Leach MD Unavailable [phone] Song Leach MD Unavailable [phone] Song Leach MD Unavailable [phone] Encounter Details Date Type Department Care Team (Late st Contact Info) Description 10/16/[address] [address] Srinivas Salinas MD OPERATIVE REPORT [...] PM CDT Legal Sex Male 3:33 AM 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 Crohn disease. 2. Bilateral nephrolithiasis. POSTO PERATIVE DIAGNOSES: 1. Crohn disease. 2. Bilateral nephrolithiasis. NAME OF OPERATION: Cystoscopy , right ureteroscopy with stone basketing x 2, right ureteral stent placement, left ureteroscopy with holmium laser and stone extraction x 4, left ureteral stent placement. SURGEON: Sonal Howard MD RES IDENT SURGEON: Omar Horta MD ANESTHESIA: General endotracheal. ESTIMATED BLOOD LOSS: 10 c c. COMPLICATIONS: No complications. OPERATIVE INDICATIONS: Hubert Warner is a 27-year-old male with Crohn disease, [...] sta ndard surgical fashion. Using a 21- Jordanian rigid cystoscope with a 30-degree lens and [...] Through the st ent, we placed a Bentson guidewire with fluoroscopic guidance all the way up to the kidney. The sten t was then removed. Using the 7.5-Jordanian Ford semi-rigid ureteroscope, we performed rigid ureterosco [...] to the left ureteral orifice. Using a 5-Jordanian open-ended catheter and a Be ntson guidewire, [...] a flexible ureterosco py with the Olympus 7.5-Jordanian flexible ureteroscope. The ureteroscopy itself went fairly [...] w ere able to basket with the 1.9-Jordanian tipless basket and pull out through the [...] over the existing guidewire we placed a 7-Jordanian, 28-cm double- J stent with a nice pigtail curl in the renal pelvis and in the bladder. On the right side, there wa s a 6-Jordanian, 28-cm double-J stent placed. At the end of the case, a Duncan catheter was placed to gr avity drainage. The patient was awakened from anesthesia, extubated, and transferred to the recovery room in stable condition. Dr. Sonal Howard was scrubbed and present throughout the entirety [...] within 4-6 weeks after stent removal. SONAL HOWARD MD Dictated by: OMAR HORTA MD 15 :14 MT: ge Document: [id number] CC: MD SONAL CARVALHO MD JEFFREY R MICHELL, MD LCN: [id number] DSC: 10/17/2003 Name: MR#: : Proce dure Date: HUBERT WARNER [id number] 10/16/2003 OPERATIVE REPORT Page 3 of 3 Elect sarah filed by Bhavya Ruiz 10/24/2003 2:01 PM documented in this encounter Plan of Treatment Upcoming Encounters Date Type Department Care Team (Late st Contact Info) Description 07/09/2024 1:00 PM GUEST SERVICES Virtual Visit [facility] Kidney Stone [place] [address] [place] [address] Song Leach MD [address] [place], [place] 669015 documented as of this encounter Visit Diagnoses Diagnosis OPERATIVE REPORT- Primary documented in this encounter Additional Health Concerns Infection Onset Date Last Indicated Resolved Time MRSA-Contact Isolation 03/26 8:42 AM CDT MRSA Comment:Recurrent MRSA cellulitis per CareEverywhere 03/26/2021 03/26/2021 documented as of this encounter Care Teams Rehabilitation Therapy Technician Relationship Specialty Start [place] [address] [place], [place] [id number] PCP - General 04/10/03 02/10/19 Martina Owen PA-C [address] [place], [place] [id number] PCP - General Physician Metal Finisher 02/11/19 Queta Prater CNP [address] [place], [place] [address]25 Nurse Practitioner Urology 09/22/20 Yanelis Benavides PA [address] [facility] Urology [place], [place] [address] Assigned Surgical Provider 02/08/21 07/11/21 Song Leach MD [address] [place] [address] Assigned Surgical Provider 07/12/21 12/31/22 Song Leach MD [address] [place] [address] Assigned Surgical Provider 11/20/23 Song Leach MD [address] [place] [address] Urology 05/28/24 documented as of this encounter
== END 2024-11-22 23:59 | disposition home or self-care (01) ==
PROVIDERS: PCP Emergency Medicine; Visit Provider Nurse Practitioner
DX: M54.32 Sciatica, left side (principal); M54.16 Radiculopathy, lumbar region; Z51.89 Encounter for other specified aftercare
CPT/HCPCS: 97012; 97110; 97140; 97161

== ENCOUNTER 2024-07-26 16:12 | Outpatient (CLI) | payer OTHER, SELFPAY | END 2024-07-26 16:13 | disposition home or self-care (01) | PROVIDERS: PCP Emergency Medicine; Visit Provider Emergency Medicine | DX: R10.9 Unspecified abdominal pain (principal) | CPT/HCPCS: 80053; 83690 ==

== ENCOUNTER 2024-08-06 17:06 | Outpatient (CLI) | payer OTHER, SELFPAY | END 2024-08-06 17:07 | disposition home or self-care (01) | LOC: US 17:06 | PROVIDERS: PCP Emergency Medicine; Visit Provider Emergency Medicine | DX: R10.9 Unspecified abdominal pain (principal) | CPT/HCPCS: 76705 ==

== ENCOUNTER 2024-09-09 19:14 | Emergency (ER) | payer OTHER, SELFPAY ==
--- OUTSIDE RECORDS SUMMARY | 2024-09-09 19:17 | XMS_ITS | Encounter Summary ---
Author Organization [facility] Address [address] [place] [address]. 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
--- OUTSIDE RECORDS SUMMARY | 2024-09-09 19:17 | XMS_ITS | Encounter Summary ---
Author Organization [facility] Address [address] [place] [address]. 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
--- OUTSIDE RECORDS SUMMARY | 2024-09-09 19:17 | XMS_ITS | Encounter Summary ---
Author Organization [facility] Address [address] [place] [address]. 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
--- OUTSIDE RECORDS SUMMARY | 2024-09-09 19:17 | XMS_ITS | Encounter Summary ---
Author Organization [facility] Address [address] [place] [address]. [place] [address] Care Team Providers Care Commissary Representative Name Role Phone Bryan Cardoza MD Primary Care Provider [phone] Martina Owen PA-C Primary Care Provider Queta Prater CNP Unavailable [phone] Yanelis Benavides Unavailable [phone] Song Leach MD Unavailable [phone] Song Leach MD Unavailable [phone] Song Leach MD Unavailable [phone] Encounter Details Date Type Department Care Team (Late st Contact Info) Description 10/02/[address] [address] Srinivas Salinas MD OPERATIVE REPORT [...] PM CDT 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 POSTOPERATIVE [...] the standard lydia gical fashion. Using a 21-Equatorial Guinean cystoscope with 30 degree lens in bridge, the penile meatus was gen tly cannulated. The urethra was normal in caliber and appearance. The prostate was small and benign . The bladder was superficially inspected and was free of stones, foreign objects, or tumors. Attent ion was then turned to the right ureteral orifice. Using a 5-Equatorial Guinean open-ended catheter and a Bentso n guidewire, the right ureteral orifice was gently cannulated. It was quite easy to feel a stone at the distal UVJ. Using C-arm fluoroscopy the guidewire was taken all the way up to the right renal pel vis. At this point both the cystoscope and open-ended stent were removed, leaving the Bentson guidew shaw in place. Using the 7.5-Equatorial Guinean semi rigid ureteroscope, we then performed ureteroscopy. [...] using a 2.2 nitinol tiples s and quechan basket. Once all stone fragments were removed, [...] to place a double-J stent. A 6 -Equatorial Guinean 28-cm contour stent was placed with a [...] by: OMAR HORTA MD D: 2003 12:53 [id number] MT: ge Document: [id number] CC: MD LINUS DORSEY MD JEFFREY R MICHELL, MD Document: [id number] CC: MD LINUS CARVALHO MD JEFFREY R MICHELL, MD MT: ?? LCN: [id number] DSC: 10/02/2003 Name: MR#: : Procedure Date: HUBERT WARNER [id number] 10/02/2003 OPERATIVE REPORT Page 3 [...] documented as of this encounter Care Teams Commissary Representative Relationship Specialty [place] [address] [place] [address] PCP - General 04/10/03 02/10/19 Martina Owen PA-C [address] [place] [address] PCP - General Physician Mechanical Product Design Engineer 02/11/19 Queta Prater CNP [address] [place], [place] 728545 Nurse Practitioner Urology 09/22/20 Yanelis Benavides PA [address] [facility] Urology [place], [place] 3[address] Assigned Surgical Provider 02/08/21 07/11/21 Song Leach MD [address] [place] [address] Assigned Surgical Provider 07/12/21 12/31/22 Song Leach MD [address] [place] [address] Assigned Surgical Provider 11/20/23 Song Leach MD [address] [place] [address] Urology 05/28/24 documented as of this encounter
--- OUTSIDE RECORDS SUMMARY | 2024-09-09 19:17 | XMS_ITS | Clinical Summary ---
Author Organization [facility] Address [address] [place] [address] Care Team Providers Care Ball Mill Operator Name Role Phone Trino Jimenez Phys Of Primary Care Provider Un available Allergies Active Allergy Reactions Criticality Noted Date Comments Bee Venom Protein (Honey Bee) Anaphylaxis High 12/24/2019 Egg Derived Anaphylaxis 12/20/2011 Cyclosporine Anaphylaxis 09/27/2006 Cyclosporine Anaphylaxis High 12/24/2019 Egg Anaphylaxis 09/27/2006 Iodine Anaphylaxis High 12/24/2019 Mushroom *Unknown 12/24/2019 Tree Nut Anaphylaxis High 12/24/2019 Norton *Unknown 12/24/2019 Flavor Pear *Unknown 12/24/2019 flavor Shellfish Containing Products Anaphylaxis 09/27/2006 Venice *Unknown 12/24/2019 Unknown-Follow Up Needed (Include Details [...] on file Legal Sex Male 6:53 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 Gender Identity Not on file Sexual Orientation [...] for age 45-75 2021 COVID-19 vaccine series ( - 2023- season) 2024 Influenza Vaccine (Season Ended) 2025 Pneumococcal series for age 6-49 Aged Out No longer eligible based on patient's age to complete this topic Medical Devices Implanted Type Area Cell Coverer Device Identifier Shelf Expiration Date Model / Serial / Lot Plate Cerv Ant 25mm [place] Vision 976-125 - [id number] Implanted:Qty: 1 on 09/28/2006 at [facility] Spine Implants Spine SOFAMOR DANEK 976-125# / / Screw 4.0x14mm - [id number] Implanted:Qty: 4 on 09/28/2006 at [facility] Spine Implants Spine SOFAMOR DANEK 876-614# / / [id number] k José Miguel [id number] [[id number]] Implanted:Qty: 1 on 09/28/2006 at [facility] Explanted:at [facility] (Quantity not on file) Spine Medtronic 08/25/2009 [id number]# / [id number] / Insurance [place] [id number] WORKERS COMP Advance Directives * Full Code (Latest Code Status on File) Date Activated Date Inactivated Comments 12/25/2019 7:10 AM 12/25/2019 11:45 AM * Full Code Date Activated Date Inactivated Comments 09/28/2006 2:42 PM 09/29/2006 9:12 PM * Full Code Date Activated Date Inactivated Comments 09/28/2006 8:05 AM 09/28/2006 2:42 PM Care Teams Ball Mill Operator Relationship Specialty Start Date End Date Trino Jimenez Phys Of PCP - General 07/18/19
--- OUTSIDE RECORDS SUMMARY | 2024-09-09 19:17 | XMS_ITS | Encounter Summary ---
Author Organization [facility] Address [address] [place], [place] [address]. 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
--- OUTSIDE RECORDS SUMMARY | 2024-09-09 19:17 | XMS_ITS | Encounter Summary ---
Author Organization [facility] Address [address] [place] [address]. [place] [address] Care Team Providers Care Judicial Registrar Name Role Phone Martina Owen PA-C Primary Care Provider Queta Prater CNP Unavailable [phone] Yanelis Benavides Unavailable [phone] Song Leach MD Unavailable [phone] Song Leach MD Unavailable [phone] Song Leach MD Unavailable [phone] Reason for Visit * Reason Onset Date Comments Schedule Surgery 02/20/2021 surgery Schedule Surgery 02/20/2021 Kidney stone re moval Encounter Details Date Type Department Care Team (Late st Contact Info) Description 02/20/2021 Telephone [facility] [address] [address] Song Leach MD [address] [place] [address] 878285 Schedule Surgery (surgery ); Schedule Surgery (Kidney [...] PM CDT 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 please call tp to schedule his kidney stone removal surgery , thank you Action Taken: Message routed to: [facility] ([facility]): uro Travel Screening: Not Applicable documented in this encounter Plan of Treatment Not on file documented as of this encounter Visit Diagnoses Not on filedocumented in this encounter Additional Health Concerns Infection Onset Date Last Indicated Resolved Time MRSA-Contact Isolation 03/26 8:42 AM CDT MRSA Comment:Recurrent MRSA cellulitis per [facility]where 03/26/2021 03/26/2021 documented as of this encounter Care Teams Judicial Registrar Relationship Specialty Start Date End Date Martina Owen PA-C PCP - General Physician Registered Occupational Therapist 02/11/19 Queta Prater CNP [address] [place] [address] 905765 Nurse Practitioner Urology 09/22/20 Yanelis Benavides PA [address] [place] [address] Urology [place], [place] 268455 Assigned Surgical Provider 02/08/21 07/11/21 Song Leach MD [address] [place] [address]16 Assigned Surgical Provider 07/12/21 12/31/22 Song Leach MD [address] [place] [address]281 Assigned Surgical Provider 11/20/23 Song Leach MD [address] [place] [address] Urology 05/28/24 documented as of this encounter
--- OUTSIDE RECORDS SUMMARY | 2024-09-09 19:17 | XMS_ITS | Encounter Summary ---
Author Organization [facility] Address [address] [place] [address]. 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 Gender Identity Male 12/01/2020 9:08 PM CDT [...] documented as of this encounter Care Teams Glass Artist Relationship Specialty Start Date End Date Martina Owen PA-C PCP - General Physician Leasing Property Manager 02/11/19 Queta Prater CNP [address] [place] [address] Nurse Practitioner Urology 09/22/20 Yanelis Benavides PA [address] [place] [address] [place] [address] Assigned Surgical Provider 02/08/21 07/11/21 Song Leach MD [address] [place] [address] Assigned Surgical Provider 07/12/21 12/31/22 Song Leach MD [address] [place] [address] Assigned Surgical Provider 11/20/23 Song Leach MD [address] [place] [address] Urology 05/28/24 documented as of this encounter
--- OUTSIDE RECORDS SUMMARY | 2024-09-09 19:17 | XMS_ITS | Encounter Summary ---
Author Organization [facility] Address [address] [place] [address]. [place] [address] Care Team Providers Care Airport Operations Duty Manager Name Role Phone Martina Owen PA-C Primary Care Provider Queta Prater CNP Unavailable [phone] Yanelis Benavides Unavailable [phone] Song Leach MD Unavailable [phone] Song Leach MD Unavailable [phone] Song Leach MD Unavailable [phone] Encounter Details Date Type Department Care Team (Late st Contact Info) Description 04/02/2021 [facility] [place] [facility] [address] [address] Song Leach MD [address] [place] [address] Social History Tobacco Use Types Packs/Day [...] PM CDT 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 Gender Identity Male 12/01/2020 9:08 PM [...] documented as of this encounter Care Teams Airport Operations Duty Manager Relationship Specialty Start Date End Date Martina Owen PA-C PCP - General Physician Piano Player 02/11/19 Queta Prater CNP [address] [place] [address] Nurse Practitioner Urology 09/22/20 Yanelis Benavides PA [address] [place] [address] Urology [place], [place] 562585 Assigned Surgical Provider 02/08/21 07/11/21 Song Leach MD [address] [place] [address] Assigned Surgical Provider 07/12/21 12/31/22 Song Leach MD [address] [place] [address] Assigned Surgical Provider 11/20/23 Song Leach MD [address] [place] [address] Urology 05/28/24 documented as of this encounter
--- OUTSIDE RECORDS SUMMARY | 2024-09-09 19:17 | XMS_ITS | CCD ---
Author Name [facility] Address [address] [facility] [address] [address] Organization [facility] Address [address] [facility] [address] [address] Care Team Providers Care Steam Pressure Chamber Operator Name Role Phone Reilly Chavez Unavailable Unavailable Reason for Visit NEW PT CONSULT 60 MIN Encounters Date Name 02/04/2023 Thrombocytopenic dis order (disorder) Medications Date Name Route Dose Frequency Instructions Start Date End Date Status Folic Acid Oral 1.0 tablet daily active Methotrexate Oral 8.0 tablet weekly active Acetaminophen Oral 2.0 tablet PRN active Atorvastatin Oral 1.0 tablet daily active Certolizumab Pegol Subcutaneous biweekly active Lisinopril Oral 1.0 tablet daily active Rosuvastatin Calcium Oral 1.0 tablet daily active Semaglutide Subcutaneous Pen Injector weekly active Metoprolol Oral (Tartrate) 1.0 tablet BID active Metformin Oral 4.0 tablet daily active Problems Diagnosis Status Date of Diagnosi s Thrombocytopenic disorder (disorder) Active Social History Date Name Value 02/03/2023 Sex Male
--- OUTSIDE RECORDS SUMMARY | 2024-09-09 19:17 | XMS_ITS | Encounter Summary ---
Author Organization [facility] Address [address] [place] [address]. 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
--- OUTSIDE RECORDS SUMMARY | 2024-09-09 19:17 | XMS_ITS | Encounter Summary ---
Author Organization [facility] Address [address] [place] [address]. 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
--- OUTSIDE RECORDS SUMMARY | 2024-09-09 19:17 | XMS_ITS | Encounter Summary ---
Author Organization [facility] Address [address] [place] [address]. [place] [address] Care Team Providers Care Receiving Associate Name Role Phone Martina Owen PA-C Primary Care Provider Queta Prater CNP Unavailable [phone] Yanelis Benavides Unavailable [phone] Song Leach MD Unavailable [phone] Song Leach MD Unavailable [phone] Song Leach MD Unavailable [phone] Encounter Details Date Type Department Care Team (Late st Contact Info) Description 02/26/2021 [facility] Surgery Clinic [address] [place] [address] Winnie Sánchez Social History Tobacco [...] CDT 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 Gender Identity Male 12/01/2020 9:08 PM CDT [...] documented as of this encounter Care Teams Receiving Associate Relationship Specialty Start Date End Date Martina Owen PA-C PCP - General Physician Pricing Specialist 02/11/19 Queta Prater CNP [address] [place] [address] Nurse Practitioner Urology 09/22/20 Yanelis Benavides PA [address] [place] [address] [place] [address] Assigned Surgical Provider 02/08/21 07/11/21 Song Leach MD [address] [place] [address] Assigned Surgical Provider 07/12/21 12/31/22 Song Leach MD [address] [place] [address] Assigned Surgical Provider 11/20/23 Song Leach MD [address] [place] [address] Urology 05/28/24 documented as of this encounter
--- OUTSIDE RECORDS SUMMARY | 2024-09-09 19:17 | XMS_ITS | Encounter Summary ---
Author Organization [facility] Address [address] [place] [address]. [place] [address] Care Team Providers Care Practice Professional Name Role Phone Martina Owen PA-C Primary Care Provider Queta Prater CNP Unavailable [phone] Yanelis Benavides Unavailable [phone] Song Leach MD Unavailable [phone] Song Leach MD Unavailable [phone] Song Leach MD Unavailable [phone] Encounter Details Date Type Department Care Team (Late st Contact Info) Description 04/03/2021 [facility] [address] [address] [facility] Social History Tobacco Use Types Packs/Day Years [...] PM CDT 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 Gender Identity Male 12/01/2020 9:08 PM CDT [...] documented as of this encounter Care Teams Practice Professional Relationship Specialty Start Date End Date Martina Owen PA-C PCP - General Physician Bingo Worker 02/11/19 Queta Prater CNP [address] [place] [address] Nurse Practitioner Urology 09/22/20 Yanelis Benavides PA [address] [place] [address] [place] [address] Assigned Surgical Provider 02/08/21 07/11/21 Song Leach MD [address] [place] [address] Assigned Surgical Provider 07/12/21 12/31/22 Song Leach MD [address] [place] [address] Assigned Surgical Provider 11/20/23 Song Leach MD [address] [place] [address] 8[address] Urology 05/28/24 documented as of this encounter
--- OUTSIDE RECORDS SUMMARY | 2024-09-09 19:17 | XMS_ITS | Encounter Summary ---
Author Organization [facility] Address [address] [place] [address]. [place] [address] Care Team Providers Care Construction Project Administrator Name Role Phone Bryan Cardoza MD Primary Care Provider [phone] Martina Owen PA-C Primary Care Provider Queta Prater CNP Unavailable [phone] Yanelis Benavides Unavailable [phone] Song Leach MD Unavailable [phone] Song Leach MD Unavailable [phone] Song Leach MD Unavailable [phone] Encounter Details Date Type Department Care Team (Late st Contact Info) Description 10/16/[address] [address] Srinivas Salinas MD OPERATIVE REPORT [...] PM CDT 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 Crohn disease. 2. [...] sta ndard surgical fashion. Using a 21- Rwandan rigid cystoscope with a 30-degree lens and [...] sten t was then removed. Using the 7.5-Rwandan Ford semi-rigid ureteroscope, we performed rigid ureterosco [...] to the left ureteral orifice. Using a 5-Rwandan open-ended catheter and a Be ntson guidewire, [...] a flexible ureterosco py with the Olympus 7.5-Rwandan flexible ureteroscope. The ureteroscopy itself went fairly [...] w ere able to basket with the 1.9-Rwandan tipless basket and pull out through the [...] over the existing guidewire we placed a 7-Rwandan, 28-cm double- J stent with a nice pigtail curl in the renal pelvis and in the bladder. On the right side, there wa s a 6-Rwandan, 28-cm double-J stent placed. At the end [...] HORTA MD 15 :14 MT: ge Document: [id number] CC: MD SONAL CARVALHO MD JEFFREY R MICHELL, MD LCN: [id number] DSC: 10/17/2003 Name: MR#: : Proce dure Date: HUBERT WARNER -98 1975 10/16/2003 OPERATIVE REPORT Page 3 [...] documented as of this encounter Care Teams Construction Project Administrator Relationship Specialty [place] [address] [place] [address] PCP - General 04/10/03 02/10/19 Martina Owen PA-C [address] [place] [address] PCP - General Physician Website Programmer 02/11/19 Queta Prater CNP [address] [place] [address] [id number] Nurse Practitioner Urology 09/22/20 Yanelis Benavides PA [address] [place] [address] [place] [address] Assigned Surgical Provider 02/08/21 07/11/21 Song Leach MD [address] [place] [address] Assigned Surgical Provider 07/12/21 12/31/22 Song Leach MD [address] [place] [address] Assigned Surgical Provider 11/20/23 Song Leach MD [address] [place] [address] Urology 05/28/24 documented as of this encounter
--- OUTSIDE RECORDS SUMMARY | 2024-09-09 19:17 | XMS_ITS ---
Author Name Interface, [id number] Address [address] [address] [facility] Address [address] [address] Care Team Providers Care Chain Hoist Operator Name Role Phone Reilly Chavez Unavailable Unavailable Allergies and Adverse Reactions Medication/Group Name Reaction Severity Date cyclosporine 02/04/2023 Plan Date Type Value 02/04/2023 APPOINTMENT LAB 15 MIN 02/04/2023 APPOINTMENT NEW PT CONSULT 6 0 MIN 02/04/2023 LABORDER Vitamin B12 pane l 02/04/2023 LABORDER Path peripheral blood slide review panel 02/04/2023 LABORDER Folate panel 02/04/2023 LABORDER Serum Protein El ectrophoresis (SPEP) 02/04/2023 LABORDER CBC w/ auto diff Reason for Visit NEW PT CONSULT 60 MIN Encounters Date Name 02/04/2023 Thrombocytopenic dis order (disorder) Immunizations Date Name Route Dose Instructions Refusal Reason Stat us Covid-19 vaccine (Jacob) Completed Covid-19 vaccine (Pfizer) Completed Covid-19 vaccine (Moderna) Completed Diagnostic Results Date Type Test Units Lower Limit Upper Limit Result Flag Comments Status Ordered By Specimen Source Lab Address 02/04 Total prote in g/dL 5.7 8.2 7.6 FINAL [facility] [place], [address] [facility] [facility] [id number] 0 Phone: () - 02/04 Album in, SPE g/dL 3.31 5.31 4.65 FINAL [facility] [place], [address] [facility] [id number] 0 Phone: () - 02/04 Alpha -1 globu lonny g/dL 0.19 0.42 0.28 FINAL [facility], [address] [facility] [id number] 0 Phone: () - 02/04 Alpha -2 globu lonny g/dL 0.44 1.03 0.57 FINAL [facility], [address] [facility] [phone] 0 Phone: () - 02/04 Beta globu lonny g/dL 0.52 1.05 0.89 FINAL [facility], [address] [facility] [id number] 0 Phone: () - 02/04 Gamma globu lonny g/dL 0.59 1.46 1.21 FINAL [facility], [address] [facility] [id number] 0 Phone: () - 02/04 Elect Johana etienne in Lab resul t note No parapro tein klarissa regalado Interpr eted and signed by Eze Gr MD on 023 FINAL [facility], [address] [facility] [id number] 0 Phone: () - 02/04 Vitam in B12 panel Vitam in B12 pg/mL 230.0 1050.0 375 Test performed at [facility]. [address] [place] [address] FINAL [facility], [address] [facility] [phone] 0 Phone: () - 02/04 Retic ulocy te count panel Retic ulocy te, absol ysleta del sur M/uL 0.01 0.1 0.05 FINAL [facility] [place], [address] [place] [phone] 0 Phone: () - 02/04 Retic ulocy te count panel Retic ulocy te count % 0.2 1.7 1.10 FINAL [facility] [place], [address] [place] [phone] 0 Phone: () - 02/04 Retic ulocy te count panel Immat ure retic ulocy te fract ion, % % 0.0 18.8 12.90 FINAL [facility] [place], [address] [address] [place] [id number] 0 Phone: () - 02/04 Retic ulocy te count panel Retic ulocy te cellu lar hemog lobin pg 28.0 37.0 38.8 High FINAL [facility] [place], [address] [place] [address] d [address] [place] [phone] 0 Phone: () - 02/04 Folat e panel Folat e, serum ng/mL 3.0 16.0 Folate greater than 20 FINAL [facility] [place], [address] [place] [phone] 0 Phone: () - 02/04 CBC w/ auto diff WBC K/uL 3.0 8.9 7.3 FINAL [facility] [place], [address] [place] [address] d [address] [place] [phone] 0 Phone: () - 02/04 CBC w/ auto diff HGB g/dL 12.5 16.6 15.6 FINAL [facility] [place], [address] [place] [address] d [address] [place] [phone] 0 Phone: () - 02/04 CBC w/ auto diff PLT K/uL 113.0 364.0 222 FINAL [facility] [place], [address] [facility] [address] [place] [phone] 0 Phone: () - 02/04 CBC w/ auto diff Poli # (ANC) K/uL 1.6 6.6 2.9 FINAL [facility] [place], [address] [facility] [address] [place] [phone] 0 Phone: () - 02/04 CBC w/ auto diff Poli % % 43.0 74.0 39.1 Low FINAL [facility] [place], [address] [place] [phone] 0 Phone: () - 02/04 CBC w/ auto diff IG % % 0.0 0.5 0.1 FINAL [facility] [place], [address] [place] [phone] 0 Phone: () - 02/04 CBC w/ auto diff IG # K/uL 0.0 0.03 0.01 FINAL [facility] [place], [address] [place] [phone] 0 Phone: () - 02/04 CBC w/ auto diff LY % % 14.0 41.0 45.2 High FINAL [facility] [place], [address] [place] [phone] 0 Phone: () - 02/04 CBC w/ auto diff MO % % 6.0 15.0 11.1 FINAL [facility] [place], [address] [place] [phone] 0 Phone: () - 02/04 CBC w/ auto diff EO % % 0.0 7.0 4.2 FINAL [facility] [place], [address] [place] [phone] 0 Phone: () - 02/04 CBC w/ auto diff BA % % 0.0 2.0 0.3 FINAL [facility] [place], [address] [place] [phone] 0 Phone: () - 02/04 CBC w/ auto diff LY # K/uL 0.4 3.6 3.3 FINAL [facility] [place], [address] [place] [phone] 0 Phone: () - 02/04 CBC w/ auto diff MO # K/uL 0.2 1.3 0.8 FINAL [facility] [place], [address] [place] [phone] 0 Phone: () - 02/04 CBC w/ auto diff EO # K/uL 0.0 0.6 0.3 FINAL [facility] [place], [address] [place] [phone] 0 Phone: () - 02/04 CBC w/ auto diff BA # K/uL 0.0 0.2 0.0 FINAL [facility] [place], [address] [place] [phone] 0 Phone: () - 02/04 CBC w/ auto diff NRBC % #/100W BC 0.0 0.2 0.0 FINAL [facility] [place], [address] [place] [phone] 0 Phone: () - 02/04 CBC w/ auto diff RBC M/uL 4.2 5.6 4.90 FINAL [facility] [place], [address] [place] [phone] 0 Phone: () - 02/04 CBC w/ auto diff HCT % 39.0 49.0 45.9 FINAL [facility] [place], [address] [place] [phone] 0 Phone: () - 02/04 CBC w/ auto diff MCV fL 80.0 104.0 93.7 FINAL [facility] [place], [address] [place] [phone] 0 Phone: () - 02/04 CBC w/ auto diff MCH pg 26.0 35.0 31.8 FINAL [facility] [place], [address] [place] [phone] 0 Phone: () - 02/04 CBC w/ auto diff MCHC g/dL 30.0 35.0 34.0 FINAL [facility] [place], [address] [place] [phone] 0 Phone: () - 02/04 CBC w/ auto diff MPV fL 9.5 13.4 10.4 FINAL [facility] [place], [address] [place] [phone] 0 Phone: () - 02/04 CBC w/ auto diff RDW % 11.3 15.6 12.50 FINAL [facility] [place], [address] [place] [phone] 0 Phone: () - 02/04 Path perip heral blood slide revie w panel Patho logy/ Cytol ogy Morph ology SEE RESULTS BELOW CASE REPORTSpe cial Hematolog y Report Case: [id number] ing Provider: eRilly Chavez MD Collected :02/05/20 23 1110Order ing Location: [facility] Received: 3 1556Patho logist: Gregory Chaves MDSpec imen: BloodFINA L DIAGNOSIS PERIPHERA L BLOOD:1. Mild absolute lymphocyt osis with nonspecif ic features2 . No evidence of a monotypic B-cell lymphocyt e populatio n by flow cytometry 3. See commentEl ectronica lly signed by Gregory Chaves MD on 02/08/2023 at 3:05 PMCOMMENT Of note, the patient's platelet count is currently within normal limits. Thelympho cytosis has nonspecif ic features. Flow cytometry was performed and showsno evidence of a monotypic B-cell lymphocyt e populatio n. Therefore , thelympho cytosis is favored to be reactive/ nonspecif ic. Clinical correlati on isrecomme nded.This case was also reviewed by Karol chaney MT, MS (ASCP).CL INICAL INFORMATI ONThe patient is a 47-year-o ld male.Pert inent clinical informati on: Thrombocy topenia.P er EPIC: Additiona l history includes inflammat ory bowel disease.S he does not have a history of persisten t lymphocyt osis.CBC AND DIFFERENT IALHEMATO LOGY PARAMETER STested at: [facility] [place] eRESULTS EXPECTED VALUESWBC : 7.3 4.5-11x10 00/cummRB C: 4.9 4.30-5.90 mil/cummH GB: 15.6 13.5-17.5 gm/diHCT: 45.9 37-53%MCV : 93.7 80-100 fl NORMOCYTI CMCH: 31.8 26-34 pgMCHC: 34.0 32-36 gm/dl NORMOCHRO MICRDW: 12.5 11.5-15.5 %PLT: 222 140-440x1 000/uLMPV : 10.4 6.5-11 flRetic: 1.1 0.5-1.5%D ifferenti alAbsolut e (%) Expected (%)(x10*9 /L) (x10*9/L) Neutrophi ls: 2.87 (39.2) 1.7-7.0 (42-72%)L ymphocyte s: 3.31 (45.2) 0.9-2.9 (20-44%) ELEVATEDM onocytes: 0.81 (11.1) <0.9 (0-11%)Eo sinophils : 0.31 (4.2) <0.5 (0-2%)Bas ophils: 0.02 (.3) <0.3 (<3.0%)Im m Grans: 0.01 (.1) <0.3 (0-3%)(Me tas, Myelos,Pr os)MICROS COPIC DESCRIPTI ONThe final diagnosis is based on microscop ic examinati on of an appropria telystain ed blood smear.JERI W CYTOMETRY SUMMARYB Cell Screen panel:Int erpretati on: No monotypic B lymphocyt es are detected. Clinical indicatio n for flow cytometry : Lymphocyt osis.Perc ent of LymphsB cells: 5.5%T cells: 85.6%CD19 +/[place]: 3.6%CD19+ /Lambda: 2.2%[place] :Lambda ratio: 1.6B lymphocyt es in this analysis demonstra te normal qualitati ve expressio n of thefollow ing antigens: CD3, CD5, CD10, CD19, CD20, CD45, and [place] and [place] face light chains.Qu eddi Assessmen tViabilit y (7-AAD): 44%Polyty pic B cell events: 346Nuclea judie cells analyzed: 8483Limit of detection (LOD): 0.2%These results and cytograms have been verified by Dr. Chaves.Th is test was developed and its performan ce character istics verified by [facility]. It has not been cleared or approved by the [place] Food and DrugAdmin istration . This test is used for clinical purposes and should not beregarde d as investiga tional or for research. Analytic Flow Tech: Mikayla Banda, 02/07/2023 2:17 PMVerifyi ng Flow Tech: Aubree Cisse LaurabrennanNessa bradley, 02/07/2023 2:37 PMADDITIO NAL INFORMATI ONInterpr eted at [facility] [address] [facility] [facility] [id number] FINAL [facility] Medications Date Name Route Dose Frequency Instructions Start Date End Date Status Lisinopril Oral 1.0 tablet daily active Atorvastatin Oral 1.0 tablet daily active Semaglutide Subcutaneous Pen Injector weekly active Certolizumab Pegol Subcutaneous biweekly active Metformin Oral 4.0 tablet daily active Methotrexate Oral 8.0 tablet weekly active Folic Acid Oral 1.0 tablet daily active Rosuvastatin Calcium Oral 1.0 tablet daily active Metoprolol Oral (Tartrate) 1.0 tablet BID active Acetaminophen Oral 2.0 tablet PRN active Problems Diagnosis Status Date of Diagnosi s Thrombocytopenic disorder (disorder) Active Vital Signs Date Type Value 02/04/2023 Body Temperature 97.20 02/04/2023 Heart Beat 72.00 02/04/2023 Respiratory Rate 16.00 02/04/2023 Oxygen Saturation 98.00 02/04/2023 BSA 2.30 02/04/2023 Pain Scale 0.00 02/04/2023 Weight 248.00 02/04/2023 Height 70.50 02/04/2023 BMI 35.08 02/04/2023 Intravascular Systolic 126 02/04/2023 Intravascular Diastolic 82 Notes Section * Med Onc Consult (Amended) Patient Name:??DOTTY WARNER Date of :??1975 Date of Service:??02/04/2023 Attending Physician:?Reilly Chavez (Hematology/Oncology) Referring Physician:??Michael Bruno DO (Gastroenterology) INITIAL HEMATOLOGY/MEDICAL ONCOLOGY CONSULTATION Reason for Visit Mild??thrombocytopenia Assessment We went over the potential causes of??thrombocytopenia, including B12/folate deficiency, underlyingbone marrow??disorder,??medications,??splenomegaly,??and ITP.?? I suspect the patient's??mild thrombocytopenia is??due to methotrexate use, but??it is reasonable to perform??a laboratory work-up, with no bone marrow biopsy,??to rule out other potential causes. Plan 1. B12 and folate 2. Peripheral smear and SPEP 3. If workup is negative, would simply just monitor CBC w/ diff every 6 months 4. If Plt continues to decrease in the future, could empirically treat with steroids or IVIG for possible ITP or perform a bone marrow biopsy for further evaluation. Advanced Care Planning Not discussed at this visit. Pain Scale on Today's Visit Not recorded on today's visit Pain Plan on Today's Visit No pain plan indicated for today's visit Smoking Status Smoking Status:??Smoking Tobacco : Never smoker; Smokeless Tobacco : Never used smokeless tobacco; Vaping : Never vaped History of Present Illness This is a very pleasant 47-year-old gentleman with??mild thrombocytopenia??dating back at least 2 years, but??most likely longer.?? He does not report any bleeding issues related to thrombocytopenia.?? Of note, the patient has a history of inflammatory bowel disease, for which??he is on methotrexate. Review of Systems A comprehensive review of systems was performed and the pertinent positives and negatives can be found in the History of Present Illness. Past Medical and Surgical History Inflammatory bowel disease Diabetes Hyperlipidemia Current Medications Medication List Name Date Folic Acid Oral 02/04/2023 Methotrexate Oral 02/04/2023 Lisinopril Oral 02/04/2023 Tylenol (Acetaminophen Oral) 02/04/2023 Cimzia (Certolizumab Pegol Subcutaneous) 02/04/2023 Metoprolol Oral (Tartrate) 02/04/2023 Ozempic (Semaglutide Subcutaneous Pen In jector) 02/04/2023 Rosuvastatin Calcium Oral 02/04/2023 Atorvastatin Oral 02/04/2023 Metformin Oral 02/04/2023 Allergies Current Allergy List Allergy Name Severity Status Recording Date cyclosporine Active 02/04/2023 Family History Unremarkable. Social History Never smoker. ??No significant alcohol intake. Vital Signs Blood pressure: , Pulse: , Temperature: , Respirations: , O2 sat: , Pain Scale: , Height: , Weight:, BSA: , BMI: Immunizations: Covid-19 vaccine (Jacob) (02/04/2023), Elsewhere; Covid-19 vaccine (Moderna) (02/04/2023), Elsewhere; Covid-19 vaccine (Pfizer) (02/04/2023), Elsewhere Oxygen Sats 98%, At Rest, Room Air Performance Status ECOG or Karnofsky ECOG:??Not recorded. Karnofsky:?? Not recorded Physical Exam General: Awake, alert, and oriented.? Skin: ??No bruising or skin rash noted. Eyes: ?? Sclera anicteric. ?? Mouth: ??Moist mucous membranes without ulceration Lymphatics: No palpable lymphadenopathy Abdomen: ??Soft, nontender, nondistended. ??No organomegaly. Extremities: ??Well perfused, no edema. Genetics/Molecular/Biomarkers Additional Labs, Imaging and Other Studies Lab Results CBC Lab Results 02/04/2023 01/26/2023 01/19/2023 11/10/2022 09/01/1908/26/2022 CBC WBC x 10^3/uL 7.3 RBC x 10^6/uL 4.90 NRBC % /100 wbc 0.0 HGB g/dL 15.6 HCT % 45.9 MCV fL 93.7 MCH pg 31.8 MCHC g/dL 34.0 RDW % 12.50 PLT x 10^3/uL 222 MPV fL 10.4 Poli % 39.1 (L) LY % 45.2 (H) MO % 11.1 EO % 4.2 IG % 0.1 Poli # (ANC) x 10^3/uL 2.9 BA % 0.3 MO # x 10^3/uL 0.8 EO # x 10^3/uL 0.3 BA # x 10^3/uL 0.0 IG # x 10^3/uL 0.01 LY # x 10^3/uL 3.3 Anemia Results Lab Results 02/04/2023 01/26/2023 01/19/2023 11/10/2022 09/01/1908/26/2022 Anemia Labs Reticulocyte count % 1.10 Reticulocyte, absolute x 10^6/mL 0.05 Immature reticulocyte fraction, % 12.90 Reticulocyte cellular hemoglobin pg 38.8 (H) Surveys/Consents/Other Discussions Thank you for allowing me to see??DOTTY WARNER in consult. Reilly Chavez MD CC: FAX Michael Bruno DO (Referring) Moni Noland MD Electronically signed by Reilly Chavez MD 02/06/2023 10:50 CDT
--- OUTSIDE RECORDS SUMMARY | 2024-09-09 19:17 | XMS_ITS | Encounter Summary ---
Author Organization [facility] Address [address] [place] [address]. 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
--- OUTSIDE RECORDS SUMMARY | 2024-09-09 19:18 | XMS_ITS | Encounter Summary ---
Author Organization [facility] Address [address] [place] [address]. [place] [address] Care Team Providers Care Cutter V Groove Name Role Phone Martina Owen PA-C Primary Care Provider Queta Prater CNP Unavailable [phone] Yanelis Benavides Unavailable [phone] Song Leach MD Unavailable [phone] Song Leach MD Unavailable [phone] Song Leach MD Unavailable [phone] Reason for Visit * Reason Onset Date Comments Patient Request 04/10/2021 Encounter Details Date Type Department Care Team (Late st Contact Info) Description 04/10/2021 Telephone [facility] [address] [address] Song Leach MD [address] [place] [address] [id number] Patient Request Social History Tobacco Use Types [...] PM CDT Legal Sex Male 3:33 AM BUSINESS ANALYSIS CONSULTANT Gender Identity Male 12/01/2020 9:08 PM CDT [...] Deisi Alvarado - 04/10/2021 8:08 AM CST [facility] Phone Message May a [...] Center ([facility]): Urology Travel Screening: Not Applicable NESS ANALYSIS CONSULTANT documented in this encounter Plan of Treatment Not on file documented as of this encounter Visit Diagnoses Not on filedocumented in this encounter Additional Health Concerns Infection Onset Date Last Indicated Resolved Time MRSA Comment:Recurrent MRSA cellulitis per CareEverywhere 03/26/2021 03/26/2021 documented as of this encounter Care Teams Cutter V Groove Relationship Specialty Start Date End Date Martina Owen PA-C PCP - General Physician Ice Cream Dispenser 02/11/19 Queta Prater CNP [address] [place], [place] [address] Nurse Practitioner Urology 09/22/20 Yanelis Benavides PA [address] [place] [address] U[place], [place] [address] Assigned Surgical Provider 02/08/21 07/11/21 Song Leach MD [address] [place] [address] Assigned Surgical Provider 07/12/21 12/31/22 Song Leach MD [address] [place] [address] Assigned Surgical Provider 11/20/23 Song Leach MD [address] [place] [address] Urology 05/28/24 documented as of this encounter
--- OUTSIDE RECORDS SUMMARY | 2024-09-09 19:18 | XMS_ITS | Encounter Summary ---
Author Organization [place] Address [address] [place] [address]. [place] [address] Care Team Providers Care Dip Lube Operator Name Role Phone Martina Owen PA-C Primary Care Provider uQeta Prater CNP Unavailable [phone] Yanelis Benavides Unavailable [phone] Song Leach MD Unavailable [phone] Song Leach MD Unavailable [phone] Song Leach MD Unavailable [phone] Reason for Visit * Reason Onset Date Comments Patient Request 03/30/2021 Call Back 03/31/2021 Schedule Surgery for more stones or stent removal Call Back 04/02/2021 Schedule surgery for more stones and stent removal Encounter Details Date Type Department Care Team (Late st Contact Info) Description 03/30/2021 Telephone [facility] [address] [address] Song Leach MD [address] [place] [address] Patient Request; Call Back (Schedule Surgery [...] PM CDT 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 Action Taken: Message routed to: [facility] ([facility]): Uro Travel Screening: Not Applicable * Telephone [...] be doing and schedulingfor that. Dr. Leach's bench worker binding is out of the office, returning 04/02/21 (which the pt isaware of). Please call him to discuss which route he should be doing. Action Taken: Message routed to: [facility] ([facility]): uro Travel Screening: Not Applicable * Telephone Encounter - Deisi Alvarado - 03/30/2021 3:13 PM CDT [facility] Phone Message May a [...] documented as of this encounter Care Teams Dip Lube Operator Relationship Specialty Start Date End Date Martina Owen PA-C PCP - General Physician Ex Assistant/Program Director 02/11/19 Queta Prater CNP [address] [place] [address] Nurse Practitioner Urology 09/22/20 Yanelis Benavieds PA [address] [place] [address] [place] [address] Assigned Surgical Provider 02/08/21 07/11/21 Song Leach MD [address] [place] [address] [id number] Assigned Surgical Provider 07/12/21 12/31/22 Song Leach MD [address] [place] [address] [id number] Assigned Surgical Provider 11/20/23 Song Leach MD [address] [place] [address] Urology 05/28/24 documented as of this encounter
--- OUTSIDE RECORDS SUMMARY | 2024-09-09 19:18 | XMS_ITS | Encounter Summary ---
Author Organization [place] Address [address] [place] [address]. [place] [address] Care Team Providers Care Side Sawyer Name Role Phone Martina Owen PA-C Primary Care Provider Queta Prater CNP Unavailable [phone] Yanelis Benavides Unavailable [phone] Song Leach MD Unavailable [phone] Song Leach MD Unavailable [phone] Song Leach MD Unavailable [phone] Encounter Details Date Type Department Care Team [...] PM CDT Legal Sex Male 3:33 AM ENTERTAINER & COMIC Gender Identity Male 12/01/2020 9:08 PM CDT [...] documented as of this encounter Care Teams Side Sawyer Relationship Specialty Start Date End Date Martina Owen PA-C PCP - General Physician Senior Database Administrator 02/11/19 Queta Prater CNP [address] [place] [address] [id number] Nurse Practitioner Urology 09/22/20 Yanelis Benavides PA [address] [place] [address] U[place], [place] [address] Assigned Surgical Provider 02/08/21 07/11/21 Song Leach MD [address] [place] [address] [id number] Assigned Surgical Provider 07/12/21 12/31/22 Song Leach MD [address] [place] [address] Assigned Surgical Provider 11/20/23 Song Leach MD [address] [place] [address] Urology 05/28/24 documented as of this encounter
--- OUTSIDE RECORDS SUMMARY | 2024-09-09 19:18 | XMS_ITS | Clinical Summary ---
Author Organization [place] Address [address] [place] [address] Care Team Providers Care Tourist Escort Name Role Phone Martina Owen PA-C Primary Care Provider Queta Prater CNP Unavailable [phone] Song Leach MD Unavailable [phone] Song Leach MD Unavailable [phone] Allergies Active Allergy Reactions Criticality Noted Date Comments Chicken Allergy 04/10/2003 and turkey Cyclosporine 04/10/2003 anaphylactic Eggs 04/10/2003 anaphylactic Fish Allergy 04/10/2003 Nuts 04/10/2003 [place] 04/10/2003 Medications CLARITIN-D 24 HOUR 10-240 MG [...] 0.5MG INTO THE SKIN WEEKLY 1 Active lisinopril (ZESTRIL) 5 MG tablet [...] dose is inadequate. 2 each 3 Active Active Problems Problem Noted Date Diagnosed [...] PCNL and left URS (patient ok with [place] or [facility]) Esophageal reflux 10/01/2003 Allergic rhinitis due to pollen 10/01/2003 Encounters Date Type Department Care Team Description 07/09/2024 9:[address] [facility] Virtual Visit [address] [place] [address] Song Leach MD Nephrolithiasis (Primary Dx) from Last 3 Months Social History Tobacco Use Types Packs/Day Years Used Date Smoking Tobacco: Former Cigarettes Q uit: 04/13/1996 Smokeless Tobacco: Never Tobacco Cessation:Counseling Given: Not Answered Alcohol Use Standard Drinks/Week Comments Not Currently 0 (1 standard drink = 0.6 oz pur e alcohol) stopped 15yrs ago PHQ-2 Answer Date Recorded PHQ-2 Score 0 07/09/2024 Adolescent Education Answer Date Record ed Getting [...] PM CDT Legal Sex Male 3:[address] [employer] Gender Identity Male 12/01/2020 9:08 PM CDT [...] 02/23/2024 2:07 PM CDT Plan of Treatment Health Maintenance [...] Years) (1 of 2 - PCV) 12/09/1995 ZOSTER IMMUNIZATION (1 of 2) 12/09/1995 LIPID 2016 COLONOSCOPY 02/23/2021 02/23/2011, 02/10/2009 COLORECTAL CANCER SCREENING 02/23/2021 COVID-19 Vaccine ( season) 2024 04/16/2021, 09/10/2020, 08/13/2020 INFLUENZA VACCINE (#1) 2024 DIABETES SCREENING 04/09/2024 04/09/2021, 1 , 03/26/2021, Additional history exists DTAP/TDAP/TD IMMUNIZATION (4 - Td or Tdap) 05/28/2031 05/28/2021, 06/15/2014, 07/01/2010, Additional history exists PHQ-2 (once per calendar year) Completed 07/09/2024, 11/14/2023, 02/05/2021 HPV IMMUNIZATION Aged Out No longer e ligible based on patient's age to complete this topic MENINGITIS IMMUNIZATION Aged Out No l onger eligible based on patient's age to complete this topic Medical Devices Implanted Type Area Store Receiving Specialist Device Identifier Shelf Expiration Date Model / Serial / Lot Stent Ureteral Percuflex Plus [id number] - [id number] Implanted:Qty: 1 on 04/09/2021 by Song Leach MD at [facility] Stent Right: Ureter [employer] [id number] 09/02/2023 [id number] 30 / / [id number] Stent, Ureteral, 4.8fr X 26cm, Hydroplus Coating, Without Wire, Percuflex Plus - [id number] Implanted:Qty: 1 on 02/27/2024 by Song Leach MD at [facility] Stent Left: Urethra 06/10/2026 [id number] / / [id number] Stent, Ureteral, 4.8fr X 26cm, Hydroplus Coating, Without Wire, Percuflex Plus - [id number] Implanted:Qty: 1 on 02/27/2024 by Song Leach MD at [facility] Stent Right: Urethra [id number] / / [id number] Explanted Type Area Store Receiving Specialist Device Identifier Shelf Expiration Date Model / Serial / Lot Stent Ureteral Percuflex Plus [id number] - [id number] Implanted:Qty: 1 on 03/25/2021 by Song Leach MD at [facility] Explanted:Qty: 1 on 04/09/2021 by Song Leach MD at [facility] Stent Left: Ureter [employer] [id number] 12/19/2023 [id number] 30 / / [id number] Stent Ureteral Percuflex Plus [id number] - [id number] Implanted:Qty: 1 on 03/25/2021 by Song Leach MD at [facility] Explanted:Qty: 1 on 04/09/2021 by Song Leach MD at [facility] Stent Right: Ureter [employer] [id number] 09/09/2023 [id number] 40 / / [id number] Procedures Procedure Name Priority Date/Time Associated Diagnosis Comments GLUCOSE BY METER Routine 04/09/2021 12:[address] [facility] COLONOSCOPY Routine 02/23/2011 9:54 AM CDT from Last 3 Months or Most Recently Relevant to Health Maintenance Results * (ABNORMAL) Glucose by meter (04/09/2021 12:[address] [facility]) [facility] GLUCOSE BY METER POCT 130(H) 70 - 99 mg/dL 04/09/2021 1:[address] [facility] [facility] POC Blood BLOOD SPECIMEN / Unknown 04/09/2021 12:[address] [facility] 04/09/2021 1:[address] [facility] Song Leach MD LAB - [facility] POCT Final Result [facility] POC [facility] - [address] 1[address] [place] [address] * COLONOSCOPY (02/23/2011 9:54 AM CDT) COLONOSCOPY [facility] Patient Name: Hubert Odell Procedure Date: 02/23/2011 [...] RESULTS 02/23/2011 9:54 AM CDT us Verena Penny PROCEDURES Final Result RADIOLOGY RESULTS from Last 3 Months or Most Recently Relevant to Health Maintenance Additional Health Concerns Infection Onset Date Last Indicated MRSA Comment:Recurrent MRSA cellulitis per CareEverywhere 03/26/2021 1 Insurance [employer] Advance Directives For more information, please contact: [phone] * Full Code (Latest Code Status on File) Date Activated Date Inactivated Comments 03/25/2021 9:20 PM 03/26/2021 3:11 PM All basic and advanced life-sustaining interventions are performed as appropriate Question Answer Comments Code status determined by: Unable to dis cuss and no AD/POLST on file; continue PREVIOUSLY ORDERED code status Care Teams Tourist Escort Relationship Specialty Start Date End Date Martina Owen PA-C PCP - General Physician Alcohol Rubber 02/11/19 Queta Prater CNP [address] [place] [address] [id number] Nurse Practitioner Urology 09/22/20 Song Leach MD [address] [place] [address] [id number] Assigned Surgical Provider 11/20/23 Song Leach MD [address] [place] [address] Urology 05/28/24
--- OUTSIDE RECORDS SUMMARY | 2024-09-09 19:18 | XMS_ITS | Clinical Summary ---
Author Organization [facility] Address [address] [place] [address] Phone Care Team Providers Care Cna Hha Name Role Phone Unavailable Primary Care Provider Unavailabl e Medications mesalamine (PENTASA) 500 MG CR capsule 4 tabs po twice daily 01/27/2015 Active certolizumab pegol (CIMZIA PREFILLED) 2 X 200 MG/ML kit inj 40mg twice monthly 01/27/2015 Active lisinopril (PRINIVIL,ZESTR IL) 10 MG tablet 1 po qday---dose unknown----- 01/27/2015 Active mupirocin (BACTROBAN) 2 % ointment APPLY TWO TIMES A DAY TO LESIONS 3 01/27/2015 Active folic acid (FOLVITE) 1 MG tablet 1 po qday 01/27/2015 Active loratadine-pseu doephedrine (CLARITIN-D 12 HOUR) 5-120 MG per 12 hr tablet 1 tab twice monthly 01/27/2015 Active aspirin 81 MG tablet 1 tab qod 08/09/2013 Active Multiple Vitamin (MULTIVITAMIN) capsule 1 tab po [...] at Not on file Legal Sex Male 3:43 PM MDT Gender Identity Not on file Sexual Orientation [...] Due Date Last Done Comments Influenza Vaccine (Season Ended) 2025 Insurance PM INTERFACED INSURANCE Member Subscriber Plan / Payer (Ef fective [id number]) Name:Hubert Odell Relation to Subscriber:Self Name:Hubert Odell Subscriber ID:Not on file Payer ID:Not on file Group ID:[id number] Type:Not on file Address: [address] [place] [address]
[2024-09-09 19:23] VITALS: BP 160/92; PULSE 62; RESP 18; TEMP 36.3; O2SAT 98; BMI 34.0
--- NOTE | 2024-09-09 20:00 | ED.GENADULT ---
HPI - General Adult General Time Seen by Provider: 20:00 Date Seen: 09/09/24 Chief complaint: Difficulty Swallowing Stated complaint: Object stuck in throat (2hrs) Time Seen by Provider: 09/09/24 20:00 Source: patient and RN notes reviewed Mode of arrival: ambulatory Limitations: no limitations History of Present Illness HPI narrative: This 48-year-old male is coming in with steak food bolus impaction. This happened about 2 hours at home. He has tried water and some carbonated drinks, it has not passed. He states he has a history of week esophagus, history of GERD and Crohn's. He has had a history of food bolus impaction. He typically will just try some carbonated beverages in it will resolve. He is not having any difficulty breathing, feels like it is stuck midesophagus as he points to his chest. There is no significant pain, no abdominal pain. He believes that he last had an EGD about 3 years ago. Related Data Home Medications ?Medication ?Instructions ?Recorded ?Confirmed certolizumab pegol 400 mg/2 mL 41 mg subcut DIRECTED 09/08/22 07/26/24 (200 mg/mL x2) subcutaneous syringe kit methotrexate sodium 2.5 mg tablet 20 mg PO QWEEK 09/08/22 07/26/24 folic acid 1 mg tablet 1 mg PO DAILY 07/26/24 07/26/24 semaglutide 2 mg/dose (8 mg/3 mL) mg subcut 07/26/24 07/26/24 subcutaneous pen injector (Ozempic) Previous Rx's ?Medication ?Instructions ?Recorded blood sugar diagnostic (Accu-Chek #100 ea 03/05/22 Guide test strips) lancets (Accu-Chek Fastclix Lancet #200 ea 03/05/22 Drum) epinephrine 0.3 mg/0.3 mL 0.3 mg (0.3 mL) IM Q5-15M PRN #2 ea 12/10/23 injection, auto-injector (EpiPen 2-Jermaine) metoprolol tartrate 50 mg tablet 50 mg PO BID #30 ea 07/10/24 rosuvastatin 40 mg tablet 40 mg PO QDAY #10 tabs 07/10/24 lisinopril 5 mg tablet 5 mg PO QDAY #90 tabs 09/02/24 Allergies Allergy/AdvReac Type Severity Reaction Status Date / Time bee venom protein (honey bee) Allergy Severe Anaphylaxis Verified 09/09/24 19:30 Cephalosporins Allergy Severe Verified 09/09/24 19:30 cyclosporine Allergy Severe Anaphylaxis Verified 09/09/24 19:30 Egg Derived Allergy Severe Verified 09/09/24 19:30 shellfish derived Allergy Mild Anaphylaxis Verified 09/09/24 19:30 chicken derived Allergy Unknown Verified 09/09/24 19:30 pear Allergy Unknown Verified 09/09/24 19:30 pineapple Allergy Unknown Verified 09/09/24 19:30 turkey Allergy Unknown Verified 09/09/24 19:30 tree nut Allergy Anaphylaxis Verified 09/09/24 19:30 Mushroom Extract Complex Allergy Unknown Uncoded 07/26/24 15:34 [place] Flavor Allergy Unknown Uncoded 07/26/24 15:34 Review of Systems Narrative: As per HPI. [facility] Medical History Elevated serum creatinine ?R79.89 - Other specified abnormal findings of blood chemistry (ICD-10) Right flank pain ?R10.9 - Unspecified abdominal pain (ICD-10) Flank pain ?R10.9 - Unspecified abdominal pain (ICD-10) Thrombocytopenia ?D69.6 - Thrombocytopenia, unspecified (ICD-10) MRSA (methicillin resistant Staphylococcus aureus) ?A49.02 - Methicillin resistant Staphylococcus aureus infection, unspecified site (ICD-10) Cervical vertebral fusion ?M43.22 - Fusion of spine, cervical region (ICD-10) Hypertension ?I10 - Essential (primary) hypertension (ICD-10) Type 2 diabetes mellitus ?E11.9 - Type 2 diabetes mellitus without complications (ICD-10) History of cellulitis ?Z87.2 - Personal history of diseases of the skin and subcutaneous tissue (ICD-10) Cervical myofascial strain ?S16.1XXA - Strain of muscle, fascia and tendon at neck level, initial encounter (ICD-10) Elevated LFTs ?R79.89 - Other specified abnormal findings of blood chemistry (ICD-10) Fracture of multiple ribs ?S22.49XA - Multiple fractures of ribs, unspecified side, initial encounter for closed fracture (ICD-10) Hyperlipidemia ?E78.5 - Hyperlipidemia, unspecified (ICD-10) 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 - Immunodeficiency due to drugs (ICD-10) ?Z79.899 - Other terminal operations manager (current) drug therapy (ICD-10) Lung nodule ?R91.1 - Solitary pulmonary nodule (ICD-10) Peripheral vertigo ?H81.399 - Other peripheral vertigo, unspecified ear (ICD-10) Tinnitus, unspecified ear ?H93.19 - Tinnitus, unspecified ear (ICD-10) History of colonic polyps ?Z86.010 - Personal history of colonic polyps (ICD-10) Sinusitis ?J32.9 - Chronic sinusitis, unspecified (ICD-10) Food allergy ?Z91.018 - Allergy to other foods (ICD-10) Bee sting allergy ?Z91.030 - Bee allergy status (ICD-10) MRSA (methicillin resistant staph aureus) culture positive ?Z22.322 - Carrier or suspected carrier of Methicillin resistant Staphylococcus aureus (ICD-10) Crohn's disease ?K50.90 - Crohn's disease, unspecified, without complications (ICD-10) Calcium oxalate stones ?N20.0 - Calculus of kidney (ICD-10) Surgical History H/O ureteroscopy ?Z98.890 - Other specified postprocedural states (ICD-10) History of removal of calculus of renal pelvis through percutaneous nephrostomy ?Z98.890 - Other specified postprocedural states (ICD-10) ?Z87.442 - Personal history of urinary calculi (ICD-10) H/O inguinal hernia repair ?Z98.890 - Other specified postprocedural states (ICD-10) ?Z87.19 - Personal history of other diseases of the digestive system (ICD-10) History of arthroscopic surgery of shoulder ?Z98.890 - Other specified postprocedural states (ICD-10) History of tonsillectomy (08/27/08) ?Z90.89 - Acquired absence of other organs (ICD-10) Family History Mother Diabetes Father High blood pressure Hyperlipidemia Myocardial infarction Paternal Grandfather Myocardial infarction Social History 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 He is hanging onto an emesis bag. Sclera clear, speaking in complete sentences. Oropharynx normal, normal mucosa, no visible foreign body. Neck is supple, no adenopathy or masses. Lungs are clear, good air entry, no wheezing or crackles, no tachypnea, no accessory muscle use. CV regular rate and rhythm, no murmur, normal S1-S2. Abdomen is soft, nontender, nondistended. Documenting provider has reviewed patient's vital signs: yes Course Course ED Course: We will try EZ gas granules. Have reviewed with patient if those do not work, we can try IV glucagon. If neither of those work, he may need to go for EGD which we do not have emergent ED coverage here. Reevaluation(s) Time of Reevaluation #1: 20:17 Reevaluation #1: The EZ gas granules may have helped pass the food bolus. Will let the patient rest for few minutes, see if he can drink fluids after that. Time of Reevaluation #2: 20:45 Reevaluation #2: Tolerating fluids fine. Patient is on omeprazole. Vital Signs Vital signs: Initial Vital Signs Temperature 97.4 F L 09/09/24 19:23 Temperature Source Temporal Artery Scan 09/09/24 19:23 Pulse Rate 62 09/09/24 19:23 Respiratory Rate 18 09/09/24 19:23 Blood Pressure 160/92 H 09/09/24 19:23 Blood Pressure Mean 114 H 09/09/24 19:23 Blood Pressure Position Sitting 09/09/24 19:23 Pulse Oximetry 98 09/09/24 19:23 Oxygen Delivery Method Room Air 09/09/24 19:23 Vital Signs Temperature 97.4 F L 09/09/24 19:23 Pulse Rate 62 09/09/24 19:23 Respiratory Rate 18 09/09/24 19:23 Blood Pressure 160/92 H 09/09/24 19:23 Pulse Oximetry 98 09/09/24 19:23 Oxygen Delivery Method Room Air 09/09/24 19:23 Temperature 97.4 F L 09/09/24 19:23 Pulse Rate 62 09/09/24 19:23 Respiratory Rate 18 09/09/24 19:23 Blood Pressure 160/92 H 09/09/24 19:23 Pulse Oximetry 98 09/09/24 19:23 Oxygen Delivery Method Room Air 09/09/24 19:23 Medications Administered Medications: Generic Name Dose Route Start Last Admin Trade Name Freq PRN Reason Stop Dose Admin Simethicone/Sodium Bicarb/Citric Ac 1 each 09/09/24 20:04 09/09/24 20:14 Simethicone/Sod Bicarb/Cit Ac 1 Each Gran.Ef.Pk PO 09/09/24 20:05 1 each ONCE ONE Administration Discharge Plan Discharge Clinical Impression: Impacted foreign body in esophagus Qualifiers: Encounter type: initial encounter Qualified Code(s): T18.108A - Unspecified foreign body in esophagus causing other injury, initial encounter Patient Disposition: Home, Self-Care Condition: Stable Instructions: Esophageal Foreign Body (ED) Additional Instructions: Need to follow-up with your primary care provider, recommend consideration for scheduling an EGD. Stay on the omeprazole. Avoid meats, breads atleast for the next few days, stay on a more soft diet, chew foods quite well to help prevent further food impaction in the esophagus. Prescriptions: No Action methotrexate sodium 2.5 mg tablet 20 mg PO QWEEK certolizumab pegol 400 mg/2 mL (200 mg/mL x 2) syringe kit 41 mg subcut DIRECTED Rx Instructions: every 2 weeks Ozempic 2 mg/dose (8 mg/3 mL) pen injector subcut Patient Comments: [NO ORIGINAL SIG] folic acid 1 mg tablet 1 mg PO DAILY epinephrine [EpiPen 2-Jermaine] 0.3 mg/0.3 mL auto-injector 0.3 mg IM Q5-15M PRNQty: 2 0RF Rx Instructions: do not exceed 3 doses per episode (DME) lancets [Accu-Chek Fastclix Lancet Drum] Misc See Rx Instructions .ROUTE .COMPLEX Qty: 200 0RF Dose Instruction: USE TO TEST BLOOD SUGARS 4 TIMES DAILY Rx Instructions: USE TO TEST BLOOD SUGARS 4 TIMES DAILY (DME) Accu-Chek Guide test strips Strip See Rx Instructions .ROUTE .COMPLEX Qty: 100 1RF Dose Instruction: USE TO TEST BLOOD SUGARS 4 TIMES DAILY Rx Instructions: USE TO TEST BLOOD SUGARS 4 TIMES DAILY rosuvastatin 40 mg tablet 40 mg PO QDAY Qty: 10 0RF Rx Instructions: Needs appointment before further refills metoprolol tartrate 50 mg tablet 50 mg PO BID Qty: 30 0RF Rx Instructions: Needs appointment lisinopril 5 mg tablet 5 mg PO QDAY Qty: 90 1RF Follow Up/Referrals: Moni Noland MD [Primary Care Provider] - Stand Alone Forms: MyHealth Info Instructions
[2024-09-09] MEDS: SIMETHICONE/SOD BICARB/CIT AC 1 EACH GRAN.EF.PK PO (20:14)
--- OUTSIDE RECORDS SUMMARY | 2024-09-09 21:05 | XMS_ITS | Encounter Summary ---
Author Organization [place] Address [address] [place] [address]. 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
--- OUTSIDE RECORDS SUMMARY | 2024-09-09 21:05 | XMS_ITS | Encounter Summary ---
Author Organization [place] Address [address] [place] [address]. 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
--- OUTSIDE RECORDS SUMMARY | 2024-09-09 21:05 | XMS_ITS ---
Author Name Interface, [id number] lity Address [address] [facility] [address] [address] [facility] Address [address] [facility] [address] [address] Care Team Providers Care Concrete Conveyor Operator Name Role Phone Reilly Chavez Unavailable [...] 8.2 7.6 FINAL [facility] - [place], [address] [facility] [address] [facility] [phone] 0 Phone: () - 02/04 Album in, SPE g/dL 3.31 5.31 4.65 FINAL [facility] - [place], [address] [facility] [id number] 0 Phone: () - 02/04 Alpha -1 globu lonny g/dL 0.19 0.42 0.28 FINAL [facility], [address] [facility] [id number] 0 Phone: () - 02/04 Alpha -2 globu lonny g/dL 0.44 1.03 0.57 FINAL [facility], [address] [facility] [id number] 0 Phone: () - 02/04 Beta globu lonny g/dL 0.52 1.05 0.89 FINAL [facility], [address] [facility] [id number] 0 Phone: () - 02/04 Gamma globu lonny g/dL 0.59 1.46 1.21 FINAL [facility], [address] [facility] [id number] 0 Phone: () - 02/04 Elect Johana etienne in Lab resul t note No parapro tein klarissa regalado Interpr eted and signed by Eze Gr MD on 023 FINAL [facility], [address] [facility] [phone] 0 Phone: () - 02/04 Vitam in B12 panel Vitam in B12 pg/mL 230.0 1050.0 375 Test performed at [facility]. [address] [facility] [place] [address] FINAL [facility], [address] [facility] [id number] 0 Phone: () - 02/04 Retic ulocy te count panel Retic ulocy te, absol salamatof M/uL 0.01 0.1 0.05 FINAL [facility] [place], [address] [place] [phone] 0 Phone: () - 02/04 Retic ulocy te count panel Retic ulocy te count % 0.2 1.7 1.10 FINAL [facility] - [place], [address] [place] [phone] 0 Phone: () - 02/04 Retic ulocy te count panel Immat ure retic ulocy te fract ion, % % 0.0 18.8 12.90 FINAL [facility] [place], [address] [facility] [address] [place] [phone] 0 Phone: () - 02/04 Retic ulocy te count panel Retic ulocy te cellu lar hemog lobin pg 28.0 37.0 38.8 High FINAL [facility] [place], [address] [place] [address] d [address] [place] [phone] 0 Phone: () - 02/04 Folat e panel Folat e, serum ng/mL 3.0 16.0 Folate greater than 20 FINAL [facility] - [place], [address] [place] [phone] 0 Phone: () - 02/04 CBC w/ auto diff WBC K/uL 3.0 8.9 7.3 FINAL [facility] - [place], [address] [place] [address] d [address] [place] [phone] 0 Phone: () - 02/04 CBC w/ auto diff HGB g/dL 12.5 16.6 15.6 FINAL [facility] [place], [address] [place] [address] d [address] [place] [phone] 0 Phone: () - 02/04 CBC w/ auto diff PLT K/uL 113.0 364.0 222 FINAL [facility] - [place], [address] [facility] [address] [place] [phone] 0 Phone: () - 02/04 CBC w/ auto diff Poli # (ANC) K/uL 1.6 6.6 2.9 FINAL [facility] - [place], [address] [facility] [address] [place] [phone] 0 Phone: () - 02/04 CBC w/ auto diff Poli % % 43.0 74.0 39.1 Low FINAL [facility] - [place], [address] [place] [phone] 0 Phone: () - 02/04 CBC w/ auto diff IG % % 0.0 0.5 0.1 FINAL [facility] - [place], [address] [place] [id number] 0 Phone: () - 02/04 CBC w/ auto diff IG # K/uL 0.0 0.03 0.01 FINAL [facility] - [place], [address] [place] [id number] 0 Phone: () - 02/04 CBC w/ auto diff LY % % 14.0 41.0 45.2 High FINAL [facility] - [place], [address] [place] [phone] 0 Phone: () - 02/04 CBC w/ auto diff MO % % 6.0 15.0 11.1 FINAL [facility] - [place], [address] [place] [phone] 0 Phone: () - 02/04 CBC w/ auto diff EO % % 0.0 7.0 4.2 FINAL [facility] - [place], [address] [place] [phone] 0 Phone: () - 02/04 CBC w/ auto diff BA % % 0.0 2.0 0.3 FINAL [facility] - [place], [address] [place] [id number] 0 Phone: () - 02/04 CBC w/ auto diff LY # K/uL 0.4 3.6 3.3 FINAL [facility] - [place], [address] [place] [phone] 0 Phone: () - 02/04 CBC w/ auto diff MO # K/uL 0.2 1.3 0.8 FINAL [facility] - [place], [address] [place] [id number] 0 Phone: () - 02/04 CBC w/ auto diff EO # K/uL 0.0 0.6 0.3 FINAL [facility] - [place], [address] [place] [phone] 0 Phone: () - 02/04 CBC w/ auto diff BA # K/uL 0.0 0.2 0.0 FINAL [facility] - [place], [address] [place] [phone] 0 Phone: () - 02/04 CBC w/ auto diff NRBC % #/100W BC 0.0 0.2 0.0 FINAL [facility] - [place], [address] [place] [phone] 0 Phone: () - 02/04 CBC w/ auto diff RBC M/uL 4.2 5.6 4.90 FINAL [facility] - [place], [address] [place] [id number] 0 Phone: () - 02/04 CBC w/ auto diff HCT % 39.0 49.0 45.9 FINAL [facility] - [place], [address] [place] [phone] 0 Phone: () - 02/04 CBC w/ auto diff MCV fL 80.0 104.0 93.7 FINAL [facility] - [place], [address] [place] [phone] 0 Phone: () - 02/04 CBC w/ auto diff MCH pg 26.0 35.0 31.8 FINAL [facility] - [place], [address] [place] [phone] 0 Phone: () - 02/04 CBC w/ auto diff MCHC g/dL 30.0 35.0 34.0 FINAL [facility] - [place], [address] [place] [phone] 0 Phone: () - 02/04 CBC w/ auto diff MPV fL 9.5 13.4 10.4 FINAL [facility] - [place], [address] [place] [id number] 0 Phone: () - 02/04 CBC w/ auto diff RDW % 11.3 15.6 12.50 FINAL [facility] - [place], [address] [place] [phone] 0 Phone: () - 02/04 Path perip heral blood slide revie w panel Patho logy/ Cytol ogy Morph ology SEE RESULTS BELOW CASE REPORTSpe cial Hematolog y Report Case: [id number] ing Provider: Reilly Chavez MD Collected :02/05/20 23 1110Order ing Location: [facility] Received: 3 1556Patho logist: Gregory [...] AND DIFFERENT IALHEMATO LOGY PARAMETER STested at: [facility] [place] eRESULTS EXPECTED VALUESWBC [...] ent of LymphsB cells: 5.5%T cells: 85.6%CD19 +/[place]: 3.6%CD19+ /Lambda: 2.2%[place] :Lambda ratio: 1.6B lymphocyt es in this analysis demonstra te normal qualitati ve expressio n of thefollow ing antigens: CD3, CD5, CD10, CD19, CD20, CD45, and [place] and [place] face light chains.Qu eddi Assessmen tViabilit y (7-AAD): 44%Polyty pic B cell events: 346Nuclea judie cells analyzed: 8483Limit of detection (LOD): 0.2%These results and cytograms have been verified by Dr. Chaves.Th is test was developed and its performan ce character istics verified by [facility]. It has not been cleared or approved by the [place] Food and DrugAdmin istration . This test is used for clinical purposes and should not beregarde d as investiga tional or for research. Analytic Flow Tech: Mikayla Banda, 02/07/2023 2:17 PMVerifyi ng Flow Tech: Aubree Cisse LaurabrennanNessa bradley, 02/07/2023 2:37 PMADDITIO NAL INFORMATI ONInterpr eted at [facility] - [address] [facility] [id number] FINAL [facility] Medications Date Name Route Dose [...]
--- OUTSIDE RECORDS SUMMARY | 2024-09-09 21:05 | XMS_ITS | Encounter Summary ---
Author Organization [place] Address [address] [place], [place] [address]. 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
--- OUTSIDE RECORDS SUMMARY | 2024-09-09 21:05 | XMS_ITS ---
Author Name Interface, [id number] lity Address [address] [facility] [address] [address] [facility] Address [address] [address] Care Team Providers Care Furniture Mechanic Name Role Phone Reilly Chavez Unavailable Unavailable [...] 8.2 7.6 FINAL [facility] - [place], [address] [facility] [address] [facility] [phone] 0 Phone: () - 02/04 Album in, SPE g/dL 3.31 5.31 4.65 FINAL [facility] - [place], [address] [facility] [id number] 0 Phone: () - 02/04 Alpha -1 globu lonny g/dL 0.19 0.42 0.28 FINAL [facility], [address] [facility] [facility] [id number] 0 Phone: () - 02/04 Alpha -2 globu lonny g/dL 0.44 1.03 0.57 FINAL [facility], [address] [facility] [id number] 0 Phone: () - 02/04 Beta globu lonny g/dL 0.52 1.05 0.89 FINAL [facility], [address] [facility] [id number] 0 Phone: () - 02/04 Gamma globu lonny g/dL 0.59 1.46 1.21 FINAL [facility], [address] [facility] [id number] 0 Phone: () - 02/04 Elect Johana etienne in Lab resul t note No parapro tein klarissa regalado Interpr eted and signed by Eze Gr MD on 023 FINAL [facility], [address] [facility] [id number] 0 Phone: () - 02/04 Vitam in B12 panel Vitam in B12 pg/mL 230.0 1050.0 375 Test performed at [facility]. [address] [facility] [facility] [place] [address] FINAL [facility], [address] [facility] [id number] 0 Phone: () - 02/04 Retic ulocy te count panel Retic ulocy te, absol [place] M/uL 0.01 0.1 0.05 FINAL [facility] - [place], [address] [place] [id number] 0 Phone: () - 02/04 Retic ulocy te count panel Retic ulocy te count % 0.2 1.7 1.10 FINAL [facility] - [place], [address] [place] [phone] 0 Phone: () - 02/04 Retic ulocy te count panel Immat ure retic ulocy te fract ion, % % 0.0 18.8 12.90 FINAL [facility] - [place], [address] [facility] [address] [place] [phone] 0 Phone: () - 02/04 Retic ulocy te count panel Retic ulocy te cellu lar hemog lobin pg 28.0 37.0 38.8 High FINAL [facility] - [place], [address] [place] [address] d [address] [place] [phone] 0 Phone: () - 02/04 Folat e panel Folat e, serum ng/mL 3.0 16.0 Folate greater than 20 FINAL [facility] - [place], [address] [place] [id number] 0 Phone: () - 02/04 CBC w/ auto diff WBC K/uL 3.0 8.9 7.3 FINAL [facility] - [place], [address] [place] [address] d [address] [place] [id number] 0 Phone: () - 02/04 CBC w/ auto diff HGB g/dL 12.5 16.6 15.6 FINAL [facility] - [place], [address] [place] [address] d [address] [place] [id number] 0 Phone: () - 02/04 CBC w/ auto diff PLT K/uL 113.0 364.0 222 FINAL [facility] - [place], [address] [facility] [address] [place] [id number] 0 Phone: () - 02/04 CBC w/ auto diff Poli # (ANC) K/uL 1.6 6.6 2.9 FINAL [facility] - [place], [address] [facility] [address] [address] [place] [phone] 0 Phone: () - 02/04 CBC w/ auto diff Poli % % 43.0 74.0 39.1 Low FINAL [facility] - [place], [address] [place] [id number] 0 Phone: () - 02/04 CBC w/ auto diff IG % % 0.0 0.5 0.1 FINAL [facility] - [place], [address] [place] [id number] 0 Phone: () - 02/04 CBC w/ auto diff IG # K/uL 0.0 0.03 0.01 FINAL [facility] - [place], [address] [place] [id number] 0 Phone: () - 02/04 CBC w/ auto diff LY % % 14.0 41.0 45.2 High FINAL [facility] - [place], [address] [place] [id number] 0 Phone: () - 02/04 CBC w/ auto diff MO % % 6.0 15.0 11.1 FINAL [facility] - [place], [address] [place] [phone] 0 Phone: () - 02/04 CBC w/ auto diff EO % % 0.0 7.0 4.2 FINAL [facility] - [place], [address] [place] [id number] 0 Phone: () - 02/04 CBC w/ auto diff BA % % 0.0 2.0 0.3 FINAL [facility] - [place], [address] [place] [phone] 0 Phone: () - 02/04 CBC w/ auto diff LY # K/uL 0.4 3.6 3.3 FINAL [facility] - [place], [address] [place] [id number] 0 Phone: () - 02/04 CBC w/ auto diff MO # K/uL 0.2 1.3 0.8 FINAL [facility] - [place], [address] [place] [id number] 0 Phone: () - 02/04 CBC w/ auto diff EO # K/uL 0.0 0.6 0.3 FINAL [facility] - [place], [address] [place] [id number] 0 Phone: () - 02/04 CBC w/ auto diff BA # K/uL 0.0 0.2 0.0 FINAL [facility] - [place], [address] [place] [id number] 0 Phone: () - 02/04 CBC w/ auto diff NRBC % #/100W BC 0.0 0.2 0.0 FINAL [facility] - [place], [address] [place] [id number] 0 Phone: () - 02/04 CBC w/ auto diff RBC M/uL 4.2 5.6 4.90 FINAL [facility] - [place], [address] [place] [phone] 0 Phone: () - 02/04 CBC w/ auto diff HCT % 39.0 49.0 45.9 FINAL [facility] - [place], [address] [place] [phone] 0 Phone: () - 02/04 CBC w/ auto diff MCV fL 80.0 104.0 93.7 FINAL [facility] - [place], [address] [place] [phone] 0 Phone: () - 02/04 CBC w/ auto diff MCH pg 26.0 35.0 31.8 FINAL [facility] - [place], [address] [place] [id number] 0 Phone: () - 02/04 CBC w/ auto diff MCHC g/dL 30.0 35.0 34.0 FINAL [facility] - [place], [address] [place] [phone] 0 Phone: () - 02/04 CBC w/ auto diff MPV fL 9.5 13.4 10.4 FINAL [facility] - [place], [address] [place] [id number] 0 Phone: () - 02/04 CBC w/ auto diff RDW % 11.3 15.6 12.50 FINAL [facility] - [place], [address] [place] [phone] 0 Phone: () - 02/04 Path perip heral blood slide revie w panel Patho logy/ Cytol ogy Morph ology SEE RESULTS BELOW CASE REPORTSpe cial Hematolog y Report Case: [id number] ing Provider: Reilly Chavez MD Collected :02/05/20 23 1110Order ing Location: [facility] Received: 3 1556Patho logist: [...] AND DIFFERENT IALHEMATO LOGY PARAMETER STested at: [facility] [place] eRESULTS EXPECTED VALUESWBC [...] ent of LymphsB cells: 5.5%T cells: 85.6%CD19 +/[place]: 3.6%CD19+ /Lambda: 2.2%[place] :Lambda ratio: 1.6B lymphocyt es in this analysis demonstra te normal qualitati ve expressio n of thefollow ing antigens: CD3, CD5, CD10, CD19, CD20, CD45, and [place] and [place] face light chains.Qu eddi Assessmen tViabilit y (7-AAD): 44%Polyty pic B cell events: 346Nuclea judie cells analyzed: 8483Limit of detection (LOD): 0.2%These results and cytograms have been verified by Dr. Chaves.Th is test was developed and its performan ce character istics verified by [facility]. It has not been cleared or approved by the US Food and DrugAdmin istration . This test is used for clinical purposes and should not beregarde d as investiga tional or for research. Analytic Flow Tech: Mikayla Banda, 02/07/2023 2:17 PMVerifyi ng Flow Tech: Aubree Cisse LaurabrennanNessa bradley, 02/07/2023 2:37 PMADDITIO NAL INFORMATI ONInterpr eted at [facility] - [address] [facility], [id number] FINAL [facility] Medications Date Name Route Dose Frequency Instructions [...]
--- OUTSIDE RECORDS SUMMARY | 2024-09-09 21:05 | XMS_ITS | Encounter Summary ---
Author Organization [facility] Address [address] [place] [address]. 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
--- OUTSIDE RECORDS SUMMARY | 2024-09-09 21:05 | XMS_ITS | Encounter Summary ---
Author Organization [place] Address [address] [place] [address]. 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
--- OUTSIDE RECORDS SUMMARY | 2024-09-09 21:05 | XMS_ITS | Encounter Summary ---
Author Organization [facility] Address [address] [place] [address]. [place] [address] Care Team Providers Care Data Governance Consultant Name Role Phone Martina Owen PA-C Primary Care Provider Queta Prater CNP Unavailable [phone] Song Leach MD Unavailable [phone] Song Leach MD Unavailable [phone] Encounter Details Date Type Department Care Team (Late st Contact Info) Description 02/10/2024 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
--- OUTSIDE RECORDS SUMMARY | 2024-09-09 21:05 | XMS_ITS | Encounter Summary ---
Author Organization [facility] Address [address] [place] [address]. 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
--- OUTSIDE RECORDS SUMMARY | 2024-09-09 21:05 | XMS_ITS | Encounter Summary ---
Author Organization [facility] Address [address] [place] [address]. [place] [address] Care Team Providers Care Wood Floor Refinisher Name Role Phone Martina Owen PA-C Primary Care Provider Queta Prater CNP Unavailable [phone] Yanelis Benavides Unavailable [phone] Song Leach MD Unavailable [phone] Song Leach MD Unavailable [phone] Song Leach MD Unavailable [phone] Reason for Visit * Reason Onset Date Comments Schedule Surgery 02/20/2021 surgery Schedule Surgery 02/20/2021 Kidney stone re moval Encounter Details Date Type Department Care Team (Late st Contact Info) Description 02/20/2021 Telephone [facility] Urology Clinic [address] [address] Song Leach MD [address] [place] [address] 230735 Schedule Surgery (surgery ); Schedule Surgery (Kidney [...] PM CDT 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 Gender Identity Male 12/01/2020 9:08 PM CDT [...] – [place]): uro Travel Screening: Not Applicable documented in this encounter Plan of Treatment Not on file documented as of this encounter Visit Diagnoses Not on filedocumented in this encounter Additional Health Concerns Infection Onset Date Last Indicated Resolved Time MRSA-Contact Isolation 03/26 8:42 AM CDT MRSA Comment:Recurrent MRSA cellulitis per CareEverywhere 03/26/2021 03/26/2021 documented as of this encounter Care Teams Wood Floor Refinisher Relationship Specialty Start Date End Date Martina Owen PA-C PCP - General Physician Manager Registration 02/11/19 Queta Prater CNP [address] [place] [address] [id number] Nurse Practitioner Urology 09/22/20 Yanelis Benavides PA [address] [place] [address] [place], [place] 556475 Assigned Surgical Provider 02/08/21 07/11/21 Song Leach MD [address] [place] [address] 34931 Assigned Surgical Provider 07/12/21 12/31/22 Song Leach MD [address] [place] [address] 27947 Assigned Surgical Provider 11/20/23 Song Leach MD [address] [place] [address] Urology 05/28/24 documented as of this encounter
--- OUTSIDE RECORDS SUMMARY | 2024-09-09 21:05 | XMS_ITS | CCD ---
Author Name Interface, [id number] Address [address] [facility] [address] [address] Organization [facility] Address [address] [facility] [address] [address] Care Team Providers Care Booking Officer Name Role Phone Reilly Chavez Unavailable Unavailable [...] active Semaglutide Subcutaneous Pen Injector weekly active Rosuvastatin Calcium Oral 1.0 tablet daily active Metformin Oral 4.0 tablet daily active Metoprolol Oral (Tartrate) 1.0 tablet BID active Certolizumab Pegol Subcutaneous biweekly active Lisinopril Oral 1.0 tablet daily active Problems Diagnosis Status Date of Diagnosi s Thrombocytopenic disorder (disorder) Active Social History Date Name Value 02/03/2023 Sex Male
--- OUTSIDE RECORDS SUMMARY | 2024-09-09 21:06 | XMS_ITS | Encounter Summary ---
Author Organization [facility] Address [address] [place] [address]. [place] [address] Care Team Providers Care Supervisor Agricultural Education Name Role Phone Martina Owen PA-C Primary Care Provider Queta Prater CNP Unavailable [phone] Yanelis Benavides Unavailable [phone] Song Leach MD Unavailable [phone] Song Leach MD Unavailable [phone] Song Leach MD Unavailable [phone] Encounter Details Date Type Department Care Team (Late st Contact Info) Description 04/07/2021 [facility] [place] [address] [place] [address] Mabel Arthur, AQUILES Social History [...] PM CDT 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 Gender Identity Male 12/01/2020 9:08 PM CDT [...] documented as of this encounter Care Teams Supervisor Agricultural Education Relationship Specialty Start Date End Date Martina Owen PA-C PCP - General Physician Fixing Machine Operator 02/11/19 Queta Prater CNP [address] [place] [address] Nurse Practitioner Urology 09/22/20 Yanelis Benavides PA [address] [place] [address] [place] [address] Assigned Surgical Provider 02/08/21 07/11/21 Song Leach MD [address] [place] [address] Assigned Surgical Provider 07/12/21 12/31/22 Song Leach MD [address] [place] [address] Assigned Surgical Provider 11/20/23 Song Leach MD [address] [place] [address] Urology 05/28/24 documented as of this encounter
--- OUTSIDE RECORDS SUMMARY | 2024-09-09 21:06 | XMS_ITS | Encounter Summary ---
Author Organization [facility] Address [address] [place] [address]. 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 POSTOPERATIVE DIAGNOSIS: [...] the standard lydia gical fashion. Using a 21-Faroese cystoscope with 30 degree lens in bridge, the penile meatus was gen tly cannulated. The urethra was normal in caliber and appearance. The prostate was small and benign . The bladder was superficially inspected and was free of stones, foreign objects, or tumors. Attent ion was then turned to the right ureteral orifice. Using a 5-Faroese open-ended catheter and a Bentso n guidewire, the right ureteral orifice was gently cannulated. It was quite easy to feel a stone at the distal UVJ. Using C-arm fluoroscopy the guidewire was taken all the way up to the right renal pel vis. At this point both the cystoscope and open-ended stent were removed, leaving the Bentson guidew shaw in place. Using the 7.5-Faroese semi rigid ureteroscope, we then performed ureteroscopy. [...] using a 2.2 nitinol tiples s and houlton basket. Once all stone fragments were removed, [...] to place a double-J stent. A 6 -Faroese 28-cm contour stent was placed with a [...] by: OMAR HORTA MD D: 2003 12:53 [id number] MT: ge Document: [id number] CC: MD LINUS DORSEY MD JEFFREY R MICHELL, MD Document: [id number] CC: MD LINUS CARVALHO MD JEFFREY R MICHELL, MD MT: ?? LCN: [id number] DSC: 10/02/2003 Name: MR#: : Procedure Date: HUBERT WARNER [id number] 10/02/2003 OPERATIVE REPORT Page 3 [...] documented as of this encounter Care Teams Completion Supervisor Relationship Specialty [place] [address] [place] [address] PCP - General 04/10/03 02/10/19 Martina Owen PA-C [address] [place] [address] PCP - General Physician Hat Designer 02/11/19 Queta Prater CNP [address] [place], [place] 230335 Nurse Practitioner Urology 09/22/20 Yanelis Benavides PA [address] [facility] Urology [place], [place] 344[address] Assigned Surgical Provider 02/08/21 07/11/21 Song Leach MD [address] [place] [address] Assigned Surgical Provider 07/12/21 12/31/22 Song Leach MD [address] [place] [address] Assigned Surgical Provider 11/20/23 Song Leach MD [address] [place] [address] Urology 05/28/24 documented as of this encounter
--- OUTSIDE RECORDS SUMMARY | 2024-09-09 21:06 | XMS_ITS | Encounter Summary ---
Author Organization [facility] Address [address] [place] [address]. [place] [address] Care Team Providers Care Corporate Communications Specialist Name Role Phone Martina Owen PA-C Primary Care Provider Queta Prater CNP Unavailable [phone] Yanelis Benavides Unavailable [phone] Song Leach MD Unavailable [phone] Song Leach MD Unavailable [phone] Song Leach MD Unavailable [phone] Encounter Details Date Type Department Care Team (Late st Contact Info) Description 04/03/2021 [facility] [address] [address] [facility] Social History Tobacco Use Types Packs/Day Years [...] PM CDT 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 Gender Identity Male 12/01/2020 9:08 PM [...] documented as of this encounter Care Teams Corporate Communications Specialist Relationship Specialty Start Date End Date Martina Owen PA-C PCP - General Physician Director Retirement 02/11/19 Queta Prater CNP [address] [place] [address] Nurse Practitioner Urology 09/22/20 Yanelis Benavides PA [address] [place] [address] [place] [address] Assigned Surgical Provider 02/08/21 07/11/21 Song Leach MD [address] [place] [address] Assigned Surgical Provider 07/12/21 12/31/22 Song Leach MD [address] [place] [address] Assigned Surgical Provider 11/20/23 Song Leach MD [address] [place] [address] 230[address] Urology 05/28/24 documented as of this encounter
--- OUTSIDE RECORDS SUMMARY | 2024-09-09 21:06 | XMS_ITS | Encounter Summary ---
Author Organization [facility] Address [address] [place] [address]. [place] [address] Care Team Providers Care Engineering Operator Name Role Phone Martina Owen PA-C Primary Care Provider Queta Prater CNP Unavailable [phone] Yanelis Benavides Unavailable [phone] Song Leach MD Unavailable [phone] Song Leach MD Unavailable [phone] Song Leach MD Unavailable [phone] Reason for Visit * Reason Onset Date Comments Patient Request 04/10/2021 Encounter Details Date Type Department Care Team (Late st Contact Info) Description 04/10/2021 Telephone [facility] Urology Clinic [address] [address] Song Leach MD [address] [place] [address] [id number] Patient Request Social History Tobacco Use Types [...] PM CDT 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 Gender Identity Male 12/01/2020 9:08 PM CDT [...] Deisi Alvarado - 04/10/2021 8:08 AM CST [facility] Call Center Phone Message May a detailed [...] Center ([facility]): Urology Travel Screening: Not Applicable E MIXER documented in this encounter Plan of Treatment Not on file documented as of this encounter Visit Diagnoses Not on filedocumented in this encounter Additional Health Concerns Infection Onset Date Last Indicated Resolved Time MRSA Comment:Recurrent MRSA cellulitis per CareEverywhere 03/26/2021 03/26/2021 documented as of this encounter Care Teams Engineering Operator Relationship Specialty Start Date End Date Martina Owen PA-C PCP - General Physician Through Freight Engineer 02/11/19 Queta Prater CNP [address] [place], [place] 2317[address] Nurse Practitioner Urology 09/22/20 Yanelis Benavides PA [address] [place] [address] Urology [place], [place] 446[address] Assigned Surgical Provider 02/08/21 07/11/21 Song Leach MD [address] [place] [address] Assigned Surgical Provider 07/12/21 12/31/22 Song Leach MD [address] [place] [address] Assigned Surgical Provider 11/20/23 Song Leach MD [address] [place] [address] Urology 05/28/24 documented as of this encounter
--- OUTSIDE RECORDS SUMMARY | 2024-09-09 21:06 | XMS_ITS | Encounter Summary ---
Author Organization [facility] Address [address] [place] [address]. 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 Crohn disease. [...] sta ndard surgical fashion. Using a 21- Iranian rigid cystoscope with a 30-degree lens and [...] sten t was then removed. Using the 7.5-Iranian Ford semi-rigid ureteroscope, we performed rigid ureterosco [...] to the left ureteral orifice. Using a 5-Iranian open-ended catheter and a Be ntson guidewire, [...] a flexible ureterosco py with the Olympus 7.5-Iranian flexible ureteroscope. The ureteroscopy itself went fairly [...] w ere able to basket with the 1.9-Iranian tipless basket and pull out through the [...] over the existing guidewire we placed a 7-Iranian, 28-cm double- J stent with a nice pigtail curl in the renal pelvis and in the bladder. On the right side, there wa s a 6-Iranian, 28-cm double-J stent placed. At the end [...] HORTA MD 15 :14 MT: ge Document: [id number] CC: MD SONAL CARVALHO MD JEFFREY R [...] documented as of this encounter Care Teams News Cameraman Relationship Specialty [place] [address] [place] [address] PCP - General 04/10/03 02/10/19 Martina Owen PA-C [address] [place] [address] PCP - General Physician Cyber Security 02/11/19 Queta Prater CNP [address] [place] [address] 984375 Nurse Practitioner Urology 09/22/20 Yanelis Benavides PA [address] [place] [address] [place] [address] Assigned Surgical Provider 02/08/21 07/11/21 Song Leach MD [address] [place] [address] Assigned Surgical Provider 07/12/21 12/31/22 Song Leach MD [address] [place] [address] Assigned Surgical Provider 11/20/23 Song Leach MD [address] [place] [address] Urology 05/28/24 documented as of this encounter
--- OUTSIDE RECORDS SUMMARY | 2024-09-09 21:06 | XMS_ITS | Clinical Summary ---
Author Organization [facility] Address [address] [place] [address] Care Team Providers Care Chlorinator Operator Name Role Phone Martina Owen PA-C Primary Care Provider Queta Prater CNP Unavailable [phone] Song Leach MD Unavailable [phone] Song Leach MD Unavailable [phone] Allergies Active Allergy Reactions Criticality Noted Date Comments Chicken Allergy 04/10/2003 and turkey Cyclosporine 04/10/2003 anaphylactic Eggs 04/10/2003 anaphylactic Fish Allergy 04/10/2003 Nuts 04/10/2003 [place] 04/10/2003 Medications CLARITIN-D 24 HOUR 10-240 MG [...] PCNL and left URS (patient ok with [facility] or [facility]) Esophageal reflux 10/01/2003 Allergic rhinitis due to pollen 10/01/2003 Encounters Date Type Department Care Team Description 07/09/2024 9:15 AM GAMING COMMISSIONER Virtual Visit [address] [place] [address] Song Leach MD Nephrolithiasis (Primary [...] PM CDT Legal Sex Male 3:33 AM GAMING COMMISSIONER Gender Identity Male 12/01/2020 9:08 PM CDT [...] this topic Medical Devices Implanted Type Area Underwriting Intern Device Identifier Shelf Expiration Date Model / Serial / Lot Stent Ureteral Percuflex Plus [id number] - [id number] Implanted:Qty: 1 on 04/09/2021 by Song Leach MD at [facility] Stent Right: Ureter [employer] [id number] 09/02/2023 [id number] 30 / / [id number] Stent, Ureteral, 4.8fr X 26cm, Hydroplus Coating, Without Wire, Percuflex Plus - [id number] Implanted:Qty: 1 on 02/27/2024 by Song Leach MD at [facility] Stent Left: Urethra 06/10/2026 [id number] / / [id number] Stent, Ureteral, 4.8fr X 26cm, Hydroplus Coating, Without Wire, Percuflex Plus - [id number] Implanted:Qty: 1 on 02/27/2024 by Song Leach MD at [facility] Stent Right: Urethra 175-253 / / [id number] Explanted Type Area Underwriting Intern Device Identifier Shelf Expiration Date Model / Serial / Lot Stent Ureteral Percuflex Plus [id number] - [id number] Implanted:Qty: 1 on 03/25/2021 by Song Leach MD at [facility] Explanted:Qty: 1 on 04/09/2021 by Song Leach MD at [facility] Stent Left: Ureter [employer] [id number] 12/19/2023 [id number] 30 / / [id number] Stent Ureteral Percuflex Plus [id number] - [id number] Implanted:Qty: 1 on 03/25/2021 by Song Leach MD at [facility] Explanted:Qty: 1 on 04/09/2021 by Song Leach MD at [facility] Stent Right: Ureter [employer] [id number] 09/09/2023 [id number] 40 / / [id number] Procedures Procedure Name Priority Date/Time Associated Diagnosis Comments GLUCOSE BY METER Routine 04/09/2021 12:5 7 PM GAMING COMMISSIONER COLONOSCOPY Routine 02/23/2011 9:54 AM CDT from Last 3 Months or Most Recently Relevant to Health Maintenance Results * (ABNORMAL) Glucose by meter (04/09/2021 12:57 PM GAMING COMMISSIONER) [facility] GLUCOSE BY METER POCT 130(H) 70 - 99 mg/dL 04/09/2021 1:06 PM GAMING COMMISSIONER [facility] POC Blood BLOOD SPECIMEN / Unknown 04/09/2021 12:57 PM GAMING COMMISSIONER 04/09/2021 1:06 PM GAMING COMMISSIONER Song Leach MD LAB - [facility] POCT Final Result [facility] POC [facility] - [address] 1st [place] [address] * COLONOSCOPY (02/23/2011 9:54 AM CDT) COLONOSCOPY [facility] Patient Name: Hubert Odell Procedure Date: 02/23/2011 [...] Advance Directives For more information, please contact: [phone] * Full Code (Latest Code Status on File) Date Activated Date Inactivated Comments 03/25/2021 9:20 PM 03/26/2021 3:11 PM All basic and advanced life-sustaining interventions are performed as appropriate Question Answer Comments Code status determined by: Unable to dis cuss and no AD/POLST on file; continue PREVIOUSLY ORDERED code status Care Teams Chlorinator Operator Relationship Specialty Start Date End Date Martina Owen PA-C PCP - General Physician Photographic Editor 02/11/19 Queta Prater CNP [address] [place] [address] [id number] Nurse Practitioner Urology 09/22/20 Song Leach MD [address] [place] [address] [id number] Assigned Surgical Provider 11/20/23 Song Leach MD [address] [place] [address] Urology 05/28/24
--- OUTSIDE RECORDS SUMMARY | 2024-09-09 21:06 | XMS_ITS | Encounter Summary ---
Author Organization [facility] Address [address] [place] [address]. [place] [address] Care Team Providers Care Historian Dramatic Arts Name Role Phone Martina Owen PA-C Primary Care Provider Queta Prater CNP Unavailable [phone] Yanelis Benavides Unavailable [phone] Song Leach MD Unavailable [phone] Song Leach MD Unavailable [phone] Song Leach MD Unavailable [phone] Encounter Details Date Type Department Care Team (Late st Contact Info) Description 04/02/2021 [facility] [place] Medical Advice [facility] Urology Clinic [address] [address] Song Leach MD [address] [place] [address] Social History Tobacco Use Types Packs/Day [...] PM CDT 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 Gender Identity Male 12/01/2020 9:08 PM [...] documented as of this encounter Care Teams Historian Dramatic Arts Relationship Specialty Start Date End Date Martina Owen PA-C PCP - General Physician University Lecturer 02/11/19 Queta Prater CNP [address] [place] [address] Nurse Practitioner Urology 09/22/20 Yanelis Benavides PA [address] [place] [address] [place], [place] 080485 Assigned Surgical Provider 02/08/21 07/11/21 Song Leach MD [address] [place] [address] Assigned Surgical Provider 07/12/21 12/31/22 Song Leach MD [address] [place] [address] Assigned Surgical Provider 11/20/23 Song Leach MD [address] [place] [address] Urology 05/28/24 documented as of this encounter
--- OUTSIDE RECORDS SUMMARY | 2024-09-09 21:06 | XMS_ITS | Clinical Summary ---
Author Organization [facility] Address [address] [place] [address] Care Team Providers Care Stereo Equipment Salesperson Name Role Phone Trino Jimenez Phys Of Primary Care Provider Un available Allergies Active Allergy Reactions Criticality Noted Date Comments Bee Venom Protein (Honey Bee) Anaphylaxis High 12/24/2019 Egg Derived Anaphylaxis 12/20/2011 Cyclosporine Anaphylaxis 09/27/2006 Cyclosporine Anaphylaxis High 12/24/2019 Egg Anaphylaxis 09/27/2006 Iodine Anaphylaxis High 12/24/2019 Mushroom *Unknown 12/24/2019 Tree Nut Anaphylaxis High 12/24/2019 [place] *Unknown 12/24/2019 Flavor Pear *Unknown 12/24/2019 flavor Shellfish Containing Products Anaphylaxis 09/27/2006 [place] *Unknown 12/24/2019 Unknown-Follow Up Needed (Include Details [...] on file Legal Sex Male 6:53 AM PULLER OUT Gender Identity Not on file Sexual Orientation [...] this topic Medical Devices Implanted Type Area Janitorial Tech Device Identifier Shelf Expiration Date Model / Serial / Lot Plate Cerv Ant 25mm [employer] [id number] - [id number] Implanted:Qty: 1 on 09/28/2006 at [facility] Spine Implants Spine [employer] 976-125# / / Screw 4.0x14mm - [id number] Implanted:Qty: 4 on 09/28/2006 at [facility] Spine Implants Spine [employer]OR [employer] 876-614# / / [id number] José Miguel [id number] [[id number]] Implanted:Qty: 1 on 09/28/2006 at [facility] Explanted:at [facility] (Quantity not on file) Spine [employer] 08/25/2009 [id number]# / [id number] / Insurance [place] [id number] WORKERS COMP Advance Directives * Full Code (Latest Code Status on File) Date Activated Date Inactivated Comments 12/25/2019 7:10 AM 12/25/2019 11:45 AM * Full Code Date Activated Date Inactivated Comments 09/28/2006 2:42 PM 09/29/2006 9:12 PM * Full Code Date Activated Date Inactivated Comments 09/28/2006 8:05 AM 09/28/2006 2:42 PM Care Teams Stereo Equipment Salesperson Relationship Specialty Start Date End Date Trino Jimenez Phys Of PCP - General 07/18/19
--- OUTSIDE RECORDS SUMMARY | 2024-09-09 21:06 | XMS_ITS | CCD ---
Author Name Interface, [id number] lity Address [facility] [address] [place] [address] [facility] Oncology Address [address] [facility] [address] [place] [address] Care Team Providers Care Buttonhole Maker Name Role Phone Reilly Chavez Unavailable Unavailable Reason for Visit Encounters Medications Problems Social History
--- OUTSIDE RECORDS SUMMARY | 2024-09-09 21:06 | XMS_ITS | Encounter Summary ---
Author Organization [facility] Address [address] [place] [address]. [place] [address] Care Team Providers Care Row Boss Hoeing Name Role Phone Martina Owen PA-C Primary Care Provider Queta Prater CNP Unavailable [phone] Yanelis Benavides Unavailable [phone] Song Leach MD Unavailable [phone] Song Leach MD Unavailable [phone] Song Leach MD Unavailable [phone] Reason for Visit * Reason Onset Date Comments Patient Request 03/30/2021 Call Back 03/31/2021 Schedule Surgery for more stones or stent removal Call Back 04/02/2021 Schedule surgery for more stones and stent removal Encounter Details Date Type Department Care Team (Late st Contact Info) Description 03/30/2021 Telephone [facility] [address] [address] Song Leach MD [address] [place] [address] Patient Request; Call Back (Schedule Surgery [...] PM CDT 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 Action Taken: Message routed to: [facility] ([facility]): Uro Travel Screening: Not Applicable * Telephone [...] be doing and schedulingfor that. Dr. Leach's stained glass artist is out of the office, returning 04/02/21 (which the pt isaware of). Please call him to discuss which route he should be doing. Action Taken: Message routed to: [facility] ([facility]): uro Travel Screening: Not Applicable * Telephone Encounter - Deisi Alvarado - 03/30/2021 3:13 PM CDT [facility] Phone Message May a [...] documented as of this encounter Care Teams Row Boss Hoeing Relationship Specialty Start Date End Date Martina Owen PA-C PCP - General Physician Cardiac Tech 02/11/19 Queta Prater CNP [address] [place] [id number] Nurse Practitioner Urology 09/22/20 Yanelis Benavides PA [address] [place] [address] [place] [address] Assigned Surgical Provider 02/08/21 07/11/21 Song Leach MD [address] [place] [address] [id number] Assigned Surgical Provider 07/12/21 12/31/22 Song Leach MD [address] [place] [address] [id number] Assigned Surgical Provider 11/20/23 Song Leach MD [address] [place] [address] Urology 05/28/24 documented as of this encounter
--- OUTSIDE RECORDS SUMMARY | 2024-09-09 21:06 | XMS_ITS | Encounter Summary ---
Author Organization [facility] Address [address] [place] [address]. 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 Gender Identity Male 12/01/2020 9:08 PM CDT [...] documented as of this encounter Care Teams Meat Cutting Block Repairer Relationship Specialty Start Date End Date Martina Owen PA-C PCP - General Physician Cat Scan Tech 02/11/19 Queta Prater CNP [address] [place] [address] [id number] Nurse Practitioner Urology 09/22/20 Yanelis Benavides PA [address] [place] [address] [place], [place] [id number] Assigned Surgical Provider 02/08/21 07/11/21 Song Leach MD [address] [place] [address] [phone] Assigned Surgical Provider 07/12/21 12/31/22 Song Leach MD [address] [place] [id number] Assigned Surgical Provider 11/20/23 Song Leach MD [address] [place] [id number] Urology 05/28/24 documented as of this encounter
--- OUTSIDE RECORDS SUMMARY | 2024-09-09 21:06 | XMS_ITS | Encounter Summary ---
Author Organization [facility] Address [address] [place] [address]. [place] [address] Care Team Providers Care Popcorn Machine Operator Name Role Phone Martina Owen PA-C Primary Care Provider Queta Prater CNP Unavailable [phone] Yanelis Benavides Unavailable [phone] Song Leach MD Unavailable [phone] Song Leach MD Unavailable [phone] Song Leach MD Unavailable [phone] Encounter Details Date Type Department Care Team (Late st Contact Info) Description 02/26/2021 [facility] Surgery [facility] [address] [place] [address] Winnie Sánchez Social History Tobacco [...] PM CDT Legal Sex Male 3:33 AM BRADDER Gender Identity Male 12/01/2020 9:08 PM CDT [...] documented as of this encounter Care Teams Popcorn Machine Operator Relationship Specialty Start Date End Date Martina Owen PA-C PCP - General Physician Documentation Liaison 02/11/19 Queta Prater CNP [address] [place] [id number] Nurse Practitioner Urology 09/22/20 Yanelis Benavides PA [address] [place] [address] [place] [address] Assigned Surgical Provider 02/08/21 07/11/21 Song Leach MD [address] [place] [id number] Assigned Surgical Provider 07/12/21 12/31/22 Song Leach MD [address] [place] [address] Assigned Surgical Provider 11/20/23 Song Leach MD [address] [place] [id number] Urology 05/28/24 documented as of this encounter
== END 2024-09-09 22:55 | disposition home or self-care (01) ==
LOC: ED 21:03
PROVIDERS: Emergency Provider Family Medicine; PCP Emergency Medicine
DX: T18.108A Unspecified foreign body in esophagus causing other injury, initial encounter (principal)
CPT/HCPCS: 99282; 99283

== ENCOUNTER 2025-04-08 15:29 | Outpatient (CLI) | payer OTHER, SELFPAY | END 2025-04-08 15:30 | disposition home or self-care (01) | PROVIDERS: PCP Family Medicine; Visit Provider Physician Assistant Medical | DX: E78.5 Hyperlipidemia, unspecified (principal) | CPT/HCPCS: 80053; 80061 ==

== ENCOUNTER 2025-05-06 14:37 | Outpatient (CLI) | payer OTHER, SELFPAY ==
--- NOTE | 2025-05-15 13:09 | W.PM.SLEEP ---
Sleep Study Details Details Interpreting Provider: Susan Date of Sleep Study: 05/06/25 Sleep Study Details: STUDY TYPE:? Home unattended ? BMI:? 33.63 ORDERING PROVIDER:? Susan INDICATION:? Concern for sleep apnea ? SLEEP SUMMARY:? Monitor time 433 minutes RESPIRATORY SUMMARY:? AHI 41.8 Low oxygen 80 19.4% of study oxygen less than 90% Snoring 95.7% PERIODIC LIMB MOVEMENTS OF SLEEP:? Not recorded CARDIAC:? Range 42-86, mean 57.8 beats per minute IMPRESSION:? Severe obstructive sleep apnea RECOMMENDATION: Treatment options include AutoSet CPAP or in-lab titration. Patient may end up requiring a bilevel or BiPAP machine.
== END 2025-05-06 14:38 | disposition home or self-care (01) ==
LOC: SLEEP 14:40
PROVIDERS: PCP Physician Assistant Medical; Visit Provider Otolaryngology
DX: G47.33 Obstructive sleep apnea (adult) (pediatric) (principal)
CPT/HCPCS: 95806